=== PATIENT | female | born 1945 | race Caucasian/White ===

== ENCOUNTER 2017-01-15 17:17 | Emergency (ER) | payer MEDICARE ==
[2016-08-12 14:10] VITALS: BP 110/56
== END 2017-01-15 17:37 | disposition left against medical advice (07) ==
LOC: ER 17:17
DX: Z48.01 Encounter for change or removal of surgical wound dressing (principal); Z53.21 Procedure and treatment not carried out due to patient leaving prior to being seen by health care provider

== ENCOUNTER 2017-03-14 16:15 | Emergency (ER) | payer MEDICARE ==
[2017-03-14] MEDS ORDERED: LIDOCAINE 1%/EPI 1:100,000 20 ML VIAL. INJ ONE (16:30)
[2017-03-14] MEDS ORDERED: DIPHTH,PERTUSS(ACELL),TET TOX 0.5 ML DISP.SYRIN. VAX IM ONE (16:30)
[2017-03-14 16:41] VITALS: BP 151/89
--- NOTE | 2017-03-14 17:40 | RAD ---
INDICATION: pain s/p fall COMPARISON: None. TECHNIQUE: Axial CT images obtained through the head and cervical spine without intravenous contrast. Coronal and sagittal reformats processed of cervical spine. One or more of the following individualized dose reduction techniques were utilized for this examination: 1. Automated exposure control; 2. Adjustment of the mA and/or kV according to patient size; 3. Use of iterative reconstruction technique. FINDINGS: Head: No intracranial hemorrhage. No midline shift. Basal cisterns patents. Ventricles and sulci are within normal limits. No acute osseous abnormality. Orbits and paranasal sinuses unremarkable. Cervical: No definite acute fracture. No significant malalignment. No evidence of perivertebral hematoma. IMPRESSION: No acute intracranial hemorrhage. Large left posterior scalp cephalohematoma. Scattered foci of low attenuation within the white matter. Nonspecific but can be seen with chronic small vessel ischemic disease. No definite acute fracture or dislocation of the cervical spine. Degenerative changes spine. There are some calcifications in the thyroid bilaterally. Electronically signed by: Kofi Carvajal MD (03/14/2017 5:37 PM)
--- NOTE | 2017-03-14 17:43 | PHYS DOC ---
Past Medical History Past Medical History: A-Fib, Constipation, Hypertension, Other Additional Past Medical Histor: morbid obesity, poor wound healing, chronic pain, narcotic dependency Past Surgical History: Cholecystectomy, Hysterectomy, Tonsillectomy, Other Additional Past Surgical Histo: traumatic L grt toe amputation, Alcohol Use: None Drug Use: None Adult General Chief Complaint Chief Complaint: MECHANICAL FALL HPI HPI Patient is a 71 year old female presenting emergency department for evaluation of head injury status post losing her footing and falling backwards and striking her left parietal area. She denies any loss of consciousness but does have headache with some neck pain but no vision change unilateral weakness numbness or tingling. She says her tetanus status is uncertain so her tetanus was updated here. His any chest abdomen back or extremity pain. She is in no obvious distress with normal vital signs. Review of Systems Review of Systems Constitutional: Denies fever or chills [] Eyes: Denies change in visual acuity, redness, or eye pain [] HENT: Denies nasal congestion or sore throat [] Respiratory: Denies cough or shortness of breath [] Cardiovascular: No additional information not addressed in HPI [] GI: Denies abdominal pain, nausea, vomiting, bloody stools or diarrhea [] : Denies dysuria or hematuria [] Musculoskeletal: Denies back pain or joint pain [] Integument: Denies rash or skin lesions [] Neurologic: + headache Current Medications Current Medications Current Medications Medications (Trade) Dose Ordered Sig/Franki Start Time Stop Time Status Last Admin Dose Admin Diphtheria/ Tetanus/Acell Pertussis (Boostrix) 0.5 ml ONCE ONCE 03/14/17 16:30 03/14/17 16:31 DC Lidocaine/ Epinephrine (Xylocaine 1%-Epi 1:100,000) 20 ml 1X ONCE 03/14/17 16:30 03/14/17 16:31 DC Allergies Allergies Allergies Coded Allergies Type Severity Reaction Last Updated Verified digoxin Allergy Unknown 04/24/15 No shellfish derived Allergy Unknown 04/24/15 No Physical Exam Physical Exam Constitutional: Well developed, well nourished, no acute distress, non-toxic appearance. [] HENT: Normocephalic, large left posterior parietal contusion with overlying abrasion in no obvious laceration seen, bilateral external ears normal, oropharynx moist, no oral exudates, nose normal. [] Eyes: PERRLA, EOMI, conjunctiva normal, no discharge. [] Neck: Normal range of motion, no tenderness, supple, no stridor. [] Cardiovascular:Heart rate regular rhythm, no murmur [] Lungs & Thorax: Bilateral breath sounds clear to auscultation [] Abdomen: Bowel sounds normal, soft, no tenderness, no masses, no pulsatile masses. [] Skin: Warm, dry, no erythema, no rash. [] Back: No tenderness, no CVA tenderness. [] Extremities: No tenderness, no cyanosis, no clubbing, ROM intact, no edema. [] Neurologic: Alert and oriented X 3, normal motor function, normal sensory function, no focal deficits noted. [] Current Patient Data Vital Signs Vital Signs Date Time Temp Pulse Resp B/P (MAP) Pulse Ox O2 Delivery O2 Flow Rate FiO2 03/14/17 16:15 98.8 91 17 170/66 (100) 90 Room Air 98.8 EKG EKG [] Radiology/Procedures Radiology/Procedures INDICATION: pain s/p fall COMPARISON: None. TECHNIQUE: Axial CT images obtained through the head and cervical spine without intravenous contrast. Coronal and sagittal reformats processed of cervical spine. One or more of the following individualized dose reduction techniques were utilized for this examination: 1. Automated exposure control; 2. Adjustment of the mA and/or kV according to patient size; 3. Use of iterative reconstruction technique. FINDINGS: Head: No intracranial hemorrhage. No midline shift. Basal cisterns patents. Ventricles and sulci are within normal limits. No acute osseous abnormality. Orbits and paranasal sinuses unremarkable. Cervical: No definite acute fracture. No significant malalignment. No evidence of perivertebral hematoma. IMPRESSION: No acute intracranial hemorrhage. Large left posterior scalp cephalohematoma. Scattered foci of low attenuation within the white matter. Nonspecific but can be seen with chronic small vessel ischemic disease. No definite acute fracture or dislocation of the cervical spine. Degenerative changes spine. There are some calcifications in the thyroid bilaterally. Electronically signed by: Wendy Carvajal MD (03/14/2017 5:37 PM) DICTATED and SIGNED BY: WENDY CARVAJAL MD DATE: 03/14/17 8682 Course & Med Decision Making Course & Med Decision Making Patient with contusion an overlying abrasion and no active bleeding. Given her head CT is negative we'll go ahead and discharged with concussion protocol and told to come back to the ER sooner with any worsening pain bleeding or general concerns. Patient and son aware and agreeable with plan. Dragon Disclaimer Dragon Disclaimer This electronic medical record was generated, in whole or in part, using a voice recognition dictation system. Departure Departure Impression: Primary Impression: CHI (closed head injury) Additional Impressions: Scalp contusion Scalp abrasion Disposition: HOME, SELF-CARE Condition: GOOD Referrals: SALVATORE HYDE MD (PCP) Patient Instructions: Concussion and Brain Injury, Scalp Hematoma Problem Qualifiers Primary Impression: CHI (closed head injury) Encounter type: initial encounter Qualified Codes: S09.90XA - Unspecified injury of head, initial encounter CHRISTINA GILMORE DO Mar 14, 2017 17:43
== END 2017-03-14 19:00 | disposition home or self-care (01) ==
LOC: ER 16:15
DX: S00.03XA Contusion of scalp, initial encounter (principal); S00.01XA Abrasion of scalp, initial encounter; I48.91 Unspecified atrial fibrillation; I10 Essential (primary) hypertension; E66.01 Morbid (severe) obesity due to excess calories; G89.29 Other chronic pain; Z90.49 Acquired absence of other specified parts of digestive tract; Z90.710 Acquired absence of both cervix and uterus; Z89.412 Acquired absence of left great toe; Z88.8 Allergy status to other drugs, medicaments and biological substances; Z91.013 Allergy to seafood; W01.198A Fall on same level from slipping, tripping and stumbling with subsequent striking against other object, initial encounter; Y93.89 Activity, other specified; Y92.89 Other specified places as the place of occurrence of the external cause; Y99.8 Other external cause status
CPT/HCPCS: 70450; 72125; 90471; 90715; 99284-25

== ENCOUNTER 2017-11-19 15:05 | Emergency (ER) | payer MEDICARE ==
[2017-11-19] MEDS ORDERED: chlordiazePOXIDE HCL 25 MG CAPSULE PO ×2 (18:30)
== END 2017-11-19 18:23 | disposition home or self-care (01) ==
LOC: ER 15:05
DX: T80.211A Bloodstream infection due to central venous catheter, initial encounter (principal); G89.29 Other chronic pain; I10 Essential (primary) hypertension; I48.91 Unspecified atrial fibrillation; E66.01 Morbid (severe) obesity due to excess calories; Z88.8 Allergy status to other drugs, medicaments and biological substances; Z91.041 Radiographic dye allergy status; Z91.013 Allergy to seafood; Z95.9 Presence of cardiac and vascular implant and graft, unspecified; Z68.41 Body mass index [BMI] 40.0-44.9, adult; Y82.8 Other medical devices associated with adverse incidents; Y92.89 Other specified places as the place of occurrence of the external cause
CPT/HCPCS: 99283

== ENCOUNTER → 2017-11-20 | Outpatient (CLI) | payer MEDICARE | END | disposition home or self-care (01) | LOC: PMGWOUND 11:58 | DX: T87.89 Other complications of amputation stump (principal); I87.2 Venous insufficiency (chronic) (peripheral); L97.521 Non-pressure chronic ulcer of other part of left foot limited to breakdown of skin; I48.91 Unspecified atrial fibrillation; M86.8X7 Other osteomyelitis, ankle and foot; K21.9 Gastro-esophageal reflux disease without esophagitis; F11.20 Opioid dependence, uncomplicated; J45.901 Unspecified asthma with (acute) exacerbation; I27.20 Pulmonary hypertension, unspecified; Z96.642 Presence of left artificial hip joint; I73.9 Peripheral vascular disease, unspecified; E66.01 Morbid (severe) obesity due to excess calories; F32.9 Major depressive disorder, single episode, unspecified; I11.0 Hypertensive heart disease with heart failure; G89.4 Chronic pain syndrome; F41.9 Anxiety disorder, unspecified; I50.33 Acute on chronic diastolic (congestive) heart failure; E78.5 Hyperlipidemia, unspecified; Z68.41 Body mass index [BMI] 40.0-44.9, adult; Z90.710 Acquired absence of both cervix and uterus; Z89.412 Acquired absence of left great toe; Y83.5 Amputation of limb(s) as the cause of abnormal reaction of the patient, or of later complication, without mention of misadventure at the time of the procedure | CPT/HCPCS: 97605 ==

== ENCOUNTER → 2017-11-24 | Outpatient (CLI) | payer MEDICARE ==
[~2017-11-24] MED LIST: HEPARIN for IV BOLUS 10,000 UNIT/10 ML VIAL.; LIDOCAINE 2%/EPI 1:100,000 20 ML VIAL.; LIDOCAINE WITH 8.4% SOD BICARB 3 ML DISP.SYRIN.
[2017-11-24] MEDS: LIDOCAINE WITH 8.4% SOD BICARB 3 ML DISP.SYRIN. IJ ×4 (09:49→10:02)
== END | disposition home or self-care (01) ==
LOC: INTRAD 09:01
DX: T82.594A Other mechanical complication of infusion catheter, initial encounter (principal); Y84.8 Other medical procedures as the cause of abnormal reaction of the patient, or of later complication, without mention of misadventure at the time of the procedure; Y92.89 Other specified places as the place of occurrence of the external cause; I10 Essential (primary) hypertension; J45.909 Unspecified asthma, uncomplicated; Z90.49 Acquired absence of other specified parts of digestive tract; Z88.8 Allergy status to other drugs, medicaments and biological substances; Z91.041 Radiographic dye allergy status; Z91.013 Allergy to seafood
CPT/HCPCS: 36584; 77001; C1751

== ENCOUNTER → 2017-12-01 | Outpatient (CLI) | payer MEDICARE | END | disposition home or self-care (01) | LOC: PMGWOUND 11:52 | DX: T87.89 Other complications of amputation stump (principal); I87.2 Venous insufficiency (chronic) (peripheral); L97.521 Non-pressure chronic ulcer of other part of left foot limited to breakdown of skin; M86.8X7 Other osteomyelitis, ankle and foot; K21.9 Gastro-esophageal reflux disease without esophagitis; F11.20 Opioid dependence, uncomplicated; I27.20 Pulmonary hypertension, unspecified; I73.9 Peripheral vascular disease, unspecified; E66.01 Morbid (severe) obesity due to excess calories; F32.9 Major depressive disorder, single episode, unspecified; I11.0 Hypertensive heart disease with heart failure; G89.4 Chronic pain syndrome; J44.1 Chronic obstructive pulmonary disease with (acute) exacerbation; F41.9 Anxiety disorder, unspecified; I48.2 Chronic atrial fibrillation; I50.33 Acute on chronic diastolic (congestive) heart failure; E78.5 Hyperlipidemia, unspecified; Z68.41 Body mass index [BMI] 40.0-44.9, adult; Z90.710 Acquired absence of both cervix and uterus; Z96.642 Presence of left artificial hip joint; Z95.9 Presence of cardiac and vascular implant and graft, unspecified; Z89.412 Acquired absence of left great toe; Y83.5 Amputation of limb(s) as the cause of abnormal reaction of the patient, or of later complication, without mention of misadventure at the time of the procedure | CPT/HCPCS: 11042 ==

== ENCOUNTER → 2017-12-08 | Outpatient (CLI) | payer MEDICARE | END | disposition home or self-care (01) | LOC: PMGWOUND 11:53 | DX: T87.89 Other complications of amputation stump (principal); I87.2 Venous insufficiency (chronic) (peripheral); M86.8X7 Other osteomyelitis, ankle and foot; K21.9 Gastro-esophageal reflux disease without esophagitis; F11.20 Opioid dependence, uncomplicated; I27.20 Pulmonary hypertension, unspecified; I73.9 Peripheral vascular disease, unspecified; E66.01 Morbid (severe) obesity due to excess calories; F32.9 Major depressive disorder, single episode, unspecified; I11.0 Hypertensive heart disease with heart failure; I50.33 Acute on chronic diastolic (congestive) heart failure; G89.4 Chronic pain syndrome; J44.1 Chronic obstructive pulmonary disease with (acute) exacerbation; F41.9 Anxiety disorder, unspecified; I48.2 Chronic atrial fibrillation; E78.5 Hyperlipidemia, unspecified; Z68.41 Body mass index [BMI] 40.0-44.9, adult; Z90.710 Acquired absence of both cervix and uterus; Z96.642 Presence of left artificial hip joint; Z95.9 Presence of cardiac and vascular implant and graft, unspecified; Z89.412 Acquired absence of left great toe; Y83.5 Amputation of limb(s) as the cause of abnormal reaction of the patient, or of later complication, without mention of misadventure at the time of the procedure; Z79.01 Long term (current) use of anticoagulants | CPT/HCPCS: 11042 ==

== ENCOUNTER → 2017-12-15 | Outpatient (CLI) | payer MEDICARE | END | disposition home or self-care (01) | LOC: PMGWOUND 11:14 | DX: T87.89 Other complications of amputation stump (principal); I87.2 Venous insufficiency (chronic) (peripheral); L97.521 Non-pressure chronic ulcer of other part of left foot limited to breakdown of skin; M86.8X7 Other osteomyelitis, ankle and foot; K21.9 Gastro-esophageal reflux disease without esophagitis; F11.20 Opioid dependence, uncomplicated; I27.20 Pulmonary hypertension, unspecified; I73.9 Peripheral vascular disease, unspecified; E66.01 Morbid (severe) obesity due to excess calories; F32.9 Major depressive disorder, single episode, unspecified; I11.0 Hypertensive heart disease with heart failure; I50.33 Acute on chronic diastolic (congestive) heart failure; G89.4 Chronic pain syndrome; J44.1 Chronic obstructive pulmonary disease with (acute) exacerbation; F41.9 Anxiety disorder, unspecified; I48.2 Chronic atrial fibrillation; E78.5 Hyperlipidemia, unspecified; Z68.41 Body mass index [BMI] 40.0-44.9, adult; Z90.710 Acquired absence of both cervix and uterus; Z96.642 Presence of left artificial hip joint; Z95.9 Presence of cardiac and vascular implant and graft, unspecified; Z89.412 Acquired absence of left great toe; Z79.01 Long term (current) use of anticoagulants; F17.290 Nicotine dependence, other tobacco product, uncomplicated; Y83.5 Amputation of limb(s) as the cause of abnormal reaction of the patient, or of later complication, without mention of misadventure at the time of the procedure | CPT/HCPCS: 99213 ==

== ENCOUNTER → 2017-12-22 | Outpatient (CLI) | payer MEDICARE | END | disposition home or self-care (01) | LOC: PMGWOUND 12:59 | DX: T87.89 Other complications of amputation stump (principal); M86.8X7 Other osteomyelitis, ankle and foot; K21.9 Gastro-esophageal reflux disease without esophagitis; F11.20 Opioid dependence, uncomplicated; I27.20 Pulmonary hypertension, unspecified; I73.9 Peripheral vascular disease, unspecified; E66.01 Morbid (severe) obesity due to excess calories; F32.9 Major depressive disorder, single episode, unspecified; I11.0 Hypertensive heart disease with heart failure; I50.33 Acute on chronic diastolic (congestive) heart failure; G89.4 Chronic pain syndrome; J44.1 Chronic obstructive pulmonary disease with (acute) exacerbation; F41.9 Anxiety disorder, unspecified; I48.2 Chronic atrial fibrillation; E78.5 Hyperlipidemia, unspecified; Z68.41 Body mass index [BMI] 40.0-44.9, adult; Z90.710 Acquired absence of both cervix and uterus; Z96.642 Presence of left artificial hip joint; Z95.9 Presence of cardiac and vascular implant and graft, unspecified; Z89.412 Acquired absence of left great toe; Z79.01 Long term (current) use of anticoagulants; F17.290 Nicotine dependence, other tobacco product, uncomplicated; Y83.5 Amputation of limb(s) as the cause of abnormal reaction of the patient, or of later complication, without mention of misadventure at the time of the procedure | CPT/HCPCS: 99214 ==

== ENCOUNTER 2018-05-27 17:26 | Emergency (ER) | payer MEDICARE ==
[~2018-05-27] VITALS: Ht 180.3 cm; Wt 132.4 kg
[~2018-05-27 17:26] MED LIST changes: +ALBU2.5V5 NEB; +ALPR0.5T6 PO; +ASCO500T2 PO; +ASPI-482 PO; +ASPI325T11 PO; +BENZ1LOZ4 PO; +CETI10TA16 PO; +DIPH25CA58 PO; +DOCU100C28 PO; +FAMO20TA5 PO; +FLUT16SP NS; +FURO40TA4 PO; +GUAI600T47 PO; -HEPARIN for IV BOLUS 10,000 UNIT/10 ML VIAL.; +HYDR25TA9 PO; +IBUP-1027 PO; +IBUP-985 PO; +LACT1CAP19 PO; -LIDOCAINE 2%/EPI 1:100,000 20 ML VIAL.; -LIDOCAINE WITH 8.4% SOD BICARB 3 ML DISP.SYRIN.; +LISI1TAB3 PO; +METH10TA2 PO; +METO50TA6 PO; +MULT1TAB52 PO; +NYST60PO TP; +OXYC-328 PO; +PIPE3.3734 IVP; +POTA10TA12 PO; +SIME80TA14 PO; +TIZA4CAP PO; +VANC1VIA3 MC; +WARF2TAB96 PO; +WARF3TAB54 PO
[2018-05-27 19:08] VITALS: BP 138/72
[2018-05-27] MEDS ORDERED: HYDROcodone/APAP 5/325MG 1 TAB TABLET PO ONE (19:30)
[2018-05-27] MEDS ORDERED: HYDR-971 PO (19:55)
--- NOTE | 2018-05-27 19:56 | PHYS DOC ---
Past Medical History Past Medical History: A-Fib, Constipation, Hypertension, Other Additional Past Medical Histor: morbid obesity, poor wound healing, chronic pain, narcotic dependency Past Surgical History: Cholecystectomy, Hysterectomy, Tonsillectomy, Other Additional Past Surgical Histo: traumatic L grt toe amputation, Alcohol Use: None Drug Use: None Adult General Chief Complaint Chief Complaint: MECHANICAL FALL HPI HPI Patient is a 72 year old female presents to the ED complaining of pain status post slip and fall 3 hours ago. Patient states that she was transferring from her wheelchair to her bed and accidentally slid down the wheelchair onto the floor. States she had been taking hydrocodone at home but is out. Requesting prescription for pain medication to help her. States that she just slid to the ground and did not slam or fall to the ground during the transfer. States she has done this before. Denies head/neck injury, LOC, vision changes, symptoms prior to fall, nausea/vomiting, fever, weakness, dizziness or use of blood thinners. Review of Systems Review of Systems Constitutional: Denies fever or chills [] Eyes: Denies change in visual acuity, redness, or eye pain [] HENT: Denies nasal congestion or sore throat [] Respiratory: Denies cough or shortness of breath [] Cardiovascular: No additional information not addressed in HPI [] GI: Denies abdominal pain, nausea, vomiting, bloody stools or diarrhea [] : Denies dysuria or hematuria [] Musculoskeletal: Complains of hip pain. Denies back pain. Integument: Denies rash or skin lesions [] Neurologic: Denies headache, focal weakness or sensory changes [] All other systems were reviewed and found to be within normal limits, except as documented in this note. Current Medications Current Medications Current Medications Medications (Trade) Dose Ordered Sig/Franki Start Time Stop Time Status Last Admin Dose Admin Acetaminophen/ Hydrocodone Bitart (Lortab 5/325) 1 tab 1X ONCE 05/27/18 19:30 05/27/18 19:32 DC 05/27/18 20:01 1 TAB Allergies Allergies Allergies Coded Allergies Type Severity Reaction Last Updated Verified shellfish derived Allergy Severe 10/23/17 Yes Iodinated Contrast- Oral and IV Dye Allergy Intermediate 10/23/17 Yes digoxin Allergy Intermediate 10/23/17 Yes Physical Exam Physical Exam Constitutional: Well developed, well nourished, no acute distress, non-toxic appearance. [] HENT: Normocephalic, atraumatic Neck: Normal range of motion, no tenderness, supple, no stridor. [] Cardiovascular:Heart rate regular rhythm, no murmur [] Lungs & Thorax: Bilateral breath sounds clear to auscultation [] Abdomen: Bowel sounds normal, soft, no tenderness, no masses, no pulsatile masses. [] Skin: Warm, dry, no erythema, no rash. [] Back: No tenderness, no CVA tenderness. [] Extremities: No bony tenderness, no cyanosis, no clubbing, ROM intact, no edema. [] Neurologic: Alert and oriented X 3, normal motor function, normal sensory function, no focal deficits noted. [] Psychologic: Affect normal, judgement normal, mood normal. [] Current Patient Data Vital Signs Vital Signs Date Time Temp Pulse Resp B/P (MAP) Pulse Ox O2 Delivery O2 Flow Rate FiO2 05/27/18 20:01 98 Room Air 05/27/18 19:08 98.8 97 20 138/72 (94) 98.8 EKG EKG [] Radiology/Procedures Radiology/Procedures [] Course & Med Decision Making Course & Med Decision Making Pertinent Labs and Imaging studies reviewed. (See chart for details) []Normal exam. No bony tenderness. Patient able to stand up and walk per her normal. Family at bedside. Will prescribe 3 days of patient's pain medication. Discussed follow-up with PCP this week. Provided contact information/education. Discussed reasons to return to the ED. Patient understands and agrees with plan. Family at bedside. Dragon Disclaimer Dragon Disclaimer This electronic medical record was generated, in whole or in part, using a voice recognition dictation system. Departure Departure Impression: Primary Impression: Hip pain Disposition: HOME, SELF-CARE Condition: IMPROVED Referrals: SALVATORE HYDE MD (PCP) Patient Instructions: Hip Pain Scripts Hydrocodone/Apap 5-325 (NORCO 5-325 TABLET) 1 Each Tablet 1 TAB PO BID for 3 Days, #6 TAB Prov: VANGIE RASCON 05/27/18 VANGIE RASCON May 27, 2018 19:55
== END 2018-05-27 20:01 | disposition home or self-care (01) ==
LOC: ER 17:26
DX: M25.552 Pain in left hip (principal); M25.551 Pain in right hip; I48.91 Unspecified atrial fibrillation; I10 Essential (primary) hypertension; G89.29 Other chronic pain; Z90.49 Acquired absence of other specified parts of digestive tract; Z90.710 Acquired absence of both cervix and uterus; F11.20 Opioid dependence, uncomplicated; Z88.8 Allergy status to other drugs, medicaments and biological substances; Z91.041 Radiographic dye allergy status; Z91.013 Allergy to seafood; W05.0XXA Fall from non-moving wheelchair, initial encounter; Y93.89 Activity, other specified; Y92.89 Other specified places as the place of occurrence of the external cause; Y99.8 Other external cause status
CPT/HCPCS: 99284

== ENCOUNTER 2018-06-05 23:26 | Emergency (ER) | payer MEDICARE ==
[~2018-06-05] VITALS: Ht 180.3 cm; Wt 113.4 kg
[~2018-06-05 23:26] MED LIST changes: +HYDR-971 PO
[2018-06-05 23:37] VITALS: BP 168/88
[2018-06-05] MEDS ORDERED: HYDROcodone/APAP 5/325MG 1 TAB TABLET PO ONE (23:55)
[2018-06-06] MEDS ORDERED: SULF1TAB24 PO (00:11)
--- NOTE | 2018-06-06 00:11 | PHYS DOC ---
Past Medical History Past Medical History: A-Fib, Constipation, Hypertension, Other Additional Past Medical Histor: morbid obesity, poor wound healing, chronic pain, narcotic dependency Past Surgical History: Cholecystectomy, Hysterectomy, Tonsillectomy, Other Additional Past Surgical Histo: traumatic L grt toe amputation, Alcohol Use: None Drug Use: None Adult General Chief Complaint Chief Complaint: LOWER EXT PAIN HPI HPI Patient is a 72-year-old female who presents with report of ulceration to her right foot. Patient has been seeing wound care and when her sister came to change her dressing, she noted that skin had turned white in color and was concerned about infection. Patient does indicate that she has a lot of pain associated with the wound on her foot. She denies any fever. She states the pain in her foot is worsened with weightbearing and with palpation. Review of Systems Review of Systems Constitutional: Denies fever or chills [] Respiratory: Denies cough or shortness of breath [] Musculoskeletal: Complains of right foot pain[] Integument: Ulceration to medial aspect of right foot[] All other systems were reviewed and found to be within normal limits, except as documented in this note. Current Medications Current Medications Current Medications Medications (Trade) Dose Ordered Sig/Franki Start Time Stop Time Status Last Admin Dose Admin Acetaminophen/ Hydrocodone Bitart (Lortab 5/325) 1 tab 1X ONCE 06/05/18 23:55 06/05/18 23:59 DC Allergies Allergies Allergies Coded Allergies Type Severity Reaction Last Updated Verified shellfish derived Allergy Severe 10/23/17 Yes Iodinated Contrast- Oral and IV Dye Allergy Intermediate 10/23/17 Yes digoxin Allergy Intermediate 10/23/17 Yes Physical Exam Physical Exam Constitutional: Well developed, well nourished, no acute distress, non-toxic appearance. [] Neck: Normal range of motion, no tenderness, supple, no stridor. [] Cardiovascular:Heart rate regular rhythm, no murmur [] Lungs & Thorax: Bilateral breath sounds clear to auscultation [] Skin: Right foot demonstrates ulceration to the medial aspect around the metatarsophalangeal joint, medially. There is no surrounding erythema or other signs of infection. [] Current Patient Data Vital Signs Vital Signs Date Time Temp Pulse Resp B/P (MAP) Pulse Ox O2 Delivery O2 Flow Rate FiO2 06/05/18 23:37 98.3 86 20 168/88 (114) 98 Room Air 98.3 EKG EKG [] Radiology/Procedures Radiology/Procedures [] Course & Med Decision Making Course & Med Decision Making Pertinent Labs and Imaging studies reviewed. (See chart for details) [] Dragon Disclaimer Dragon Disclaimer This electronic medical record was generated, in whole or in part, using a voice recognition dictation system. Departure Departure Impression: Primary Impression: Foot ulcer, right Disposition: HOME, SELF-CARE Condition: STABLE Referrals: SALVATORE HYDE MD (PCP) Patient Instructions: Skin Ulcer Additional Instructions: Follow-up with your primary care provider in the next few days. Take antibiotic as directed. Scripts Sulfamethoxazole/Trimethoprim (BACTRIM DS TABLET) 1 Each Tablet 1 TAB PO BID, #20 TAB Prov: ERNIE WILLIAMSON Jr. DO 06/06/18 Problem Qualifiers Primary Impression: Foot ulcer, right Non-pressure ulcer stage: unspecified non-pressure ulcer stage Qualified Codes: L97.519 - Non-pressure chronic ulcer of other part of right foot with unspecified severity ERNIE WILLIAMSON Jr. DO Jun 06, 2018 00:11
[2018-06-06] MEDS ORDERED: TRAM50TA PO (00:14)
== END 2018-06-06 00:23 | disposition home or self-care (01) ==
LOC: ER 23:26
DX: L97.519 Non-pressure chronic ulcer of other part of right foot with unspecified severity (principal); I10 Essential (primary) hypertension; I48.91 Unspecified atrial fibrillation; G89.29 Other chronic pain; Z89.422 Acquired absence of other left toe(s); F11.20 Opioid dependence, uncomplicated; Z88.8 Allergy status to other drugs, medicaments and biological substances; Z91.041 Radiographic dye allergy status; Z91.013 Allergy to seafood
CPT/HCPCS: 99283

== ENCOUNTER → 2018-06-11 | Outpatient (CLI) | payer MEDICARE ==
[2018-06-05 23:37] VITALS: BP 168/88
[~2018-06-11] MED LIST changes: +SULF1TAB24 PO; +TRAM50TA PO
== END | disposition home or self-care (01) ==
LOC: PMGWOUND 13:14
PROVIDERS: ATTEND Emergency Medicine Undersea and Hyperbaric Medicine
DX: L89.212 Pressure ulcer of right hip, stage 2 (principal); L89.893 Pressure ulcer of other site, stage 3; I10 Essential (primary) hypertension; K21.9 Gastro-esophageal reflux disease without esophagitis; F11.20 Opioid dependence, uncomplicated; I48.91 Unspecified atrial fibrillation; M86.172 Other acute osteomyelitis, left ankle and foot; E66.9 Obesity, unspecified; Z68.34 Body mass index [BMI] 34.0-34.9, adult; Z89.422 Acquired absence of other left toe(s); Z90.710 Acquired absence of both cervix and uterus; Z90.49 Acquired absence of other specified parts of digestive tract; Z91.041 Radiographic dye allergy status; Z88.2 Allergy status to sulfonamides; Z88.8 Allergy status to other drugs, medicaments and biological substances
CPT/HCPCS: 11042

== ENCOUNTER → 2018-06-18 | Outpatient (CLI) | payer MEDICARE ==
[2018-06-05 23:37] VITALS: BP 168/88
== END | disposition home or self-care (01) ==
LOC: PMGWOUND 12:17
PROVIDERS: ATTEND Emergency Medicine Undersea and Hyperbaric Medicine
DX: L89.893 Pressure ulcer of other site, stage 3 (principal); L89.613 Pressure ulcer of right heel, stage 3; L89.312 Pressure ulcer of right buttock, stage 2; I10 Essential (primary) hypertension; F11.20 Opioid dependence, uncomplicated; I48.91 Unspecified atrial fibrillation; M86.172 Other acute osteomyelitis, left ankle and foot; K21.9 Gastro-esophageal reflux disease without esophagitis; G89.29 Other chronic pain; E66.9 Obesity, unspecified; Z68.34 Body mass index [BMI] 34.0-34.9, adult; Z90.710 Acquired absence of both cervix and uterus; Z90.49 Acquired absence of other specified parts of digestive tract; Z88.8 Allergy status to other drugs, medicaments and biological substances
CPT/HCPCS: 11042; 99214; G0463

== ENCOUNTER 2018-07-08 17:49 | Emergency (ER) | payer MEDICARE ==
[~2018-07-08] VITALS: Ht 175.3 cm; Wt 99.8 kg
[2018-07-08 18:19] VITALS: BP 139/63
[2018-07-08] MEDS ORDERED: OXYC1TAB7 PO (18:30)
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
== END 2018-07-08 18:46 | disposition home or self-care (01) ==
LOC: ER 17:49
DX: G89.29 Other chronic pain (principal); M25.552 Pain in left hip; F11.20 Opioid dependence, uncomplicated; E66.01 Morbid (severe) obesity due to excess calories; Z68.32 Body mass index [BMI] 32.0-32.9, adult; Z88.8 Allergy status to other drugs, medicaments and biological substances; Z91.041 Radiographic dye allergy status; Z91.013 Allergy to seafood
CPT/HCPCS: 99283

== ENCOUNTER → 2018-07-13 | Outpatient (CLI) | payer MEDICARE ==
[2018-07-08 18:19] VITALS: BP 139/63
[~2018-07-13] MED LIST changes: +OXYC1TAB7 PO
== END | disposition home or self-care (01) ==
LOC: PMGWOUND 12:29
PROVIDERS: ATTEND Emergency Medicine Undersea and Hyperbaric Medicine
DX: L89.893 Pressure ulcer of other site, stage 3 (principal); L89.312 Pressure ulcer of right buttock, stage 2; L84 Corns and callosities; I10 Essential (primary) hypertension; F17.200 Nicotine dependence, unspecified, uncomplicated; I48.91 Unspecified atrial fibrillation; G89.29 Other chronic pain; M86.172 Other acute osteomyelitis, left ankle and foot; K21.9 Gastro-esophageal reflux disease without esophagitis; E66.01 Morbid (severe) obesity due to excess calories; Z68.34 Body mass index [BMI] 34.0-34.9, adult; Z90.49 Acquired absence of other specified parts of digestive tract; Z90.710 Acquired absence of both cervix and uterus
CPT/HCPCS: 11042

== ENCOUNTER 2018-08-06 14:30 | Emergency (ER) | payer MEDICARE ==
[~2018-08-06] VITALS: Ht 165.1 cm; Wt 99.8 kg
[2018-08-06 14:50] VITALS: BP 135/63
[2018-08-06] MEDS ORDERED: NAPROXEN 500 MG TABLET PO STA (15:08)
--- NOTE | 2018-08-06 15:11 | PHYS DOC ---
Past Medical History Past Medical History: No Pertinent History Additional Past Medical Histor: morbid obesity, poor wound healing, chronic pain, narcotic dependency Past Surgical History: Cholecystectomy, Hysterectomy, Tonsillectomy, Other Additional Past Surgical Histo: traumatic L grt toe amputation, Alcohol Use: None Drug Use: None Adult General Chief Complaint Chief Complaint: HIP PAIN HPI HPI Patient is a 72 year old female who presents with 10/10 chronic left hip pain. Patient states she ran out of her pain medications. She states she has an appointment with her PCP in a couple days. Patient denies any known injury. Review of Systems Review of Systems Constitutional: Denies fever or chills [] Musculoskeletal: Reports chronic left hip pain. Integument: Denies rash or skin lesions [] Neurologic: Denies headache, focal weakness or sensory changes [] All other systems were reviewed and found to be within normal limits, except as documented in this note. Current Medications Current Medications Current Medications Medications (Trade) Dose Ordered Sig/Franki Start Time Stop Time Status Last Admin Dose Admin Cyclobenzaprine HCl (Flexeril) 10 mg 1X ONCE 08/06/18 15:15 08/06/18 15:16 Naproxen (Naprosyn) 500 mg 1X STAT 08/06/18 15:08 08/06/18 15:12 DC Oxycodone/ Acetaminophen (Percocet 5/325) 2 tab 1X ONCE 08/06/18 15:15 08/06/18 15:16 Allergies Allergies Allergies Coded Allergies Type Severity Reaction Last Updated Verified shellfish derived Allergy Severe 10/23/17 Yes Iodinated Contrast- Oral and IV Dye Allergy Intermediate 10/23/17 Yes digoxin Allergy Intermediate 10/23/17 Yes Physical Exam Physical Exam Constitutional: Well developed, well nourished, no acute distress, non-toxic appearance. [] Skin: Warm, dry, no erythema, no rash. [] Back: No tenderness, no CVA tenderness. [] Extremities: Left hip exam deferred, patient is wheelchair-bound.[] Neurologic: Alert and oriented X 3, normal motor function, normal sensory function, no focal deficits noted. [] Psychologic: Affect normal, judgement normal, mood normal. [] EKG EKG [] Radiology/Procedures Radiology/Procedures [] Course & Med Decision Making Course & Med Decision Making Pertinent Labs and Imaging studies reviewed. (See chart for details) This is a 72-year-old female patient presented to the ED today with chronic left hip pain. No known injury. Patient was discharged with instructions to follow-up with PCP. Provided return precautions and discharged in stable condition. Dragon Disclaimer Dragon Disclaimer This electronic medical record was generated, in whole or in part, using a voice recognition dictation system. Departure Departure Impression: Primary Impression: Chronic left hip pain Disposition: HOME, SELF-CARE Condition: STABLE Referrals: SALVATORE HYDE MD (PCP) Follow-up as soon as possible Patient Instructions: Hip Pain Additional Instructions: You were seen for chronic hip pain. Follow-up with your own doctor as soon as you can. Scripts Oxycodone/Apap 5-325 (PERCOCET 5-325 MG TABLET) 1 Each Tablet 1 TAB PO Q4-6HRS PRN for PAIN, #6 TAB Prov: CHARLES SERRATO APRN 08/06/18 CHARLES SERRATO APRN Aug 06, 2018 15:10
[2018-08-06] MEDS ORDERED: oxyCODONE/APAP 5/325 1 TAB TABLET PO ONE (15:15)
[2018-08-06] MEDS ORDERED: CYCLOBENZAPRINE 10 MG TABLET. PO ONE (15:15)
[2018-08-06] MEDS ORDERED: OXYC-323 PO (15:17)
== END 2018-08-06 15:33 | disposition home or self-care (01) ==
LOC: ER 14:30
DX: G89.29 Other chronic pain (principal); M25.552 Pain in left hip; F11.20 Opioid dependence, uncomplicated; E66.01 Morbid (severe) obesity due to excess calories; Z68.36 Body mass index [BMI] 36.0-36.9, adult; Z88.8 Allergy status to other drugs, medicaments and biological substances; Z91.041 Radiographic dye allergy status; Z91.013 Allergy to seafood
CPT/HCPCS: 99284

== ENCOUNTER → 2018-08-10 | Outpatient (CLI) | payer MEDICARE ==
[2018-07-08 18:19] VITALS: BP_DIAS 63
[2018-08-06 14:50] VITALS: BP_SYST 135
[~2018-08-10] MED LIST changes: +OXYC-323 PO
== END | disposition home or self-care (01) ==
LOC: PMGWOUND 11:25
PROVIDERS: ATTEND Emergency Medicine Undersea and Hyperbaric Medicine
DX: L89.893 Pressure ulcer of other site, stage 3 (principal); L89.312 Pressure ulcer of right buttock, stage 2; L84 Corns and callosities; I10 Essential (primary) hypertension; I48.91 Unspecified atrial fibrillation; G89.29 Other chronic pain; M86.172 Other acute osteomyelitis, left ankle and foot; K21.9 Gastro-esophageal reflux disease without esophagitis; E66.01 Morbid (severe) obesity due to excess calories; F17.200 Nicotine dependence, unspecified, uncomplicated; Z68.34 Body mass index [BMI] 34.0-34.9, adult; Z90.49 Acquired absence of other specified parts of digestive tract; Z90.710 Acquired absence of both cervix and uterus; Z88.8 Allergy status to other drugs, medicaments and biological substances; Z91.013 Allergy to seafood
CPT/HCPCS: 11042; 97597

== ENCOUNTER 2018-08-19 16:56 | Emergency (ER) | payer MEDICARE ==
[~2018-08-19] VITALS: Ht 181.6 cm; Wt 114.8 kg
[2018-08-19 17:09] VITALS: BP 153/63
[2018-08-19] MEDS ORDERED: SULF1TAB24 PO (17:25)
--- NOTE | 2018-08-19 17:26 | PHYS DOC ---
Past Medical History Past Medical History: A-Fib, Hypertension, Hypothyroid, Other Additional Past Medical Histor: morbid obesity, poor wound healing, chronic pain, narcotic dependency Past Surgical History: Cholecystectomy, Hysterectomy, Tonsillectomy, Other Additional Past Surgical Histo: traumatic L grt toe amputation, Alcohol Use: None Drug Use: None Adult General Chief Complaint Chief Complaint: ABSCESS HPI HPI Patient is a 72 year old female who presents with a quarter sized wound to her right breast that has a loose scab over it. Patient states she does not know how long it has been there. Denies fever, nausea, vomiting, diarrhea. Review of Systems Review of Systems Constitutional: Denies fever or chills [] Eyes: Denies change in visual acuity, redness, or eye pain [] HENT: Denies nasal congestion or sore throat [] Respiratory: Denies cough or shortness of breath [] Cardiovascular: No additional information not addressed in HPI [] GI: Denies abdominal pain, nausea, vomiting, bloody stools or diarrhea [] : Denies dysuria or hematuria [] Musculoskeletal: Denies back pain or joint pain [] Integument: Denies rash. Wound infection on right breast. [] Neurologic: Denies headache, focal weakness or sensory changes [] Endocrine: Denies polyuria or polydipsia [] All other systems were reviewed and found to be within normal limits, except as documented in this note. Current Medications Current Medications Current Medications Medications (Trade) Dose Ordered Sig/Franki Start Time Stop Time Status Last Admin Dose Admin Acetaminophen/ Hydrocodone Bitart (Lortab 5/325) 1 tab 1X ONCE 08/19/18 17:30 08/19/18 17:31 DC 08/19/18 17:39 1 TAB Allergies Allergies Allergies Coded Allergies Type Severity Reaction Last Updated Verified shellfish derived Allergy Severe 10/23/17 Yes Iodinated Contrast- Oral and IV Dye Allergy Intermediate 10/23/17 Yes digoxin Allergy Intermediate 10/23/17 Yes Physical Exam Physical Exam Constitutional: Well developed, well nourished, no acute distress, non-toxic appearance. [] HENT: Normocephalic, atraumatic, bilateral external ears normal, oropharynx moist, no oral exudates, nose normal. [] Eyes: PERRLA, EOMI, conjunctiva normal, no discharge. [] Neck: Normal range of motion, no tenderness, supple, no stridor. [] Cardiovascular:Heart rate regular rhythm, no murmur [] Lungs & Thorax: Bilateral breath sounds clear to auscultation [] Abdomen: Bowel sounds normal, soft, no tenderness, no masses, no pulsatile masses. [] Skin: Warm, dry, erythema around right breast wound, Purulent wound drainage on right breast. Quarter sized breast wound. no rash. [] Back: No tenderness, no CVA tenderness. [] Extremities: No tenderness, no cyanosis, no clubbing, ROM intact, no edema. [] Neurologic: Alert and oriented X 3, normal motor function, normal sensory function, no focal deficits noted. [] Psychologic: Affect normal, judgement normal, mood normal. [] Current Patient Data Vital Signs Vital Signs Date Time Temp Pulse Resp B/P (MAP) Pulse Ox O2 Delivery O2 Flow Rate FiO2 08/19/18 17:39 16 99 Room Air 08/19/18 17:09 98.6 68 153/63 (93) 98.6 Lab Values Laboratory Tests Test 08/19/18 17:40 White Blood Count 7.4 x10^3/uL (4.0-11.0) Red Blood Count 3.76 x10^6/uL (3.50-5.40) Hemoglobin 11.9 g/dL (12.0-15.5) L Hematocrit 35.4 % (36.0-47.0) L Mean Corpuscular Volume 94 fL (79-100) Mean Corpuscular Hemoglobin 32 pg (25-35) Mean Corpuscular Hemoglobin Concent 34 g/dL (31-37) Red Cell Distribution Width 15.0 % (11.5-14.5) H Platelet Count 268 x10^3/uL (140-400) Neutrophils (%) (Auto) 72 % (31-73) Lymphocytes (%) (Auto) 17 % (24-48) L Monocytes (%) (Auto) 9 % (0-9) Eosinophils (%) (Auto) 2 % (0-3) Basophils (%) (Auto) 1 % (0-3) Neutrophils # (Auto) 5.3 x10^3uL (1.8-7.7) Lymphocytes # (Auto) 1.3 x10^3/uL (1.0-4.8) Monocytes # (Auto) 0.7 x10^3/uL (0.0-1.1) Eosinophils # (Auto) 0.1 x10^3/uL (0.0-0.7) Basophils # (Auto) 0.0 x10^3/uL (0.0-0.2) Sodium Level 140 mmol/L (136-145) Potassium Level 3.9 mmol/L (3.5-5.1) Chloride Level 102 mmol/L (98-107) Carbon Dioxide Level 31 mmol/L (21-32) Anion Gap 7 (6-14) Blood Urea Nitrogen 30 mg/dL (7-20) H Creatinine 1.2 mg/dL (0.6-1.0) H Estimated GFR (Cockcroft-Gault) 44.3 Glucose Level 105 mg/dL (70-99) H Calcium Level 9.3 mg/dL (8.5-10.1) Laboratory Tests 08/19/18 17:40 Laboratory Tests 08/19/18 17:40 EKG EKG [] Radiology/Procedures Radiology/Procedures [] Course & Med Decision Making Course & Med Decision Making Patient is a 72 year old female who presents with a quarter sized wound to her right breast that has a loose scab over it. Patient states she does not know how long it has been there. Denies chest pain, soa, fever, nausea, vomiting, diarrhea. Lungs are clear to auscultation in all lobes. Skin around the abscess is red all the way around it the width of the redness around the scab on top of the wound is less then half a millimeter. There is purulent drainage coming from under the scab. Patient states that it is tender to touch. The breast is not swollen itself. The skin around the wound is not swollen but slightly reddened as mentioned above. He shouldn't is told that she must follow-up with her primary care in 48 hours or come back to the ED in 48 hours for a wound check. Patient is afebrile. Vital signs are 98.6, 65 heart rate, 153/63, 90% on room air. Patient's blood work is unremarkable. Patient states she has a history of A. fib, tonsillitis, hysterectomy, back surgeries, hypertension, asthma. Patient states she is allergic to contrast dye, digoxin, shellfish. Dragon Disclaimer Dragon Disclaimer This electronic medical record was generated, in whole or in part, using a voice recognition dictation system. Departure Departure Impression: Primary Impression: Abscess Disposition: 01 HOME, SELF-CARE Condition: STABLE Referrals: SALVATORE HYDE MD (PCP) Patient Instructions: Abscess Additional Instructions: Follow-up with her primary care doctor or return to the ED within 48 hours for a wound check. Take medications as prescribed. Scripts Sulfamethoxazole/Trimethoprim (BACTRIM DS TABLET) 1 Each Tablet 1 TAB PO BID, #14 TAB Prov: KRYS BRAND APRN 08/19/18 KRYS BRAND APRN Aug 19, 2018 17:26
[2018-08-19] MEDS ORDERED: HYDROcodone/APAP 5/325MG 1 TAB TABLET PO ONE (17:30)
[2018-08-19 17:54] LABS: BASO % 1 % (0-3); EOS # 0.1 x10^3/uL (0.0-0.7); EOS % 2 % (0-3); HEMATOCRIT 35.4 % (36.0-47.0); HEMOGLOBIN 11.9 g/dL (12.0-15.5); LYMPH # 1.3 x10^3/uL (1.0-4.8); LYMPH % 17 % (24-48); MEAN CORPUSCULAR HEMOGLOBIN 32 pg (25-35); MEAN CORPUSCULAR HGB CONC 34 g/dL (31-37); MEAN CORPUSCULAR VOLUME 94 fL (79-100); MONO # 0.7 x10^3/uL (0.0-1.1); MONO % 9 % (0-9); NEUT # 5.3 x10^3uL (1.8-7.7); NEUT % 72 % (31-73); PLATELET COUNT 268 x10^3/uL (140-400); RED BLOOD COUNT 3.76 x10^6/uL (3.50-5.40); WHITE BLOOD COUNT 7.4 x10^3/uL (4.0-11.0)
[2018-08-19 18:06] LABS: CALCIUM 9.3 mg/dL (8.5-10.1); CREATININE 1.2 mg/dL (0.6-1.0); GFR 44.3; POTASSIUM 3.9 mmol/L (3.5-5.1)
== END 2018-08-19 18:52 | disposition home or self-care (01) ==
LOC: ER 16:56
DX: N61.1 Abscess of the breast and nipple (principal); I48.91 Unspecified atrial fibrillation; I10 Essential (primary) hypertension; E03.9 Hypothyroidism, unspecified; G89.29 Other chronic pain; E66.01 Morbid (severe) obesity due to excess calories; Z68.34 Body mass index [BMI] 34.0-34.9, adult; Z90.49 Acquired absence of other specified parts of digestive tract; Z90.710 Acquired absence of both cervix and uterus; Z90.89 Acquired absence of other organs; Z89.412 Acquired absence of left great toe; Z88.8 Allergy status to other drugs, medicaments and biological substances; Z91.041 Radiographic dye allergy status; Z91.013 Allergy to seafood
CPT/HCPCS: 36415; 80048; 85025; 99284

== ENCOUNTER 2018-09-09 19:30 | Emergency (ER) | payer MEDICARE ==
[~2018-09-09] VITALS: Ht 180.3 cm; Wt 93.0 kg
[~2018-09-09 19:30] MED LIST changes: +HYDR-2145 PO; +HYDR-3164 PO; -HYDR-971 PO; -HYDR25TA9 PO; -OXYC-323 PO; -OXYC-328 PO; +OXYC1TAB15 PO; +OXYC1TAB22 PO
[2018-09-09 19:52] VITALS: BP 134/60
[2018-09-09] MEDS ORDERED: ONDA4TAB12 PO (19:58)
[2018-09-09] MEDS ORDERED: HYDR-2769 PO (19:58)
--- NOTE | 2018-09-09 19:58 | PHYS DOC ---
Past Medical History Past Medical History: A-Fib, Hypertension, Hypothyroid, Other Additional Past Medical Histor: morbid obesity, poor wound healing, chronic pain, narcotic dependency Past Surgical History: Cholecystectomy, Hysterectomy, Tonsillectomy, Other Additional Past Surgical Histo: traumatic L grt toe amputation, Alcohol Use: None Drug Use: None Adult General Chief Complaint Chief Complaint: NAUSEA/VOMITING/DIARRHA HPI HPI Patient is a 72 year old F who presents with nausea and vomiting with diarrhea a couple of times last night. She has not had any episodes today. Additionally , she is out of her methadone and oxycodone she takes chronically for pain. She called to make an appointment, but is still waiting to be scheduled. She has yeast skin infection under her breasts and in her groins. She has been using nystatin powder, but ran out. She denies abdominal pain, fever or chills. Review of Systems Review of Systems Constitutional: Denies fever or chills [] Respiratory: Denies cough or shortness of breath [] Cardiovascular: No chest pain or palpitations GI: Reports nausea, vomiting and diarrhea yesterday. Denies abdominal pain. Musculoskeletal: Denies back pain or joint pain [] Integument: erythematous rash under bilateral breasts and groins Neurologic: Denies headache, focal weakness or sensory changes [] All other systems were reviewed and found to be within normal limits, except as documented in this note. Current Medications Current Medications Current Medications Medications (Trade) Dose Ordered Sig/Franki Start Time Stop Time Status Last Admin Dose Admin Acetaminophen/ Hydrocodone Bitart (Lortab 10/325) 1 tab 1X ONCE 09/09/18 20:00 09/09/18 20:01 DC 09/09/18 20:17 1 TAB Ondansetron HCl (Zofran Odt) 4 mg 1X ONCE 09/09/18 20:00 09/09/18 20:01 DC 09/09/18 20:17 4 MG Allergies Allergies Allergies Coded Allergies Type Severity Reaction Last Updated Verified shellfish derived Allergy Severe 10/23/17 Yes Iodinated Contrast- Oral and IV Dye Allergy Intermediate 10/23/17 Yes digoxin Allergy Intermediate 10/23/17 Yes Physical Exam Physical Exam Constitutional: Well developed, well nourished, no acute distress, non-toxic appearance. [] HENT: Normocephalic, atraumatic Eyes: PERRLA, EOMI, conjunctiva normal, no discharge. [] Neck: Normal range of motion, no tenderness, supple, no stridor. [] Cardiovascular:Heart rate regular rhythm, no murmur [] Lungs & Thorax: Bilateral breath sounds clear to auscultation [] Abdomen: Bowel sounds normal, soft, no tenderness Skin: Warm, dry. Erythema and excoriation to bilateral groin and under both breasts Back: No tenderness, no CVA tenderness. [] Extremities: No tenderness, ROM intact, no edema. [] Neurologic: Alert and oriented X 3, normal motor function, normal sensory function, no focal deficits noted. [] Psychologic: Affect normal, judgement normal, mood normal. [] Current Patient Data Vital Signs Vital Signs Date Time Temp Pulse Resp B/P (MAP) Pulse Ox O2 Delivery O2 Flow Rate FiO2 09/09/18 19:52 98.1 85 18 134/60 (84) 98 Room Air 98.1 EKG EKG [] Radiology/Procedures Radiology/Procedures [] Course & Med Decision Making Course & Med Decision Making Pertinent Labs and Imaging studies reviewed. (See chart for details) Patient denies any n/v/d today. She just came for nausea meds and to see if she could get some pain pills. Plan: supportive care, home to rest, f/u with PCP, return precautions reviewed Ava Disclaimer Ava Disclaimer This electronic medical record was generated, in whole or in part, using a voice recognition dictation system. Departure Departure Impression: Primary Impression: Nausea & vomiting Additional Impression: Chronic pain Disposition: 01 HOME, SELF-CARE Condition: STABLE Referrals: SALVATORE HYDE MD (PCP) Patient Instructions: Chronic Pain, Nausea and Vomiting Scripts Nystatin (NYSTATIN) 15 Gm Powder 1 ALESSANDRO TP BID, #60 GM 6 Refills Prov: LEAH MONTGOMERY HATCHERY HELPER 09/09/18 Hydrocodone Bit/Acetaminophen (HYDROCODONE-APAP 10-325 ) 1 Each Tablet 1 TAB PO PRN Q6HRS PRN for PAIN, #14 TAB 0 Refills Prov: LEAH MONTGOMERY HATCHERY HELPER 09/09/18 Ondansetron (ONDANSETRON ODT) 4 Mg Tab.rapdis 1 TAB PO PRN Q6-8HRS, #20 TAB Prov: LEAH MONTGOMERY HATCHERY HELPER 09/09/18 Attending Signature Attending Signature I have reviewed the PA/BROKE WORKER's note and plan of care. I was available for consultation as needed during the patient's visit in the emergency department. I agree with the clinical impression, plan, and disposition. Problem Qualifiers Primary Impression: Nausea & vomiting Vomiting type: unspecified Vomiting Intractability: non-intractable Qualified Codes: R11.2 - Nausea with vomiting, unspecified Additional Impression: Chronic pain Chronic pain type: chronic pain syndrome Qualified Codes: G89.4 - Chronic pain syndrome LEAH MONTGOMERY APRN Sep 09, 2018 19:58 SALVATORE PLAZA DO Sep 09, 2018 20:52
[2018-09-09] MEDS ORDERED: HYDROcodone/APAP 10/325 1 TAB TABLET PO ONE (20:00)
[2018-09-09] MEDS ORDERED: ONDANSETRON ODT 4 MG TAB.RAPDIS. PO ONE (20:00)
[2018-09-09] MEDS ORDERED: NYST15PO9 TP (20:01)
== END 2018-09-09 20:42 | disposition home or self-care (01) ==
LOC: ER 19:30
DX: R11.2 Nausea with vomiting, unspecified (principal); R19.7 Diarrhea, unspecified; G89.4 Chronic pain syndrome; E03.9 Hypothyroidism, unspecified; I10 Essential (primary) hypertension; I48.91 Unspecified atrial fibrillation; F11.20 Opioid dependence, uncomplicated; Z90.710 Acquired absence of both cervix and uterus; Z90.49 Acquired absence of other specified parts of digestive tract; Z91.041 Radiographic dye allergy status; Z88.8 Allergy status to other drugs, medicaments and biological substances; Z91.013 Allergy to seafood
CPT/HCPCS: 99284; Q0162

== ENCOUNTER → 2018-09-15 | Outpatient (CLI) | payer MEDICARE ==
[2018-09-09 19:52] VITALS: BP 134/60
[~2018-09-15] MED LIST changes: +HYDR-2769 PO; +NYST15PO9 TP; +ONDA4TAB12 PO
== END | disposition home or self-care (01) ==
LOC: PMGWOUND 12:03
PROVIDERS: ATTEND Emergency Medicine Undersea and Hyperbaric Medicine
DX: L89.893 Pressure ulcer of other site, stage 3 (principal); L97.512 Non-pressure chronic ulcer of other part of right foot with fat layer exposed; S91.011A Laceration without foreign body, right ankle, initial encounter; S91.302A Unspecified open wound, left foot, initial encounter; L84 Corns and callosities; I10 Essential (primary) hypertension; G89.29 Other chronic pain; I48.91 Unspecified atrial fibrillation; E03.9 Hypothyroidism, unspecified; M86.172 Other acute osteomyelitis, left ankle and foot; F11.20 Opioid dependence, uncomplicated; K21.9 Gastro-esophageal reflux disease without esophagitis; E66.01 Morbid (severe) obesity due to excess calories; Z68.34 Body mass index [BMI] 34.0-34.9, adult; Z90.710 Acquired absence of both cervix and uterus; Z90.49 Acquired absence of other specified parts of digestive tract; Z87.891 Personal history of nicotine dependence; X58.XXXA Exposure to other specified factors, initial encounter; Y93.89 Activity, other specified; Y92.89 Other specified places as the place of occurrence of the external cause; Y99.8 Other external cause status
CPT/HCPCS: 11042

== ENCOUNTER → 2018-09-29 | Outpatient (CLI) | payer MEDICARE ==
[2018-09-09 19:52] VITALS: BP 134/60
== END | disposition home or self-care (01) ==
LOC: PMGWOUND 11:40
PROVIDERS: ATTEND Emergency Medicine Undersea and Hyperbaric Medicine
DX: L89.893 Pressure ulcer of other site, stage 3 (principal); L97.512 Non-pressure chronic ulcer of other part of right foot with fat layer exposed; S91.302D Unspecified open wound, left foot, subsequent encounter; S91.011D Laceration without foreign body, right ankle, subsequent encounter; L84 Corns and callosities; T24.211A Burn of second degree of right thigh, initial encounter; I10 Essential (primary) hypertension; M86.172 Other acute osteomyelitis, left ankle and foot; I48.91 Unspecified atrial fibrillation; E03.9 Hypothyroidism, unspecified; G89.4 Chronic pain syndrome; F11.20 Opioid dependence, uncomplicated; K21.9 Gastro-esophageal reflux disease without esophagitis; E66.01 Morbid (severe) obesity due to excess calories; Z68.34 Body mass index [BMI] 34.0-34.9, adult; Z90.49 Acquired absence of other specified parts of digestive tract; Z90.710 Acquired absence of both cervix and uterus; Z87.891 Personal history of nicotine dependence; X08.8XXA Exposure to other specified smoke, fire and flames, initial encounter; X58.XXXD Exposure to other specified factors, subsequent encounter; Y93.89 Activity, other specified; Y92.89 Other specified places as the place of occurrence of the external cause; Y99.8 Other external cause status
CPT/HCPCS: 11042; 97597

== ENCOUNTER → 2018-10-15 | Outpatient (CLI) | payer MEDICARE | END | disposition home or self-care (01) | LOC: PMGWOUND 12:39 | PROVIDERS: ATTEND Emergency Medicine Undersea and Hyperbaric Medicine | DX: L89.893 Pressure ulcer of other site, stage 3 (principal); L89.312 Pressure ulcer of right buttock, stage 2; L97.512 Non-pressure chronic ulcer of other part of right foot with fat layer exposed; S80.822A Blister (nonthermal), left lower leg, initial encounter; S91.011D Laceration without foreign body, right ankle, subsequent encounter; S91.302D Unspecified open wound, left foot, subsequent encounter; L84 Corns and callosities; I10 Essential (primary) hypertension; I48.91 Unspecified atrial fibrillation; M86.172 Other acute osteomyelitis, left ankle and foot; G89.4 Chronic pain syndrome; E03.9 Hypothyroidism, unspecified; F11.20 Opioid dependence, uncomplicated; K21.9 Gastro-esophageal reflux disease without esophagitis; E66.01 Morbid (severe) obesity due to excess calories; Z68.34 Body mass index [BMI] 34.0-34.9, adult; Z87.891 Personal history of nicotine dependence; Z90.49 Acquired absence of other specified parts of digestive tract; Z90.710 Acquired absence of both cervix and uterus; X58.XXXA Exposure to other specified factors, initial encounter; X58.XXXD Exposure to other specified factors, subsequent encounter; Y93.89 Activity, other specified; Y92.89 Other specified places as the place of occurrence of the external cause; Y99.8 Other external cause status | CPT/HCPCS: 11042; 97597; 97598 ==

== ENCOUNTER 2018-12-08 15:43 | Inpatient (IN) | payer MEDICARE ==
[~2018-12-08] VITALS: Ht 180.3 cm; Wt 104.3 kg
--- NOTE | 2018-12-08 16:28 | PHYS DOC ---
Past Medical History Past Medical History: A-Fib, Hypertension, Hypothyroid, Other Additional Past Medical Histor: morbid obesity, poor wound healing, chronic pain, narcotic dependency Past Surgical History: Cholecystectomy, Hysterectomy, Tonsillectomy, Other Additional Past Surgical Histo: traumatic L grt toe amputation, Alcohol Use: None Drug Use: None Adult General Chief Complaint Chief Complaint: LOWER EXT PAIN HPI HPI Patient is a 73 year old female with history of A. fib, hypertension, hypothyroidism, chronic left hip pain, who presents to the ED today complaining of inability to care for self at home. Patient states she was in rehabilitation in [place] building up strength so she can have left hip replacement, she states she feels the rehabilitation facility did not emphasize on lower extremity strengthening, so she finished 14 days in rehab and was sent home 3 days ago. She states she got home and has been unable to care for self. She states she is not able to get up, ambulate and do her daily living activities especially changing her own depends. She states she lives with her daughter who is also not able to take care of her. She is requesting to be admitted for placement. PCP Dr. Ivey Review of Systems Review of Systems Constitutional: Denies fever or chills [] Eyes: Denies change in visual acuity, redness, or eye pain [] HENT: Denies nasal congestion or sore throat [] Respiratory: Denies cough or shortness of breath [] Cardiovascular: No additional information not addressed in HPI [] GI: Denies abdominal pain, nausea, vomiting, bloody stools or diarrhea [] : Denies dysuria or hematuria [] Musculoskeletal: Generalized weakness, chronic left hip pain Integument: Denies rash or skin lesions [] Neurologic: Denies headache, focal weakness or sensory changes [] All other systems were reviewed and found to be within normal limits, except as documented in this note. Current Medications Current Medications Current Medications Medications (Trade) Dose Ordered Sig/Franki Start Time Stop Time Status Last Admin Dose Admin Acetaminophen (Tylenol) 650 mg PRN Q4HRS PRN 12/08/18 16:45 12/09/18 16:44 Morphine Sulfate (Morphine Sulfate) 4 mg PRN Q2HR PRN 12/08/18 16:45 12/09/18 16:44 Ondansetron HCl (Zofran) 4 mg PRN Q8HRS PRN 12/08/18 16:45 12/09/18 16:44 Allergies Allergies Allergies Coded Allergies Type Severity Reaction Last Updated Verified shellfish derived Allergy Severe 10/23/17 Yes Iodinated Contrast- Oral and IV Dye Allergy Intermediate 10/23/17 Yes digoxin Allergy Intermediate 10/23/17 Yes Physical Exam Physical Exam Constitutional: Well developed, well nourished, no acute distress, non-toxic appearance. [] HENT: Normocephalic, atraumatic, bilateral external ears normal, oropharynx moist, no oral exudates, nose normal. [] Eyes: PERRLA, EOMI, conjunctiva normal, no discharge. [] Neck: Normal range of motion, no tenderness, supple, no stridor. [] Cardiovascular:Heart rate regular rhythm, no murmur [] Lungs & Thorax: Bilateral breath sounds clear to auscultation [] Abdomen: Bowel sounds normal, soft, no tenderness, no masses, no pulsatile masses. [] Skin: Bilateral lower extremities with multiple scabs and none weeping wounds. Patient stated this is chronic. Back: No tenderness, no CVA tenderness. [] Extremities: Overweight patient, tenderness on palpation of the left lateral hip , limited range of motion to bilateral lower extremities. +2 bilateral pedal pulses. Neurologic: Alert and oriented X 3, normal motor function, normal sensory function, no focal deficits noted. [] Psychologic: Affect normal, judgement normal, mood normal. [] Current Patient Data Vital Signs Vital Signs Date Time Temp Pulse Resp B/P (MAP) Pulse Ox O2 Delivery O2 Flow Rate FiO2 12/08/18 15:59 98.1 80 18 185/81 (115) 97 Room Air 98.1 Lab Values Laboratory Tests Test 12/08/18 16:22 White Blood Count 6.9 x10^3/uL (4.0-11.0) Red Blood Count 4.13 x10^6/uL (3.50-5.40) Hemoglobin 12.5 g/dL (12.0-15.5) Hematocrit 38.1 % (36.0-47.0) Mean Corpuscular Volume 92 fL (79-100) Mean Corpuscular Hemoglobin 30 pg (25-35) Mean Corpuscular Hemoglobin Concent 33 g/dL (31-37) Red Cell Distribution Width 16.0 % (11.5-14.5) H Platelet Count 216 x10^3/uL (140-400) Neutrophils (%) (Auto) 74 % (31-73) H Lymphocytes (%) (Auto) 16 % (24-48) L Monocytes (%) (Auto) 8 % (0-9) Eosinophils (%) (Auto) 2 % (0-3) Basophils (%) (Auto) 0 % (0-3) Neutrophils # (Auto) 5.1 x10^3uL (1.8-7.7) Lymphocytes # (Auto) 1.1 x10^3/uL (1.0-4.8) Monocytes # (Auto) 0.5 x10^3/uL (0.0-1.1) Eosinophils # (Auto) 0.2 x10^3/uL (0.0-0.7) Basophils # (Auto) 0.0 x10^3/uL (0.0-0.2) Sodium Level 142 mmol/L (136-145) Potassium Level 3.5 mmol/L (3.5-5.1) Chloride Level 104 mmol/L (98-107) Carbon Dioxide Level 33 mmol/L (21-32) H Anion Gap 5 (6-14) L Blood Urea Nitrogen 30 mg/dL (7-20) H Creatinine 1.0 mg/dL (0.6-1.0) Estimated GFR (Cockcroft-Gault) 54.5 Glucose Level 97 mg/dL (70-99) Calcium Level 9.0 mg/dL (8.5-10.1) Laboratory Tests 12/08/18 16:22 Laboratory Tests 12/08/18 16:22 EKG EKG [] Radiology/Procedures Radiology/Procedures [] Course & Med Decision Making Course & Med Decision Making Pertinent Labs and Imaging studies reviewed. (See chart for details) This is a 73-year-old female patient presenting to the ED today complaining of weakness and inability to perform her ADLs at home. See history of present illness, patient was recently discharged from a rehabilitation facility. She states she is not strong enough to do her normal daily activities. She unfortunately lives with her daughter who is not able to care for her either. Consulted with Dr. Vicente who accepted patient for admission. Dragon Disclaimer Dragon Disclaimer This electronic medical record was generated, in whole or in part, using a voice recognition dictation system. Departure Departure Impression: Primary Impression: Chronic left hip pain Additional Impression: Weakness Disposition: ADMITTED INPATIENT Condition: STABLE Referrals: SALVATORE IVEY MD (PCP) Problem Qualifiers CHARLES SERRATO APRN Dec 08, 2018 16:28
[2018-12-08] MEDS ORDERED: ACETAMINOPHEN 325 MG TABLET. PO PRN (16:45)
[2018-12-08] MEDS ORDERED: ONDANSETRON PF 4 MG/2 ML VIAL. IV PRN (16:45)
[2018-12-08 17:04] LABS: BASO % 0 % (0-3); EOS # 0.2 x10^3/uL (0.0-0.7); EOS % 2 % (0-3); HEMATOCRIT 38.1 % (36.0-47.0); HEMOGLOBIN 12.5 g/dL (12.0-15.5); LYMPH # 1.1 x10^3/uL (1.0-4.8); LYMPH % 16 % (24-48); MEAN CORPUSCULAR HEMOGLOBIN 30 pg (25-35); MEAN CORPUSCULAR HGB CONC 33 g/dL (31-37); MEAN CORPUSCULAR VOLUME 92 fL (79-100); MONO # 0.5 x10^3/uL (0.0-1.1); MONO % 8 % (0-9); NEUT # 5.1 x10^3uL (1.8-7.7); NEUT % 74 % (31-73); PLATELET COUNT 216 x10^3/uL (140-400); RED BLOOD COUNT 4.13 x10^6/uL (3.50-5.40); WHITE BLOOD COUNT 6.9 x10^3/uL (4.0-11.0)
[2018-12-08 17:16] LABS: GFR 54.5; POTASSIUM 3.5 mmol/L (3.5-5.1)
[2018-12-08 21:00] VITALS: BP 119/44
[2018-12-08] MEDS: MORPHINE SULFATE 4 MG/ML VIAL. IV PRN (21:43)
[2018-12-08] MEDS ORDERED: LIDO700A39 TP (21:55)
[2018-12-08] MEDS ORDERED: diphenhydrAMINE HCL 25 MG CAPSULE PO PRN (22:15)
[2018-12-08 23:00] VITALS: BP 108/41
[2018-12-08] MEDS: NYSTATIN TOPICAL POWDER 15GM BOTTLE. TP SCH (23:15)
[2018-12-08] MEDS ORDERED: ENOXAPARIN 40 MG/0.4 ML SYRINGE. SQ SCH (23:15)
[2018-12-08] MEDS: METHADONE 10 MG TABLET. PO SCH (23:16)
[2018-12-08] MEDS: oxyCODONE/APAP 10/325 1 TAB TABLET PO PRN (23:16)
[2018-12-08] MEDS: tiZANidine 4 MG TABLET. PO PRN (23:19)
[2018-12-09] MEDS: MORPHINE SULFATE 4 MG/ML VIAL. IV PRN ×3 (01:44→13:24)
[2018-12-09 03:00] VITALS: BP 109/42
[2018-12-09 04:00] LABS: BILIRUBIN,URINE NEGATIVE (NEG); CLARITY,URINE CLEAR; COLOR,URINE YELLOW; NITRITE,URINE NEGATIVE (NEG); PROTEIN,URINE NEGATIVE (NEG-TRACE); UROBILINOGEN,URINE 0.2 mg/dL (0.2 mg/dL)
[2018-12-09 04:23] LABS: BACTERIA,URINE FEW /HPF (0-FEW); RBC,URINE OCC /HPF (0-2); SQUAMOUS EPITHELIAL CELL,UR MOD /LPF; WBC,URINE OCC /HPF (0-4)
[2018-12-09] MEDS: tiZANidine 4 MG TABLET. PO PRN ×2 (05:41→18:45)
[2018-12-09] MEDS: oxyCODONE/APAP 10/325 1 TAB TABLET PO PRN ×2 (05:41→18:45)
[2018-12-09 06:48] LABS: BASO % 1 % (0-3); EOS # 0.2 x10^3/uL (0.0-0.7); EOS % 4 % (0-3); HEMATOCRIT 35.3 % (36.0-47.0); HEMOGLOBIN 11.5 g/dL (12.0-15.5); LYMPH # 1.6 x10^3/uL (1.0-4.8); LYMPH % 32 % (24-48); MEAN CORPUSCULAR HEMOGLOBIN 30 pg (25-35); MEAN CORPUSCULAR HGB CONC 33 g/dL (31-37); MEAN CORPUSCULAR VOLUME 93 fL (79-100); MONO # 0.5 x10^3/uL (0.0-1.1); MONO % 10 % (0-9); NEUT # 2.7 x10^3uL (1.8-7.7); NEUT % 54 % (31-73); PLATELET COUNT 173 x10^3/uL (140-400); RED BLOOD COUNT 3.79 x10^6/uL (3.50-5.40); RED CELL DISTRIBUTION WIDTH 16.4 % (11.5-14.5)
[2018-12-09 06:54] VITALS: BP 109/43
[2018-12-09 07:27] LABS: ALBUMIN 2.7 g/dL (3.4-5.0); ALBUMIN/GLOBULIN RATIO 0.7 (1.0-1.7); CALCIUM 8.8 mg/dL (8.5-10.1); CREATININE 1.1 mg/dL (0.6-1.0); GFR 48.8; MAGNESIUM 1.8 mg/dL (1.8-2.4); POTASSIUM 3.2 mmol/L (3.5-5.1); TOTAL BILIRUBIN 0.4 mg/dL (0.2-1.0); TOTAL PROTEIN 6.8 g/dL (6.4-8.2)
[2018-12-09] MEDS: DOCUSATE SODIUM 100 MG CAPSULE. PO SCH (08:44)
[2018-12-09] MEDS: METOPROLOL TART IMMED RELEASE 50 MG TABLET. PO SCH ×2 (08:44→21:02)
[2018-12-09] MEDS: hydroCHLOROthiazide 25 MG TABLET PO SCH (08:44)
[2018-12-09] MEDS: METHADONE 10 MG TABLET. PO SCH ×3 (08:44→21:02)
[2018-12-09] MEDS: NYSTATIN TOPICAL POWDER 15GM BOTTLE. TP SCH ×2 (08:45→21:03)
[2018-12-09] MEDS: LIDOCAINE (700MG/PATCH) PATCH. TP SCH (08:45)
[2018-12-09 11:00] VITALS: BP 123/57
[2018-12-09 14:45] VITALS: BP 122/53
--- NOTE | 2018-12-09 15:07 | PDOC ---
Provider Note Provider Note Vascular Surgery Consult dictated 73 year old female with multiple bilateral lower leg and feet skin scabs and superficial ulcers. She likely has peripheral artery disease based on previous testing however has palpable DP pulses on exam. She also healed a left 1st toe amputation last year. Recommend local wound care. No surgical debridement needed at this point. I do not feel she needs revascularization at this point with the palpable pulses and superficial wounds. Will consult Dr. Marin to manage wound care. CHRISTIANO MITCHELL MD Dec 09, 2018 15:07
--- NOTE | 2018-12-09 15:14 | NUR ---
Wound Care: Patient seen per wound care consult. See wound assessment. Patient is well known to us from previous hospital admissions and the wound clinic. Patient has open blister to left posterior leg, wound is cleansed, assessed, measured, and pictured. Recommendations for Xeroform gauze and foam dressing. Dressing applied and patient tolerated well. Patient also has incontinence associated dermatitis to right buttock, area cleansed, assessed, measured, and pictured. Recommendations for Calazime cream to be applied. Dressing change instructions left in room. Patient repositioned in bed and educated on turning, bilateral lower extremities elevated. Call light in reach and bed lowered. Wound care to follow patient.
[2018-12-09] MEDS ORDERED: methylPREDNISolone ACETATE 80 MG/ML VIAL. INJ ONE (15:15)
[2018-12-09] MEDS ORDERED: BUPIVACAINE MPF 0.25% 10 ML VIAL. IJ ONE (15:15)
[2018-12-09] MEDS ORDERED: LIDOCAINE WITH 8.4% SOD BICARB 3 ML DISP.SYRIN. INJ ONE (15:15)
--- NOTE | 2018-12-09 15:40 | NUR ---
SW following. Discussed with RN, pt is from home alone but dtr is a support. SW met with pt, pt had been at [facility] in [place], was released home about 3 days ago. Pt does not want to go back there. Pt would like referral sent to [facility] to see how many SNU days pt has left. Pt reported she cannot pay the copay if she does not have any days left. Pt agreeable to going home with home health if skilled is not an option. SW will continue to follow. RN notified.
[2018-12-09] MEDS: predniSONE 10 MG TABLET PO SCH (15:41)
[2018-12-09] MEDS: PANTOPRAZOLE 40 MG TABLET.DR. PO SCH (15:42)
--- NOTE | 2018-12-09 16:24 | HP ---
ADMIT DATE: 12/08/2018 CHIEF COMPLAINT: Weakness. HISTORY OF PRESENT ILLNESS AND HOSPITAL COURSE: This patient is a 73-year-old female with multiple medical issues, was living at home, recently released from rehabilitation facility after 14 days of rehabilitation. She was home for 3 days and was unable to get out of bed. Home health came to the home, but was unable to care for the patient due to immobility. Therefore, the patient came back to the hospital for further evaluation. The patient was found to have markedly cyanotic lower extremities, although adequate pulses as well as difficulty with chronic hip pain and low back pain. The patient was unable to care for herself, ambulate or assist in transfers, therefore she was admitted for further evaluation. PAST MEDICAL HISTORY: Significant for: 1. Morbid obesity. 2. L-spine spinal stenosis. 3. Chronic atrial fibrillation. 4. Chronic obstructive pulmonary disease. 5. Asthma. 6. Major depression. 7. Peripheral arterial disease. 8. Chronic low back pain. 9. Hypothyroidism. 10. Narcotic dependence. FAMILY HISTORY: The patient has a mother who has suffered with diabetes. Father is . SOCIAL HISTORY: The patient has never smoked. The patient does not use alcohol. 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 PAST SURGICAL HISTORY: Significant for tonsillectomy, cholecystectomy, lumbar laminectomy, partial hysterectomy, cholecystectomy and multiple toe amputations. REVIEW OF SYSTEMS: Negative for cough, congestion, fever, chills, nausea, vomiting, diarrhea. The patient has extreme weakness of the lower extremities. She denies chest pain or shortness of breath. PHYSICAL EXAMINATION: GENERAL: This is a morbidly obese female, in no apparent distress on my exam, she is alert and oriented x 3. HEENT: Reveals poor dentition. NECK: Supple. CARDIAC: Irregularly irregular. LUNGS: Clear. ABDOMEN: Soft, nontender. EXTREMITIES: Exhibited no edema with woody peripheral vascular changes to lower extremities. She is markedly cyanotic in the left lower extremity, but does have pulses in the dorsalis pedis area. The patient states she is unable to uncross her legs or move her legs during my exam. ASSESSMENT: 1. Debilitation. 2. Morbid obesity. 3. Peripheral vascular disease. 4. Chronic atrial fibrillation. 5. Chronic obstructive pulmonary disease. 6. Hypertension. PLAN: To proceed with PT and OT modalities, consult Rehabilitation Medicine for evaluation. Consult Vascular Surgery for evaluation. Obtain arterial Doppler of lower extremities. Monitor the patient's symptoms and proceed with penitentiary referral versus fdc placement. SALVATORE HYDE MD DR: RADHA/nancy JOB#: [id number] / [id number]
--- NOTE | 2018-12-09 16:35 | RAD ---
Examination: Ultrasound bilateral lower extremity arterial duplex HISTORY: History of peripheral vascular disease COMPARISON: 10/21/2017 FINDINGS: The following are the velocities in the right lower extremity: Common femoral artery 135 cm/s, monophasic Deep femoral artery 110 cm/s, monophasic Proximal SFA 141 cm/s, monophasic Mid superficial femoral artery 190 cm/s, biphasic. Distal superficial femoral artery 193 cm/s, biphasic waveform. Popliteal artery 107 cm/s, biphasic OIL WELL SERVICE OPERATOR 189 cm/s, monophasic Peroneal artery 75 cm/s, monophasic Anterior tibialis artery 82 cm/s, monophasic. Dorsal pedis artery 50 cm/s, biphasic. The following are the velocities in the left lower extremity: Common femoral artery 184 cm/s, triphasic Deep femoral artery 113 cm/s, monophasic Proximal SFA 165 cm/s, monophasic. Mid SFA 214 cm/s, monophasic Distal SFA 201 cm/s, monophasic Popliteal artery 109 cm/s, monophasic OIL WELL SERVICE OPERATOR 60 cm/s, monophasic Peroneal artery 62 cm/s, monophasic. Anterior tibialis artery 105 cm/s, biphasic Dorsalis pedis artery 55 cm/s, biphasic. Impression: 1. Diffuse atherosclerotic calcifications identified throughout the bilateral lower extremity arterial system. 2. Mild increased velocity identified in the left mid and distal superficial femoral artery about 50% stenosis. 2. There is diffuse monophasic waveforms identified throughout the bilateral lower extremity arterial system probably due to aortoiliac inflow disease. Electronically signed by: Nasir Amador MD (12/09/2018 4:32 PM) [id number]
--- NOTE | 2018-12-09 17:07 | RAD ---
Therapeutic left hip injection using fluoroscopic guidance: Indication:Left hip pain and osteoarthritis. Technique: The procedure was explained to the patient as were potential risks. All questions were answered. Informed written consent was obtained. The left hip was prepped and draped in the usual sterile manner. Following administration of local anesthetic, a 22-gauge spinal needle was advanced into the left hip joint without difficulty, with care taken to avoid the vascular structures. Stylet was removed and following negative aspiration, air was injected into the left hip joint to confirm intra-articular position. The patient is allergic to contrast media. A mixture of 1 cc (80 mg) Depo-Medrol and 4 cc 0.25% bupivacaine was injected intra-articularly without difficulty. 2 fluoroscopic spot images were performed. No markers are on the fluoroscopic spot images but this is the left hip joint. The needle was removed. There was good hemostasis at the injection site. The patient left in stable condition without immediate complication. The patient was sent back to the floor for observation. Total fluoroscopic time: 0.3 minutes. Total fluoroscopic spot views: 2. Impression: Uncomplicated therapeutic left hip injection. Fluoroscopic spot images demonstrate severe degenerative osteoarthritis of the left hip joint with [id number] interface and erosion of the lateral superior aspect of the left femoral head.
--- NOTE | 2018-12-09 17:48 | NUR ---
Computers were down today from approximately 11:30am until 2:30pm. No medications were scanned during that time.
--- NOTE | 2018-12-09 18:02 | RAD ---
Indication: Left knee pain. TECHNIQUE: 2 views of the left knee COMPARISON: None FINDINGS/ impression: Patient unable to extend left knee limiting evaluation in the AP projection. No suprapatellar effusion. Mild tricompartmental osteoarthritis. No acute fractures or dislocations on the lateral view. Electronically signed by: Jacques Mason DO (12/09/2018 5:59 PM) [facility]
[2018-12-09 19:00] VITALS: BP 157/68
[2018-12-09] MEDS: PATCH REMOVAL. MC SCH (21:00)
[2018-12-09] MEDS: IBUPROFEN 200 MG TABLET. PO PRN (21:01)
[2018-12-09] MEDS: ENOXAPARIN 40 MG/0.4 ML SYRINGE. SQ SCH (21:02)
[2018-12-09 23:00] VITALS: BP 145/65
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
--- NOTE | 2018-12-10 01:54 | CONS ---
DATE OF CONSULTATION: 12/09/2018 CHIEF COMPLAINT: Wounds on her legs. HISTORY OF PRESENT ILLNESS: The patient is a 73-year-old female who recently underwent a left hip replacement and was undergoing rehabilitation for the past 2 weeks. She has just recently gotten home and presents to the hospital because of difficulty taking care of herself and inability to ambulate well independently. She reports pain in her left hip from her recent surgery. She reports no pain in her lower legs. She states that she has had wounds on her lower legs for a long time. A lot of these she reports are traumatic skin injuries. She has a history of left first toe amputation, which was traumatic from a lawnmower which healed after surgery last year. At that time, arterial duplex scan showed monophasic flow throughout her lower extremities with no obvious signs of occlusion. REVIEW OF SYSTEMS: A 10-point review of systems was performed, which is otherwise negative besides what is mentioned in history of present illness. PAST MEDICAL HISTORY: Includes: 1. Atrial fibrillation. 2. Hypertension. 3. Hypothyroidism. 4. Morbid obesity. 5. Narcotic dependence. 6. Chronic pain. PAST SURGICAL HISTORY: Includes: 1. Cholecystectomy. 2. Left hip replacement. 3. Left first toe amputation secondary to traumatic injury. 4. Hysterectomy. 5. Tonsillectomy. SOCIAL HISTORY: The patient does not smoke or drink alcohol. FAMILY HISTORY: No pertinent family history related to her current problem. PHYSICAL EXAMINATION: GENERAL: The patient is awake and alert, currently in no apparent distress. She is resting comfortably in bed. VITAL SIGNS: Blood pressure is 122/53, pulse of 65, respirations 18. She is 99% on room air and she is afebrile. NECK: Supple with no carotid bruits. HEART: Regular rate and rhythm without murmurs. LUNGS: She has bilateral breath sounds to auscultation. ABDOMEN: Soft, nondistended, and nontender. She does have moderate obesity. EXTREMITIES: Her left lower extremity is warm. She has multiple superficial skin scabs and very superficial ulcers, one on her posterior left calf and several throughout her lower leg and foot. Her first toe amputation and incision is well healed. There are no deep wounds or gangrene in her lower extremity. Right lower extremity is warm without significant edema, she has multiple skin scabs and superficial ulcerations on her lower leg and foot. There is no deep ulcers or gangrene. She has palpable bilateral dorsalis pedis pulses in her feet and palpable bilateral femoral pulses in her groins. NEUROLOGIC: She is awake and alert, oriented x 3, she moves all 4 extremities. Her left leg is limited by pain in her hip. There are no gross neurologic deficits. LABORATORY DATA: White blood cell count is normal at 5, hemoglobin 11.5, creatinine is 1.1. IMPRESSION: 1. Multiple bilateral lower extremity skin scabs and superficial ulcerations throughout the lower legs and feet, many of which are traumatic or pressure sores. There is no deep ulcer or gangrene. 2. Mild peripheral arterial disease, bypassed; duplex scan, however, on examination, she does have palpable bilateral dorsalis pedis pulses. 3. Failure to thrive at home after a left hip surgery. PLAN: Skin ulcers are being treated with local wound care. I recommend the Wound Care team see her and treat her with wound care. No surgical debridement is needed at this time. She does have likely some arterial disease in her bilateral lower extremities; however, this is more mild since she has palpable dorsalis pedis pulses in her feet. The ulcers are throughout the lower legs and feet and more in the pattern of traumatic skin sores. I do not feel she has any significant arterial wounds that need aggressive revascularization at this time. Recommend local wound care and offloading with Rooke boots. CHRISTIANO MITCHELL MD DR: LISETTE/nancy JOB#: [id number] / [id number]
[2018-12-10] MEDS: tiZANidine 4 MG TABLET. PO PRN ×2 (02:46→20:47)
[2018-12-10] MEDS: oxyCODONE/APAP 10/325 1 TAB TABLET PO PRN (02:47)
[2018-12-10 03:00] VITALS: BP 134/65
[2018-12-10 07:00] VITALS: BP 154/64
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
--- NOTE | 2018-12-10 08:03 | RAD ---
Lateral view of the lumbar spine Clinical indications: Lumbar pain. History of lumbar fusion. FINDINGS: The study is underpenetrated due to patient body habitus. Transpedicular screws are seen bilaterally at L4 and L5 connected by 2 vertical metallic stabilizer bars. Alignment is normal without anterolisthesis. No compression fracture or discitis or lytic process is seen. IMPRESSION: L4-5 fusion assuming 5 lumbar type vertebrae. No acute compression fracture or discitis or lytic process is seen in the lateral view Electronically signed by: Dick Leiva MD (12/10/2018 8:01 AM) [facility]
--- NOTE | 2018-12-10 08:10 | RAD ---
AP view of the pelvis and two-view study of both hips INDICATIONS: Bilateral hip pain left greater than right. Limited range of motion. Right hip: No acute fracture or dislocation or osteolytic process is seen. No significant arthritic change is seen. Left hip: There is severe loss of joint space of the superior-lateral aspect of the left hip joint with [id number] interface. There is subchondral sclerosis and cyst formation. There is deformity of the superior-lateral aspect of the left femoral head which is flattened. It is possible that these findings could be secondary to old avascular necrosis. There is moderate spurring of the femoral head. The femoral head is subluxed superiorly within the elongated acetabular cup. Therefore, it is possible that this could represent long-standing congenital hip dysplasia. No acute fracture is evident. No lytic process is seen. Pelvis: There is mild primary degenerative osteoarthritis of the symphysis pubis. Minimal degenerative spurring of the inferior aspect of both SI joints is seen. No erosive arthropathy or ankylosis of either SI joint is seen. No lytic process or acute fracture is evident. IMPRESSION: Severe degenerative osteoarthritis of the left hip joint. It is possible that this finding is secondary to old congenital hip dysplasia or old avascular necrosis of the left femoral head. No acute fracture. Electronically signed by: Dick Leiva MD (12/10/2018 8:07 AM) [facility]
[2018-12-10] MEDS ORDERED: methylPREDNISolone ACETATE 40 MG/ML VIAL. ONE (09:30)
[2018-12-10] MEDS ORDERED: BUPIVACAINE MPF 0.25% 10 ML VIAL. ONE (09:30)
[2018-12-10] MEDS ORDERED: methylPREDNISolone ACETATE 40 MG/ML VIAL. IM ONE (09:30)
[2018-12-10] MEDS ORDERED: BUPIVACAINE MPF 0.25% 10 ML VIAL. IJ ONE (09:30)
--- NOTE | 2018-12-10 09:44 | PDOC ---
PROGRESS NOTES Subjective Subjective She admits some help with left hip joint injection. Objective Objective Vital Signs Date Time Temp Pulse Resp B/P (MAP) Pulse Ox O2 Delivery O2 Flow Rate FiO2 12/10/18 07:00 98.3 69 16 154/64 (94) 100 Room Air 98.3 Intake and Output 12/10/18 07:00 Intake Total 600 ml Balance 600 ml Intake Oral 600 ml # Voids 2 Physical Exam Physical Exam She is supine in bed with left hip in a position of external rotation and flexion and left knee in flexion. 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 is concerned about her left knee flexion contracture limiting her rehab after left REBEKAH and her skin lesions on her feet.She might need surgical release of left hamstring tendons to help with her left knee flexion contracture. I am willing to consider botox injections to her left hamstring muscles,to help ease these muscle spasticity,but hospital had problems with getting reimbursed for botox in the past as it was considered as out patient procedure but I have performed botox injections on several patient's including medicaid patients at [facility] in the past. Assessment Assessment Problems Medical Problems: (1) Chronic left hip pain Status: Acute (2) Weakness Status: Acute Plan Plan of Care To continue present physical and occupational therapy and she may have to go to a senior living as she could not get out of bed by herself if she goes home, which she states that she used to do until her recent hospitalization at [facility]. To also ask fro rehab unit screen. Comment Review of Relevant I have reviewed the following items fátima (where applicable) has been applied. Labs Laboratory Tests Test 12/08/18 16:22 12/09/18 01:45 12/09/18 06:00 White Blood Count 6.9 x10^3/uL (4.0-11.0) 5.0 x10^3/uL (4.0-11.0) Red Blood Count 4.13 x10^6/uL (3.50-5.40) 3.79 x10^6/uL (3.50-5.40) Hemoglobin 12.5 g/dL (12.0-15.5) 11.5 g/dL (12.0-15.5) Hematocrit 38.1 % (36.0-47.0) 35.3 % (36.0-47.0) Mean Corpuscular Volume 92 fL (79-100) 93 fL (79-100) Mean Corpuscular Hemoglobin 30 pg (25-35) 30 pg (25-35) Mean Corpuscular Hemoglobin Concent 33 g/dL (31-37) 33 g/dL (31-37) Red Cell Distribution Width 16.0 % (11.5-14.5) 16.4 % (11.5-14.5) Platelet Count 216 x10^3/uL (140-400) 173 x10^3/uL (140-400) Neutrophils (%) (Auto) 74 % (31-73) 54 % (31-73) Lymphocytes (%) (Auto) 16 % (24-48) 32 % (24-48) Monocytes (%) (Auto) 8 % (0-9) 10 % (0-9) Eosinophils (%) (Auto) 2 % (0-3) 4 % (0-3) Basophils (%) (Auto) 0 % (0-3) 1 % (0-3) Neutrophils # (Auto) 5.1 x10^3uL (1.8-7.7) 2.7 x10^3uL (1.8-7.7) Lymphocytes # (Auto) 1.1 x10^3/uL (1.0-4.8) 1.6 x10^3/uL (1.0-4.8) Monocytes # (Auto) 0.5 x10^3/uL (0.0-1.1) 0.5 x10^3/uL (0.0-1.1) Eosinophils # (Auto) 0.2 x10^3/uL (0.0-0.7) 0.2 x10^3/uL (0.0-0.7) Basophils # (Auto) 0.0 x10^3/uL (0.0-0.2) 0.0 x10^3/uL (0.0-0.2) Sodium Level 142 mmol/L (136-145) 143 mmol/L (136-145) Potassium Level 3.5 mmol/L (3.5-5.1) 3.2 mmol/L (3.5-5.1) Chloride Level 104 mmol/L (98-107) 104 mmol/L (98-107) Carbon Dioxide Level 33 mmol/L (21-32) 31 mmol/L (21-32) Anion Gap 5 (6-14) 8 (6-14) Blood Urea Nitrogen 30 mg/dL (7-20) 28 mg/dL (7-20) Creatinine 1.0 mg/dL (0.6-1.0) 1.1 mg/dL (0.6-1.0) Estimated GFR (Cockcroft-Gault) 54.5 48.8 Glucose Level 97 mg/dL (70-99) 94 mg/dL (70-99) Calcium Level 9.0 mg/dL (8.5-10.1) 8.8 mg/dL (8.5-10.1) Thyroid Stimulating Hormone (TSH) 1.251 uIU/mL (0.358-3.74) Urine Collection Type Unknown Urine Color Yellow Urine Clarity Clear Urine pH 7.0 Urine Specific [place] 1.015 Urine Protein Negative mg/dL (NEG-TRACE) Urine Glucose (UA) Negative mg/dL (NEG) Urine Ketones (Stick) Negative mg/dL (NEG) Urine Blood Negative (NEG) Urine Nitrite Negative (NEG) Urine Bilirubin Negative (NEG) Urine Urobilinogen Dipstick 0.2 mg/dL (0.2 mg/dL) Urine Leukocyte Esterase Negative (NEG) Urine RBC Occ /HPF (0-2) Urine WBC Occ /HPF (0-4) Urine Squamous Epithelial Cells Mod /LPF Urine Bacteria Few /HPF (0-FEW) Urine Mucus Slight /LPF BUN/Creatinine Ratio 25 (6-20) Magnesium Level 1.8 mg/dL (1.8-2.4) Total Bilirubin 0.4 mg/dL (0.2-1.0) Aspartate Amino Transf (AST/SGOT) 17 U/L (15-37) Alanine Aminotransferase (ALT/SGPT) 18 U/L (14-59) Alkaline Phosphatase 79 U/L (46-116) Total Protein 6.8 g/dL (6.4-8.2) Albumin 2.7 g/dL (3.4-5.0) Albumin/Globulin Ratio 0.7 (1.0-1.7) Medications Current Medications Ondansetron HCl (Zofran) 4 mg PRN Q8HRS PRN IV NAUSEA/VOMITING; Start 12/08/18 at 16:45; Stop 12/09/18 at 16:44; Status DC Morphine Sulfate (Morphine Sulfate) 4 mg PRN Q2HR PRN IV PAIN Last administered on 12/09/18 13:24; Start 12/08/18 at 16:45; Stop 12/09/18 at 16:44 ; Status DC Acetaminophen (Tylenol) 650 mg PRN Q4HRS PRN PO FEVER; Start 12/08/18 at 16:45 ; Stop 12/09/18 at 16:44; Status DC Diphenhydramine HCl (Benadryl) 25 mg PRN Q6HRS PRN PO ALLERGIES; Start at 22:15 Ibuprofen (Motrin) 600 mg PRN Q6HRS PRN PO INFLAMMATION Last administered on 21:01; Start 12/08/18 at 22:15 Nystatin (Nystop) 1 vashti BID TP Last administered on 12/09/18 21:03; Start at 22:30 Oxycodone/ Acetaminophen (Percocet 10/325) 1 tab PRN QID PRN PO PAIN Last administered on 12/10/18 02:47; Start 12/08/18 at 22:15 Lidocaine (Lidoderm) 1 patch DAILY TP Last administered on 12/09/18 08:45; Start 12/09/18 at 09:00 Methadone HCl (Dolophine) 20 mg TID PO Last administered on 12/09/18 21:02; Start 12/08/18 at 22:45 Tizanidine HCl (Zanaflex) 4 mg PRN QID PRN PO MUSCLE SPASMS Last administered on 12/10/18 02:46; Start 12/08/18 at 22:15 Miscellaneous (Lidoderm Patch Removal) 1 ea QHS MC Last administered on 21:00; Start 12/09/18 at 21:00 Docusate Sodium (Colace) 100 mg DAILY PO Last administered on 12/09/18 08:44; Start 12/09/18 at 09:00 Hydrochlorothiazide (Hydrodiuril) 25 mg DAILY PO Last administered on 2/27/ 19at 08:44; Start 12/09/18 at 09:00 Metoprolol Tartrate (Lopressor) 50 mg BID PO Last administered on 12/09/18 21: 02; Start 12/09/18 at 09:00 Enoxaparin Sodium (Lovenox 40mg Syringe) 40 mg Q24H SQ Last administered on 23:20; Start 12/08/18 at 23:15; Stop 12/09/18 at 19:20; Status DC Prednisone (Prednisone) 10 mg DAILY PO Last administered on 12/09/18at 15:41; Start 12/09/18 at 15:00 Pantoprazole Sodium (Protonix) 40 mg DAILYAC PO Last administered on 12/09/18at 15:42; Start 12/09/18 at 15:00 Lidocaine/Sodium Bicarbonate (Buffered Lidocaine 1%) 3 ml 1X ONCE INJ ; Start 12/09/18 at 15:15; Stop 12/09/18 at 15:17; Status DC Methylprednisolone Acetate (DEPO-Medrol 80MG VIAL) 80 mg 1X ONCE INJ Last administered on 12/09/18at 16:17; Start 12/09/18 at 15:15; Stop 12/09/18 at 15:16 ; Status DC Bupivacaine HCl (Sensorcaine-Mpf 0.25%) 10 ml 1X ONCE IJ Last administered on 12/09/18at 16:18; Start 12/09/18 at 15:15; Stop 12/09/18 at 15:16; Status DC Enoxaparin Sodium (Lovenox 40mg Syringe) 40 mg QHS SQ Last administered on 12/09at 21:02; Start 12/09/18 at 21:00 Active Scripts Active Klor-Con 10 (Potassium Chloride) 10 Meq Tablet.er 1 Tab PO DAILY Furosemide 40 Mg Tablet 40 Mg PO DAILY 30 Days Cetirizine Hcl 10 Mg Tablet 10 Mg PO DAILY 30 Days Ibuprofen 600 Mg Tablet 600 Mg PO PRN Q6HRS PRN 90 Days Hydrochlorothiazide Tablet (Hydrochlorothiazide) 25 Mg Tablet 25 Mg PO DAILY 30 Days Coumadin (Warfarin Sodium) 3 Mg Tablet 3 Mg PO 1X WARF 30 Days Nystop (Nystatin) 60 Gm Powder 1 Vashti TP BID 30 Days Methadone Hcl 10 Mg Tablet 2 Tab PO TID Reported Lidocaine 1 Each Adh..patch 1 Each TP DAILY Tizanidine Hcl 4 Mg Capsule 4 Mg PO QID PRN Metoprolol Tartrate 50 Mg Tablet 1 Tab PO BID Docusate Sodium 100 Mg Capsule 1 Cap PO DAILY Benadryl (Diphenhydramine Hcl) 25 Mg Capsule 25 Mg PO PRN Q6HRS PRN Multivitamins (Multivitamin) 1 Each Tablet 1 Tab PO DAILY Aspirin Ec (Aspirin) 325 Mg Tablet. 1 Tab PO DAILY Percocet 10-325 Mg Tablet (Oxycodone/Acetaminophen) 1 Each Tablet 1 Tab PO PRN QID PRN Vitals/I & O Vital Sign - Last 24 Hours 12/09/18 12/09/18 12/09/18 12/09/18 11:00 13:24 13:54 14:45 Temp 98.0 98.0 98.0 98.0 Pulse 71 63 Resp 18 18 B/P (MAP) 123/57 (79) 122/53 (76) Pulse Ox 98 99 O2 Delivery Room Air Room Air Room Air Room Air 12/09/18 12/09/18 12/09/18 12/09/18 18:45 19:00 20:00 21:02 Temp 98.4 98.4 Pulse 73 73 Resp 18 B/P (MAP) 157/68 (97) 157/68 Pulse Ox 97 O2 Delivery Room Air Room Air Room Air 12/09/18 12/10/18 12/10/18 12/10/18 23:00 02:47 03:00 07:00 Temp 98.1 97.7 98.3 98.1 97.7 98.3 Pulse 70 77 69 Resp 17 18 19 16 B/P (MAP) 145/65 (91) 134/65 (88) 154/64 (94) Pulse Ox 95 96 100 O2 Delivery Room Air Room Air Room Air Room Air Intake and Output 12/09/18 12/09/18 12/10/18 15:00 23:00 07:00 Intake Total 300 ml 300 ml Balance 300 ml 300 ml MINDI FERNANDO MD Dec 10, 2018 09:44
[2018-12-10] MEDS: DOCUSATE SODIUM 100 MG CAPSULE. PO SCH (09:54)
[2018-12-10] MEDS: PANTOPRAZOLE 40 MG TABLET.DR. PO SCH (09:56)
[2018-12-10] MEDS: METHADONE 10 MG TABLET. PO SCH ×3 (09:56→20:44)
[2018-12-10] MEDS: hydroCHLOROthiazide 25 MG TABLET PO SCH (09:57)
[2018-12-10] MEDS: predniSONE 10 MG TABLET PO SCH (09:57)
[2018-12-10] MEDS: METOPROLOL TART IMMED RELEASE 50 MG TABLET. PO SCH ×2 (09:57→20:45)
[2018-12-10] MEDS: LIDOCAINE (700MG/PATCH) PATCH. TP SCH (09:58)
[2018-12-10] MEDS: NYSTATIN TOPICAL POWDER 15GM BOTTLE. TP SCH ×2 (09:59→20:48)
--- NOTE | 2018-12-10 10:45 | PDOC ---
PROGRESS NOTES Subjective Subjective Patient feeling better. Patient with better insight into self care issues. information services consultant input appreciated. Plan for SNU services and D/C if qualified. C/O eye itching and mild constipation today. Objective Objective Vital Signs Date Time Temp Pulse Resp B/P (MAP) Pulse Ox O2 Delivery O2 Flow Rate FiO2 12/10/18 09:57 69 154/64 12/10/18 07:00 98.3 16 100 Room Air 98.3 Intake and Output 12/10/18 07:00 Intake Total 600 ml Balance 600 ml Intake Oral 600 ml # Voids 2 Physical Exam Abdomen: Normal bowel sounds Heart: Other (Irregularly irreg) Extremities: No edema General: Alert Lungs: Clear to auscultation Assessment Assessment Problems Medical Problems: (1) Chronic left hip pain Status: Acute (2) Weakness Status: Acute 1. 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 Morbid obesity. 3. Peripheral vascular disease. 4. Chronic atrial fibrillation. 5. Chronic obstructive pulmonary disease. 6. Hypertension. 7. Debilitation. Plan Plan of Care SNU eval and transfer in AM or today if qualified PT/OT eval and treat Patanol eye drops Miralax daily Comment Review of Relevant I have reviewed the following items fátima (where applicable) has been applied. Labs Laboratory Tests Test 12/08/18 16:22 12/09/18 01:45 12/09/18 06:00 White Blood Count 6.9 x10^3/uL (4.0-11.0) 5.0 x10^3/uL (4.0-11.0) Red Blood Count 4.13 x10^6/uL (3.50-5.40) 3.79 x10^6/uL (3.50-5.40) Hemoglobin 12.5 g/dL (12.0-15.5) 11.5 g/dL (12.0-15.5) Hematocrit 38.1 % (36.0-47.0) 35.3 % (36.0-47.0) Mean Corpuscular Volume 92 fL (79-100) 93 fL (79-100) Mean Corpuscular Hemoglobin 30 pg (25-35) 30 pg (25-35) Mean Corpuscular Hemoglobin Concent 33 g/dL (31-37) 33 g/dL (31-37) Red Cell Distribution Width 16.0 % (11.5-14.5) 16.4 % (11.5-14.5) Platelet Count 216 x10^3/uL (140-400) 173 x10^3/uL (140-400) Neutrophils (%) (Auto) 74 % (31-73) 54 % (31-73) Lymphocytes (%) (Auto) 16 % (24-48) 32 % (24-48) Monocytes (%) (Auto) 8 % (0-9) 10 % (0-9) Eosinophils (%) (Auto) 2 % (0-3) 4 % (0-3) Basophils (%) (Auto) 0 % (0-3) 1 % (0-3) Neutrophils # (Auto) 5.1 x10^3uL (1.8-7.7) 2.7 x10^3uL (1.8-7.7) Lymphocytes # (Auto) 1.1 x10^3/uL (1.0-4.8) 1.6 x10^3/uL (1.0-4.8) Monocytes # (Auto) 0.5 x10^3/uL (0.0-1.1) 0.5 x10^3/uL (0.0-1.1) Eosinophils # (Auto) 0.2 x10^3/uL (0.0-0.7) 0.2 x10^3/uL (0.0-0.7) Basophils # (Auto) 0.0 x10^3/uL (0.0-0.2) 0.0 x10^3/uL (0.0-0.2) Sodium Level 142 mmol/L (136-145) 143 mmol/L (136-145) Potassium Level 3.5 mmol/L (3.5-5.1) 3.2 mmol/L (3.5-5.1) Chloride Level 104 mmol/L (98-107) 104 mmol/L (98-107) Carbon Dioxide Level 33 mmol/L (21-32) 31 mmol/L (21-32) Anion Gap 5 (6-14) 8 (6-14) Blood Urea Nitrogen 30 mg/dL (7-20) 28 mg/dL (7-20) Creatinine 1.0 mg/dL (0.6-1.0) 1.1 mg/dL (0.6-1.0) Estimated GFR (Cockcroft-Gault) 54.5 48.8 Glucose Level 97 mg/dL (70-99) 94 mg/dL (70-99) Calcium Level 9.0 mg/dL (8.5-10.1) 8.8 mg/dL (8.5-10.1) Thyroid Stimulating Hormone (TSH) 1.251 uIU/mL (0.358-3.74) Urine Collection Type Unknown Urine Color Yellow Urine Clarity Clear Urine pH 7.0 Urine Specific [place] 1.015 Urine Protein Negative mg/dL (NEG-TRACE) Urine Glucose (UA) Negative mg/dL (NEG) Urine Ketones (Stick) Negative mg/dL (NEG) Urine Blood Negative (NEG) Urine Nitrite Negative (NEG) Urine Bilirubin Negative (NEG) Urine Urobilinogen Dipstick 0.2 mg/dL (0.2 mg/dL) Urine Leukocyte Esterase Negative (NEG) Urine RBC Occ /HPF (0-2) Urine WBC Occ /HPF (0-4) Urine Squamous Epithelial Cells Mod /LPF Urine Bacteria Few /HPF (0-FEW) Urine Mucus Slight /LPF BUN/Creatinine Ratio 25 (6-20) Magnesium Level 1.8 mg/dL (1.8-2.4) Total Bilirubin 0.4 mg/dL (0.2-1.0) Aspartate Amino Transf (AST/SGOT) 17 U/L (15-37) Alanine Aminotransferase (ALT/SGPT) 18 U/L (14-59) Alkaline Phosphatase 79 U/L (46-116) Total Protein 6.8 g/dL (6.4-8.2) Albumin 2.7 g/dL (3.4-5.0) Albumin/Globulin Ratio 0.7 (1.0-1.7) Medications Current Medications Ondansetron HCl (Zofran) 4 mg PRN Q8HRS PRN IV NAUSEA/VOMITING; Start 12/08/18 at 16:45; Stop 12/09/18 at 16:44; Status DC Morphine Sulfate (Morphine Sulfate) 4 mg PRN Q2HR PRN IV PAIN Last administered on 12/09/18at 13:24; Start 12/08/18 at 16:45; Stop 12/09/18 at 16:44 ; Status DC Acetaminophen (Tylenol) 650 mg PRN Q4HRS PRN PO FEVER; Start 12/08/18 at 16:45 ; Stop 12/09/18 at 16:44; Status DC Diphenhydramine HCl (Benadryl) 25 mg PRN Q6HRS PRN PO ALLERGIES; Start at 22:15 Ibuprofen (Motrin) 600 mg PRN Q6HRS PRN PO INFLAMMATION Last administered on 21:01; Start 12/08/18 at 22:15 Nystatin (Nystop) 1 vashti BID TP Last administered on 12/10/18 09:59; Start at 22:30 Oxycodone/ Acetaminophen (Percocet 10/325) 1 tab PRN QID PRN PO PAIN Last administered on 12/10/18 02:47; Start 12/08/18 at 22:15 Lidocaine (Lidoderm) 1 patch DAILY TP Last administered on 12/10/18 09:58; Start 12/09/18 at 09:00 Methadone HCl (Dolophine) 20 mg TID PO Last administered on 12/10/18 09:56; Start 12/08/18 at 22:45 Tizanidine HCl (Zanaflex) 4 mg PRN QID PRN PO MUSCLE SPASMS Last administered on 12/10/18 02:46; Start 12/08/18 at 22:15 Miscellaneous (Lidoderm Patch Removal) 1 ea QHS MC Last administered on 21:00; Start 12/09/18 at 21:00 Docusate Sodium (Colace) 100 mg DAILY PO Last administered on 12/10/18 09:54; Start 12/09/18 at 09:00 Hydrochlorothiazide (Hydrodiuril) 25 mg DAILY PO Last administered on 09:57; Start 12/09/18 at 09:00 Metoprolol Tartrate (Lopressor) 50 mg BID PO Last administered on 12/10/18 09: 57; Start 12/09/18 at 09:00 Enoxaparin Sodium (Lovenox 40mg Syringe) 40 mg Q24H SQ Last administered on 23:20; Start 12/08/18 at 23:15; Stop 12/09/18 at 19:20; Status DC Prednisone (Prednisone) 10 mg DAILY PO Last administered on 12/10/18at 09:57; Start 12/09/18 at 15:00 Pantoprazole Sodium (Protonix) 40 mg DAILYAC PO Last administered on 12/10/18at 09:56; Start 12/09/18 at 15:00 Lidocaine/Sodium Bicarbonate (Buffered Lidocaine 1%) 3 ml 1X ONCE INJ ; Start 12/09/18 at 15:15; Stop 12/09/18 at 15:17; Status DC Methylprednisolone Acetate (DEPO-Medrol 80MG VIAL) 80 mg 1X ONCE INJ Last administered on 12/09/18at 16:17; Start 12/09/18 at 15:15; Stop 12/09/18 at 15:16 ; Status DC Bupivacaine HCl (Sensorcaine-Mpf 0.25%) 10 ml 1X ONCE IJ Last administered on 12/09/18at 16:18; Start 12/09/18 at 15:15; Stop 12/09/18 at 15:16; Status DC Enoxaparin Sodium (Lovenox 40mg Syringe) 40 mg QHS SQ Last administered on 12/09at 21:02; Start 12/09/18 at 21:00 Methylprednisolone Acetate (DEPO-Medrol 40MG VIAL) 40 mg 1X ONCE IM ; Start at 09:30; Stop 12/10/18 at 09:31; Status DC Bupivacaine HCl (Sensorcaine-Mpf 0.25%) 10 ml 1X ONCE IJ ; Start 12/10/18 at 09 :30; Stop 12/10/18 at 09:31; Status DC Active Scripts Active Klor-Con 10 (Potassium Chloride) 10 Meq Tablet.er 1 Tab PO DAILY Furosemide 40 Mg Tablet 40 Mg PO DAILY 30 Days Cetirizine Hcl 10 Mg Tablet 10 Mg PO DAILY 30 Days Ibuprofen 600 Mg Tablet 600 Mg PO PRN Q6HRS PRN 90 Days Hydrochlorothiazide Tablet (Hydrochlorothiazide) 25 Mg Tablet 25 Mg PO DAILY 30 Days Coumadin (Warfarin Sodium) 3 Mg Tablet 3 Mg PO 1X WARF 30 Days Nystop (Nystatin) 60 Gm Powder 1 Vashti TP BID 30 Days Methadone Hcl 10 Mg Tablet 2 Tab PO TID Reported Lidocaine 1 Each Adh..patch 1 Each TP DAILY Tizanidine Hcl 4 Mg Capsule 4 Mg PO QID PRN Metoprolol Tartrate 50 Mg Tablet 1 Tab PO BID Docusate Sodium 100 Mg Capsule 1 Cap PO DAILY Benadryl (Diphenhydramine Hcl) 25 Mg Capsule 25 Mg PO PRN Q6HRS PRN Multivitamins (Multivitamin) 1 Each Tablet 1 Tab PO DAILY Aspirin Ec (Aspirin) 325 Mg Tablet. 1 Tab PO DAILY Percocet 10-325 Mg Tablet (Oxycodone/Acetaminophen) 1 Each Tablet 1 Tab PO PRN QID PRN Vitals/I & O Vital Sign - Last 24 Hours 12/09/18 12/09/18 12/09/18 12/09/18 11:00 13:24 13:54 14:45 Temp 98.0 98.0 98.0 98.0 Pulse 71 63 Resp 18 18 B/P (MAP) 123/57 (79) 122/53 (76) Pulse Ox 98 99 O2 Delivery Room Air Room Air Room Air Room Air 12/09/18 12/09/18 12/09/18 12/09/18 18:45 19:00 20:00 21:02 Temp 98.4 98.4 Pulse 73 73 Resp 18 B/P (MAP) 157/68 (97) 157/68 Pulse Ox 97 O2 Delivery Room Air Room Air Room Air 12/09/18 12/10/18 12/10/18 12/10/18 23:00 02:47 03:00 07:00 Temp 98.1 97.7 98.3 98.1 97.7 98.3 Pulse 70 77 69 Resp 17 18 19 16 B/P (MAP) 145/65 (91) 134/65 (88) 154/64 (94) Pulse Ox 95 96 100 O2 Delivery Room Air Room Air Room Air Room Air 12/10/18 09:57 Pulse 69 B/P (MAP) 154/64 Intake and Output 12/09/18 12/09/18 12/10/18 15:00 23:00 07:00 Intake Total 300 ml 300 ml Balance 300 ml 300 ml SALVATORE HYDE MD Dec 10, 2018 10:45
[2018-12-10] MEDS ORDERED: RIVA20TA2 PO (10:54)
[2018-12-10] MEDS ORDERED: METH10TA2 PO (10:54)
[2018-12-10] MEDS ORDERED: Pantoprazole PO (10:54)
[2018-12-10] MEDS ORDERED: OXYC1TAB22 PO (10:54)
--- NOTE | 2018-12-10 10:54 | NUR ---
Dr. Miller administered a steroid injection into patient's left knee this morning. Patient tolerated procedure without difficulty.
--- NOTE | 2018-12-10 10:56 | DISCH ---
DISCHARGE DISCHARGE INFORMATION: FINAL DIAGNOSIS Problems Medical Problems: (1) Chronic left hip pain Status: Acute (2) Weakness Status: Acute CONDITION ON DISCHARGE: Stable CODE STATUS: Code Status: Full INTERMEDIATE: SNF STAY <30 DAYS: Yes POST DISCHARGE ORDERS: ACTIVITY ORDERS: Activity as tolerated WEIGHT BEARING STATUS: Other, see below DIET AFTER DISCHARGE: Cardiac WOUND/INCISION CARE: Keep wound elevated, Other, see below CHECKS AFTER DISCHARGE: CHECKS AFTER DISCHARGE: Check blood press - daily TREATMENT/EQUIPMENT ORDERS: ADAPTIVE EQUIPMENT NEEDED: None Physical Therapy For: Evalulation/Treatment Occupational Therapy For: Evaluation/Treatment DISCHARGE MEDICATIONS: Home Meds Active Scripts Rivaroxaban (XARELTO) 20 Mg Tablet, 20 MG PO DAILY for afib for 30 Days, #30 TAB Prov:SALVATORE HYDE MD 12/10/18 [Pantoprazole] [address] Sawant Conflict Check, 40 MG PO DAILYAC for gerd for 30 Days, #30 Prov:SALVATORE HYDE MD 12/10/18 Methadone Hcl (METHADONE HCL) 10 Mg Tablet, 2 TAB PO TID for Severe Pain for 30 Days, #180 TAB Prov:SALVATORE HYDE MD 12/10/18 Oxycodone/Apap 10-325 (PERCOCET 10-325 MG TABLET ) 1 Each Tablet, 1 TAB PO PRN QID PRN for PAIN for 30 Days, #120 TAB Prov:SALVATORE HYDE MD 12/10/18 Potassium Chloride (KLOR-CON 10) 10 Meq Tablet.er, 1 TAB PO DAILY, #30 TAB 5 Refills Prov:SALVATORE HYDE MD 10/28/17 Furosemide (FUROSEMIDE) 40 Mg Tablet, 40 MG PO DAILY for 30 Days, #30 TAB Prov:SALVATORE HYDE MD 10/28/17 Cetirizine Hcl (CETIRIZINE HCL) 10 Mg Tablet, 10 MG PO DAILY for 30 Days, #30 TAB Prov:SALVATORE HYDE MD 10/27/17 Ibuprofen (Ibuprofen) 600 Mg Tablet, 600 MG PO PRN Q6HRS PRN for INFLAMMATION for 90 Days, TAB Prov:SALVATORE HYDE MD 10/27/17 Hydrochlorothiazide (HYDROCHLOROTHIAZIDE TABLET ) 25 Mg Tablet, 25 MG PO DAILY for 30 Days, #30 TAB Prov:SALVATORE HYDE MD 10/27/17 Nystatin (NYSTOP) 60 Gm Powder, 1 ALESSANDRO TP BID for 30 Days, #60 MISC Prov:SALVATORE HYDE MD 10/24/17 Reported Medications Lidocaine (Lidocaine) 1 Each Adh..patch, 1 EACH TP DAILY for pain, PATCH 12/08/18 Tizanidine Hcl (TIZANIDINE HCL) 4 Mg Capsule, 4 MG PO QID PRN for MUSCLE SPASMS , CAP 10/19/17 Metoprolol Tartrate (METOPROLOL TARTRATE) 50 Mg Tablet, 1 TAB PO BID, #60 TAB 5 Refills 10/19/17 Docusate Sodium (DOCUSATE SODIUM) 100 Mg Capsule, 1 CAP PO DAILY, #30 CAP 10/19/17 Diphenhydramine Hcl (BENADRYL) 25 Mg Capsule, 25 MG PO PRN Q6HRS PRN for ALLERGIES, CAP 10/19/17 Multivitamin (MULTIVITAMINS) 1 Each Tablet, 1 TAB PO DAILY, #90 TAB 3 Refills 10/19/17 Aspirin (ASPIRIN EC) 325 Mg Tablet.dr, 1 TAB PO DAILY, #30 TAB 5 Refills 10/19/17 Discontinued Scripts Warfarin Sodium (COUMADIN) 3 Mg Tablet, 3 MG PO 1X WARF for 30 Days, #30 TAB Prov:SALVATORE HYDE MD 10/27/17 SALVATORE HYDE MD Dec 10, 2018 10:56
[2018-12-10 11:00] VITALS: BP 156/63
[2018-12-10] MEDS ORDERED: POLYVINYL ALCOHOL 1.4% OPHTH SOLUTION 15ML BOTTLE. OU PRN (11:00)
[2018-12-10] MEDS ORDERED: POTASSIUM CHLORIDE 20 MEQ TABLET.ER. PO ONE (11:30)
[2018-12-10] MEDS: POLYETHYLENE GLYCOL 3350 17 GM PACKET. PO SCH (12:10)
--- NOTE | 2018-12-10 13:36 | NUR ---
MADDY following for discharge planning. Discussed with RN. [facility] informed SW that pt is in her copay days for SNU. MADDY discussed with pt, pt advised she cannot afford to pay $167 a day for SNU, so would like to go home with home health. Pt would like referral sent to [facility]. [facility] faxed referral to [facility] ph: [phone], fax: [phone]. MADDY will continue to follow. RN notified.
[2018-12-10 15:00] VITALS: BP 152/68
--- NOTE | 2018-12-10 15:47 | NUR ---
SW following. Discussed with RN. [facility] approved pt although had concerns about pt going home and being unsafe at home. MADDY discussed this with pt's RN who advised PT/OT was working with pt and RN would discuss with them about whether pt would be appropriate for acute rehab. PT/OT agreed on acute rehab for pt. SW met with pt, pt would like referral sent to the [facility] if [facility] is full or denies. [facility] faxed referral to [facility] (fax: [phone]). MADDY will continue to follow.
--- NOTE | 2018-12-10 16:38 | PDOC4 ---
PROCEDURE Procedure At her request,I have injected her left knee joint under aseptic skin technique after skin prep with alcohol using 1 ml of depo medrol 40 mg/1ml solution mixed with 2 ml of 0.25% marcaine solution and she tolerated the procedure satisfactorily without any side effects. MINDI FERNANDO MD Dec 10, 2018 16:38
[2018-12-10 19:00] VITALS: BP 143/59
[2018-12-10] MEDS: ENOXAPARIN 40 MG/0.4 ML SYRINGE. SQ SCH (20:45)
[2018-12-10] MEDS: PATCH REMOVAL. MC SCH (21:00)
[2018-12-10 22:54] VITALS: BP 123/58
[2018-12-11] MEDS: oxyCODONE/APAP 10/325 1 TAB TABLET PO PRN ×3 (01:40→20:41)
[2018-12-11 02:55] VITALS: BP 144/59
[2018-12-11 07:00] VITALS: BP 111/54
[2018-12-11] MEDS: PANTOPRAZOLE 40 MG TABLET.DR. PO SCH (08:03)
[2018-12-11] MEDS: POLYETHYLENE GLYCOL 3350 17 GM PACKET. PO SCH (08:03)
[2018-12-11] MEDS: METHADONE 10 MG TABLET. PO SCH ×3 (08:03→20:40)
[2018-12-11] MEDS: hydroCHLOROthiazide 25 MG TABLET PO SCH (08:03)
[2018-12-11] MEDS: predniSONE 10 MG TABLET PO SCH (08:03)
[2018-12-11] MEDS: DOCUSATE SODIUM 100 MG CAPSULE. PO SCH (08:03)
[2018-12-11] MEDS: METOPROLOL TART IMMED RELEASE 50 MG TABLET. PO SCH ×2 (08:04→20:41)
[2018-12-11] MEDS: tiZANidine 4 MG TABLET. PO PRN ×3 (08:04→20:40)
[2018-12-11] MEDS: NYSTATIN TOPICAL POWDER 15GM BOTTLE. TP SCH ×2 (08:06→20:43)
--- NOTE | 2018-12-11 09:24 | PDOC ---
PROGRESS NOTES Subjective Subjective Some skin irritation from knee immobilizer. Objective Objective Vital Signs Date Time Temp Pulse Resp B/P (MAP) Pulse Ox O2 Delivery O2 Flow Rate FiO2 12/11/18 08:05 18 98 Room Air 12/11/18 08:04 61 144/59 12/11/18 07:00 98.3 98.3 Intake and Output 12/11/18 06:59 Intake Total 1570 ml Output Total 3000 ml Balance -1430 ml Intake Oral 1570 ml Output Urine Total 3000 ml # Bowel Movements 1 Physical Exam Physical Exam She is alert,comfortable and supine in bed and she continues with stiff left hip and some improvement with left knee flexion deformity with steroid injection to her left knee and she can raise her left lower extremity straight up to some extent. Iknow she is not the best candidate for left REBEKAH but without it she will end up with being on bedrest and prone to more skin irritation. Assessment Assessment Problems Medical Problems: (1) Chronic left hip pain Status: Acute (2) Weakness Status: Acute Plan Plan of Care I will try to talk to to reconsider left REBEKAH if feasible before transfer to rehab unit. Comment Review of Relevant I have reviewed the following items fátima (where applicable) has been applied. Labs Microbiology 12/09/18 Urine Culture - Final, Complete 12/09/18 Urine Culture Result 1 (KATRINA) - Final, Complete Medications Current Medications Ondansetron HCl (Zofran) 4 mg PRN Q8HRS PRN IV NAUSEA/VOMITING; Start 12/08/18 at 16:45; Stop 12/09/18 at 16:44; Status DC Morphine Sulfate (Morphine Sulfate) 4 mg PRN Q2HR PRN IV PAIN Last administered on 12/09/18at 13:24; Start 12/08/18 at 16:45; Stop 12/09/18 at 16:44 ; Status DC Acetaminophen (Tylenol) 650 mg PRN Q4HRS PRN PO FEVER; Start 12/08/18 at 16:45 ; Stop 12/09/18 at 16:44; Status DC Diphenhydramine HCl (Benadryl) 25 mg PRN Q6HRS PRN PO ALLERGIES; Start at 22:15 Ibuprofen (Motrin) 600 mg PRN Q6HRS PRN PO INFLAMMATION Last administered on at 21:01; Start 12/08/18 at 22:15 Nystatin (Nystop) 1 vashti BID TP Last administered on 12/11/18 08:06; Start 12/08 at 22:30 Oxycodone/ Acetaminophen (Percocet 10/325) 1 tab PRN QID PRN PO PAIN Last administered on 12/11/18 08:05; Start 12/08/18 at 22:15 Lidocaine (Lidoderm) 1 patch DAILY TP Last administered on 12/10/18at 09:58; Start 12/09/18 at 09:00 Methadone HCl (Dolophine) 20 mg TID PO Last administered on 12/11/18 08:03; Start 12/08/18 at 22:45 Tizanidine HCl (Zanaflex) 4 mg PRN QID PRN PO MUSCLE SPASMS Last administered on 12/11/18 08:04; Start 12/08/18 at 22:15 Miscellaneous (Lidoderm Patch Removal) 1 ea QHS MC Last administered on at 21:00; Start 12/09/18 at 21:00 Docusate Sodium (Colace) 100 mg DAILY PO Last administered on 12/11/18 08:03; Start 12/09/18 at 09:00 Hydrochlorothiazide (Hydrodiuril) 25 mg DAILY PO Last administered on 12/11/18 08:03; Start 12/09/18 at 09:00 Metoprolol Tartrate (Lopressor) 50 mg BID PO Last administered on 12/11/18 08: 04; Start 12/09/18 at 09:00 Enoxaparin Sodium (Lovenox 40mg Syringe) 40 mg Q24H SQ Last administered on at 23:20; Start 12/08/18 at 23:15; Stop 12/09/18 at 19:20; Status DC Prednisone (Prednisone) 10 mg DAILY PO Last administered on 12/11/18 08:03; Start 12/09/18 at 15:00 Pantoprazole Sodium (Protonix) 40 mg DAILYAC PO Last administered on 12/11/18 08:03; Start 12/09/18 at 15:00 Lidocaine/Sodium Bicarbonate (Buffered Lidocaine 1%) 3 ml 1X ONCE INJ ; Start 12/09/18 at 15:15; Stop 12/09/18 at 15:17; Status DC Methylprednisolone Acetate (DEPO-Medrol 80MG VIAL) 80 mg 1X ONCE INJ Last administered on 12/09/18at 16:17; Start 12/09/18 at 15:15; Stop 12/09/18 at 15:16 ; Status DC Bupivacaine HCl (Sensorcaine-Mpf 0.25%) 10 ml 1X ONCE IJ Last administered on 12/09/18at 16:18; Start 12/09/18 at 15:15; Stop 12/09/18 at 15:16; Status DC Enoxaparin Sodium (Lovenox 40mg Syringe) 40 mg QHS SQ Last administered on 12/10at 20:45; Start 12/09/18 at 21:00 Methylprednisolone Acetate (DEPO-Medrol 40MG VIAL) 40 mg 1X ONCE IM ; Start at 09:30; Stop 12/10/18 at 09:31; Status DC Bupivacaine HCl (Sensorcaine-Mpf 0.25%) 10 ml 1X ONCE IJ ; Start 12/10/18 at 09 :30; Stop 12/10/18 at 09:31; Status DC Potassium Chloride (Klor-Con) 40 meq 1X ONCE PO Last administered on at 12:12; Start 12/10/18 at 11:30; Stop 12/10/18 at 11:31; Status DC Artificial Tears (Artificial Tears) 1 drop PRN Q15MIN PRN OU DRY EYE; Start at 11:00 Polyethylene Glycol (miraLAX PACKET) 17 gm DAILY PO Last administered on at 08:03; Start 12/10/18 at 11:30 Active Scripts Active Xarelto (Rivaroxaban) 20 Mg Tablet 20 Mg PO DAILY 30 Days [Pantoprazole] 40 MG Tablet.dr 40 Mg PO DAILYAC 30 Days Methadone Hcl 10 Mg Tablet 2 Tab PO TID 30 Days Percocet 10-325 Mg Tablet (Oxycodone/Acetaminophen) 1 Each Tablet 1 Tab PO PRN QID PRN 30 Days Klor-Con 10 (Potassium Chloride) 10 Meq Tablet.er 1 Tab PO DAILY Furosemide 40 Mg Tablet 40 Mg PO DAILY 30 Days Cetirizine Hcl 10 Mg Tablet 10 Mg PO DAILY 30 Days Ibuprofen 600 Mg Tablet 600 Mg PO PRN Q6HRS PRN 90 Days Hydrochlorothiazide Tablet (Hydrochlorothiazide) 25 Mg Tablet 25 Mg PO DAILY 30 Days Nystop (Nystatin) 60 Gm Powder 1 Vashti TP BID 30 Days Reported Lidocaine 1 Each Adh..patch 1 Each TP DAILY Tizanidine Hcl 4 Mg Capsule 4 Mg PO QID PRN Metoprolol Tartrate 50 Mg Tablet 1 Tab PO BID Docusate Sodium 100 Mg Capsule 1 Cap PO DAILY Benadryl (Diphenhydramine Hcl) 25 Mg Capsule 25 Mg PO PRN Q6HRS PRN Multivitamins (Multivitamin) 1 Each Tablet 1 Tab PO DAILY Aspirin Ec (Aspirin) 325 Mg Tablet. 1 Tab PO DAILY Vitals/I & O Vital Sign - Last 24 Hours 12/10/18 12/10/18 12/10/18 12/10/18 09:57 11:00 15:00 19:00 Temp 97.7 98.6 98.9 97.7 98.6 98.9 Pulse 69 71 71 72 Resp 18 B/P (MAP) 154/64 156/63 (94) 152/68 (96) 143/59 (87) Pulse Ox 99 98 94 O2 Delivery Room Air Room Air Room Air 12/10/18 12/10/18 12/10/18 12/11/18 20:00 20:45 22:54 01:40 Temp 97.7 97.7 Pulse 72 59 Resp 18 B/P (MAP) 143/59 123/58 (79) Pulse Ox 96 O2 Delivery Room Air Room Air Room Air 12/11/18 12/11/18 12/11/18 12/11/18 02:55 07:00 08:04 08:05 Temp 97.7 98.3 97.7 98.3 Pulse 61 64 61 Resp 18 18 18 B/P (MAP) 144/59 (87) 111/54 (73) 144/59 Pulse Ox 98 99 98 O2 Delivery Room Air Room Air Room Air Intake and Output 12/10/18 12/10/18 12/11/18 14:59 22:59 06:59 Intake Total 480 ml 240 ml 850 ml Output Total 1300 ml 1000 ml 700 ml Balance -820 ml -760 ml 150 ml MINDI FERNANDO MD Dec 11, 2018 09:24
[2018-12-11 11:00] VITALS: BP 123/43
[2018-12-11 11:38] LABS: CALCIUM 8.7 mg/dL (8.5-10.1); CREATININE 1.1 mg/dL (0.6-1.0); GFR 48.8; POTASSIUM 4.1 mmol/L (3.5-5.1)
--- NOTE | 2018-12-11 12:56 | NUR ---
SW following. Discussed with RN, RN advised Dr. Miller and Dr. Guzman would like a knee brace for pt before pt discharges to a rehab. SW is awaiting acceptance from the [facility] to determine if pt is accepted or not. SW will continue to follow.
--- NOTE | 2018-12-11 13:50 | NUR ---
Wound Care: Consult by vascular for Dr. Meier to eval and treat. No changed to prior wound recommendations, xeroform and foam to L posterior lower leg, barrier cream to buttocks.Plan to follow up 12/18/18. No other open areas noted on head to toe assessment.
--- NOTE | 2018-12-11 14:00 | NUR ---
Discharge Note: GULSHAN GILLILAND Discharge instructions and discharge home medications reviewed with Patient and a copy given. All questions have been answered and understanding verbalized. The following instructions and handouts were given: Diabetes Education and Diet. Prescriptions for Humulin and Coreg. Discontinued lines and drains: PIV, Left Forearm, Catheter intact. Patient discharged to Home with Self-Care via Facility Transport
[2018-12-11 15:00] VITALS: BP 105/49
[2018-12-11] MEDS: LIDOCAINE (700MG/PATCH) PATCH. TP SCH (15:51)
--- NOTE | 2018-12-11 15:56 | PDOC2 ---
Chief Complaint: Chief Complaint: Leg ulcer Problems: (1) Non-pressure chronic ulcer of left calf, limited to breakdown of skin Vital Signs: Vital Signs: Vital Signs Date Time Temp Pulse Resp B/P (MAP) Pulse Ox O2 Delivery O2 Flow Rate FiO2 12/10/18 07:00 98.3 69 16 154/64 (94) 100 Room Air 98.3 Vital Signs Date Time Temp Pulse Resp B/P (MAP) Pulse Ox O2 Delivery O2 Flow Rate FiO2 12/11/18 11:00 97.7 68 18 123/43 (69) 97 Room Air 97.7 Allergies: Allergies: Allergies Coded Allergies Type Severity Reaction Last Updated Verified shellfish derived Allergy Severe 10/23/17 Yes Iodinated Contrast- Oral and IV Dye Allergy Intermediate 10/23/17 Yes digoxin Allergy Intermediate 10/23/17 Yes Medications: Home Meds Active Scripts Rivaroxaban (XARELTO) 20 Mg Tablet, 20 MG PO DAILY for afib for 30 Days, #30 TAB Prov:SALVATORE IVEY MD 12/10/18 [Pantoprazole] 40 [address]DR Sawant Conflict Check, 40 MG PO DAILYAC for gerd for 30 Days, #30 Prov:SALVATORE IVEY MD 12/10/18 Methadone Hcl (METHADONE HCL) 10 Mg Tablet, 2 TAB PO TID for Severe Pain for 30 Days, #180 TAB Prov:SALVATORE IVEY MD 12/10/18 Oxycodone/Apap 10-325 (PERCOCET 10-325 MG TABLET ) 1 Each Tablet, 1 TAB PO PRN QID PRN for PAIN for 30 Days, #120 TAB Prov:SALVATORE IVEY MD 12/10/18 Potassium Chloride (KLOR-CON 10) 10 Meq Tablet.er, 1 TAB PO DAILY, #30 TAB 5 Refills Prov:SALVATORE IVEY MD 10/28/17 Furosemide (FUROSEMIDE) 40 Mg Tablet, 40 MG PO DAILY for 30 Days, #30 TAB Prov:SALVATORE IVEY MD 10/28/17 Cetirizine Hcl (CETIRIZINE HCL) 10 Mg Tablet, 10 MG PO DAILY for 30 Days, #30 TAB Prov:SALVATORE IVEY MD 10/27/17 Ibuprofen (Ibuprofen) 600 Mg Tablet, 600 MG PO PRN Q6HRS PRN for INFLAMMATION for 90 Days, TAB Prov:SALVATORE IVEY MD 10/27/17 Hydrochlorothiazide (HYDROCHLOROTHIAZIDE TABLET ) 25 Mg Tablet, 25 MG PO DAILY for 30 Days, #30 TAB Prov:SALVATORE IVEY MD 10/27/17 Nystatin (NYSTOP) 60 Gm Powder, 1 ALESSANDRO TP BID for 30 Days, #60 MISC Prov:SALVATORE IVEY MD 10/24/17 Reported Medications Lidocaine (Lidocaine) 1 Each Adh..patch, 1 EACH TP DAILY for pain, PATCH 12/08/18 Tizanidine Hcl (TIZANIDINE HCL) 4 Mg Capsule, 4 MG PO QID PRN for MUSCLE SPASMS , CAP 10/19/17 Metoprolol Tartrate (METOPROLOL TARTRATE) 50 Mg Tablet, 1 TAB PO BID, #60 TAB 5 Refills 10/19/17 Docusate Sodium (DOCUSATE SODIUM) 100 Mg Capsule, 1 CAP PO DAILY, #30 CAP 10/19/17 Diphenhydramine Hcl (BENADRYL) 25 Mg Capsule, 25 MG PO PRN Q6HRS PRN for ALLERGIES, CAP 10/19/17 Multivitamin (MULTIVITAMINS) 1 Each Tablet, 1 TAB PO DAILY, #90 TAB 3 Refills 10/19/17 Aspirin (ASPIRIN EC) 325 Mg Tablet.dr, 1 TAB PO DAILY, #30 TAB 5 Refills 10/19/17 Discontinued Scripts Warfarin Sodium (COUMADIN) 3 Mg Tablet, 3 MG PO 1X WARF for 30 Days, #30 TAB Prov:SALVATORE IVEY MD 10/27/17 PCP: PCP: Salvatore Ivey MD Pain: Pain Context: None Date of Onset Ms. Garcia is a 73 yo obese female admitted for mobility problems. She has chronic back and hip pain, is relatively immobile, and has a hx of pressure ulcers in the past followed in the wound care center. We have been asked to evaluate lower extremity ulcer and possible coccyx pressure sore. PMH Obesity, PAD, chronic back pain, hip pain PSH Non-smoker Review of Systems: No fever. No loss of appetite: getting protein every day Physical Exam - Wound #1 Wound Exam Location of Modifier: Left Wound Location: Posterior Body Site: Calf Associated Signs/Symptoms: None A/P The partial thickness wound on her left leg is very superficial, clean, and does not appear infected. Pt thinks it is likely from shear while getting out of bed. The coccyx has dermal irritation, likely due to incontinence. She states she "sat in my own urine for a long time." We'll treat the coccyx with calazine, and the leg with contact and foam. Please call if there is any decline in the status of these wounds Problems: (1) Non-pressure chronic ulcer of left calf, limited to breakdown of skin ROBYN MENDEZ MD Dec 11, 2018 15:56
--- NOTE | 2018-12-11 16:34 | NUR ---
SW following. Yuri from [facility] met with pt to do a bedside assessment. [facility] will submit for insurance. SW will continue to follow. RN notified.
[2018-12-11] MEDS ORDERED: BISACODYL 10 MG SUPP.RECT. PR PRN (16:45)
--- NOTE | 2018-12-11 16:59 | PDOC ---
PROGRESS NOTES Subjective Subjective Patient feels better after radiology guided hip injection as well as knee injection by Dr. Miller. Patient's mobility still severely limited. Knee brace for range of motion improvement ordered. Plan for patient to go to rehabilitation until leg range of motion improved and have patient follow-up for left total hip arthroplasty Objective Objective Vital Signs Date Time Temp Pulse Resp B/P (MAP) Pulse Ox O2 Delivery O2 Flow Rate FiO2 12/11/18 15:00 97.7 69 18 105/49 (67) 96 Room Air 97.7 Intake and Output 12/11/18 07:00 Intake Total 1570 ml Output Total 3000 ml Balance -1430 ml Intake Oral 1570 ml Output Urine Total 3000 ml # Bowel Movements 1 Physical Exam Abdomen: Normal bowel sounds Heart: Regular rate Extremities: No edema General: Alert Lungs: Clear to auscultation Assessment Assessment Problems Medical Problems: (1) Chronic left hip pain Status: Acute (2) Weakness Status: Acute 1. 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 Morbid obesity. 3. Peripheral vascular disease. 4. Chronic atrial fibrillation. 5. Chronic obstructive pulmonary disease. 6. Hypertension. 7. Debilitation. Plan Plan of Care Continue PT and OT efforts. Obtain specialized knee brace for range of motion improvement. Transfer to rehabilitation once stable. Follow-up total hip arthroplasty left for mobility when strength and range of motion improved. Comment Review of Relevant I have reviewed the following items fátima (where applicable) has been applied. Labs Laboratory Tests Test 12/11/18 11:05 Sodium Level 138 mmol/L (136-145) Potassium Level 4.1 mmol/L (3.5-5.1) Chloride Level 101 mmol/L (98-107) Carbon Dioxide Level 29 mmol/L (21-32) Anion Gap 8 (6-14) Blood Urea Nitrogen 30 mg/dL (7-20) Creatinine 1.1 mg/dL (0.6-1.0) Estimated GFR (Cockcroft-Gault) 48.8 Glucose Level 152 mg/dL (70-99) Calcium Level 8.7 mg/dL (8.5-10.1) Laboratory Tests Test 12/11/18 11:05 Sodium Level 138 mmol/L (136-145) Potassium Level 4.1 mmol/L (3.5-5.1) Chloride Level 101 mmol/L (98-107) Carbon Dioxide Level 29 mmol/L (21-32) Anion Gap 8 (6-14) Blood Urea Nitrogen 30 mg/dL (7-20) Creatinine 1.1 mg/dL (0.6-1.0) Estimated GFR (Cockcroft-Gault) 48.8 Glucose Level 152 mg/dL (70-99) Calcium Level 8.7 mg/dL (8.5-10.1) Microbiology 12/09/18 Urine Culture - Final, Complete 12/09/18 Urine Culture Result 1 (KATRINA) - Final, Complete Medications Current Medications Ondansetron HCl (Zofran) 4 mg PRN Q8HRS PRN IV NAUSEA/VOMITING; Start 12/08/18 at 16:45; Stop 12/09/18 at 16:44; Status DC Morphine Sulfate (Morphine Sulfate) 4 mg PRN Q2HR PRN IV PAIN Last administered on 12/09/18at 13:24; Start 12/08/18 at 16:45; Stop 12/09/18 at 16:44 ; Status DC Acetaminophen (Tylenol) 650 mg PRN Q4HRS PRN PO FEVER; Start 12/08/18 at 16:45 ; Stop 12/09/18 at 16:44; Status DC Diphenhydramine HCl (Benadryl) 25 mg PRN Q6HRS PRN PO ALLERGIES; Start at 22:15 Ibuprofen (Motrin) 600 mg PRN Q6HRS PRN PO INFLAMMATION Last administered on 21:01; Start 12/08/18 at 22:15 Nystatin (Nystop) 1 vashti BID TP Last administered on 12/11/18 08:06; Start 12/08 at 22:30 Oxycodone/ Acetaminophen (Percocet 10/325) 1 tab PRN QID PRN PO PAIN Last administered on 12/11/18 08:05; Start 12/08/18 at 22:15 Lidocaine (Lidoderm) 1 patch DAILY TP Last administered on 12/11/18 15:51; Start 12/09/18 at 09:00 Methadone HCl (Dolophine) 20 mg TID PO Last administered on 12/11/18at 15:48; Start 12/08/18 at 22:45 Tizanidine HCl (Zanaflex) 4 mg PRN QID PRN PO MUSCLE SPASMS Last administered on 12/11/18 15:48; Start 12/08/18 at 22:15 Miscellaneous (Lidoderm Patch Removal) 1 ea QHS MC Last administered on 21:00; Start 12/09/18 at 21:00 Docusate Sodium (Colace) 100 mg DAILY PO Last administered on 12/11/18 08:03; Start 12/09/18 at 09:00 Hydrochlorothiazide (Hydrodiuril) 25 mg DAILY PO Last administered on 12/11/18 08:03; Start 12/09/18 at 09:00 Metoprolol Tartrate (Lopressor) 50 mg BID PO Last administered on 12/11/18 08: 04; Start 12/09/18 at 09:00 Enoxaparin Sodium (Lovenox 40mg Syringe) 40 mg Q24H SQ Last administered on 23:20; Start 12/08/18 at 23:15; Stop 12/09/18 at 19:20; Status DC Prednisone (Prednisone) 10 mg DAILY PO Last administered on 12/11/18 08:03; Start 12/09/18 at 15:00 Pantoprazole Sodium (Protonix) 40 mg DAILYAC PO Last administered on 12/11/18 08:03; Start 12/09/18 at 15:00 Lidocaine/Sodium Bicarbonate (Buffered Lidocaine 1%) 3 ml 1X ONCE INJ ; Start 12/09/18 at 15:15; Stop 12/09/18 at 15:17; Status DC Methylprednisolone Acetate (DEPO-Medrol 80MG VIAL) 80 mg 1X ONCE INJ Last administered on 12/09/18 16:17; Start 12/09/18 at 15:15; Stop 12/09/18 at 15:16 ; Status DC Bupivacaine HCl (Sensorcaine-Mpf 0.25%) 10 ml 1X ONCE IJ Last administered on 12/09/18 16:18; Start 12/09/18 at 15:15; Stop 12/09/18 at 15:16; Status DC Enoxaparin Sodium (Lovenox 40mg Syringe) 40 mg QHS SQ Last administered on 12/10at 20:45; Start 12/09/18 at 21:00 Methylprednisolone Acetate (DEPO-Medrol 40MG VIAL) 40 mg 1X ONCE IM ; Start at 09:30; Stop 12/10/18 at 09:31; Status DC Bupivacaine HCl (Sensorcaine-Mpf 0.25%) 10 ml 1X ONCE IJ ; Start 12/10/18 at 09 :30; Stop 12/10/18 at 09:31; Status DC Potassium Chloride (Klor-Con) 40 meq 1X ONCE PO Last administered on at 12:12; Start 12/10/18 at 11:30; Stop 12/10/18 at 11:31; Status DC Artificial Tears (Artificial Tears) 1 drop PRN Q15MIN PRN OU DRY EYE; Start at 11:00 Polyethylene Glycol (miraLAX PACKET) 17 gm DAILY PO Last administered on at 08:03; Start 12/10/18 at 11:30 Bupivacaine HCl (Sensorcaine-Mpf 0.25%) 10 ml STK-MED ONCE .ROUTE ; Start at 09:30; Stop 12/11/18 at 15:09; Status DC Methylprednisolone Acetate (DEPO-Medrol 40MG VIAL) 40 mg STK-MED ONCE .ROUTE ; Start 12/10/18 at 09:30; Stop 12/11/18 at 15:09; Status DC Bisacodyl (Dulcolax Supp) 10 mg PRN DAILY PRN ME CONSTIPATION; Start 12/11/18 at 16:45 Active Scripts Active Xarelto (Rivaroxaban) 20 Mg Tablet 20 Mg PO DAILY 30 Days [Pantoprazole] 40 MG Tablet.dr 40 Mg PO DAILYAC 30 Days Methadone Hcl 10 Mg Tablet 2 Tab PO TID 30 Days Percocet 10-325 Mg Tablet (Oxycodone/Acetaminophen) 1 Each Tablet 1 Tab PO PRN QID PRN 30 Days Klor-Con 10 (Potassium Chloride) 10 Meq Tablet.er 1 Tab PO DAILY Furosemide 40 Mg Tablet 40 Mg PO DAILY 30 Days Cetirizine Hcl 10 Mg Tablet 10 Mg PO DAILY 30 Days Ibuprofen 600 Mg Tablet 600 Mg PO PRN Q6HRS PRN 90 Days Hydrochlorothiazide Tablet (Hydrochlorothiazide) 25 Mg Tablet 25 Mg PO DAILY 30 Days Nystop (Nystatin) 60 Gm Powder 1 Vashti TP BID 30 Days Reported Lidocaine 1 Each Adh..patch 1 Each TP DAILY Tizanidine Hcl 4 Mg Capsule 4 Mg PO QID PRN Metoprolol Tartrate 50 Mg Tablet 1 Tab PO BID Docusate Sodium 100 Mg Capsule 1 Cap PO DAILY Benadryl (Diphenhydramine Hcl) 25 Mg Capsule 25 Mg PO PRN Q6HRS PRN Multivitamins (Multivitamin) 1 Each Tablet 1 Tab PO DAILY Aspirin Ec (Aspirin) 325 Mg Tablet. 1 Tab PO DAILY Vitals/I & O Vital Sign - Last 24 Hours 12/10/18 12/10/18 12/10/18 12/10/18 19:00 20:00 20:45 22:54 Temp 98.9 97.7 98.9 97.7 Pulse 72 72 59 Resp 18 18 B/P (MAP) 143/59 (87) 143/59 123/58 (79) Pulse Ox 94 96 O2 Delivery Room Air Room Air Room Air 12/11/18 12/11/18 12/11/18 12/11/18 01:40 02:55 07:00 08:00 Temp 97.7 98.3 97.7 98.3 Pulse 61 64 Resp 18 18 B/P (MAP) 144/59 (87) 111/54 (73) Pulse Ox 98 99 O2 Delivery Room Air Room Air Room Air Room Air 12/11/18 12/11/18 12/11/18 12/11/18 08:04 08:05 09:05 11:00 Temp 97.7 97.7 Pulse 61 68 Resp 18 14 18 B/P (MAP) 144/59 123/43 (69) Pulse Ox 98 97 97 O2 Delivery Room Air Room Air Room Air 12/11/18 15:00 Temp 97.7 97.7 Pulse 69 Resp 18 B/P (MAP) 105/49 (67) Pulse Ox 96 O2 Delivery Room Air Intake and Output 12/10/18 12/10/18 12/11/18 15:00 23:00 07:00 Intake Total 480 ml 240 ml 850 ml Output Total 1300 ml 1000 ml 700 ml Balance -820 ml -760 ml 150 ml SALVATORE HYDE MD Dec 11, 2018 16:59
--- NOTE | 2018-12-11 18:06 | PDOC ---
PROGRESS NOTES Subjective Subjective Problems overnight: Indicates ongoing severe left hip pain with motion, some progress with physical therapy on improving knee extension Objective Vital Signs Vital Signs Date Time Temp Pulse Resp B/P (MAP) Pulse Ox O2 Delivery O2 Flow Rate FiO2 12/11/18 15:00 97.7 69 18 105/49 (67) 96 Room Air 97.7 Physical Exam On exam she continues to have very limited hip motion with severe pain on any attempted motion severe flexion contracture of the left knee with some mild improvement after working with physical therapy Labs Laboratory Tests Test 12/11/18 11:05 Sodium Level 138 mmol/L (136-145) Potassium Level 4.1 mmol/L (3.5-5.1) Chloride Level 101 mmol/L (98-107) Carbon Dioxide Level 29 mmol/L (21-32) Anion Gap 8 (6-14) Blood Urea Nitrogen 30 mg/dL (7-20) Creatinine 1.1 mg/dL (0.6-1.0) Estimated GFR (Cockcroft-Gault) 48.8 Glucose Level 152 mg/dL (70-99) Calcium Level 8.7 mg/dL (8.5-10.1) Laboratory Tests Test 12/11/18 11:05 Sodium Level 138 mmol/L (136-145) Potassium Level 4.1 mmol/L (3.5-5.1) Chloride Level 101 mmol/L (98-107) Carbon Dioxide Level 29 mmol/L (21-32) Anion Gap 8 (6-14) Blood Urea Nitrogen 30 mg/dL (7-20) Creatinine 1.1 mg/dL (0.6-1.0) Estimated GFR (Cockcroft-Gault) 48.8 Glucose Level 152 mg/dL (70-99) Calcium Level 8.7 mg/dL (8.5-10.1) Assessment Assessment 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 Miller and with the patient the ongoing need to improve her knee range of motion in order to realistically consider left total hip arthroplasty as she needs to get the knee functional so she could actually take advantage of the relief obtained from a left total hip arthroplasty. If she is unable to otherwise ambulate I don't judged that the hip arthroplasty would be appropriate given the risk of the procedure. I did tell her however that we could certainly consider it if she is able to work with physical therapy to achieve knee extension sufficient for ambulation. An appropriate brace has been ordered and can be supplied either through [facility] or [facility] to passively work on left knee extension in addition to her ongoing physical therapy and rehabilitation DANNY MEEKS MD Dec 11, 2018 18:06
[2018-12-11 19:30] VITALS: BP 109/58
[2018-12-11] MEDS: ENOXAPARIN 40 MG/0.4 ML SYRINGE. SQ SCH (20:42)
[2018-12-11] MEDS: PATCH REMOVAL. MC SCH (20:50)
[2018-12-11 23:59] VITALS: BP 138/69
[2018-12-12] MEDS: oxyCODONE/APAP 10/325 1 TAB TABLET PO PRN ×2 (02:03→08:06)
[2018-12-12 03:59] VITALS: BP 113/53
[2018-12-12] MEDS: tiZANidine 4 MG TABLET. PO PRN ×2 (04:40→21:49)
[2018-12-12 07:00] VITALS: BP 132/66
[2018-12-12] MEDS: PANTOPRAZOLE 40 MG TABLET.DR. PO SCH (07:58)
[2018-12-12] MEDS: predniSONE 10 MG TABLET PO SCH (09:57)
[2018-12-12] MEDS: hydroCHLOROthiazide 25 MG TABLET PO SCH (09:57)
[2018-12-12] MEDS: METHADONE 10 MG TABLET. PO SCH ×3 (09:57→21:41)
[2018-12-12] MEDS: DOCUSATE SODIUM 100 MG CAPSULE. PO SCH (09:57)
[2018-12-12] MEDS: METOPROLOL TART IMMED RELEASE 50 MG TABLET. PO SCH ×2 (09:58→21:42)
[2018-12-12] MEDS: POLYETHYLENE GLYCOL 3350 17 GM PACKET. PO SCH (09:59)
[2018-12-12] MEDS: NYSTATIN TOPICAL POWDER 15GM BOTTLE. TP SCH ×2 (10:00→21:43)
[2018-12-12] MEDS: LIDOCAINE (700MG/PATCH) PATCH. TP SCH (10:05)
[2018-12-12 11:00] VITALS: BP 136/59
--- NOTE | 2018-12-12 11:32 | PDOC ---
PROGRESS NOTES Subjective Subjective She feels better. Objective Objective Vital Signs Date Time Temp Pulse Resp B/P (MAP) Pulse Ox O2 Delivery O2 Flow Rate FiO2 12/12/18 09:58 51 132/66 12/12/18 08:06 18 Room Air 12/12/18 07:00 98.2 99 98.2 Intake and Output 12/12/18 06:59 Intake Total 850 ml Output Total 750 ml Balance 100 ml Intake Oral 850 ml Output Urine Total 750 ml # Bowel Movements 2 Physical Exam Physical Exam She is supine in bed and comfortable and she had improved left knee extension. She had dressing to her left calf wound.Physical and occupational therapy working with her. Waiting for left knee brace to be fitted on Friday. Assessment Assessment Problems Medical Problems: (1) Chronic left hip pain Status: Acute (2) Weakness Status: Acute Plan Plan of Care Hopefully to acute rehab early next week to work on her left knee extension and wound care,to be considered for left REBEKAH when wound heals and she can extend her left knee to almost 90 degrees. Comment Review of Relevant I have reviewed the following items fátima (where applicable) has been applied. Labs Laboratory Tests Test 12/11/18 11:05 Sodium Level 138 mmol/L (136-145) Potassium Level 4.1 mmol/L (3.5-5.1) Chloride Level 101 mmol/L (98-107) Carbon Dioxide Level 29 mmol/L (21-32) Anion Gap 8 (6-14) Blood Urea Nitrogen 30 mg/dL (7-20) Creatinine 1.1 mg/dL (0.6-1.0) Estimated GFR (Cockcroft-Gault) 48.8 Glucose Level 152 mg/dL (70-99) Calcium Level 8.7 mg/dL (8.5-10.1) Microbiology 12/09/18 Urine Culture - Final, Complete 12/09/18 Urine Culture Result 1 (KATRINA) - Final, Complete Medications Current Medications Ondansetron HCl (Zofran) 4 mg PRN Q8HRS PRN IV NAUSEA/VOMITING; Start 12/08/18 at 16:45; Stop 12/09/18 at 16:44; Status DC Morphine Sulfate (Morphine Sulfate) 4 mg PRN Q2HR PRN IV PAIN Last administered on 12/09/18at 13:24; Start 12/08/18 at 16:45; Stop 12/09/18 at 16:44 ; Status DC Acetaminophen (Tylenol) 650 mg PRN Q4HRS PRN PO FEVER; Start 12/08/18 at 16:45 ; Stop 12/09/18 at 16:44; Status DC Diphenhydramine HCl (Benadryl) 25 mg PRN Q6HRS PRN PO ALLERGIES; Start at 22:15 Ibuprofen (Motrin) 600 mg PRN Q6HRS PRN PO INFLAMMATION Last administered on 21:01; Start 12/08/18 at 22:15 Nystatin (Nystop) 1 vashti BID TP Last administered on 12/12/18 10:00; Start 12/08 at 22:30 Oxycodone/ Acetaminophen (Percocet 10/325) 1 tab PRN QID PRN PO PAIN Last administered on 12/12/18 08:06; Start 12/08/18 at 22:15 Lidocaine (Lidoderm) 1 patch DAILY TP Last administered on 12/12/18 10:05; Start 12/09/18 at 09:00 Methadone HCl (Dolophine) 20 mg TID PO Last administered on 12/12/18 09:57; Start 12/08/18 at 22:45 Tizanidine HCl (Zanaflex) 4 mg PRN QID PRN PO MUSCLE SPASMS Last administered on 12/12/18 04:40; Start 12/08/18 at 22:15 Miscellaneous (Lidoderm Patch Removal) 1 ea QHS MC Last administered on 20:50; Start 12/09/18 at 21:00 Docusate Sodium (Colace) 100 mg DAILY PO Last administered on 12/12/18 09:57; Start 12/09/18 at 09:00 Hydrochlorothiazide (Hydrodiuril) 25 mg DAILY PO Last administered on 12/12/18 09:57; Start 12/09/18 at 09:00 Metoprolol Tartrate (Lopressor) 50 mg BID PO Last administered on 12/12/18 09: 58; Start 12/09/18 at 09:00 Enoxaparin Sodium (Lovenox 40mg Syringe) 40 mg Q24H SQ Last administered on 23:20; Start 12/08/18 at 23:15; Stop 12/09/18 at 19:20; Status DC Prednisone (Prednisone) 10 mg DAILY PO Last administered on 12/12/18 09:57; Start 12/09/18 at 15:00 Pantoprazole Sodium (Protonix) 40 mg DAILYAC PO Last administered on 12/12/18 07:58; Start 12/09/18 at 15:00 Lidocaine/Sodium Bicarbonate (Buffered Lidocaine 1%) 3 ml 1X ONCE INJ ; Start 12/09/18 at 15:15; Stop 12/09/18 at 15:17; Status DC Methylprednisolone Acetate (DEPO-Medrol 80MG VIAL) 80 mg 1X ONCE INJ Last administered on 12/09/18at 16:17; Start 12/09/18 at 15:15; Stop 12/09/18 at 15:16 ; Status DC Bupivacaine HCl (Sensorcaine-Mpf 0.25%) 10 ml 1X ONCE IJ Last administered on 12/09/18at 16:18; Start 12/09/18 at 15:15; Stop 12/09/18 at 15:16; Status DC Enoxaparin Sodium (Lovenox 40mg Syringe) 40 mg QHS SQ Last administered on at 20:42; Start 12/09/18 at 21:00 Methylprednisolone Acetate (DEPO-Medrol 40MG VIAL) 40 mg 1X ONCE IM ; Start at 09:30; Stop 12/10/18 at 09:31; Status DC Bupivacaine HCl (Sensorcaine-Mpf 0.25%) 10 ml 1X ONCE IJ ; Start 12/10/18 at 09 :30; Stop 12/10/18 at 09:31; Status DC Potassium Chloride (Klor-Con) 40 meq 1X ONCE PO Last administered on at 12:12; Start 12/10/18 at 11:30; Stop 12/10/18 at 11:31; Status DC Artificial Tears (Artificial Tears) 1 drop PRN Q15MIN PRN OU DRY EYE; Start at 11:00 Polyethylene Glycol (miraLAX PACKET) 17 gm DAILY PO Last administered on at 09:59; Start 12/10/18 at 11:30 Bupivacaine HCl (Sensorcaine-Mpf 0.25%) 10 ml STK-MED ONCE .ROUTE ; Start at 09:30; Stop 12/11/18 at 15:09; Status DC Methylprednisolone Acetate (DEPO-Medrol 40MG VIAL) 40 mg STK-MED ONCE .ROUTE ; Start 12/10/18 at 09:30; Stop 12/11/18 at 15:09; Status DC Bisacodyl (Dulcolax Supp) 10 mg PRN DAILY PRN [place] CONSTIPATION Last administered on 12/11/18at 18:49; Start 12/11/18 at 16:45 Active Scripts Active Xarelto (Rivaroxaban) 20 Mg Tablet 20 Mg PO DAILY 30 Days [Pantoprazole] 40 MG Tablet.dr 40 Mg PO DAILYAC 30 Days Methadone Hcl 10 Mg Tablet 2 Tab PO TID 30 Days Percocet 10-325 Mg Tablet (Oxycodone/Acetaminophen) 1 Each Tablet 1 Tab PO PRN QID PRN 30 Days Klor-Con 10 (Potassium Chloride) 10 Meq Tablet.er 1 Tab PO DAILY Furosemide 40 Mg Tablet 40 Mg PO DAILY 30 Days Cetirizine Hcl 10 Mg Tablet 10 Mg PO DAILY 30 Days Ibuprofen 600 Mg Tablet 600 Mg PO PRN Q6HRS PRN 90 Days Hydrochlorothiazide Tablet (Hydrochlorothiazide) 25 Mg Tablet 25 Mg PO DAILY 30 Days Nystop (Nystatin) 60 Gm Powder 1 Vashti TP BID 30 Days Reported Lidocaine 1 Each Adh..patch 1 Each TP DAILY Tizanidine Hcl 4 Mg Capsule 4 Mg PO QID PRN Metoprolol Tartrate 50 Mg Tablet 1 Tab PO BID Docusate Sodium 100 Mg Capsule 1 Cap PO DAILY Benadryl (Diphenhydramine Hcl) 25 Mg Capsule 25 Mg PO PRN Q6HRS PRN Multivitamins (Multivitamin) 1 Each Tablet 1 Tab PO DAILY Aspirin Ec (Aspirin) 325 Mg Tablet.dr 1 Tab PO DAILY Vitals/I & O Vital Sign - Last 24 Hours 12/11/18 12/11/18 12/11/18 12/11/18 15:00 19:30 19:30 20:41 Temp 97.7 98.5 97.7 98.5 Pulse 69 75 Resp 18 20 20 B/P (MAP) 105/49 (67) 109/58 (75) Pulse Ox 96 98 O2 Delivery Room Air Room Air Room Air Room Air 3/112/11/18 12/12/18 12/12/18 20:41 23:59 02:03 03:03 Temp 97.4 97.4 Pulse 75 79 Resp 18 20 20 B/P (MAP) 109/58 138/69 (92) Pulse Ox 96 O2 Delivery Room Air Room Air Room Air 12/12/18 12/12/18 12/12/18 12/12/18 03:59 07:00 08:06 09:58 Temp 98.4 98.2 98.4 98.2 Pulse 64 51 51 Resp 18 18 B/P (MAP) 113/53 (73) 132/66 (88) 132/66 Pulse Ox 97 99 O2 Delivery Room Air Room Air Room Air Intake and Output 12/11/18 12/11/18 12/12/18 14:59 22:59 06:59 Intake Total 850 ml Output Total 750 ml Balance 100 ml MINDI FERNANDO MD Dec 12, 2018 11:32
--- NOTE | 2018-12-12 11:33 | PDOC ---
SUBJECTIVE Subjective Pt states that she is doing well. Pain is moderately controlled. Waiting for rehab placement OBJECTIVE Vital Signs Vital Signs Date Time Temp Pulse Resp B/P (MAP) Pulse Ox O2 Delivery O2 Flow Rate FiO2 12/12/18 09:58 51 132/66 12/12/18 08:06 18 Room Air 12/12/18 07:00 98.2 51 18 132/66 (88) 99 Room Air 98.2 12/12/18 03:59 98.4 64 18 113/53 (73) 97 Room Air 98.4 12/12/18 03:03 20 Room Air 12/12/18 02:03 20 Room Air 12/11/18 23:59 97.4 79 18 138/69 (92) 96 Room Air 97.4 12/11/18 20:41 75 109/58 12/11/18 20:41 20 Room Air 12/11/18 19:30 98.5 75 20 109/58 (75) 98 Room Air 98.5 12/11/18 19:30 Room Air 12/11/18 15:00 97.7 69 18 105/49 (67) 96 Room Air 97.7 I & O Intake and Output 12/12/18 07:00 Intake Total 850 ml Output Total 750 ml Balance 100 ml Intake Oral 850 ml Output Urine Total 750 ml # Bowel Movements 2 PHYSICAL EXAM Physical Exam GEN: NAD, AOx3, laying in bed HEENT: MMM, EOMI, no scleral icterus/injection Cardiac: RRR, no M/R/G Lungs: CTAB, regular breathing rate and effort Abd: soft, nondistended, NTTP Ext: left knee in contracture, no erythema/edema LE bilaterally Nuero: CN2-12 GI ASSESSMENT/PLAN Assessment/Plan Pt is a 73yo CF admitted for uncontrolled knee and back pain 1. 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 Ortho and PMR following. Pt awaiting placement into Rehab facility. Pain moderately controlled with Methadone 20mg TID and Percocet 10/325mg QID 2. Morbid obesity. 3. Peripheral vascular disease. 4. Chronic atrial fibrillation. 5. Chronic obstructive pulmonary disease. 6. Hypertension- well controlled with HCTZ 25mg qday, Metoprolol 50mg BID 7. Debilitation. LALITA VILLARREAL MD Dec 12, 2018 11:33
[2018-12-12 15:00] VITALS: BP 114/66
[2018-12-12 19:59] VITALS: BP 128/54
[2018-12-12] MEDS: PATCH REMOVAL. MC SCH (21:00)
[2018-12-12] MEDS: ENOXAPARIN 40 MG/0.4 ML SYRINGE. SQ SCH (21:41)
--- NOTE | 2018-12-12 22:50 | NUR ---
Patient's lidoderm patch removed at 2100.
--- NOTE | 2018-12-12 23:40 | NUR ---
Patient has reported her left, lateral, lower leg uncomfortable, immobilizer opened up, noted foam pad on posterior calf, place where she was complaining about has skin peeling, dry, reddened, non-adhesive dressing applied, tubi acoustical tile drill press operator placed-loosened, and her immobilizer tightened slightly. Patient reports that area feels much better. Monitoring.
[2018-12-12 23:59] VITALS: BP 135/48
[2018-12-13 03:59] VITALS: BP 136/58
[2018-12-13] MEDS: oxyCODONE/APAP 10/325 1 TAB TABLET PO PRN ×3 (04:01→20:57)
[2018-12-13 07:00] VITALS: BP 126/48
[2018-12-13] MEDS: tiZANidine 4 MG TABLET. PO PRN ×2 (07:50→20:57)
[2018-12-13] MEDS: PANTOPRAZOLE 40 MG TABLET.DR. PO SCH (07:50)
[2018-12-13] MEDS: hydroCHLOROthiazide 25 MG TABLET PO SCH (09:58)
[2018-12-13] MEDS: predniSONE 10 MG TABLET PO SCH (09:58)
[2018-12-13] MEDS: POLYETHYLENE GLYCOL 3350 17 GM PACKET. PO SCH (09:58)
[2018-12-13] MEDS: METOPROLOL TART IMMED RELEASE 50 MG TABLET. PO SCH ×2 (09:59→20:57)
[2018-12-13] MEDS: METHADONE 10 MG TABLET. PO SCH ×3 (09:59→21:05)
[2018-12-13] MEDS: DOCUSATE SODIUM 100 MG CAPSULE. PO SCH (10:00)
[2018-12-13] MEDS: LIDOCAINE (700MG/PATCH) PATCH. TP SCH (10:02)
[2018-12-13] MEDS: NYSTATIN TOPICAL POWDER 15GM BOTTLE. TP SCH ×2 (10:03→20:59)
[2018-12-13 11:00] VITALS: BP 133/52
--- NOTE | 2018-12-13 11:33 | PDOC ---
SUBJECTIVE Subjective Pt says that she is doing well. Was under the impression that she was going to be getting surgery done on her left hip on Friday. Explained that I don't think surgery is planning on doing any procedures on her hip just yet, but will have them discuss with her more. Still waiting on Rehab placement OBJECTIVE Vital Signs Vital Signs Date Time Temp Pulse Resp B/P (MAP) Pulse Ox O2 Delivery O2 Flow Rate FiO2 12/13/18 11:00 98.0 64 18 133/52 (79) 95 Room Air 98.0 12/13/18 10:59 16 Room Air 12/13/18 09:59 67 126/48 12/13/18 09:59 20 95 Room Air 12/13/18 07:00 98.2 67 18 126/48 (74) 95 Room Air 98.2 12/13/18 05:01 96 12/13/18 03:59 97.9 59 18 136/58 (84) 96 Room Air 97.9 12/12/18 23:59 98.4 70 18 135/48 (77) 96 Room Air 98.4 12/12/18 23:59 98.4 70 18 135/48 (77) 96 Room Air 98.4 12/12/18 21:42 83 128/54 12/12/18 19:59 98.4 83 17 128/54 (78) 94 Room Air 98.4 12/12/18 15:00 98.4 57 18 114/66 (82) 96 Room Air 98.4 I & O Intake and Output 12/13/18 07:00 Intake Total 890 ml Output Total 2000 ml Balance -1110 ml Intake Oral 890 ml Output Urine Total 2000 ml # Voids 1 # Bowel Movements 5 PHYSICAL EXAM Physical Exam GEN: NAD, AOx3, laying in bed HEENT: MMM, EOMI, no scleral icterus/injection Cardiac: RRR, no M/R/G Lungs: CTAB, regular breathing rate and effort Abd: soft, nondistended, NTTP Ext: left knee in contracture, no erythema/edema LE bilaterally Nuero: CN2-12 GI ASSESSMENT/PLAN Assessment/Plan Pt is a 73yo CF admitted for uncontrolled knee and back pain 1. 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 Ortho and PMR following. Pt awaiting placement into Rehab facility. Pain moderately controlled with Methadone 20mg TID and Percocet 10/325mg QID 2. Morbid obesity. 3. Peripheral vascular disease. 4. Chronic atrial fibrillation. 5. Chronic obstructive pulmonary disease. 6. Hypertension- well controlled with HCTZ 25mg qday, Metoprolol 50mg BID 7. Debilitation. LALITA VILLARREAL MD Dec 13, 2018 11:33
[2018-12-13 15:00] VITALS: BP 134/58
--- NOTE | 2018-12-13 15:20 | PDOC ---
PROGRESS NOTES Subjective Subjective Problems overnight: Still with significant left knee stiffness, says it hurts to wear a knee immobilizer and she is frequently loosening it Objective Vital Signs Vital Signs Date Time Temp Pulse Resp B/P (MAP) Pulse Ox O2 Delivery O2 Flow Rate FiO2 12/13/18 15:00 97.9 69 18 134/58 (83) 95 Room Air 97.9 Physical Exam Currently her immobilizer is on the lower portion of her leg below the knee she still has a severe left knee flexion contracture and pain with any range of motion left hip Assessment Assessment Left hip DJD, left knee flexion contracture Plan Plan of Care A brace to help her passively obtained extension of her left knee was ordered is not yet fit I had previously reviewed with her in detail and emphasized that we really can' t do a total hip arthroplasty and less she gains mobility of her knee to enable her to ambulate. I suspect this may take a few weeks to achieve her knee mobility if it is indeed possible. We could proceed with consideration of a total hip arthroplasty at that time on an elective basis if her wound healing is adequate and knee motion and stability is likewise adequate DANNY MEEKS MD Dec 13, 2018 15:20
[2018-12-13 19:00] VITALS: BP 132/54
[2018-12-13] MEDS: PATCH REMOVAL. MC SCH (20:58)
[2018-12-13] MEDS: ENOXAPARIN 40 MG/0.4 ML SYRINGE. SQ SCH (20:58)
[2018-12-13] MEDS: IBUPROFEN 200 MG TABLET. PO PRN (22:49)
[2018-12-13 23:00] VITALS: BP 138/60
[2018-12-14] MEDS: tiZANidine 4 MG TABLET. PO PRN ×3 (02:16→22:26)
[2018-12-14] MEDS: oxyCODONE/APAP 10/325 1 TAB TABLET PO PRN ×2 (02:16→11:23)
[2018-12-14 03:00] VITALS: BP 142/62
[2018-12-14 07:00] VITALS: BP 165/69
[2018-12-14] MEDS: hydroCHLOROthiazide 25 MG TABLET PO SCH (08:21)
[2018-12-14] MEDS: METHADONE 10 MG TABLET. PO SCH ×3 (08:21→19:54)
[2018-12-14] MEDS: LIDOCAINE (700MG/PATCH) PATCH. TP SCH (08:21)
[2018-12-14] MEDS: METOPROLOL TART IMMED RELEASE 50 MG TABLET. PO SCH ×2 (08:22→19:55)
[2018-12-14] MEDS: DOCUSATE SODIUM 100 MG CAPSULE. PO SCH (08:22)
[2018-12-14] MEDS: PANTOPRAZOLE 40 MG TABLET.DR. PO SCH (08:22)
[2018-12-14] MEDS: POLYETHYLENE GLYCOL 3350 17 GM PACKET. PO SCH (08:23)
[2018-12-14] MEDS: predniSONE 10 MG TABLET PO SCH (08:23)
[2018-12-14] MEDS: NYSTATIN TOPICAL POWDER 15GM BOTTLE. TP SCH ×2 (09:00→19:54)
--- NOTE | 2018-12-14 09:49 | PDOC ---
PROGRESS NOTES Subjective Subjective No new complaints. Objective Objective Vital Signs Date Time Temp Pulse Resp B/P (MAP) Pulse Ox O2 Delivery O2 Flow Rate FiO2 12/14/18 08:22 57 142/62 12/14/18 07:00 98.0 16 98 Room Air 98.0 Intake and Output 12/14/18 06:59 Intake Total 2080 ml Output Total 1200 ml Balance 880 ml Intake Oral 2080 ml Output Urine Total 1200 ml # Voids 3 # Bowel Movements 2 Physical Exam Physical Exam She is supine in bed and continues with flexion deformity of left knee joint and left leg wound and stiff left hip joint and shortening deformity of left lower extremity.Physical and occupational therapy working with her on bed mobility and transfers and we are still waiting for left knee brace to be fitted. Assessment Assessment Problems Medical Problems: (1) Chronic left hip pain Status: Acute (2) Weakness Status: Acute Plan Plan of Care To rehab unit for continued rehab follow up to work on her mobility,to help with extending her knee and wound care.If she is not eligible to go to rehab unit to SNF or home with home health and she may need a Brigida lift for home use. Comment Review of Relevant I have reviewed the following items fátima (where applicable) has been applied. Labs Microbiology 12/09/18 Urine Culture - Final, Complete 12/09/18 Urine Culture Result 1 (KATRINA) - Final, Complete Medications Current Medications Ondansetron HCl (Zofran) 4 mg PRN Q8HRS PRN IV NAUSEA/VOMITING; Start 12/08/18 at 16:45; Stop 12/09/18 at 16:44; Status DC Morphine Sulfate (Morphine Sulfate) 4 mg PRN Q2HR PRN IV PAIN Last administered on 12/09/18at 13:24; Start 12/08/18 at 16:45; Stop 12/09/18 at 16:44 ; Status DC Acetaminophen (Tylenol) 650 mg PRN Q4HRS PRN PO FEVER; Start 12/08/18 at 16:45 ; Stop 12/09/18 at 16:44; Status DC Diphenhydramine HCl (Benadryl) 25 mg PRN Q6HRS PRN PO ALLERGIES Last administered on 12/13/18at 22:48; Start 12/08/18 at 22:15 Ibuprofen (Motrin) 600 mg PRN Q6HRS PRN PO INFLAMMATION Last administered on 22:49; Start 12/08/18 at 22:15 Nystatin (Nystop) 1 vashti BID TP Last administered on 12/13/18 10:03; Start 12/08 at 22:30 Oxycodone/ Acetaminophen (Percocet 10/325) 1 tab PRN QID PRN PO PAIN Last administered on 12/14/18 02:16; Start 12/08/18 at 22:15 Lidocaine (Lidoderm) 1 patch DAILY TP Last administered on 12/14/18 08:21; Start 12/09/18 at 09:00 Methadone HCl (Dolophine) 20 mg TID PO Last administered on 12/14/18 08:21; Start 12/08/18 at 22:45 Tizanidine HCl (Zanaflex) 4 mg PRN QID PRN PO MUSCLE SPASMS Last administered on 12/14/18 02:16; Start 12/08/18 at 22:15 Miscellaneous (Lidoderm Patch Removal) 1 ea QHS MC Last administered on 20:58; Start 12/09/18 at 21:00 Docusate Sodium (Colace) 100 mg DAILY PO Last administered on 12/14/18 08:22; Start 12/09/18 at 09:00 Hydrochlorothiazide (Hydrodiuril) 25 mg DAILY PO Last administered on 12/14/18 08:21; Start 12/09/18 at 09:00 Metoprolol Tartrate (Lopressor) 50 mg BID PO Last administered on 12/14/18 08: 22; Start 12/09/18 at 09:00 Enoxaparin Sodium (Lovenox 40mg Syringe) 40 mg Q24H SQ Last administered on 23:20; Start 12/08/18 at 23:15; Stop 12/09/18 at 19:20; Status DC Prednisone (Prednisone) 10 mg DAILY PO Last administered on 12/14/18 08:23; Start 12/09/18 at 15:00 Pantoprazole Sodium (Protonix) 40 mg DAILYAC PO Last administered on 12/14/18 08:22; Start 12/09/18 at 15:00 Lidocaine/Sodium Bicarbonate (Buffered Lidocaine 1%) 3 ml 1X ONCE INJ ; Start 12/09/18 at 15:15; Stop 12/09/18 at 15:17; Status DC Methylprednisolone Acetate (DEPO-Medrol 80MG VIAL) 80 mg 1X ONCE INJ Last administered on 12/09/18at 16:17; Start 12/09/18 at 15:15; Stop 12/09/18 at 15:16 ; Status DC Bupivacaine HCl (Sensorcaine-Mpf 0.25%) 10 ml 1X ONCE IJ Last administered on 12/09/18at 16:18; Start 12/09/18 at 15:15; Stop 12/09/18 at 15:16; Status DC Enoxaparin Sodium (Lovenox 40mg Syringe) 40 mg QHS SQ Last administered on at 20:58; Start 12/09/18 at 21:00 Methylprednisolone Acetate (DEPO-Medrol 40MG VIAL) 40 mg 1X ONCE IM ; Start at 09:30; Stop 12/10/18 at 09:31; Status DC Bupivacaine HCl (Sensorcaine-Mpf 0.25%) 10 ml 1X ONCE IJ ; Start 12/10/18 at 09 :30; Stop 12/10/18 at 09:31; Status DC Potassium Chloride (Klor-Con) 40 meq 1X ONCE PO Last administered on at 12:12; Start 12/10/18 at 11:30; Stop 12/10/18 at 11:31; Status DC Artificial Tears (Artificial Tears) 1 drop PRN Q15MIN PRN OU DRY EYE; Start at 11:00 Polyethylene Glycol (miraLAX PACKET) 17 gm DAILY PO Last administered on at 08:23; Start 12/10/18 at 11:30 Bupivacaine HCl (Sensorcaine-Mpf 0.25%) 10 ml STK-MED ONCE .ROUTE ; Start at 09:30; Stop 12/11/18 at 15:09; Status DC Methylprednisolone Acetate (DEPO-Medrol 40MG VIAL) 40 mg STK-MED ONCE .ROUTE ; Start 12/10/18 at 09:30; Stop 12/11/18 at 15:09; Status DC Bisacodyl (Dulcolax Supp) 10 mg PRN DAILY PRN [place] CONSTIPATION Last administered on 12/11/18at 18:49; Start 12/11/18 at 16:45 Active Scripts Active Xarelto (Rivaroxaban) 20 Mg Tablet 20 Mg PO DAILY 30 Days [Pantoprazole] 40 MG Tablet.dr 40 Mg PO DAILYAC 30 Days Methadone Hcl 10 Mg Tablet 2 Tab PO TID 30 Days Percocet 10-325 Mg Tablet (Oxycodone/Acetaminophen) 1 Each Tablet 1 Tab PO PRN QID PRN 30 Days Klor-Con 10 (Potassium Chloride) 10 Meq Tablet.er 1 Tab PO DAILY Furosemide 40 Mg Tablet 40 Mg PO DAILY 30 Days Cetirizine Hcl 10 Mg Tablet 10 Mg PO DAILY 30 Days Ibuprofen 600 Mg Tablet 600 Mg PO PRN Q6HRS PRN 90 Days Hydrochlorothiazide Tablet (Hydrochlorothiazide) 25 Mg Tablet 25 Mg PO DAILY 30 Days Nystop (Nystatin) 60 Gm Powder 1 Vashti TP BID 30 Days Reported Lidocaine 1 Each Adh..patch 1 Each TP DAILY Tizanidine Hcl 4 Mg Capsule 4 Mg PO QID PRN Metoprolol Tartrate 50 Mg Tablet 1 Tab PO BID Docusate Sodium 100 Mg Capsule 1 Cap PO DAILY Benadryl (Diphenhydramine Hcl) 25 Mg Capsule 25 Mg PO PRN Q6HRS PRN Multivitamins (Multivitamin) 1 Each Tablet 1 Tab PO DAILY Aspirin Ec (Aspirin) 325 Mg Tablet. 1 Tab PO DAILY Vitals/I & O Vital Sign - Last 24 Hours 12/13/18 12/13/18 12/13/18 12/13/18 09:59 09:59 11:00 15:00 Temp 98.0 97.9 98.0 97.9 Pulse 67 64 69 Resp 20 18 18 B/P (MAP) 126/48 133/52 (79) 134/58 (83) Pulse Ox 95 95 95 O2 Delivery Room Air Room Air Room Air 12/13/18 12/13/18 12/13/18 12/13/18 19:00 20:09 20:57 20:57 Temp 98.2 98.2 Pulse 75 75 Resp 18 18 B/P (MAP) 132/54 (80) 132/54 Pulse Ox 96 96 O2 Delivery Room Air Room Air Room Air 12/13/18 12/14/18 12/14/18 12/14/18 23:00 02:16 03:00 03:20 Temp 98.1 97.9 98.1 97.9 Pulse 73 57 Resp 18 18 18 18 B/P (MAP) 138/60 (86) 142/62 (88) Pulse Ox 96 96 96 96 O2 Delivery Room Air Room Air Room Air Room Air 12/14/18 12/14/18 07:00 08:22 Temp 98.0 98.0 Pulse 60 57 Resp 16 B/P (MAP) 165/69 (101) 142/62 Pulse Ox 98 O2 Delivery Room Air Intake and Output 12/13/18 12/13/18 12/14/18 14:59 22:59 06:59 Intake Total 600 ml 1000 ml 480 ml Output Total 1200 ml Balance 600 ml -200 ml 480 ml MINDI FERNANDO MD Dec 14, 2018 09:49
[2018-12-14 11:00] VITALS: BP 112/44
--- NOTE | 2018-12-14 11:53 | NUR ---
SW following. Discussed with RN, insurance denied pt to go to acute rehab. Peer to Peer option is available for pt's doctor to contact Alicia at [phone] to initiate a peer to peer. Per RN, pt still waiting on knee brace. [facility] will continue to follow.
--- NOTE | 2018-12-14 13:39 | PDOC ---
PROGRESS NOTES Subjective Subjective Patient has been denies Rehab by insurance carrier. Plan for NH placement. Patient still awaiting brace of left knee for mobility. Objective Objective Vital Signs Date Time Temp Pulse Resp B/P (MAP) Pulse Ox O2 Delivery O2 Flow Rate FiO2 12/14/18 11:23 98 Room Air 12/14/18 11:00 98.4 74 18 112/44 (66) 98.4 Intake and Output 12/14/18 07:00 Intake Total 2080 ml Output Total 1200 ml Balance 880 ml Intake Oral 2080 ml Output Urine Total 1200 ml # Voids 3 # Bowel Movements 2 Physical Exam Abdomen: Normal bowel sounds Heart: Regular rate Extremities: No edema General: Alert Lungs: Clear to auscultation Assessment Assessment Problems Medical Problems: (1) Chronic left hip pain Status: Acute (2) Weakness Status: Acute 1. 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 Morbid obesity. 3. Peripheral vascular disease. 4. Chronic atrial fibrillation. 5. Chronic obstructive pulmonary disease. 6. Hypertension. 7. Debilitation. Plan Plan of Care Continue PT?Ot NH placement Comment Review of Relevant I have reviewed the following items fátima (where applicable) has been applied. Labs Microbiology 12/09/18 Urine Culture - Final, Complete 12/09/18 Urine Culture Result 1 (KATRINA) - Final, Complete Medications Current Medications Ondansetron HCl (Zofran) 4 mg PRN Q8HRS PRN IV NAUSEA/VOMITING; Start 12/08/18 at 16:45; Stop 12/09/18 at 16:44; Status DC Morphine Sulfate (Morphine Sulfate) 4 mg PRN Q2HR PRN IV PAIN Last administered on 12/09/18at 13:24; Start 12/08/18 at 16:45; Stop 12/09/18 at 16:44 ; Status DC Acetaminophen (Tylenol) 650 mg PRN Q4HRS PRN PO FEVER; Start 12/08/18 at 16:45 ; Stop 12/09/18 at 16:44; Status DC Diphenhydramine HCl (Benadryl) 25 mg PRN Q6HRS PRN PO ALLERGIES Last administered on 12/13/18at 22:48; Start 12/08/18 at 22:15 Ibuprofen (Motrin) 600 mg PRN Q6HRS PRN PO INFLAMMATION Last administered on 12/13/18at 22:49; Start 12/08/18 at 22:15 Nystatin (Nystop) 1 vashti BID TP Last administered on 12/13/18 10:03; Start 12/08 at 22:30 Oxycodone/ Acetaminophen (Percocet 10/325) 1 tab PRN QID PRN PO PAIN Last administered on 12/14/18 11:23; Start 12/08/18 at 22:15 Lidocaine (Lidoderm) 1 patch DAILY TP Last administered on 12/14/18 08:21; Start 12/09/18 at 09:00 Methadone HCl (Dolophine) 20 mg TID PO Last administered on 12/14/18 08:21; Start 12/08/18 at 22:45 Tizanidine HCl (Zanaflex) 4 mg PRN QID PRN PO MUSCLE SPASMS Last administered on 12/14/18 02:16; Start 12/08/18 at 22:15 Miscellaneous (Lidoderm Patch Removal) 1 ea QHS MC Last administered on 20:58; Start 12/09/18 at 21:00 Docusate Sodium (Colace) 100 mg DAILY PO Last administered on 12/14/18 08:22; Start 12/09/18 at 09:00 Hydrochlorothiazide (Hydrodiuril) 25 mg DAILY PO Last administered on 12/14/18 08:21; Start 12/09/18 at 09:00 Metoprolol Tartrate (Lopressor) 50 mg BID PO Last administered on 12/14/18 08: 22; Start 12/09/18 at 09:00 Enoxaparin Sodium (Lovenox 40mg Syringe) 40 mg Q24H SQ Last administered on 23:20; Start 12/08/18 at 23:15; Stop 12/09/18 at 19:20; Status DC Prednisone (Prednisone) 10 mg DAILY PO Last administered on 12/14/18 08:23; Start 12/09/18 at 15:00 Pantoprazole Sodium (Protonix) 40 mg DAILYAC PO Last administered on 12/14/18 08:22; Start 12/09/18 at 15:00 Lidocaine/Sodium Bicarbonate (Buffered Lidocaine 1%) 3 ml 1X ONCE INJ ; Start 12/09/18 at 15:15; Stop 12/09/18 at 15:17; Status DC Methylprednisolone Acetate (DEPO-Medrol 80MG VIAL) 80 mg 1X ONCE INJ Last administered on 12/09/18at 16:17; Start 12/09/18 at 15:15; Stop 12/09/18 at 15:16 ; Status DC Bupivacaine HCl (Sensorcaine-Mpf 0.25%) 10 ml 1X ONCE IJ Last administered on 12/09/18at 16:18; Start 12/09/18 at 15:15; Stop 12/09/18 at 15:16; Status DC Enoxaparin Sodium (Lovenox 40mg Syringe) 40 mg QHS SQ Last administered on at 20:58; Start 12/09/18 at 21:00 Methylprednisolone Acetate (DEPO-Medrol 40MG VIAL) 40 mg 1X ONCE IM ; Start at 09:30; Stop 12/10/18 at 09:31; Status DC Bupivacaine HCl (Sensorcaine-Mpf 0.25%) 10 ml 1X ONCE IJ ; Start 12/10/18 at 09 :30; Stop 12/10/18 at 09:31; Status DC Potassium Chloride (Klor-Con) 40 meq 1X ONCE PO Last administered on at 12:12; Start 12/10/18 at 11:30; Stop 12/10/18 at 11:31; Status DC Artificial Tears (Artificial Tears) 1 drop PRN Q15MIN PRN OU DRY EYE; Start at 11:00 Polyethylene Glycol (miraLAX PACKET) 17 gm DAILY PO Last administered on at 08:23; Start 12/10/18 at 11:30 Bupivacaine HCl (Sensorcaine-Mpf 0.25%) 10 ml STK-MED ONCE .ROUTE ; Start at 09:30; Stop 12/11/18 at 15:09; Status DC Methylprednisolone Acetate (DEPO-Medrol 40MG VIAL) 40 mg STK-MED ONCE .ROUTE ; Start 12/10/18 at 09:30; Stop 12/11/18 at 15:09; Status DC Bisacodyl (Dulcolax Supp) 10 mg PRN DAILY PRN [place] CONSTIPATION Last administered on 12/11/18at 18:49; Start 12/11/18 at 16:45 Active Scripts Active Xarelto (Rivaroxaban) 20 Mg Tablet 20 Mg PO DAILY 30 Days [Pantoprazole] 40 MG Tablet.dr 40 Mg PO DAILYAC 30 Days Methadone Hcl 10 Mg Tablet 2 Tab PO TID 30 Days Percocet 10-325 Mg Tablet (Oxycodone/Acetaminophen) 1 Each Tablet 1 Tab PO PRN QID PRN 30 Days Klor-Con 10 (Potassium Chloride) 10 Meq Tablet.er 1 Tab PO DAILY Furosemide 40 Mg Tablet 40 Mg PO DAILY 30 Days Cetirizine Hcl 10 Mg Tablet 10 Mg PO DAILY 30 Days Ibuprofen 600 Mg Tablet 600 Mg PO PRN Q6HRS PRN 90 Days Hydrochlorothiazide Tablet (Hydrochlorothiazide) 25 Mg Tablet 25 Mg PO DAILY 30 Days Nystop (Nystatin) 60 Gm Powder 1 Vashti TP BID 30 Days Reported Lidocaine 1 Each Adh..patch 1 Each TP DAILY Tizanidine Hcl 4 Mg Capsule 4 Mg PO QID PRN Metoprolol Tartrate 50 Mg Tablet 1 Tab PO BID Docusate Sodium 100 Mg Capsule 1 Cap PO DAILY Benadryl (Diphenhydramine Hcl) 25 Mg Capsule 25 Mg PO PRN Q6HRS PRN Multivitamins (Multivitamin) 1 Each Tablet 1 Tab PO DAILY Aspirin Ec (Aspirin) 325 Mg Tablet. 1 Tab PO DAILY Vitals/I & O Vital Sign - Last 24 Hours 12/13/18 12/13/18 12/13/18 12/13/18 15:00 19:00 20:09 20:57 Temp 97.9 98.2 97.9 98.2 Pulse 69 75 Resp 18 18 18 B/P (MAP) 134/58 (83) 132/54 (80) Pulse Ox 95 96 96 O2 Delivery Room Air Room Air Room Air Room Air 12/13/18 12/13/18 12/14/18 12/14/18 20:57 23:00 02:16 03:00 Temp 98.1 97.9 98.1 97.9 Pulse 75 73 57 Resp 18 18 18 B/P (MAP) 132/54 138/60 (86) 142/62 (88) Pulse Ox 96 96 96 O2 Delivery Room Air Room Air Room Air 12/14/18 12/14/18 12/14/18 12/14/18 03:20 07:00 08:00 08:22 Temp 98.0 98.0 Pulse 60 57 Resp 18 16 B/P (MAP) 165/69 (101) 142/62 Pulse Ox 96 98 O2 Delivery Room Air Room Air Room Air 12/14/18 12/14/18 11:00 11:23 Temp 98.4 98.4 Pulse 74 Resp 18 B/P (MAP) 112/44 (66) Pulse Ox 97 98 O2 Delivery Room Air Room Air Intake and Output 12/13/18 12/13/18 12/14/18 15:00 23:00 07:00 Intake Total 600 ml 1000 ml 480 ml Output Total 1200 ml Balance 600 ml -200 ml 480 ml SALVATORE HYDE MD Dec 14, 2018 13:39
[2018-12-14 15:00] VITALS: BP 116/47
--- NOTE | 2018-12-14 15:41 | NUR ---
SW following. Discussed with RN. Discussed with Dr. Ivey re peer to peer. Dr. Ivey agreed to do the peer to peer for pt to go to OP rehab. Dr. Ivey advised appeal has started and will take up to 72 hours - ref# [id number]. SW met with pt regarding possible move to a retirement, pt is not really sure about doing that and does not think she can afford it. SW provided Medicaid application for pt to complete. SW left voicemail for pt's daughter, Jade [phone]. SW awaiting a call back. SW will continue to follow. RN notified.
[2018-12-14 19:00] VITALS: BP 140/53
[2018-12-14] MEDS: PATCH REMOVAL. MC SCH (19:55)
[2018-12-14] MEDS: ENOXAPARIN 40 MG/0.4 ML SYRINGE. SQ SCH (19:55)
[2018-12-14 22:45] VITALS: BP 119/50
[2018-12-15] MEDS: oxyCODONE/APAP 10/325 1 TAB TABLET PO PRN ×2 (02:09→20:08)
[2018-12-15 03:01] VITALS: BP 118/54
[2018-12-15 05:35] LABS: CREATININE 1.2 mg/dL (0.6-1.0); GFR 44.2
[2018-12-15] MEDS: tiZANidine 4 MG TABLET. PO PRN ×2 (06:24→14:35)
[2018-12-15 07:00] VITALS: BP 132/61
[2018-12-15] MEDS: predniSONE 10 MG TABLET PO SCH (08:58)
[2018-12-15] MEDS: METOPROLOL TART IMMED RELEASE 50 MG TABLET. PO SCH ×2 (08:58→20:54)
[2018-12-15] MEDS: PANTOPRAZOLE 40 MG TABLET.DR. PO SCH (08:58)
[2018-12-15] MEDS: hydroCHLOROthiazide 25 MG TABLET PO SCH (08:58)
[2018-12-15] MEDS: LIDOCAINE (700MG/PATCH) PATCH. TP SCH (08:58)
[2018-12-15] MEDS: NYSTATIN TOPICAL POWDER 15GM BOTTLE. TP SCH ×2 (08:59→20:55)
[2018-12-15] MEDS: METHADONE 10 MG TABLET. PO SCH ×3 (08:59→20:53)
[2018-12-15] MEDS: POLYETHYLENE GLYCOL 3350 17 GM PACKET. PO SCH (09:00)
[2018-12-15] MEDS: DOCUSATE SODIUM 100 MG CAPSULE. PO SCH (09:00)
--- NOTE | 2018-12-15 09:57 | PDOC ---
PROGRESS NOTES Subjective Subjective No new complaints. Objective Objective Vital Signs Date Time Temp Pulse Resp B/P (MAP) Pulse Ox O2 Delivery O2 Flow Rate FiO2 12/15/18 08:58 58 132/61 12/15/18 07:00 97.7 17 100 Room Air 97.7 Intake and Output 12/15/18 07:00 Intake Total 1630 ml Balance 1630 ml Intake Oral 1630 ml # Voids 10 # Bowel Movements 5 Physical Exam Physical Exam She is supine in bed,alert and continues with stiffness of her left hip and flexion contracture of left knee and she had dressing to her left calf wound and she had discoloration of her feet and legs from chronic venous insufficiency. She is working with physical therapy and she did transfer using sliding board and required moderate assistance. Assessment Assessment Problems Medical Problems: (1) Chronic left hip pain Status: Acute (2) Weakness Status: Acute Plan Plan of Care Still waiting for left knee brace and to continue physical and occupational therapy follow up as tolerated until plans for continued care are resolved. [facility] unless she had [facility] and wants to make sure she had leg wound healed and left knee flexion contracture is relieved before considering [facility]. Comment Review of Relevant I have reviewed the following items fátima (where applicable) has been applied. Labs Laboratory Tests Test 12/15/18 04:35 Platelet Count 213 x10^3/uL (140-400) Creatinine 1.2 mg/dL (0.6-1.0) Estimated GFR (Cockcroft-Gault) 44.2 Laboratory Tests Test 12/15/18 04:35 Platelet Count 213 x10^3/uL (140-400) Creatinine 1.2 mg/dL (0.6-1.0) Estimated GFR (Cockcroft-Gault) 44.2 Microbiology 12/09/18 Urine Culture - Final, Complete 12/09/18 Urine Culture Result 1 (KATRINA) - Final, Complete Medications Current Medications Ondansetron HCl (Zofran) 4 mg PRN Q8HRS PRN IV NAUSEA/VOMITING; Start 12/08/18 at 16:45; Stop 12/09/18 at 16:44; Status DC Morphine Sulfate (Morphine Sulfate) 4 mg PRN Q2HR PRN IV PAIN Last administered on 12/09/18at 13:24; Start 12/08/18 at 16:45; Stop 12/09/18 at 16:44 ; Status DC Acetaminophen (Tylenol) 650 mg PRN Q4HRS PRN PO FEVER; Start 12/08/18 at 16:45 ; Stop 12/09/18 at 16:44; Status DC Diphenhydramine HCl (Benadryl) 25 mg PRN Q6HRS PRN PO ALLERGIES Last administered on 12/13/18 22:48; Start 12/08/18 at 22:15 Ibuprofen (Motrin) 600 mg PRN Q6HRS PRN PO INFLAMMATION Last administered on 22:49; Start 12/08/18 at 22:15 Nystatin (Nystop) 1 vashti BID TP Last administered on 12/15/18 08:59; Start 12/08 at 22:30 Oxycodone/ Acetaminophen (Percocet 10/325) 1 tab PRN QID PRN PO PAIN Last administered on 12/15/18 02:09; Start 12/08/18 at 22:15 Lidocaine (Lidoderm) 1 patch DAILY TP Last administered on 12/15/18 08:58; Start 12/09/18 at 09:00 Methadone HCl (Dolophine) 20 mg TID PO Last administered on 12/15/18 08:59; Start 12/08/18 at 22:45 Tizanidine HCl (Zanaflex) 4 mg PRN QID PRN PO MUSCLE SPASMS Last administered on 12/15/18 06:24; Start 12/08/18 at 22:15 Miscellaneous (Lidoderm Patch Removal) 1 ea QHS MC Last administered on 19:55; Start 12/09/18 at 21:00 Docusate Sodium (Colace) 100 mg DAILY PO Last administered on 12/14/18 08:22; Start 12/09/18 at 09:00 Hydrochlorothiazide (Hydrodiuril) 25 mg DAILY PO Last administered on 12/15/18 08:58; Start 12/09/18 at 09:00 Metoprolol Tartrate (Lopressor) 50 mg BID PO Last administered on 12/15/18 08: 58; Start 12/09/18 at 09:00 Enoxaparin Sodium (Lovenox 40mg Syringe) 40 mg Q24H SQ Last administered on 23:20; Start 12/08/18 at 23:15; Stop 12/09/18 at 19:20; Status DC Prednisone (Prednisone) 10 mg DAILY PO Last administered on 12/15/18 08:58; Start 12/09/18 at 15:00 Pantoprazole Sodium (Protonix) 40 mg DAILYAC PO Last administered on 12/15/18 08:58; Start 12/09/18 at 15:00 Lidocaine/Sodium Bicarbonate (Buffered Lidocaine 1%) 3 ml 1X ONCE INJ ; Start 12/09/18 at 15:15; Stop 12/09/18 at 15:17; Status DC Methylprednisolone Acetate (DEPO-Medrol 80MG VIAL) 80 mg 1X ONCE INJ Last administered on 12/09/18at 16:17; Start 12/09/18 at 15:15; Stop 12/09/18 at 15:16 ; Status DC Bupivacaine HCl (Sensorcaine-Mpf 0.25%) 10 ml 1X ONCE IJ Last administered on 12/09/18at 16:18; Start 12/09/18 at 15:15; Stop 12/09/18 at 15:16; Status DC Enoxaparin Sodium (Lovenox 40mg Syringe) 40 mg QHS SQ Last administered on at 19:55; Start 12/09/18 at 21:00 Methylprednisolone Acetate (DEPO-Medrol 40MG VIAL) 40 mg 1X ONCE IM ; Start at 09:30; Stop 12/10/18 at 09:31; Status DC Bupivacaine HCl (Sensorcaine-Mpf 0.25%) 10 ml 1X ONCE IJ ; Start 12/10/18 at 09 :30; Stop 12/10/18 at 09:31; Status DC Potassium Chloride (Klor-Con) 40 meq 1X ONCE PO Last administered on at 12:12; Start 12/10/18 at 11:30; Stop 12/10/18 at 11:31; Status DC Artificial Tears (Artificial Tears) 1 drop PRN Q15MIN PRN OU DRY EYE; Start at 11:00 Polyethylene Glycol (miraLAX PACKET) 17 gm DAILY PO Last administered on 08:23; Start 12/10/18 at 11:30 Bupivacaine HCl (Sensorcaine-Mpf 0.25%) 10 ml STK-MED ONCE .ROUTE ; Start at 09:30; Stop 12/11/18 at 15:09; Status DC Methylprednisolone Acetate (DEPO-Medrol 40MG VIAL) 40 mg STK-MED ONCE .ROUTE ; Start 12/10/18 at 09:30; Stop 12/11/18 at 15:09; Status DC Bisacodyl (Dulcolax Supp) 10 mg PRN DAILY PRN [place] CONSTIPATION Last administered on 12/11/18at 18:49; Start 12/11/18 at 16:45 Active Scripts Active Xarelto (Rivaroxaban) 20 Mg Tablet 20 Mg PO DAILY 30 Days [Pantoprazole] 40 MG Tablet.dr 40 Mg PO DAILYAC 30 Days Methadone Hcl 10 Mg Tablet 2 Tab PO TID 30 Days Percocet 10-325 Mg Tablet (Oxycodone/Acetaminophen) 1 Each Tablet 1 Tab PO PRN QID PRN 30 Days Klor-Con 10 (Potassium Chloride) 10 Meq Tablet.er 1 Tab PO DAILY Furosemide 40 Mg Tablet 40 Mg PO DAILY 30 Days Cetirizine Hcl 10 Mg Tablet 10 Mg PO DAILY 30 Days Ibuprofen 600 Mg Tablet 600 Mg PO PRN Q6HRS PRN 90 Days Hydrochlorothiazide Tablet (Hydrochlorothiazide) 25 Mg Tablet 25 Mg PO DAILY 30 Days Nystop (Nystatin) 60 Gm Powder 1 Vashti TP BID 30 Days Reported Lidocaine 1 Each Adh..patch 1 Each TP DAILY Tizanidine Hcl 4 Mg Capsule 4 Mg PO QID PRN Metoprolol Tartrate 50 Mg Tablet 1 Tab PO BID Docusate Sodium 100 Mg Capsule 1 Cap PO DAILY Benadryl (Diphenhydramine Hcl) 25 Mg Capsule 25 Mg PO PRN Q6HRS PRN Multivitamins (Multivitamin) 1 Each Tablet 1 Tab PO DAILY Aspirin Ec (Aspirin) 325 Mg Tablet. 1 Tab PO DAILY Vitals/I & O Vital Sign - Last 24 Hours 12/14/18 12/14/18 12/14/18 12/14/18 11:00 11:23 15:00 15:26 Temp 98.4 98.1 98.4 98.1 Pulse 74 67 Resp 18 18 B/P (MAP) 112/44 (66) 116/47 (70) Pulse Ox 97 98 95 95 O2 Delivery Room Air Room Air Room Air 12/14/18 12/14/18 12/14/18 12/14/18 19:00 19:55 20:00 22:45 Temp 98.3 98.5 98.3 98.5 Pulse 77 75 75 Resp 17 18 B/P (MAP) 140/53 (82) 140/53 119/50 (73) Pulse Ox 95 95 O2 Delivery Room Air Room Air Room Air 12/15/18 12/15/18 12/15/18 12/15/18 02:09 03:01 03:11 07:00 Temp 98.4 97.7 98.4 97.7 Pulse 60 58 Resp 17 17 B/P (MAP) 118/54 (75) 132/61 (84) Pulse Ox 95 100 O2 Delivery Room Air Room Air Room Air Room Air 12/15/18 08:58 Pulse 58 B/P (MAP) 132/61 Intake and Output 12/14/18 12/14/18 12/15/18 15:00 23:00 07:00 Intake Total 850 ml 780 ml Balance 850 ml 780 ml IMNDI FERNANDO MD Dec 15, 2018 09:57
--- NOTE | 2018-12-15 10:04 | NUR ---
docusate and miralax held d/t loose stool this a.m.
[2018-12-15 10:36] VITALS: BP 132/61
--- NOTE | 2018-12-15 12:41 | PDOC ---
PROGRESS NOTES Subjective Subjective Patient without new complaints today. Patient awaiting insurance decision on rehabilitation transfer. Social work evaluating possibility of group home placement with Medicaid paperwork Objective Objective Vital Signs Date Time Temp Pulse Resp B/P (MAP) Pulse Ox O2 Delivery O2 Flow Rate FiO2 12/15/18 10:36 97.7 58 18 132/61 (84) 97 Room Air 97.7 Intake and Output 12/15/18 07:00 Intake Total 1630 ml Balance 1630 ml Intake Oral 1630 ml # Voids 10 # Bowel Movements 5 Physical Exam Abdomen: Normal bowel sounds Heart: Regular rate Extremities: No edema General: Alert Lungs: Clear to auscultation Assessment Assessment Problems Medical Problems: (1) Chronic left hip pain Status: Acute (2) Weakness Status: Acute Left knee contracture Lumbar spinal stenosis Mobility deficit Severe OA and degenerative back and joint disease Morbid obesity. Peripheral vascular disease. Chronic atrial fibrillation. Chronic obstructive pulmonary disease. Hypertension. Debilitation. Plan Plan of Care Continue PT?Ot NH placement or rehabilitation pending. Comment Review of Relevant I have reviewed the following items fátima (where applicable) has been applied. Labs Laboratory Tests Test 12/15/18 04:35 Platelet Count 213 x10^3/uL (140-400) Creatinine 1.2 mg/dL (0.6-1.0) Estimated GFR (Cockcroft-Gault) 44.2 Laboratory Tests Test 12/15/18 04:35 Platelet Count 213 x10^3/uL (140-400) Creatinine 1.2 mg/dL (0.6-1.0) Estimated GFR (Cockcroft-Gault) 44.2 Microbiology 12/09/18 Urine Culture - Final, Complete 12/09/18 Urine Culture Result 1 (KATRINA) - Final, Complete Medications Current Medications Ondansetron HCl (Zofran) 4 mg PRN Q8HRS PRN IV NAUSEA/VOMITING; Start 12/08/18 at 16:45; Stop 12/09/18 at 16:44; Status DC Morphine Sulfate (Morphine Sulfate) 4 mg PRN Q2HR PRN IV PAIN Last administered on 12/09/18at 13:24; Start 12/08/18 at 16:45; Stop 12/09/18 at 16:44 ; Status DC Acetaminophen (Tylenol) 650 mg PRN Q4HRS PRN PO FEVER; Start 12/08/18 at 16:45 ; Stop 12/09/18 at 16:44; Status DC Diphenhydramine HCl (Benadryl) 25 mg PRN Q6HRS PRN PO ALLERGIES Last administered on 12/13/18 22:48; Start 12/08/18 at 22:15 Ibuprofen (Motrin) 600 mg PRN Q6HRS PRN PO INFLAMMATION Last administered on 22:49; Start 12/08/18 at 22:15 Nystatin (Nystop) 1 vashti BID TP Last administered on 12/15/18 08:59; Start 12/08 at 22:30 Oxycodone/ Acetaminophen (Percocet 10/325) 1 tab PRN QID PRN PO PAIN Last administered on 12/15/18 02:09; Start 12/08/18 at 22:15 Lidocaine (Lidoderm) 1 patch DAILY TP Last administered on 12/15/18 08:58; Start 12/09/18 at 09:00 Methadone HCl (Dolophine) 20 mg TID PO Last administered on 12/15/18 08:59; Start 12/08/18 at 22:45 Tizanidine HCl (Zanaflex) 4 mg PRN QID PRN PO MUSCLE SPASMS Last administered on 12/15/18 06:24; Start 12/08/18 at 22:15 Miscellaneous (Lidoderm Patch Removal) 1 ea QHS MC Last administered on 19:55; Start 12/09/18 at 21:00 Docusate Sodium (Colace) 100 mg DAILY PO Last administered on 12/14/18 08:22; Start 12/09/18 at 09:00 Hydrochlorothiazide (Hydrodiuril) 25 mg DAILY PO Last administered on 12/15/18 08:58; Start 12/09/18 at 09:00 Metoprolol Tartrate (Lopressor) 50 mg BID PO Last administered on 12/15/18 08: 58; Start 12/09/18 at 09:00 Enoxaparin Sodium (Lovenox 40mg Syringe) 40 mg Q24H SQ Last administered on 23:20; Start 12/08/18 at 23:15; Stop 12/09/18 at 19:20; Status DC Prednisone (Prednisone) 10 mg DAILY PO Last administered on 12/15/18 08:58; Start 12/09/18 at 15:00 Pantoprazole Sodium (Protonix) 40 mg DAILYAC PO Last administered on 12/15/18 08:58; Start 12/09/18 at 15:00 Lidocaine/Sodium Bicarbonate (Buffered Lidocaine 1%) 3 ml 1X ONCE INJ ; Start 12/09/18 at 15:15; Stop 12/09/18 at 15:17; Status DC Methylprednisolone Acetate (DEPO-Medrol 80MG VIAL) 80 mg 1X ONCE INJ Last administered on 12/09/18at 16:17; Start 12/09/18 at 15:15; Stop 12/09/18 at 15:16 ; Status DC Bupivacaine HCl (Sensorcaine-Mpf 0.25%) 10 ml 1X ONCE IJ Last administered on 12/09/18at 16:18; Start 12/09/18 at 15:15; Stop 12/09/18 at 15:16; Status DC Enoxaparin Sodium (Lovenox 40mg Syringe) 40 mg QHS SQ Last administered on 19:55; Start 12/09/18 at 21:00 Methylprednisolone Acetate (DEPO-Medrol 40MG VIAL) 40 mg 1X ONCE IM ; Start at 09:30; Stop 12/10/18 at 09:31; Status DC Bupivacaine HCl (Sensorcaine-Mpf 0.25%) 10 ml 1X ONCE IJ ; Start 12/10/18 at 09 :30; Stop 12/10/18 at 09:31; Status DC Potassium Chloride (Klor-Con) 40 meq 1X ONCE PO Last administered on at 12:12; Start 12/10/18 at 11:30; Stop 12/10/18 at 11:31; Status DC Artificial Tears (Artificial Tears) 1 drop PRN Q15MIN PRN OU DRY EYE; Start at 11:00 Polyethylene Glycol (miraLAX PACKET) 17 gm DAILY PO Last administered on 08:23; Start 12/10/18 at 11:30 Bupivacaine HCl (Sensorcaine-Mpf 0.25%) 10 ml STK-MED ONCE .ROUTE ; Start at 09:30; Stop 12/11/18 at 15:09; Status DC Methylprednisolone Acetate (DEPO-Medrol 40MG VIAL) 40 mg STK-MED ONCE .ROUTE ; Start 12/10/18 at 09:30; Stop 12/11/18 at 15:09; Status DC Bisacodyl (Dulcolax Supp) 10 mg PRN DAILY PRN [place] CONSTIPATION Last administered on 12/11/18at 18:49; Start 12/11/18 at 16:45 Active Scripts Active Xarelto (Rivaroxaban) 20 Mg Tablet 20 Mg PO DAILY 30 Days [Pantoprazole] 40 MG Tablet.dr 40 Mg PO DAILYAC 30 Days Methadone Hcl 10 Mg Tablet 2 Tab PO TID 30 Days Percocet 10-325 Mg Tablet (Oxycodone/Acetaminophen) 1 Each Tablet 1 Tab PO PRN QID PRN 30 Days Klor-Con 10 (Potassium Chloride) 10 Meq Tablet.er 1 Tab PO DAILY Furosemide 40 Mg Tablet 40 Mg PO DAILY 30 Days Cetirizine Hcl 10 Mg Tablet 10 Mg PO DAILY 30 Days Ibuprofen 600 Mg Tablet 600 Mg PO PRN Q6HRS PRN 90 Days Hydrochlorothiazide Tablet (Hydrochlorothiazide) 25 Mg Tablet 25 Mg PO DAILY 30 Days Nystop (Nystatin) 60 Gm Powder 1 Vashti TP BID 30 Days Reported Lidocaine 1 Each Adh..patch 1 Each TP DAILY Tizanidine Hcl 4 Mg Capsule 4 Mg PO QID PRN Metoprolol Tartrate 50 Mg Tablet 1 Tab PO BID Docusate Sodium 100 Mg Capsule 1 Cap PO DAILY Benadryl (Diphenhydramine Hcl) 25 Mg Capsule 25 Mg PO PRN Q6HRS PRN Multivitamins (Multivitamin) 1 Each Tablet 1 Tab PO DAILY Aspirin Ec (Aspirin) 325 Mg Tablet. 1 Tab PO DAILY Vitals/I & O Vital Sign - Last 24 Hours 12/14/18 12/14/18 12/14/18 12/14/18 15:00 15:26 19:00 19:55 Temp 98.1 98.3 98.1 98.3 Pulse 67 77 75 Resp 18 17 B/P (MAP) 116/47 (70) 140/53 (82) 140/53 Pulse Ox 95 95 95 O2 Delivery Room Air Room Air 12/14/18 12/14/18 12/15/18 12/15/18 20:00 22:45 02:09 03:01 Temp 98.5 98.4 98.5 98.4 Pulse 75 60 Resp 18 17 B/P (MAP) 119/50 (73) 118/54 (75) Pulse Ox 95 95 O2 Delivery Room Air Room Air Room Air Room Air 12/15/18 12/15/18 12/15/18 12/15/18 03:11 07:00 08:00 08:58 Temp 97.7 97.7 Pulse 58 58 Resp 17 B/P (MAP) 132/61 (84) 132/61 Pulse Ox 100 O2 Delivery Room Air Room Air Room Air 12/15/18 10:36 Temp 97.7 97.7 Pulse 58 Resp 18 B/P (MAP) 132/61 (84) Pulse Ox 97 O2 Delivery Room Air Intake and Output 12/14/18 12/14/18 12/15/18 15:00 23:00 07:00 Intake Total 850 ml 780 ml Balance 850 ml 780 ml SALVATORE HYDE MD Dec 15, 2018 12:41
[2018-12-15 15:00] VITALS: BP 139/65
--- NOTE | 2018-12-15 15:39 | NUR ---
SW following. Discussed with RN. Gonzalez from [facility] came to speak with pt about LTC. Pt gave SW permission to fax clinicals to [facility]. Pt still awaiting knee brace. Appeal for insurance denial to [facility] in progress. SW will continue to follow.
[2018-12-15 19:00] VITALS: BP 125/86
[2018-12-15] MEDS: ENOXAPARIN 40 MG/0.4 ML SYRINGE. SQ SCH (20:55)
[2018-12-15] MEDS: PATCH REMOVAL. MC SCH (21:00)
[2018-12-15 23:00] VITALS: BP 119/43
[2018-12-16] MEDS: tiZANidine 4 MG TABLET. PO PRN ×2 (01:58→09:32)
[2018-12-16 03:00] VITALS: BP 117/74
[2018-12-16] MEDS: oxyCODONE/APAP 10/325 1 TAB TABLET PO PRN ×2 (05:57→12:37)
[2018-12-16 07:00] VITALS: BP 142/57
[2018-12-16] MEDS: POLYETHYLENE GLYCOL 3350 17 GM PACKET. PO SCH (09:31)
[2018-12-16] MEDS: DOCUSATE SODIUM 100 MG CAPSULE. PO SCH (09:31)
[2018-12-16] MEDS: METHADONE 10 MG TABLET. PO SCH (09:31)
[2018-12-16 09:32] VITALS: BP 142/57
[2018-12-16] MEDS: METOPROLOL TART IMMED RELEASE 50 MG TABLET. PO SCH (09:32)
[2018-12-16] MEDS: hydroCHLOROthiazide 25 MG TABLET PO SCH (09:32)
[2018-12-16] MEDS: predniSONE 10 MG TABLET PO SCH (09:32)
[2018-12-16] MEDS: PANTOPRAZOLE 40 MG TABLET.DR. PO SCH (09:32)
[2018-12-16] MEDS: LIDOCAINE (700MG/PATCH) PATCH. TP SCH (09:33)
[2018-12-16] MEDS: NYSTATIN TOPICAL POWDER 15GM BOTTLE. TP SCH (09:35)
--- NOTE | 2018-12-16 10:06 | PDOC ---
PROGRESS NOTES Subjective Subjective No new complaints. Objective Objective Vital Signs Date Time Temp Pulse Resp B/P (MAP) Pulse Ox O2 Delivery O2 Flow Rate FiO2 12/16/18 09:32 62 142/57 12/16/18 07:00 98.2 17 98 Room Air 98.2 Intake and Output 12/16/18 07:00 Intake Total 1440 ml Balance 1440 ml Intake Oral 1440 ml # Voids 6 # Bowel Movements 2 Physical Exam Physical Exam She is alert,comfortable supine in bed and she continues with stiff left hip and flexion deformity of left knee and she is participating with physical and occupational therapy. She had dressing in place to left leg wound. Assessment Assessment Problems Medical Problems: (1) Chronic left hip pain Status: Acute (2) Weakness Status: Acute Plan Plan of Care Still waiting for left knee brace and agree with plans for rehab unit transfer to work on easing and eliminating left knee flexion contracture and wound care and improve her functional mobility for her to be considered for left REBEKAH. Comment Review of Relevant I have reviewed the following items fátima (where applicable) has been applied. Labs Laboratory Tests Test 12/15/18 04:35 Platelet Count 213 x10^3/uL (140-400) Creatinine 1.2 mg/dL (0.6-1.0) Estimated GFR (Cockcroft-Gault) 44.2 Microbiology 12/09/18 Urine Culture - Final, Complete 12/09/18 Urine Culture Result 1 (KATRINA) - Final, Complete Medications Current Medications Ondansetron HCl (Zofran) 4 mg PRN Q8HRS PRN IV NAUSEA/VOMITING; Start 12/08/18 at 16:45; Stop 12/09/18 at 16:44; Status DC Morphine Sulfate (Morphine Sulfate) 4 mg PRN Q2HR PRN IV PAIN Last administered on 12/09/18at 13:24; Start 12/08/18 at 16:45; Stop 12/09/18 at 16:44 ; Status DC Acetaminophen (Tylenol) 650 mg PRN Q4HRS PRN PO FEVER; Start 12/08/18 at 16:45 ; Stop 12/09/18 at 16:44; Status DC Diphenhydramine HCl (Benadryl) 25 mg PRN Q6HRS PRN PO ALLERGIES Last administered on 12/13/18at 22:48; Start 12/08/18 at 22:15 Ibuprofen (Motrin) 600 mg PRN Q6HRS PRN PO INFLAMMATION Last administered on 22:49; Start 12/08/18 at 22:15 Nystatin (Nystop) 1 vashti BID TP Last administered on 12/16/18 09:35; Start 12/08 at 22:30 Oxycodone/ Acetaminophen (Percocet 10/325) 1 tab PRN QID PRN PO PAIN Last administered on 12/16/18 05:57; Start 12/08/18 at 22:15 Lidocaine (Lidoderm) 1 patch DAILY TP Last administered on 12/16/18 09:33; Start 12/09/18 at 09:00 Methadone HCl (Dolophine) 20 mg TID PO Last administered on 12/16/18 09:31; Start 12/08/18 at 22:45 Tizanidine HCl (Zanaflex) 4 mg PRN QID PRN PO MUSCLE SPASMS Last administered on 12/16/18 09:32; Start 12/08/18 at 22:15 Miscellaneous (Lidoderm Patch Removal) 1 ea QHS MC Last administered on 21:00; Start 12/09/18 at 21:00 Docusate Sodium (Colace) 100 mg DAILY PO Last administered on 12/16/18 09:31; Start 12/09/18 at 09:00 Hydrochlorothiazide (Hydrodiuril) 25 mg DAILY PO Last administered on 12/16/18 09:32; Start 12/09/18 at 09:00 Metoprolol Tartrate (Lopressor) 50 mg BID PO Last administered on 12/16/18 09: 32; Start 12/09/18 at 09:00 Enoxaparin Sodium (Lovenox 40mg Syringe) 40 mg Q24H SQ Last administered on 23:20; Start 12/08/18 at 23:15; Stop 12/09/18 at 19:20; Status DC Prednisone (Prednisone) 10 mg DAILY PO Last administered on 12/16/18 09:32; Start 12/09/18 at 15:00 Pantoprazole Sodium (Protonix) 40 mg DAILYAC PO Last administered on 12/16/18 09:32; Start 12/09/18 at 15:00 Lidocaine/Sodium Bicarbonate (Buffered Lidocaine 1%) 3 ml 1X ONCE INJ ; Start 12/09/18 at 15:15; Stop 12/09/18 at 15:17; Status DC Methylprednisolone Acetate (DEPO-Medrol 80MG VIAL) 80 mg 1X ONCE INJ Last administered on 12/09/18at 16:17; Start 12/09/18 at 15:15; Stop 12/09/18 at 15:16 ; Status DC Bupivacaine HCl (Sensorcaine-Mpf 0.25%) 10 ml 1X ONCE IJ Last administered on 12/09/18at 16:18; Start 12/09/18 at 15:15; Stop 12/09/18 at 15:16; Status DC Enoxaparin Sodium (Lovenox 40mg Syringe) 40 mg QHS SQ Last administered on at 20:55; Start 12/09/18 at 21:00 Methylprednisolone Acetate (DEPO-Medrol 40MG VIAL) 40 mg 1X ONCE IM ; Start at 09:30; Stop 12/10/18 at 09:31; Status DC Bupivacaine HCl (Sensorcaine-Mpf 0.25%) 10 ml 1X ONCE IJ ; Start 12/10/18 at 09 :30; Stop 12/10/18 at 09:31; Status DC Potassium Chloride (Klor-Con) 40 meq 1X ONCE PO Last administered on at 12:12; Start 12/10/18 at 11:30; Stop 12/10/18 at 11:31; Status DC Artificial Tears (Artificial Tears) 1 drop PRN Q15MIN PRN OU DRY EYE; Start at 11:00 Polyethylene Glycol (miraLAX PACKET) 17 gm DAILY PO Last administered on at 09:31; Start 12/10/18 at 11:30 Bupivacaine HCl (Sensorcaine-Mpf 0.25%) 10 ml STK-MED ONCE .ROUTE ; Start at 09:30; Stop 12/11/18 at 15:09; Status DC Methylprednisolone Acetate (DEPO-Medrol 40MG VIAL) 40 mg STK-MED ONCE .ROUTE ; Start 12/10/18 at 09:30; Stop 12/11/18 at 15:09; Status DC Bisacodyl (Dulcolax Supp) 10 mg PRN DAILY PRN NV CONSTIPATION Last administered on 12/11/18at 18:49; Start 12/11/18 at 16:45 Active Scripts Active Xarelto (Rivaroxaban) 20 Mg Tablet 20 Mg PO DAILY 30 Days [Pantoprazole] 40 MG Tablet.dr 40 Mg PO DAILYAC 30 Days Methadone Hcl 10 Mg Tablet 2 Tab PO TID 30 Days Percocet 10-325 Mg Tablet (Oxycodone/Acetaminophen) 1 Each Tablet 1 Tab PO PRN QID PRN 30 Days Klor-Con 10 (Potassium Chloride) 10 Meq Tablet.er 1 Tab PO DAILY Furosemide 40 Mg Tablet 40 Mg PO DAILY 30 Days Cetirizine Hcl 10 Mg Tablet 10 Mg PO DAILY 30 Days Ibuprofen 600 Mg Tablet 600 Mg PO PRN Q6HRS PRN 90 Days Hydrochlorothiazide Tablet (Hydrochlorothiazide) 25 Mg Tablet 25 Mg PO DAILY 30 Days Nystop (Nystatin) 60 Gm Powder 1 Vashti TP BID 30 Days Reported Lidocaine 1 Each Adh..patch 1 Each TP DAILY Tizanidine Hcl 4 Mg Capsule 4 Mg PO QID PRN Metoprolol Tartrate 50 Mg Tablet 1 Tab PO BID Docusate Sodium 100 Mg Capsule 1 Cap PO DAILY Benadryl (Diphenhydramine Hcl) 25 Mg Capsule 25 Mg PO PRN Q6HRS PRN Multivitamins (Multivitamin) 1 Each Tablet 1 Tab PO DAILY Aspirin Ec (Aspirin) 325 Mg Tablet.dr 1 Tab PO DAILY Vitals/I & O Vital Sign - Last 24 Hours 12/15/18 12/15/18 12/15/18 12/15/18 10:36 15:00 19:00 20:00 Temp 97.7 97.9 98.2 97.7 97.9 98.2 Pulse 58 60 74 Resp 18 18 18 B/P (MAP) 132/61 (84) 139/65 (89) 125/86 (99) Pulse Ox 97 98 97 O2 Delivery Room Air Room Air Room Air 12/15/18 12/15/18 12/15/18 12/15/18 20:08 20:54 21:08 23:00 Temp 98.3 98.3 Pulse 74 66 Resp 20 B/P (MAP) 125/86 119/43 (68) Pulse Ox 97 98 O2 Delivery Room Air Room Air 12/16/18 12/16/18 12/16/18/6/19 03:00 05:57 07:00 09:32 Temp 97.5 98.2 97.5 98.2 Pulse 65 62 62 Resp 18 17 B/P (MAP) 117/74 (88) 142/57 (85) 142/57 Pulse Ox 96 96 98 O2 Delivery Room Air Room Air Intake and Output 12/15/18 12/15/18 12/16/18 15:00 23:00 07:00 Intake Total 900 ml 300 ml 240 ml Balance 900 ml 300 ml 240 ml MINDI FERNANDO MD Dec 16, 2018 10:06
--- NOTE | 2018-12-16 11:14 | NUR ---
MADDY following. Discussed with RN. MADDY received a call from pt's insurance, advising the appeal has been approved and pt can go to [facility]. [facility] will transport pt at 1300, pt's knee brace will be delivered to facility. RN notified. MADDY faxed discharge paperwork and updates to [facility]. No further SW needs.
--- NOTE | 2018-12-16 13:30 | NUR ---
pt discharged to [facility]. stable upon dc. report called to op regarding meds, labs, follow up.
--- NOTE | 2019-01-01 13:40 | DS ---
DATE OF DISCHARGE: 12/16/2018 ADMITTING DIAGNOSES: Generalized weakness and inability to care for herself. DISMISSAL DIAGNOSES: 1. Lumbar spinal stenosis. 2. Left knee contracture. 3. Severe arthritis of hip on left. 4. Morbid obesity. 5. Peripheral vascular disease. 6. Chronic atrial fibrillation. 7. Chronic obstructive pulmonary disease. 8. Hypertension. HISTORY OF PRESENT ILLNESS AND HOSPITAL COURSE: This patient is a 73-year-old female who is morbidly obese and unable to care for herself. She came to the Emergency Room and unable to walk, has significant contracture to left lower extremity. She was recently released from custodial and home health was unable to care for her due to her marked debility and disabilities. She was admitted back to the hospital for further evaluation and was evaluated by Physical Rehabilitation Medicine and Orthopedics. Physical rehabilitation recommended acute rehabilitation to improve contracture of her left lower extremity. PLAN: Followup surgery of her left hip and possible left hip replacement to improves the patient's mobility. The patient's chronic medical issues were controlled and pain was controlled during hospital stay. DISCHARGE MEDICATIONS: She was discharged to rehabilitation with the following medications: Pantoprazole 40 mg daily, Xarelto 20 mg daily for AFib, aspirin 325 mg daily, cetirizine 10 mg daily, diphenhydramine 25 mg q.6 p.r.n., docusate sodium 100 mg daily, Lasix 40 mg daily, hydrochlorothiazide 25 mg daily, ibuprofen 600 mg q.6, lidocaine patch applied daily, methadone 10 mg 2 tablets t.i.d., metoprolol 50 mg 1 p.o. b.i.d., multivitamin daily, oxycodone 10 one q.6 hours p.r.n., potassium 10 mEq daily, Zanaflex 4 mg q.i.d. Coumadin was discontinued on this admission and replaced with Xarelto. SALVATORE HYDE MD DR: RADHA/nancy JOB#: [id number] / [id number]
[2019-03-17] MEDS ORDERED: LOPE1LIQ7 PO (16:50)
== END 2018-12-16 13:31 | DRG 565 ==
LOC: ER 15:43 → ED HOLD 16:44 → 5 SOUTH 20:35
PROVIDERS: ADMIT Family Medicine; ATTEND Family Medicine
PROC: 3E0U33Z Introduction of Anti-inflammatory into Joints, Percutaneous Approach (ICD-10-PCS; principal; 2018-12-10)
PROC: 3E0U3BZ Introduction of Anesthetic Agent into Joints, Percutaneous Approach (ICD-10-PCS; 2018-12-10)
DX: M24.562 Contracture, left knee (principal); E44.1 Mild protein-calorie malnutrition; F11.20 Opioid dependence, uncomplicated; L97.221 Non-pressure chronic ulcer of left calf limited to breakdown of skin; M17.12 Unilateral primary osteoarthritis, left knee; M16.12 Unilateral primary osteoarthritis, left hip; J44.9 Chronic obstructive pulmonary disease, unspecified; E66.01 Morbid (severe) obesity due to excess calories; I73.9 Peripheral vascular disease, unspecified; I10 Essential (primary) hypertension; R62.7 Adult failure to thrive; Z68.32 Body mass index [BMI] 32.0-32.9, adult; F32.9 Major depressive disorder, single episode, unspecified; Z88.8 Allergy status to other drugs, medicaments and biological substances; M47.9 Spondylosis, unspecified; Z91.041 Radiographic dye allergy status; Z91.013 Allergy to seafood; E03.9 Hypothyroidism, unspecified; G62.9 Polyneuropathy, unspecified; G89.29 Other chronic pain; I48.2 Chronic atrial fibrillation; K59.00 Constipation, unspecified; M16.11 Unilateral primary osteoarthritis, right hip; M48.061 Spinal stenosis, lumbar region without neurogenic claudication; M51.36 Other intervertebral disc degeneration, lumbar region; Z79.899 Other long term (current) drug therapy; Z83.3 Family history of diabetes mellitus; Z89.412 Acquired absence of left great toe; Z89.429 Acquired absence of other toe(s), unspecified side; Z90.711 Acquired absence of uterus with remaining cervical stump; Z96.642 Presence of left artificial hip joint; Z90.49 Acquired absence of other specified parts of digestive tract; L89.151 Pressure ulcer of sacral region, stage 1
CPT/HCPCS: 20610; 36415; 72020; 73521; 73562; 77002; 80048; 80053; 81001; 82565; 83735; 84443; 85025; 85049; 87086; 93925; J1030; J1040; J1650; J2270; J3490; J7512; Q0163; 97110; 97530; 97535; 99285-25

== ENCOUNTER 2019-02-15 00:02 | Emergency (ER) | payer MEDICARE ==
[~2019-02-15] VITALS: Ht 180.3 cm; Wt 104.3 kg
[~2019-02-15 00:02] MED LIST changes: +LIDO700A39 TP; +Pantoprazole PO; +RIVA20TA2 PO
[2019-02-15 00:04] VITALS: BP 144/58
[2019-02-15] MEDS ORDERED: SILV20CR14 TP (00:45)
[2019-02-15] MEDS ORDERED: CEPH500C PO (00:45)
[2019-02-15] MEDS ORDERED: OXYC1TAB15 PO (00:45)
[2019-02-15] MEDS ORDERED: oxyCODONE/APAP 5/325 1 TAB TABLET PO ONE (01:00)
[2019-02-15] MEDS ORDERED: CEPHALEXIN 250 MG CAPSULE. PO ONE (01:00)
--- NOTE | 2019-02-15 01:06 | PHYS DOC ---
Past Medical History Past Medical History: A-Fib, Hypertension, Hypothyroid, Other Additional Past Medical Histor: morbid obesity, poor wound healing, chronic pain, narcotic dependency Past Surgical History: Cholecystectomy, Hysterectomy, Tonsillectomy, Other Additional Past Surgical Histo: traumatic left great toe amputation Alcohol Use: None Drug Use: None Adult General Chief Complaint Chief Complaint: BURN/SMOKE INHALATION HPI HPI Patient is a 73 year old female who presents with a burn to the right for which she spilled some hot water in it 2 days ago he was getting redder tonight so she came in for evaluation. She has also recently ran out of OxyContin for chronic pain Review of Systems Review of Systems Constitutional: Denies fever or chills [] Eyes: Denies change in visual acuity, redness, or eye pain [] HENT: Neurologic: Denies headache, focal weakness or sensory changes [] All other systems were reviewed and found to be within normal limits, except as documented in this note. Current Medications Current Medications Current Medications Medications (Trade) Dose Ordered Sig/Franki Start Time Stop Time Status Last Admin Dose Admin Cephalexin HCl (Keflex) 500 mg 1X ONCE 02/15/19 01:00 02/15/19 01:01 DC 02/15/19 00:56 500 MG Oxycodone/ Acetaminophen (Percocet 5/325) 2 tab 1X ONCE 02/15/19 01:00 02/15/19 01:01 DC 02/15/19 00:57 2 TAB Allergies Allergies Allergies Coded Allergies Type Severity Reaction Last Updated Verified shellfish derived Allergy Severe 10/23/17 Yes Iodinated Contrast- Oral and IV Dye Allergy Intermediate 10/23/17 Yes digoxin Allergy Intermediate 10/23/17 Yes Physical Exam Physical Exam Constitutional: Well developed, disheveled HENT: Normocephalic, atraumatic, bilateral external ears normal, oropharynx moist, no oral exudates, nose normal. [] Eyes: PERRLA, EOMI, conjunctiva normal, no discharge. [] Neck: Normal range of motion, no tenderness, supple, no stridor. [] Pulmonary: Normal respiratory effort no increased work of breathing no obvious chest wall trauma Abdomen: Bowel sounds normal, soft, no tenderness, no masses, no pulsatile masses. [] Skin: There is some erythema about the midfoot mild warmth there is a approximately 5 cm recently unroofed blister on her aspect of the foot sensations intact pupils intact Extremities: No tenderness, no cyanosis, no clubbing, ROM intact, no edema. [] Neurologic: Alert and oriented X 3, normal motor function, normal sensory function, no focal deficits noted. [] Psychologic: Affect normal, judgement normal, mood normal. [] Current Patient Data Vital Signs Vital Signs Date Time Temp Pulse Resp B/P (MAP) Pulse Ox O2 Delivery O2 Flow Rate FiO2 02/15/19 00:57 18 98 02/15/19 00:04 97.7 81 144/58 (86) Room Air 97.7 EKG EKG [] Radiology/Procedures Radiology/Procedures [] Course & Med Decision Making Course & Med Decision Making Pertinent Labs and Imaging studies reviewed. (See chart for details) []Foot burn as a blister superficial partial thickness blisters actually come off the emergency room The skin intact however placed a dry dressing prescription for KEFLEX and Silvadene return precautions discussed give her enough for 2 days worth of oxycodone and advised him to follow-up for refills on that Dragon Disclaimer Dragon Disclaimer This electronic medical record was generated, in whole or in part, using a voice recognition dictation system. Departure Departure Impression: Primary Impression: Burn Disposition: 01 HOME, SELF-CARE Condition: STABLE Patient Instructions: Burn Care, [id number] Scripts Oxycodone/Apap 5-325 (PERCOCET 5-325 MG TABLET ) 1 Each Tablet 1 TAB PO PRN Q6HRS PRN for PAIN, #6 TAB 0 Refills Prov: GONZALES DENISE MD 02/15/19 Cephalexin (CEPHALEXIN) 500 Mg Capsule 1 CAP PO TID, #21 CAP Prov: GONZALES DENISE MD 02/15/19 Silver Sulfadiazine (SILVADENE) 20 Gm Cream..g. 1 ALESSANDRO TP DAILY, #50 GM Prov: GONZALES DENISE MD 02/15/19 GONZALES DENISE MD February 15, 2019 01:06
[2019-03-17] MEDS ORDERED: LOPE1LIQ7 PO (16:50)
== END 2019-02-15 00:55 | disposition home or self-care (01) ==
LOC: ER 00:02
DX: T25.221A Burn of second degree of right foot, initial encounter (principal); I48.91 Unspecified atrial fibrillation; E03.9 Hypothyroidism, unspecified; G89.29 Other chronic pain; I10 Essential (primary) hypertension; E66.01 Morbid (severe) obesity due to excess calories; Z68.32 Body mass index [BMI] 32.0-32.9, adult; F11.20 Opioid dependence, uncomplicated; Z91.013 Allergy to seafood; Z91.041 Radiographic dye allergy status; Z88.8 Allergy status to other drugs, medicaments and biological substances; X11.8XXA Contact with other hot tap-water, initial encounter; Y93.89 Activity, other specified; Y92.89 Other specified places as the place of occurrence of the external cause; Y99.8 Other external cause status
CPT/HCPCS: 16020; 99284-25

== ENCOUNTER 2019-03-12 15:06 | Emergency (ER) | payer MEDICARE ==
[~2019-03-12] VITALS: Ht 180.3 cm; Wt 113.4 kg
[~2019-03-12 15:06] MED LIST changes: +CEPH500C PO; +SILV20CR14 TP
[2019-03-12] MEDS ORDERED: KETOROLAC 60 MG/2 ML VIAL. IM ONE (16:00)
[2019-03-12] MEDS ORDERED: fentaNYL PF VIAL 100 MCG/2 ML VIAL IM ONE (16:15)
--- NOTE | 2019-03-12 16:38 | PHYS DOC ---
Past Medical History Past Medical History: A-Fib, Hypertension, Hypothyroid, Other Additional Past Medical Histor: morbid obesity, poor wound healing, chronic pain, narcotic dependency Past Surgical History: Cholecystectomy, Hysterectomy, Tonsillectomy, Other Additional Past Surgical Histo: traumatic left great toe amputation Alcohol Use: None Drug Use: None Adult General Chief Complaint Chief Complaint: HIP PAIN HPI HPI Patient is a 73 year old female with history of chronic left hip pain presents to the ED today complaining of 10 out of 10 left hip pain-. Patient states they took her off her methadone. She states she is in the ED to be admitted so that she can have surgery next week. Patient denies any new injury. She states her pain is worse on weight bearing. Denies any loss of bowel bladder function. Patient states she is in the ED to be admitted per request of Dr. Ivey in readiness for her surgery next week. Review of Systems Review of Systems Constitutional: Denies fever or chills [] : Denies dysuria or hematuria [] Musculoskeletal: Reports left hip pain chronic Integument: Denies rash or skin lesions [] Neurologic: Denies headache, focal weakness or sensory changes [] All other systems were reviewed and found to be within normal limits, except as documented in this note. Current Medications Current Medications Current Medications Medications (Trade) Dose Ordered Sig/[facility] Start Time Stop Time Status Last Admin Dose Admin Fentanyl Citrate (Fentanyl 2ml Vial) 50 mcg 1X ONCE 03/12/19 16:15 03/12/19 16:16 DC 03/12/19 16:23 50 MCG Ketorolac Tromethamine (Toradol Im) 60 mg 1X ONCE 03/12/19 16:00 03/12/19 16:01 DC 03/12/19 16:19 60 MG Allergies Allergies Allergies Coded Allergies Type Severity Reaction Last Updated Verified shellfish derived Allergy Severe 10/23/17 Yes Iodinated Contrast- Oral and IV Dye Allergy Intermediate 10/23/17 Yes digoxin Allergy Intermediate 10/23/17 Yes Physical Exam Physical Exam Constitutional: Well developed, well nourished, no acute distress, non-toxic appearance. [] Abdomen: Bowel sounds normal, soft, no tenderness, no masses, no pulsatile masses. [] Skin: Warm, dry, no erythema, no rash. [] Back: No tenderness, no CVA tenderness. [] Extremities: Patient is sitting in a wheelchair. Tenderness on palpation of the left hip. Limited range of motion to the left hip which is chronic. +2 bilateral pedal pulses. Cap refill less than 2 seconds bilateral lower extremities. Neurologic: Alert and oriented X 3, normal motor function, normal sensory function, no focal deficits noted. [] Psychologic: Affect normal, judgement normal, mood normal. [] Current Patient Data Vital Signs Vital Signs Date Time Temp Pulse Resp B/P (MAP) Pulse Ox O2 Delivery O2 Flow Rate FiO2 03/12/19 16:56 16 99 Room Air 03/12/19 15:50 98.7 94 150/77 (101) 98.7 EKG EKG [] Radiology/Procedures Radiology/Procedures [] Course & Med Decision Making Course & Med Decision Making Pertinent Labs and Imaging studies reviewed. (See chart for details) This is a 73-year-old female patient presented to the ED today with left hip pain, this is a chronic issue with this patient. She states she was sent to the ED to be admitted by Dr. Ivey. I contacted Dr. Ivey, he requested we manage gretel israel's pain and she can follow-up in the clinic, he stated patient is also on multiple pain medications including oxycodone and methadone at home. Patient was given Toradol, fentanyl, and Dilaudid. Dragon Disclaimer Dragon Disclaimer This electronic medical record was generated, in whole or in part, using a voice recognition dictation system. Departure Departure Impression: Primary Impression: Chronic left hip pain Disposition: HOME, SELF-CARE Condition: STABLE Referrals: SALVATORE IVEY MD (PCP) follow up next week DANNY MEEKS MD follow up next week Patient Instructions: Hip Pain Additional Instructions: You were evaluated in the emergency room for hip pain. Please follow-up with Dr. Ivey and your orthopedic doctor next week. CHARLES SERRATO APRN March 12, 2019 16:38
[2019-03-12] MEDS ORDERED: HYDROmorphone 2 MG/ML VIAL IM ONE (17:00)
[2019-03-12 18:00] VITALS: BP 167/69
[2019-03-17] MEDS ORDERED: LOPE1LIQ7 PO (16:50)
== END 2019-03-12 18:04 | disposition home or self-care (01) ==
LOC: ER 15:06
DX: G89.29 Other chronic pain (principal); M25.552 Pain in left hip; I48.91 Unspecified atrial fibrillation; I10 Essential (primary) hypertension; E03.9 Hypothyroidism, unspecified; E66.01 Morbid (severe) obesity due to excess calories; Z68.34 Body mass index [BMI] 34.0-34.9, adult; Z90.49 Acquired absence of other specified parts of digestive tract; Z90.710 Acquired absence of both cervix and uterus; Z90.89 Acquired absence of other organs; Z88.8 Allergy status to other drugs, medicaments and biological substances; Z91.041 Radiographic dye allergy status; Z91.013 Allergy to seafood
CPT/HCPCS: 96372; 99284; J1170; J1885; J3010

== ENCOUNTER 2019-03-15 18:14 | Emergency (ER) | payer MEDICARE ==
[~2019-03-15] VITALS: Ht 181.6 cm; Wt 105.2 kg
[2019-03-15] MEDS ORDERED: oxyCODONE/APAP 5/325 1 TAB TABLET PO ONE (18:45)
[2019-03-15 19:32] LABS: BASO # 0.1 x10^3/uL (0.0-0.2); BASO % 1 % (0-3); EOS % 0 % (0-3); HEMATOCRIT 45.1 % (36.0-47.0); HEMOGLOBIN 15.3 g/dL (12.0-15.5); LYMPH # 2.1 x10^3/uL (1.0-4.8); LYMPH % 19 % (24-48); MEAN CORPUSCULAR HEMOGLOBIN 32 pg (25-35); MEAN CORPUSCULAR HGB CONC 34 g/dL (31-37); MEAN CORPUSCULAR VOLUME 93 fL (79-100); MONO # 1.2 x10^3/uL (0.0-1.1); MONO % 11 % (0-9); NEUT # 7.6 x10^3uL (1.8-7.7); NEUT % 69 % (31-73); PLATELET COUNT 291 x10^3/uL (140-400); RED BLOOD COUNT 4.83 x10^6/uL (3.50-5.40); RED CELL DISTRIBUTION WIDTH 15.1 % (11.5-14.5)
[2019-03-15 19:44] LABS: CALCIUM 9.4 mg/dL (8.5-10.1); CREATININE 1.5 mg/dL (0.6-1.0); GFR 34.1; POTASSIUM 3.2 mmol/L (3.5-5.1)
[2019-03-15 19:49] LABS: ALBUMIN 3.9 g/dL (3.4-5.0); TOTAL BILIRUBIN 0.3 mg/dL (0.2-1.0)
[2019-03-15] MEDS ORDERED: IV NORMAL SALINE 500ML BAG 500 ML IV ONE (20:15)
[2019-03-15 21:09] LABS: BILIRUBIN,URINE NEGATIVE (NEG); CLARITY,URINE CLEAR; COLOR,URINE YELLOW; NITRITE,URINE NEGATIVE (NEG); PROTEIN,URINE NEGATIVE (NEG-TRACE); UROBILINOGEN,URINE 0.2 mg/dL (0.2 mg/dL)
[2019-03-15 21:15] LABS: AMORPHOUS SEDIMENT,UR PRESENT /HPF; BACTERIA,URINE 0 /HPF (0-FEW); RBC,URINE 0 /HPF (0-2); SQUAMOUS EPITHELIAL CELL,UR MOD /LPF
[2019-03-15 21:25] VITALS: BP 133/79
[2019-03-15] MEDS ORDERED: HYDR-3164 PO (21:32)
--- NOTE | 2019-03-15 22:22 | PHYS DOC ---
Past Medical History Past Medical History: A-Fib, Hypertension, Hypothyroid, Other Additional Past Medical Histor: morbid obesity, poor wound healing, chronic pain, narcotic dependency Past Surgical History: Cholecystectomy, Hysterectomy, Tonsillectomy, Other Additional Past Surgical Histo: traumatic left great toe amputation Alcohol Use: None Drug Use: None Adult General Chief Complaint Chief Complaint: WEAKNESS/GENERALIZED HPI HPI Patient is a 73 year old female presents with multiple complaints. Primary complaint is that of chronic left hip pain she's been seen multiple times for same she has an appointment with orthopedics coming up later this month. She is not taking any narcotic pain medication at this time because her doctor wanted her to get off methadone prior to surgery. She tells me. She has not been sleeping because she is having some much pain so she says she feels much more tired and she week because of the insomnia. In addition she is frustrated because the home health care nurse did not come to check out the alcantar on her feet that they have been checking on today. Review of Systems Review of Systems Constitutional: Denies fever or chills [] Eyes: Denies change in visual acuity, redness, or eye pain [] GI: Denies abdominal pain, nausea, vomiting, bloody stools or diarrhea [] : Denies dysuria or hematuria [] Musculoskeletal: Denies back pain or joint pain [] All other systems were reviewed and found to be within normal limits, except as documented in this note. Current Medications Current Medications Current Medications Medications (Trade) Dose Ordered Sig/Franki Start Time Stop Time Status Last Admin Dose Admin Oxycodone/ Acetaminophen (Percocet 5/325) 2 tab 1X ONCE 03/15/19 18:45 03/15/19 18:46 DC 03/15/19 20:00 2 TAB Sodium Chloride 500 ml @ 500 mls/hr 1X ONCE 03/15/19 20:15 03/15/19 21:14 DC 03/15/19 20:27 500 MLS/HR Allergies Allergies Allergies Coded Allergies Type Severity Reaction Last Updated Verified shellfish derived Allergy Severe 10/23/17 Yes Iodinated Contrast- Oral and IV Dye Allergy Intermediate 10/23/17 Yes digoxin Allergy Intermediate 10/23/17 Yes Physical Exam Physical Exam Constitutional: Well developed, well nourished, no acute distress, non-toxic appearance. [] HENT: Normocephalic, atraumatic, bilateral external ears normal, oropharynx moist, no oral exudates, nose normal. [] Eyes: PERRLA, EOMI, conjunctiva normal, no discharge. [] Neck: Normal range of motion, no tenderness, supple, no stridor. [] Cardiovascular:Heart rate regular rhythm, no murmur [] Lungs & Thorax: Bilateral breath sounds clear to auscultation [] Abdomen: Bowel sounds normal, soft, no tenderness, no masses, no pulsatile masses. [] Skin: Fairly well healing alcantar on the right foot there is some granulation tissue no obvious cellulitis. Additional wound noted on the left gamez. No obvious signs of infection there cover with gauze Back: No tenderness, no CVA tenderness. [] Extremities: Left lower extremity range of motion left hip limited by pain. Neurologic: Alert and oriented X 3, normal motor function, normal sensory function, no focal deficits noted. [] Psychologic: Affect normal, judgement normal, mood normal. [] Current Patient Data Vital Signs Vital Signs Date Time Temp Pulse Resp B/P (MAP) Pulse Ox O2 Delivery O2 Flow Rate FiO2 03/15/19 21:25 90 22 98 03/15/19 18:30 98.1 117/58 (77) Room Air 98.1 Lab Values Laboratory Tests Test 03/15/19 19:20 03/15/19 21:00 White Blood Count 11.0 x10^3/uL (4.0-11.0) Red Blood Count 4.83 x10^6/uL (3.50-5.40) Hemoglobin 15.3 g/dL (12.0-15.5) Hematocrit 45.1 % (36.0-47.0) Mean Corpuscular Volume 93 fL (79-100) Mean Corpuscular Hemoglobin 32 pg (25-35) Mean Corpuscular Hemoglobin Concent 34 g/dL (31-37) Red Cell Distribution Width 15.1 % (11.5-14.5) H Platelet Count 291 x10^3/uL (140-400) Neutrophils (%) (Auto) 69 % (31-73) Lymphocytes (%) (Auto) 19 % (24-48) L Monocytes (%) (Auto) 11 % (0-9) H Eosinophils (%) (Auto) 0 % (0-3) Basophils (%) (Auto) 1 % (0-3) Neutrophils # (Auto) 7.6 x10^3uL (1.8-7.7) Lymphocytes # (Auto) 2.1 x10^3/uL (1.0-4.8) Monocytes # (Auto) 1.2 x10^3/uL (0.0-1.1) H Eosinophils # (Auto) 0.0 x10^3/uL (0.0-0.7) Basophils # (Auto) 0.1 x10^3/uL (0.0-0.2) Sodium Level 139 mmol/L (136-145) Potassium Level 3.2 mmol/L (3.5-5.1) L Chloride Level 100 mmol/L (98-107) Carbon Dioxide Level 22 mmol/L (21-32) Anion Gap 17 (6-14) H Blood Urea Nitrogen 57 mg/dL (7-20) H Creatinine 1.5 mg/dL (0.6-1.0) H Estimated GFR (Cockcroft-Gault) 34.1 BUN/Creatinine Ratio 38 (6-20) H Glucose Level 92 mg/dL (70-99) Calcium Level 9.4 mg/dL (8.5-10.1) Total Bilirubin 0.3 mg/dL (0.2-1.0) Aspartate Amino Transferase (AST) 27 U/L (15-37) Alanine Aminotransferase (ALT) 39 U/L (14-59) Alkaline Phosphatase 99 U/L (46-116) Total Protein 8.0 g/dL (6.4-8.2) Albumin 3.9 g/dL (3.4-5.0) Albumin/Globulin Ratio 1.0 (1.0-1.7) Urine Collection Type U cath Urine Color Yellow Urine Clarity Clear Urine pH 5.0 Urine Specific [place] 1.020 Urine Protein Negative mg/dL (NEG-TRACE) Urine Glucose (UA) Negative mg/dL (NEG) Urine Ketones (Stick) Negative mg/dL (NEG) Urine Blood Negative (NEG) Urine Nitrite Negative (NEG) Urine Bilirubin Negative (NEG) Urine Urobilinogen Dipstick 0.2 mg/dL (0.2 mg/dL) Urine Leukocyte Esterase Negative (NEG) Urine RBC 0 /HPF (0-2) Urine WBC 1-4 /HPF (0-4) Urine Squamous Epithelial Cells Mod /LPF Urine Amorphous Sediment Present /HPF Urine Bacteria 0 /HPF (0-FEW) Urine Mucus Slight /LPF Laboratory Tests 03/15/19 19:20 Laboratory Tests 03/15/19 19:20 EKG EKG Rate 93) bundle-branch block no obvious ischemia in light of that.[] Radiology/Procedures Radiology/Procedures [] Course & Med Decision Making Course & Med Decision Making Pertinent Labs and Imaging studies reviewed. (See chart for details) []This is a 73-year-old female with a long history of chronic pain presenting with continued pain after stopping methadone. She did say she was a little weak we did a basic weakness workup in the emergency room I think it's from not sleeping due to her pain. She had no obvious signs of infection vitals were stable urinalysis was negative mild bump in the creatinine we have treated this with IV fluids patient stable for discharge home she was able to transfer safely from the bed to the wheelchair and into the car , she should be okay at home at this time. I did give her a couple days worth of some pain medication regimen and follow-up with primary care doctor for further evaluation prior to her surgery. Dragon Disclaimer Dragon Disclaimer This electronic medical record was generated, in whole or in part, using a voice recognition dictation system. Departure Departure Impression: Primary Impression: Chronic pain Disposition: 01 HOME, SELF-CARE Condition: STABLE Referrals: SALVATORE HYDE MD (PCP) Patient Instructions: Chronic Pain Management-Brief Scripts Hydrocodone/Apap 5-325 (NORCO 5-325 TABLET) 1 Each Tablet 1-2 EACH PO PRN Q6HRS PRN for PAIN, #10 as needed for pain Prov: GONZALES DENISE MD 03/15/19 GONZALES DENISE MD Mar 15, 2019 22:22
--- NOTE | 2019-03-16 08:01 | EKG ---
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
[2019-03-17] MEDS ORDERED: LOPE1LIQ7 PO (16:50)
== END 2019-03-15 21:45 | disposition home or self-care (01) ==
LOC: ER 18:14
DX: G89.29 Other chronic pain (principal); M25.552 Pain in left hip; I48.91 Unspecified atrial fibrillation; E03.9 Hypothyroidism, unspecified; I10 Essential (primary) hypertension; F11.20 Opioid dependence, uncomplicated; E66.01 Morbid (severe) obesity due to excess calories; Z68.31 Body mass index [BMI] 31.0-31.9, adult; Z91.041 Radiographic dye allergy status; Z91.013 Allergy to seafood; Z88.8 Allergy status to other drugs, medicaments and biological substances
CPT/HCPCS: 36415; 80053; 81001; 85025; 93005; 99285; J7040

== ENCOUNTER 2019-04-17 23:05 | Emergency (ER) | payer MEDICARE ==
[~2019-04-17] VITALS: Ht 180.3 cm; Wt 105.2 kg
[~2019-04-17 23:05] MED LIST changes: +LIDO700A21 TP; -LIDO700A39 TP; +LOPE1LIQ7 PO
--- NOTE | 2019-04-17 23:19 | PHYS DOC ---
Past Medical History Past Medical History: A-Fib, Hypertension, Hypothyroid, Other Additional Past Medical Histor: morbid obesity, poor wound healing, chronic pain, narcotic dependency (CHARLES SERRATO APRN) Past Surgical History: Cholecystectomy, Hysterectomy, Tonsillectomy, Other Additional Past Surgical Histo: traumatic left great toe amputation (CHARLES SERRATO APRN) Alcohol Use: None Drug Use: None (CHARLES SERRATO APRN) Adult General Chief Complaint Chief Complaint: HIP PAIN HPI HPI Patient is a 73 year old female presenting to the ED today complaining of moderate intermittent sharp left hip pain radiating to the left lower extremity chronic in nature. Patient denies any known injury. She states she is currently at a rehabilitation facility getting strong for her upcoming left hip replacement surgery in 3 weeks. Denies any injury. She states her pain is exacerbated on laying on the left hip. She states they gave her pain medicine at the rehabilitation facility but it's not strong enough. (CHARLES SERRATO APRN) Review of Systems Review of Systems Constitutional: Denies fever or chills [] : Denies dysuria or hematuria [] Musculoskeletal: Reports left hip pain Integument: Denies rash or skin lesions [] Neurologic: Denies headache, focal weakness or sensory changes [] All other systems were reviewed and found to be within normal limits, except as documented in this note. (CHARLES SERRATO APRN) Current Medications Current Medications Current Medications Medications (Trade) Dose Ordered Sig/Franki Start Time Stop Time Status Last Admin Dose Admin Dexamethasone Sodium Phosphate (Decadron) 10 mg 1X ONCE 04/17/19 23:30 04/17/19 23:31 DC 04/17/19 23:40 10 MG Diazepam (Valium) 5 mg 1X ONCE 04/17/19 23:30 04/17/19 23:31 DC 04/17/19 23:41 5 MG Hydromorphone HCl (Dilaudid) 1 mg 1X ONCE 04/17/19 23:30 04/17/19 23:31 DC 04/17/19 23:41 1 MG Ketorolac Tromethamine (Toradol Im) 60 mg 1X ONCE 04/17/19 23:30 04/17/19 23:31 DC 04/17/19 23:40 60 MG (SALVATORE PLAZA DO) Allergies Allergies Allergies Coded Allergies Type Severity Reaction Last Updated Verified shellfish derived Allergy Severe 1/11/18 Yes Iodinated Contrast- Oral and IV Dye Allergy Intermediate 10/23/17 Yes digoxin Allergy Intermediate 10/23/17 Yes (SALVATORE PLAZA DO) Physical Exam Physical Exam Constitutional: Well developed, well nourished, no acute distress, non-toxic appearance. [] Skin: Warm, dry, no erythema, no rash. [] Back: No tenderness, no CVA tenderness. [] Extremities: Left hip with no obvious deformity. Tenderness diffusely on palpation of the left lateral hip. Limited range of motion to the left hip due to pain. +2 left pedal pulse. Cap refill less than 2 seconds the left toes. Sensation intact to the left lower extremity Neurologic: Alert and oriented X 3, normal motor function, normal sensory function, no focal deficits noted. [] Psychologic: Affect normal, judgement normal, mood normal. [] (CHARLES SERRATO APRN) Current Patient Data Vital Signs Vital Signs Date Time Temp Pulse Resp B/P (MAP) Pulse Ox O2 Delivery O2 Flow Rate FiO2 04/17/19 23:41 18 100 Room Air 04/17/19 23:35 90 151/83 (105) 04/17/19 23:05 98.2 98.2 (SALVATORE PLAZA DO) EKG EKG [] (CHARLES SERRATO APRN) Radiology/Procedures Radiology/Procedures [] (CHARLES SERRATO APRN) Course & Med Decision Making Course & Med Decision Making Pertinent Labs and Imaging studies reviewed. (See chart for details) This is a 73-year-old female patient well known to this ED for chronic hip and back pain presenting today for left hip pain. She is currently in a rehabilitation facility in preparation for left hip replacement in 3 weeks. No known injury today. She'll be given pain relief in the ED and discharged back to the rehabilitation facility. (CHARLES SERRATO APRN) Dragon Disclaimer Dragon Disclaimer This electronic medical record was generated, in whole or in part, using a voice recognition dictation system. (CHARLES SERRATO APRN) Departure Departure Impression: Primary Impression: Chronic left hip pain Disposition: 01 HOME, SELF-CARE Condition: STABLE Referrals: SALVATORE HYDE MD (PCP) Follow-up with your doctor in one week Patient Instructions: Hip Pain Additional Instructions: You were seen for chronic left hip pain. Please follow-up with your doctor in the next 1-2 weeks. Attending Signature Attending Signature I have reviewed the PA/BUSINESS CONTINUITY GLOBAL DIRECTOR's note and plan of care. I was available for consultation as needed during the patient's visit in the emergency department. I agree with the clinical impression, plan, and disposition. (SALVATORE PLAZA DO) CHARLES SERRATO APRN Apr 17, 2019 23:19 SALVATORE PLAZA DO Apr 18, 2019 05:32
[2019-04-17] MEDS ORDERED: KETOROLAC 60 MG/2 ML VIAL. IM ONE (23:30)
[2019-04-17] MEDS ORDERED: HYDROmorphone 2 MG/ML VIAL IM ONE (23:30)
[2019-04-17] MEDS ORDERED: DEXAMETHASONE SOD PHOS 20 MG/5 ML VIAL. IM ONE (23:30)
[2019-04-17] MEDS ORDERED: diazePAM 5 MG TABLET PO ONE (23:30)
[2019-04-17 23:35] VITALS: BP 151/83
== END 2019-04-18 | disposition home or self-care (01) ==
LOC: ER 23:05
DX: G89.29 Other chronic pain (principal); M25.552 Pain in left hip; M79.605 Pain in left leg; I48.91 Unspecified atrial fibrillation; I10 Essential (primary) hypertension; E03.9 Hypothyroidism, unspecified; E66.01 Morbid (severe) obesity due to excess calories; Z68.32 Body mass index [BMI] 32.0-32.9, adult; F11.20 Opioid dependence, uncomplicated; Z90.49 Acquired absence of other specified parts of digestive tract; Z90.710 Acquired absence of both cervix and uterus; Z88.5 Allergy status to narcotic agent; Z91.041 Radiographic dye allergy status; Z91.013 Allergy to seafood
CPT/HCPCS: 96372; 99284; J1100; J1170; J1885

== ENCOUNTER 2019-05-12 16:28 | Inpatient (IN) | payer MEDICARE ==
[2019-05-12] VITALS (9 sets, daily range): BP systolic 104–177; BP diastolic 49–99
[~2019-05-12] VITALS: Ht 165.1 cm; Wt 99.3 kg
--- NOTE | 2019-05-12 17:18 | PHYS DOC ---
Past Medical History Past Medical History: A-Fib, Hypertension, Hypothyroid, Other Additional Past Medical Histor: morbid obesity, poor wound healing, chronic pain, narcotic dependency Past Surgical History: Cholecystectomy, Hysterectomy, Tonsillectomy, Other Additional Past Surgical Histo: traumatic left great toe amputation Alcohol Use: None Drug Use: None Adult General Chief Complaint Chief Complaint: HIP PAIN HPI HPI Patient is a 73 -year old female that presents for chronic left hip pain and left knee pain has been ongoing for 30 years. The patient also been having a-fib with a rate of 150 in the room on assessment. Was a Dr. Guzman's office prior to coming to the ER where she was told that she was not be able to have surgery for her hip and knee pain since came to the ER. Rates her pain as 10 out of 10 in severity and sharp. The patient is in a penit[facility]. Review of Systems Review of Systems Constitutional: Denies fever or chills [] Eyes: Denies change in visual acuity, redness, or eye pain [] HENT: Denies nasal congestion or sore throat [] Respiratory: Denies cough or shortness of breath [] Cardiovascular: No additional information not addressed in HPI [] GI: Denies abdominal pain, nausea, vomiting, bloody stools or diarrhea [] : Denies dysuria or hematuria [] Musculoskeletal: Reports chronic left knee and left hip pain. Integument: Denies rash or skin lesions [] Neurologic: Denies headache, focal weakness or sensory changes [] Endocrine: Denies polyuria or polydipsia [] Complete systems were reviewed and found to be within normal limits, except as documented in this note. Current Medications Current Medications Current Medications Medications (Trade) Dose Ordered Sig/Franki Start Time Stop Time Status Last Admin Dose Admin Diltiazem HCl (Cardizem Iv Push) 10 mg 1X ONCE 05/12/19 17:45 05/12/19 17:46 DC 05/12/19 17:40 10 MG Oxycodone/ Acetaminophen (Percocet 10/325) 1 tab 1X ONCE 05/12/19 17:45 05/12/19 17:46 DC 05/12/19 17:37 1 TAB Allergies Allergies Allergies Coded Allergies Type Severity Reaction Last Updated Verified shellfish derived Allergy Severe 10/23/17 Yes Iodinated Contrast- Oral and IV Dye Allergy Intermediate 1/11/18 Yes digoxin Allergy Intermediate 10/23/17 Yes Physical Exam Physical Exam Constitutional: Well developed, well nourished, no acute distress, non-toxic appearance. [] HENT: Normocephalic, atraumatic, bilateral external ears normal, oropharynx moist, no oral exudates, nose normal. [] Eyes: PERRLA, EOMI, conjunctiva normal, no discharge. [] Neck: Normal range of motion, no tenderness, supple, no stridor. [] Cardiovascular:Heart rate irregular rhythm, no murmur [] Lungs & Thorax: Bilateral breath sounds clear to auscultation [] Abdomen: Bowel sounds normal, soft, no tenderness, no masses, no pulsatile masses. [] Skin: Warm, dry, no erythema, no rash. [] Back: No tenderness, no CVA tenderness. [] Extremities: No tenderness, no cyanosis, no clubbing, ROM intact, no edema. [] Neurologic: Alert and oriented X 3, normal motor function, normal sensory function, no focal deficits noted. [] Psychologic: Affect normal, judgement normal, mood normal. [] Current Patient Data Vital Signs Vital Signs Date Time Temp Pulse Resp B/P (MAP) Pulse Ox O2 Delivery O2 Flow Rate FiO2 05/12/19 17:40 135 150/84 05/12/19 17:37 16 99 Room Air 05/12/19 16:30 98.9 98.9 Lab Values Laboratory Tests Test 05/12/19 17:28 05/12/19 18:03 White Blood Count 10.1 x10^3/uL (4.0-11.0) Red Blood Count 3.71 x10^6/uL (3.50-5.40) Hemoglobin 12.0 g/dL (12.0-15.5) Hematocrit 34.6 % (36.0-47.0) L Mean Corpuscular Volume 93 fL (79-100) Mean Corpuscular Hemoglobin 32 pg (25-35) Mean Corpuscular Hemoglobin Concent 35 g/dL (31-37) Red Cell Distribution Width 15.5 % (11.5-14.5) H Platelet Count 409 x10^3/uL (140-400) H Neutrophils (%) (Auto) 77 % (31-73) H Lymphocytes (%) (Auto) 13 % (24-48) L Monocytes (%) (Auto) 8 % (0-9) Eosinophils (%) (Auto) 2 % (0-3) Basophils (%) (Auto) 1 % (0-3) Neutrophils # (Auto) 7.8 x10^3/uL (1.8-7.7) H Lymphocytes # (Auto) 1.3 x10^3/uL (1.0-4.8) Monocytes # (Auto) 0.8 x10^3/uL (0.0-1.1) Eosinophils # (Auto) 0.2 x10^3/uL (0.0-0.7) Basophils # (Auto) 0.1 x10^3/uL (0.0-0.2) Sodium Level 142 mmol/L (136-145) Potassium Level 4.8 mmol/L (3.5-5.1) Chloride Level 105 mmol/L (98-107) Carbon Dioxide Level 19 mmol/L (21-32) L Anion Gap 18 (6-14) H Blood Urea Nitrogen 44 mg/dL (7-20) H Creatinine 1.5 mg/dL (0.6-1.0) H Estimated GFR (Cockcroft-Gault) 34.1 BUN/Creatinine Ratio 29 (6-20) H Glucose Level 133 mg/dL (70-99) H Calcium Level 10.3 mg/dL (8.5-10.1) H Total Bilirubin 0.4 mg/dL (0.2-1.0) Aspartate Amino Transferase (AST) 27 U/L (15-37) Alanine Aminotransferase (ALT) 39 U/L (14-59) Alkaline Phosphatase 134 U/L (46-116) H Troponin I Quantitative < 0.017 ng/mL (0.000-0.055) Total Protein 7.8 g/dL (6.4-8.2) Albumin 3.1 g/dL (3.4-5.0) L Albumin/Globulin Ratio 0.7 (1.0-1.7) L Prothrombin Time 23.2 SEC (11.7-14.0) H Prothrombin Time INR 2.1 (0.8-1.1) H PTT 45 SEC (24-38) H Laboratory Tests 05/12/19 17:28 Laboratory Tests 05/12/19 17:28 EKG EKG EKG interpreted by Dr. Whatley Afib with RVR rate of 124, no stemi.[] Radiology/Procedures Radiology/Procedures [] Signed PATIENT: GULSHAN GILLILAND ACCOUNT: [id number] : 1945 LOCATION: ER AGE: 73 SEX: F EXAM STATUS: REG ER ORD. PHYSICIAN: SALVATORE ARANDA APRN REASON: chest pain PROCEDURE: PORTABLE CHEST 1V Exam: Chest one view INDICATION: Chest pain TECHNIQUE: Frontal view of the chest Comparisons: None FINDINGS: Heart is mildly enlarged. Pulmonary vessels are within normal limits. The lung and pleural spaces are clear. IMPRESSION: Mild cardiomegaly without acute pulmonary process. Electronically signed by: Carlie Reece MD (05/12/2019 5:46 PM) [facility] DICTATED and SIGNED BY: CARLIE REECE MD DATE: 05/12/191745 Course & Med Decision Making Course & Med Decision Making Pertinent Labs and Imaging studies reviewed. (See chart for details) Patient presents to ER for chronic knee pain, however she has a-fib with rvr with a rate of 150 while I was in the room. Will treat and admit. Discussed patient with Dr. Weinberg as he is her penitentiary physician. He states to call Dr. Ivey to see if he wants to admit first as he is her family doctor. Paged Dr. Ivey at [phone]. Dr. Zavala is covering for Dr. Ivey. She will admit to hospital. At first was going to place patient on Amiodarone and then saw her EF is 53% and so put her on Cardizem drip. Dragon Disclaimer Dragon Disclaimer This electronic medical record was generated, in whole or in part, using a voice recognition dictation system. Departure Departure Impression: Primary Impression: Atrial fibrillation with RVR Disposition: ADMITTED INPATIENT Admitting Physician: Nelly Zavala Condition: STABLE Referrals: SALVATORE IVEY MD (PCP) SALVATORE ARANDA APRN May 12, 2019 17:18
[2019-05-12 17:33] LABS: BASO # 0.1 x10^3/uL (0.0-0.2); BASO % 1 % (0-3); EOS # 0.2 x10^3/uL (0.0-0.7); EOS % 2 % (0-3); HEMATOCRIT 34.6 % (36.0-47.0); LYMPH # 1.3 x10^3/uL (1.0-4.8); LYMPH % 13 % (24-48); MEAN CORPUSCULAR HEMOGLOBIN 32 pg (25-35); MEAN CORPUSCULAR HGB CONC 35 g/dL (31-37); MEAN CORPUSCULAR VOLUME 93 fL (79-100); MONO # 0.8 x10^3/uL (0.0-1.1); MONO % 8 % (0-9); NEUT # 7.8 x10^3/uL (1.8-7.7); NEUT % 77 % (31-73); PLATELET COUNT 409 x10^3/uL (140-400); RED BLOOD COUNT 3.71 x10^6/uL (3.50-5.40); RED CELL DISTRIBUTION WIDTH 15.5 % (11.5-14.5); WHITE BLOOD COUNT 10.1 x10^3/uL (4.0-11.0)
[2019-05-12] MEDS ORDERED: oxyCODONE/APAP 10/325 1 TAB TABLET PO ONE (17:45)
[2019-05-12] MEDS ORDERED: dilTIAZem IV PUSH 25 MG/5 ML VIAL IVP ONE (17:45)
--- NOTE | 2019-05-12 17:45 | EKG ---
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
--- NOTE | 2019-05-12 17:49 | RAD ---
Exam: Chest one view INDICATION: Chest pain TECHNIQUE: Frontal view of the chest Comparisons: None FINDINGS: Heart is mildly enlarged. Pulmonary vessels are within normal limits. The lung and pleural spaces are clear. IMPRESSION: Mild cardiomegaly without acute pulmonary process. Electronically signed by: Carlie Johnson MD (05/12/2019 5:46 PM) [facility]
[2019-05-12 17:58] LABS: CALCIUM 10.3 mg/dL (8.5-10.1); CREATININE 1.5 mg/dL (0.6-1.0); GFR 34.1; POTASSIUM 4.8 mmol/L (3.5-5.1)
[2019-05-12 18:07] LABS: ALBUMIN 3.1 g/dL (3.4-5.0); ALBUMIN/GLOBULIN RATIO 0.7 (1.0-1.7); TOTAL BILIRUBIN 0.4 mg/dL (0.2-1.0); TOTAL PROTEIN 7.8 g/dL (6.4-8.2)
[2019-05-12 18:18] LABS: PROTHROMBIN TIME PATIENT 23.2 SEC (11.7-14.0)
[2019-05-12] MEDS ORDERED: ACETAMINOPHEN 325 MG TABLET. PO PRN (19:00)
[2019-05-12] MEDS ORDERED: ONDANSETRON PF 4 MG/2 ML VIAL. IV PRN (19:00)
[2019-05-12] MEDS ORDERED: IV NORMAL SALINE 500ML BAG 500 ML IV ONE (19:30)
[2019-05-12] MEDS ORDERED: dilTIAZem INJ 125 MG in IV DEXTROSE 5% 100ML 100 ML IV ONE (19:30)
[2019-05-12] MEDS: oxyCODONE/APAP 10/325 1 TAB TABLET PO PRN (20:37)
[2019-05-12] MEDS: METOPROLOL TART IMMED RELEASE 50 MG TABLET. PO SCH (21:00)
[2019-05-12] MEDS: tiZANidine 4 MG TABLET. PO PRN (22:17)
[2019-05-13] VITALS (18 sets, daily range): BP systolic 93–155; BP diastolic 44–79
[2019-05-13] MEDS ORDERED: dilTIAZem INJ 125 MG in IV DEXTROSE 5% 100ML 100 ML IV PRN (00:15)
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
--- NOTE | 2019-05-13 01:36 | NUR ---
At approx 0016 patient accidently broke IV tubing by pulling on it, patient stated "I thought it was the cord to the lights". Cardizem bag emptied onto floor. New bag ordered.
[2019-05-13] MEDS: oxyCODONE/APAP 10/325 1 TAB TABLET PO PRN (02:56)
[2019-05-13] MEDS: tiZANidine 4 MG TABLET. PO PRN ×3 (06:14→21:07)
--- NOTE | 2019-05-13 08:02 | PDOC1 ---
History and Physical Date of Admission Date of Admission 05/12/19 Identification/Chief Complaint Chief Complaint Pt's chief complaint is left hip pain. Pt admitted for afib with RVR Source Source: Patient History of Present Illness History of Present Illness Pt states that she came to the ER because of pain in her left hip. Pain is chronic but has worsened over the past 3 months. Pt was hoping to get surgery done, but was told that she is not a good surgical candidate. She is currently at a facility in [place] where she feels she is not getting the care she needs; she is hoping to switch facilities. Pain is not controlled. States was much better controlled when she was on Methadone. Pt states that she did not necessarily feel like her heart was racing, but does state that she noticed something felt different and not right. Past Medical History Cardiovascular: AFIB, CHF, HTN, Hyperlipidemia Pulmonary: Asthma, COPD GI: No pertinent hx Heme/Onc: Anemia NOS, Other Hepatobiliary: No pertinent hx Psych: Depression Rheumatologic: No pertinent hx Infectious disease: No pertinent hx ENT: No pertinent hx Renal/: UTI Endocrine: No pertinent hx Dermatology: No pertinent hx Past Surgical History Past Surgical History: Cholecystectomy, Total hip replacement, Tonsillectomy, Hysterectomy, Other Family History Family History: Diabetes Social History Smoke: No ALCOHOL: none Drugs: None Current Problem List Problem List Problems Medical Problems: (1) Atrial fibrillation with RVR Status: Acute Current Medications Current Medications Current Medications Medications (Trade) Dose Ordered Sig/Franki Start Time Stop Time Status Last Admin Dose Admin Acetaminophen (Tylenol) 650 mg PRN Q4HRS PRN 05/12/19 19:00 05/13/19 18:59 Diltiazem HCl (Cardizem Iv Push) 10 mg 1X ONCE 05/12/19 17:45 05/12/19 17:46 DC 05/12/19 17:40 10 MG Diltiazem HCl 125 mg/Dextrose 125 ml @ 5 mls/hr CONT PRN 05/13/19 00:15 05/13/19 00:24 5 MLS/HR Metoprolol Tartrate (Lopressor) 50 mg BID 05/12/19 21:00 Ondansetron HCl (Zofran) 4 mg PRN Q8HRS PRN 05/12/19 19:00 05/13/19 18:59 Oxycodone/ Acetaminophen (Percocet 10/325) 1 tab PRN Q6HRS PRN 05/12/19 19:00 05/13/19 19:00 05/13/19 02:56 1 TAB Sodium Chloride 500 ml @ 500 mls/hr 1X ONCE 05/12/19 19:30 05/12/19 20:29 DC 05/12/19 19:24 500 MLS/HR Tizanidine HCl (Zanaflex) 4 mg PRN QID PRN 05/12/19 21:15 05/13/19 06:14 4 MG Allergies Allergies Allergies Coded Allergies Type Severity Reaction Last Updated Verified shellfish derived Allergy Severe 10/23/17 Yes Iodinated Contrast- Oral and IV Dye Allergy Intermediate 10/23/17 Yes digoxin Allergy Intermediate 10/23/17 Yes ROS Review of System CONSTITUTIONAL: No fever or chills EYES: No recent changes SKIN: No rash or itching CARDIOVASCULAR: No chest pain, syncope, palpitations, or edema RESPIRATORY: No SOB or cough GASTROINTESTINAL: No nausea, vomiting or abdominal pain NEUROLOGICAL: No headaches or weakness ENDOCRINE: No cold or heat intolerance GENITOURINARY: No urgency or frequency of urination MUSCULOSKELETAL: +Left hip pain LYMPHATICS: No enlarged lymph nodes PSYCHIATRIC: No anxiety or depression Physical Exam Physical Exam GEN.: No apparent distress. Alert and oriented. HEENT: Head is normocephalic, atraumatic NECK: Supple. LUNGS: Clear to auscultation. HEART: RRR, S1, S2 present. Peripheral pulses intact ABDOMEN: Soft, nontender. Positive bowel sounds. EXTREMITIES: bilateral feet cyanotic and cool to touch, left knee in contracture, left hip TTP NEUROLOGIC: Normal speech, normal tone PSYCHIATRIC: Normal affect, normal mood. SKIN: No ulcerations Vitals Vitals Vital Signs Date Time Temp Pulse Resp B/P (MAP) Pulse Ox O2 Delivery O2 Flow Rate FiO2 05/13/19 06:48 80 99/50 (66) 05/13/19 03:56 16 97 Room Air 05/13/19 03:49 98.6 98.6 Labs Labs Laboratory Tests Test 05/12/19 17:28 05/12/19 18:03 White Blood Count 10.1 x10^3/uL (4.0-11.0) Red Blood Count 3.71 x10^6/uL (3.50-5.40) Hemoglobin 12.0 g/dL (12.0-15.5) Hematocrit 34.6 % (36.0-47.0) Mean Corpuscular Volume 93 fL (79-100) Mean Corpuscular Hemoglobin 32 pg (25-35) Mean Corpuscular Hemoglobin Concent 35 g/dL (31-37) Red Cell Distribution Width 15.5 % (11.5-14.5) Platelet Count 409 x10^3/uL (140-400) Neutrophils (%) (Auto) 77 % (31-73) Lymphocytes (%) (Auto) 13 % (24-48) Monocytes (%) (Auto) 8 % (0-9) Eosinophils (%) (Auto) 2 % (0-3) Basophils (%) (Auto) 1 % (0-3) Neutrophils # (Auto) 7.8 x10^3/uL (1.8-7.7) Lymphocytes # (Auto) 1.3 x10^3/uL (1.0-4.8) Monocytes # (Auto) 0.8 x10^3/uL (0.0-1.1) Eosinophils # (Auto) 0.2 x10^3/uL (0.0-0.7) Basophils # (Auto) 0.1 x10^3/uL (0.0-0.2) Sodium Level 142 mmol/L (136-145) Potassium Level 4.8 mmol/L (3.5-5.1) Chloride Level 105 mmol/L (98-107) Carbon Dioxide Level 19 mmol/L (21-32) Anion Gap 18 (6-14) Blood Urea Nitrogen 44 mg/dL (7-20) Creatinine 1.5 mg/dL (0.6-1.0) Estimated GFR (Cockcroft-Gault) 34.1 BUN/Creatinine Ratio 29 (6-20) Glucose Level 133 mg/dL (70-99) Calcium Level 10.3 mg/dL (8.5-10.1) Total Bilirubin 0.4 mg/dL (0.2-1.0) Aspartate Amino Transf (AST/SGOT) 27 U/L (15-37) Alanine Aminotransferase (ALT/SGPT) 39 U/L (14-59) Alkaline Phosphatase 134 U/L (46-116) Troponin I Quantitative < 0.017 ng/mL (0.000-0.055) Total Protein 7.8 g/dL (6.4-8.2) Albumin 3.1 g/dL (3.4-5.0) Albumin/Globulin Ratio 0.7 (1.0-1.7) Prothrombin Time 23.2 SEC (11.7-14.0) Prothromb Time International Ratio 2.1 (0.8-1.1) Activated Partial Thromboplast Time 45 SEC (24-38) Laboratory Tests Test 05/12/19 17:28 05/12/19 18:03 White Blood Count 10.1 x10^3/uL (4.0-11.0) Red Blood Count 3.71 x10^6/uL (3.50-5.40) Hemoglobin 12.0 g/dL (12.0-15.5) Hematocrit 34.6 % (36.0-47.0) Mean Corpuscular Volume 93 fL (79-100) Mean Corpuscular Hemoglobin 32 pg (25-35) Mean Corpuscular Hemoglobin Concent 35 g/dL (31-37) Red Cell Distribution Width 15.5 % (11.5-14.5) Platelet Count 409 x10^3/uL (140-400) Neutrophils (%) (Auto) 77 % (31-73) Lymphocytes (%) (Auto) 13 % (24-48) Monocytes (%) (Auto) 8 % (0-9) Eosinophils (%) (Auto) 2 % (0-3) Basophils (%) (Auto) 1 % (0-3) Neutrophils # (Auto) 7.8 x10^3/uL (1.8-7.7) Lymphocytes # (Auto) 1.3 x10^3/uL (1.0-4.8) Monocytes # (Auto) 0.8 x10^3/uL (0.0-1.1) Eosinophils # (Auto) 0.2 x10^3/uL (0.0-0.7) Basophils # (Auto) 0.1 x10^3/uL (0.0-0.2) Sodium Level 142 mmol/L (136-145) Potassium Level 4.8 mmol/L (3.5-5.1) Chloride Level 105 mmol/L (98-107) Carbon Dioxide Level 19 mmol/L (21-32) Anion Gap 18 (6-14) Blood Urea Nitrogen 44 mg/dL (7-20) Creatinine 1.5 mg/dL (0.6-1.0) Estimated GFR (Cockcroft-Gault) 34.1 BUN/Creatinine Ratio 29 (6-20) Glucose Level 133 mg/dL (70-99) Calcium Level 10.3 mg/dL (8.5-10.1) Total Bilirubin 0.4 mg/dL (0.2-1.0) Aspartate Amino Transf (AST/SGOT) 27 U/L (15-37) Alanine Aminotransferase (ALT/SGPT) 39 U/L (14-59) Alkaline Phosphatase 134 U/L (46-116) Troponin I Quantitative < 0.017 ng/mL (0.000-0.055) Total Protein 7.8 g/dL (6.4-8.2) Albumin 3.1 g/dL (3.4-5.0) Albumin/Globulin Ratio 0.7 (1.0-1.7) Prothrombin Time 23.2 SEC (11.7-14.0) Prothromb Time International Ratio 2.1 (0.8-1.1) Activated Partial Thromboplast Time 45 SEC (24-38) VTE Prophylaxis Ordered VTE Prophylaxis Devices: Yes VTE Pharmacological Prophylaxi: Yes Assessment/Plan Assessment/Plan Pt is a 73yo CF admitted with afib with RVR 1)Afib with RVR- Cardiology consulted in the ER. Pt currently on diltiazem gtt with better control of rates. Pt resumed on Metoprolol 50mg BID. She has been on Xarelto in the past which was stopped because of possible surgery. This medication has been resumed. 2)Chronic left hip- will start Methadone as pt states she had better pain control. She is hoping to switch facilities on discharge. Will have SW come to see her 3)HTN- pt normally on Lasix but BP currently low, will continue to hold 4)Thrombocytosis- likely reactive, CTM 5)CKD- Stage 3. Cr and electrolytes stable. CTM 6)PEM- mild 7)LALITA COLEY MD May 13, 2019 08:02
[2019-05-13] MEDS: METHADONE 5 MG TABLET. PO PRN ×2 (09:00→17:41)
[2019-05-13] MEDS ORDERED: methylPREDNISolone ACETATE 40 MG/ML VIAL. INJ ONE (09:30)
[2019-05-13] MEDS ORDERED: BUPIVACAINE MPF 0.25% 10 ML VIAL. IJ ONE (09:30)
[2019-05-13] MEDS ORDERED: methylPREDNISolone ACETATE 40 MG/ML VIAL. IM ONE (09:30)
--- NOTE | 2019-05-13 10:40 | PDOC2 ---
CARDIAC CONSULT DATE OF CONSULT Date of Consult DATE: 05/13/19 TIME: 10:15 REASON FOR CONSULT Reason for Consult: AFIB RVR REFERRING PHYSICIAN Referring Physician: Ambar SOURCE Source: Chart review, Patient HISTORY OF PRESENT ILLNESS HISTORY OF PRESENT ILLNESS This is a 73 yo female admitted for complains of left hip and left knee pain. She has been having this for a while and has been evaluated by ortho before and on symptomatic treatment. She does have PAD and was evaluated by vascular surgery and no recommendation for revascularization at that time. Her pain has been persistent in the last few days and prompting admission due to uncontrolled discomfort. No open wounds to her legs but notable for significant atrophy and dark pigmentation and patchy coolness but good left pedal pulses and faint to right.. Upon admission she was noted with AFIB RVR and is now controlled via cardizem drip with stable BP. No chest pain, palpitations, SOA, nausea or vomiting. PAST MEDICAL HISTORY Past Medical History Cardiovascular: AFIB, CHF, HTN, Hyperlipidemia, PAD Pulmonary: Asthma Heme/Onc: Anemia NOS, Other (chronic coumadin therapy) Psych: Depression Musculoskeletal: Osteoarthritis, Other (chronic pain syndrome) ENT: Allergic Rhinitis Renal/: UTI PAST SURGICAL HISTORY Past Surgical History Cholecystectomy, Total hip replacement, Tonsillectomy, Hysterectomy (partial), Other (toe surgery, back surgery ), Left big toe amputation FAMILY HISTORY Family History: Diabetes SOCIAL HISTORY Smoke: No ALCOHOL: none Drugs: None Lives: [facility] CURRENT MEDICATIONS CURRENT MEDICATIONS Current Medications Medications (Trade) Dose Ordered Sig/Franki Route PRN Reason Start Time Stop Time Status Last Admin Dose Admin Oxycodone/ Acetaminophen (Percocet 10/325) 1 tab 1X ONCE PO 05/12/19 17:45 05/12/19 17:46 DC 05/12/19 17:37 Diltiazem HCl (Cardizem Iv Push) 10 mg 1X ONCE IVP 05/12/19 17:45 05/12/19 17:46 DC 05/12/19 17:40 Diltiazem HCl 125 mg/Dextrose 125 ml @ 5 mls/hr 1X ONCE IV 05/12/19 19:30 05/13/19 01:47 DC 05/12/19 19:16 Sodium Chloride 500 ml @ 500 mls/hr 1X ONCE IV 05/12/19 19:30 05/12/19 20:29 DC 05/12/19 19:24 Oxycodone/ Acetaminophen (Percocet 10/325) 1 tab PRN Q6HRS PRN PO SEVERE PAIN 7-10 05/12/19 19:00 05/13/19 19:00 05/13/19 02:56 Tizanidine HCl (Zanaflex) 4 mg PRN QID PRN PO MUSCLE SPASMS 05/12/19 21:15 05/13/19 06:14 Diltiazem HCl 125 mg/Dextrose 125 ml @ 5 mls/hr CONT PRN IV SEE I/O RECORD 05/13/19 00:15 05/13/19 00:24 Methadone HCl (Dolophine) 5 mg PRN TID PRN PO MODERATE TO SEVERE PAIN 05/13/19 08:00 05/13/19 09:00 ALLERGIES ALLERGIES: Coded Allergies: shellfish derived (Verified Allergy, Severe, 10/23/17) Iodinated Contrast- Oral and IV Dye (Verified Allergy, Intermediate, 10/23/17) digoxin (Verified Allergy, Intermediate, 10/23/17) ROS Review of System 14 point ROS evaluated with pertinent positives noted per HPI PHYSICAL EXAM General: Alert, Oriented X3, Cooperative, No acute distress HEENT: Atraumatic, Mucous membr. moist/pink Lungs: Clear to auscultation, Normal air movement Heart: Other (AFIB rate controlled; 3/6 systolic murmur to LLS border) Abdomen: Soft, No tenderness Extremities: No cyanosis, No edema Skin: Other (dark hyperpigmentation to bilateral calf, no open wounds; 2+ left pedal pulse, right faint pedal pulse) Neuro: Normal speech, Sensation intact Psych/Mental Status: Mental status NL, Mood NL MUSCULOSKELETAL: Osteoarthritic changes both hands VITALS/I&O VITALS/I&O: Vital Signs Date Time Temp Pulse Resp B/P (MAP) Pulse Ox O2 Delivery O2 Flow Rate FiO2 05/13/19 09:00 Room Air 05/13/19 07:00 98.0 72 18 93/52 (66) 99 98.0 I & O 05/12/19 05/12/19 05/13/19 15:00 23:00 07:00 Intake Total 200 ml 797.5 ml Output Total 250 ml Balance 200 ml 547.5 ml LABS Lab: Laboratory Tests Test 05/12/19 17:28 7/31/19 18:03 White Blood Count 10.1 x10^3/uL (4.0-11.0) Red Blood Count 3.71 x10^6/uL (3.50-5.40) Hemoglobin 12.0 g/dL (12.0-15.5) Hematocrit 34.6 % (36.0-47.0) L Mean Corpuscular Volume 93 fL (79-100) Mean Corpuscular Hemoglobin 32 pg (25-35) Mean Corpuscular Hemoglobin Concent 35 g/dL (31-37) Red Cell Distribution Width 15.5 % (11.5-14.5) H Platelet Count 409 x10^3/uL (140-400) H Neutrophils (%) (Auto) 77 % (31-73) H Lymphocytes (%) (Auto) 13 % (24-48) L Monocytes (%) (Auto) 8 % (0-9) Eosinophils (%) (Auto) 2 % (0-3) Basophils (%) (Auto) 1 % (0-3) Neutrophils # (Auto) 7.8 x10^3/uL (1.8-7.7) H Lymphocytes # (Auto) 1.3 x10^3/uL (1.0-4.8) Monocytes # (Auto) 0.8 x10^3/uL (0.0-1.1) Eosinophils # (Auto) 0.2 x10^3/uL (0.0-0.7) Basophils # (Auto) 0.1 x10^3/uL (0.0-0.2) Sodium Level 142 mmol/L (136-145) Potassium Level 4.8 mmol/L (3.5-5.1) Chloride Level 105 mmol/L (98-107) Carbon Dioxide Level 19 mmol/L (21-32) L Anion Gap 18 (6-14) H Blood Urea Nitrogen 44 mg/dL (7-20) H Creatinine 1.5 mg/dL (0.6-1.0) H Estimated GFR (Cockcroft-Gault) 34.1 BUN/Creatinine Ratio 29 (6-20) H Glucose Level 133 mg/dL (70-99) H Calcium Level 10.3 mg/dL (8.5-10.1) H Total Bilirubin 0.4 mg/dL (0.2-1.0) Aspartate Amino Transferase (AST) 27 U/L (15-37) Alanine Aminotransferase (ALT) 39 U/L (14-59) Alkaline Phosphatase 134 U/L (46-116) H Troponin I Quantitative < 0.017 ng/mL (0.000-0.055) Total Protein 7.8 g/dL (6.4-8.2) Albumin 3.1 g/dL (3.4-5.0) L Albumin/Globulin Ratio 0.7 (1.0-1.7) L Thyroid Stimulating Hormone (TSH) 0.967 uIU/mL (0.358-3.74) Prothrombin Time 23.2 SEC (11.7-14.0) H Prothrombin Time INR 2.1 (0.8-1.1) H PTT 45 SEC (24-38) H Laboratory Tests 05/12/19 17:28 Laboratory Tests 05/12/19 17:28 ECHOCARDIOGRAM ECHOCARDIOGRAM <Conclusion> The left ventricular systolic function is normal and the ejection fraction is within normal range. EF 55% There is a flattened septum consistent with right ventricle pressure overload. The right ventricle is mild to moderately dilated. Doppler and Color Flow revealed mild to moderate tricuspid regurgitation. PA pressure estimated at 65 mm Hg consistent with moderate to severe pulmonary HTN. DATE: 10/28/17 1253 ASSESSMENT/PLAN ASSESSMENT/PLAN 1. Intractable left hip/knee pain: improved 2. AFIB RVR; This is chronic. likely precipitated by uncontrolled pain as above 3. Chronic diastolic CHF: compensated 4. Severe secondary pulmonary HTN 5. HTN: controlled 6. LE PAD; 2+ pedal pulse to left and faint to right, no wounds. No revascularization recommendation per vascular on 11/2018 7. CKD: possibly stage 3 Recommendations 1. TTE, lipids and TSH. Resume metoprolol per BP trend. DC cardizem drip. 2. Continue with secondary prevention. Supportive care. 3. Xarelto for stroke prevention. 4. Analgesic control per PCP CAPRICE CANO APRN May 13, 2019 10:40
[2019-05-13] MEDS: METOPROLOL TART IMMED RELEASE 50 MG TABLET. PO SCH ×2 (10:49→21:09)
[2019-05-13 12:20] LABS: CHOLESTEROL/HDL RATIO 5.2
--- NOTE | 2019-05-13 12:25 | PDOC4 ---
PROCEDURE Procedure At her request,I have injected painful rihgt knee joint under aseptic skin t echnique with alcohol prep,using 1 ml of methylprednisone 40 mg/1 ml solution mixed with 2 ml of 0.25% bupivacaine solution and she tolerated the procedure satisfactorily without any side effects. I could not perform left knee injection today as she had her left knee in flexion and lying on her left side and could not let us try to reposition her. MINDI FERNANDO MD May 13, 2019 12:25
--- NOTE | 2019-05-13 13:04 | CARD ---
MR#: [id number] Date of Study: 05/13/2019 Ordering Physician: CAPRICE CANO, Referring Physician: LALITA VILLARREAL, Tech: Digna Guardado APPROVED REPORT EXAM: Two-dimensional and M-mode echocardiogram with Doppler and color Doppler. Other Information Quality : AverageHR: 90bpm Technically limited study due to body habitus. INDICATION Atrial Fibrillation 2D DIMENSIONS Left Atrium(2D)3.8 (1.6-4.0cm)IVSd1.1 (0.7-1.1cm) Aortic Root(2D)2.9 (2.0-3.7cm)LVDd4.6 (3.9-5.9cm) LVOT Diameter2.1 (1.8-2.4cm)PWd1.1 (0.7-1.1cm) LVDs2.6 (2.5-4.0cm)FS (%) 44.0 % SV73.9 mlLVEF(%)75.3 (>50%) Aortic Valve AoV Peak Salo.157.3cm/sAoV VTI30.8cm AO Peak GR.9.9mmHgLVOT VTI 19.88cm AO Mean GR.6mmHgAI P 1/2 [id number] TDI Lateral E' P. V11.58cm/sMedial E' P. V7.59cm/s Tricuspid Valve TR P. Pqxtogzf381jb/sRAP JASYLBOQ5ndOg TR Peak Gr.24tjWsWGNG61xaDw Pulmonary Vein S1 Llntryrf18.8cm/sS2 Ihkboqkx19.25cm/s D2 Geqxkelk50.2cm/sPVa [id number] LEFT VENTRICLE The left ventricle is normal size. There is borderline to mild concentric left ventricular hypertroph y. The left ventricular systolic function is normal and the ejection fraction is within normal range. The Ejection Fraction is >55%. There is normal LV segmental wall motion. Diastology indeterminate du e to atrial fibrillation. RIGHT VENTRICLE The right ventricle is mildly dilated. There is normal right ventricular wall thickness. The right ve ntricular systolic function is normal. ATRIA The left atrium is borderline dilated. The right atrium is moderately dilated. The interatrial septum is intact with no evidence for an atrial septal defect or patent foramen ovale as noted on 2-D or Do ppler imaging. AORTIC VALVE The aortic valve is thickened but opens well. Doppler and Color Flow revealed mild aortic regurgitati on. There is no significant aortic valvular stenosis. MITRAL VALVE The mitral valve is thickened but opens well. There is no evidence of mitral valve prolapse. There is no mitral valve stenosis. Doppler and Color-flow revealed trace mitral regurgitation. TRICUSPID VALVE The tricuspid valve is normal in structure and function. Doppler and Color Flow revealed trace tricus pid regurgitation with an estimated PAP of 41 mmHg. There is moderate pulmonary hypertension. There i s no tricuspid valve stenosis. PULMONIC VALVE Doppler and Color Flow revealed no pulmonic valvular regurgitation. There is no pulmonic valvular maria dolores nosis. GREAT VESSELS The aortic root is normal in size. The IVC is normal in size and collapses >50% with inspiration. PERICARDIAL EFFUSION There is no evidence of significant pericardial effusion. Critical Notification Critical Value: No <Conclusion> The left ventricular systolic function is normal and the ejection fraction is within normal range. Th e Ejection Fraction is >55%. There is normal LV segmental wall motion. Signed by : Antonio De La Rosa, Electronically Approved : 05/13/2019 13:03:40
[2019-05-13] MEDS: ANTI-COAG MONITOR BY PHARMACY. MC PRN (13:05)
--- NOTE | 2019-05-13 14:42 | NUR ---
SS following for discharge planning. SS reviewed pt chart and received notification that pt is from [facility], ; fax [phone]. Per request, SS met with pt and pt's daughter in room to discuss discharge planning. 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 They reported that they do not want to return to [facility] at discharge and wanted pt to go to a different facility. Pt and pt's daughter reported having no preference of facility. SS contacted [facility] and was notified that pt was a LTC resident there and was medicaid pending. [facility] faxed SS copy of pt's CARE Assessment. Pt reporting that she wants to go to a facility skilled for rehabilitation to home. PT/OT ordered. SS will await PT/OT evaluations and recommendations and will proceed accordingly with discharge planning.
--- NOTE | 2019-05-13 16:07 | NUR ---
Wound Care WOund care consult for multiple wounds. Pt had scabs to right great toe and right plantar foot that once removed revealed healed skin. pt has scab to left plantar foot that is MARIA GUADALUPE. Pt refused to turn due to pain for assessment of right buttock PU, stated we can come tomorrow after she gets back on her methadone. Pt has multiple scabs to lower legs with no open wounds noted. Pt on P500 bed and was educated on importance of turning frequently to prevent further breakdown of skin but pt still refused to turn. WC will continue to follow for possible changes.
--- NOTE | 2019-05-13 17:00 | CONS ---
DATE OF CONSULTATION: 05/13/2019 ATTENDING PHYSICIAN: Dr. Ivey. The patient was seen at the request of Dr. Ivey for rehab evaluation. HISTORY OF PRESENT ILLNESS: This is a 73-year-old female known to me since her hospitalization earlier this year. 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 The patient had gone through inpatient rehab program and detention care unit. She has been staying in a care home. Dr. Guzman saw her, would like to consider left total hip arthroplasty if she can straighten out her knees. She had her knee flexion contracture relieved to a significant degree. [facility], but staying in the care home, she developed worsening of her knee contractures and she was admitted on 05/12/2019. The patient is status post lumbar spine surgery, cholecystectomy, hysterectomy, tonsillectomy, traumatic left big toe amputation in the past. The patient is known ALLERGIC TO IODINATED CONTRAST, ORAL AND IV DYE, DIGOXIN, SHELLFISH DERIVED. The patient lived with her daughter prior to her transfer to regular care home. PHYSICAL EXAMINATION: Today, revealed an elderly female. She is alert, oriented to place and person, follows commands. She had flexion contracture of her right knee and she keeps her left lower extremity in a position of flexion at the knee and hip. The patient had skin lesions over her toes. The patient had 4+/5 grade muscle strength in her upper extremities. The patient had significant pain on any attempted range of motion of her left hip and even both knees. She has some tenderness to palpation over left sacroiliac joint area. Deep tendon reflexes are 2+ at right knee, absent at left knee and both ankles. She had equal perception of touch and pinprick sensation bilaterally. She is independent for bed mobility and I have not tested her transfers or ambulation skills at this time. ASSESSMENT: Elderly female with painful degenerative joint disease of left hip joint with flexion contractures of left hip and both knees, peripheral neuropathy, degenerative joint disease of right hip; chronic lower back pain from degenerative disk disease of lumbar vertebrae, status post lumbar spine surgery; atrial fibrillation, hypertension, hypothyroidism and narcotic dependency and skin lesions over both feet. RECOMMENDATION: To ask Radiology to proceed with left hip joint injection under fluoroscopy and to proceed with injecting her both knees that might help for her to try to move her legs at her present condition with worsening of her knee flexion contractures. Dr. Guzman is not going to consider any surgery on her left hip to transfer her back to care home after discharge when medically stable. Dr. Ivey, I appreciate asking me to participate in the care of this interesting patient. I will be glad to follow her with you on an as needed basis. MINDI FERNANDO MD DR: RUBEN/nancy JOB#: [id number] / [id number]
[2019-05-13] MEDS: MULTIVITAMIN with MINERAL TABLET. PO SCH (17:40)
[2019-05-13] MEDS ORDERED: LABETALOL 20 MG/4 ML DISP.SYRIN. IVP PRN (19:30)
[2019-05-13 20:22] LABS: PROTHROMBIN TIME PATIENT 16.8 SEC (11.7-14.0)
[2019-05-13] MEDS ORDERED: predniSONE 20 MG TABLET PO ONE (21:00)
[2019-05-14 02:42] VITALS: BP 141/63
[2019-05-14] MEDS: METHADONE 5 MG TABLET. PO PRN ×3 (02:57→20:15)
[2019-05-14] MEDS ORDERED: predniSONE 20 MG TABLET PO ONE ×2 (03:00→09:00)
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
[2019-05-14] MEDS: tiZANidine 4 MG TABLET. PO PRN ×3 (06:33→22:04)
[2019-05-14 07:00] VITALS: BP 127/66
--- NOTE | 2019-05-14 07:43 | PDOC ---
SUBJECTIVE Subjective Pt states that the methadone has been helpful. Pt going to be getting inj ections today. Ready for discharge when social work and family have decided on place to go. OBJECTIVE Vital Signs Vital Signs Date Time Temp Pulse Resp B/P (MAP) Pulse Ox O2 Delivery O2 Flow Rate FiO2 05/14/19 03:57 16 98 Room Air 05/14/19 02:57 16 Room Air 05/14/19 02:42 98.5 72 20 141/63 (89) 98 Room Air 98.5 05/13/19 23:05 99.4 79 18 120/53 (75) 96 Room Air 99.4 05/13/19 21:09 96 120/53 05/13/19 20:00 Room Air 05/13/19 19:27 99.6 82 18 138/54 (82) 97 Room Air 99.6 05/13/19 17:41 Room Air 05/13/19 15:00 99.0 81 18 98/53 (68) 98 Room Air 99.0 05/13/19 12:30 74 113/50 (71) 05/13/19 12:00 82 124/55 (78) 05/13/19 11:00 98.7 81 18 123/56 (78) 100 Room Air 98.7 05/13/19 10:49 79 123/56 05/13/19 10:00 80 111/79 (90) 05/13/19 09:00 82 116/52 (73) 05/13/19 09:00 Room Air 05/13/19 08:00 80 96/44 (61) I & O Intake and Output 05/14/19 07:00 Intake Total 503 ml Output Total 1100 ml Balance -597 ml Intake Oral 480 ml IV Total 23 ml Output Urine Total 1100 ml # Bowel Movements 1 PHYSICAL EXAM Physical Exam GEN.: No apparent distress. Alert and oriented. HEENT: Head is normocephalic, atraumatic NECK: Supple. LUNGS: Clear to auscultation. HEART: irregular rhythm, normal rate, S1, S2 present. Peripheral pulses intact ABDOMEN: Soft, nontender. Positive bowel sounds. EXTREMITIES: bilateral feet cyanotic and cool to touch, left knee in contracture, left hip TTP NEUROLOGIC: Normal speech, normal tone PSYCHIATRIC: Normal affect, normal mood. SKIN: No ulcerations ASSESSMENT/PLAN Assessment/Plan Pt is a 73yo CF admitted with afib with RVR 1)Afib with RVR- Cardiology following. Pt now rate controlled. Currently on Metoprolol 50mg BID and restarted on Xarelto. 2)Chronic left hip- improving with Methadone. She is hoping to switch facilities on discharge, social psychologist following 3)HTN- pt normally on Lasix but BP currently low, will continue to hold 4)Thrombocytosis- likely reactive, CTM 5)CKD- Stage 3. Cr and electrolytes stable. CTM 6)PEM- mild 7)PAD COMMENT Lab Laboratory Tests Test 05/13/19 11:40 05/13/19 20:00 Triglycerides Level 119 mg/dL (0-150) Cholesterol Level 160 mg/dL (0-200) LDL Cholesterol, Calculated 105 mg/dL (0-100) VLDL Cholesterol, Calculated 24 mg/dL (0-40) Non-HDL Cholesterol Calculated 129 mg/dL (0-129) HDL Cholesterol 31 mg/dL (40-60) Cholesterol/HDL Ratio 5.2 Prothrombin Time 16.8 SEC (11.7-14.0) Prothromb Time International Ratio 1.4 (0.8-1.1) LALITA VILLARREAL MD May 14, 2019 07:43
--- NOTE | 2019-05-14 08:25 | PDOC ---
PROGRESS NOTES Subjective Subjective She is moving right knee joint better. Objective Objective Vital Signs Date Time Temp Pulse Resp B/P (MAP) Pulse Ox O2 Delivery O2 Flow Rate FiO2 05/14/19 03:57 16 98 Room Air 05/14/19 02:42 98.5 72 141/63 (89) 98.5 Intake and Output 05/14/19 06:59 Intake Total 503 ml Output Total 1100 ml Balance -597 ml Intake Oral 480 ml IV Total 23 ml Output Urine Total 1100 ml # Bowel Movements 1 Physical Exam Physical Exam She continues to keep left knee in flexed position and left hip in flexion and externally rotated position and she is not letting anyone to try to stretch her left knee joint. Assessment Assessment Problems Medical Problems: (1) Atrial fibrillation with RVR Status: Acute (2) Chronic left hip pain Status: Chronic (3) CKD (chronic kidney disease), stage III Status: Chronic (4) HTN (hypertension) Status: Chronic (5) Mild protein-energy malnutrition Status: Chronic (6) PAD (peripheral artery disease) Status: Chronic Plan Plan of Care I thought of injecting her left knee but with her left knee positioned like it is,it is technically difficult to inject her left knee joint. I am not sure radiology can do it either. To let them try and to SNF when arrangements are com pleted. Comment Review of Relevant I have reviewed the following items fátima (where applicable) has been applied. Labs Laboratory Tests Test 05/12/19 17:28 05/12/19 18:03 05/13/19 06:15 05/13/19 11:40 White Blood Count 10.1 x10^3/uL (4.0-11.0) Red Blood Count 3.71 x10^6/uL (3.50-5.40) Hemoglobin 12.0 g/dL (12.0-15.5) Hematocrit 34.6 % (36.0-47.0) Mean Corpuscular Volume 93 fL (79-100) Mean Corpuscular Hemoglobin 32 pg (25-35) Mean Corpuscular Hemoglobin Concent 35 g/dL (31-37) Red Cell Distribution Width 15.5 % (11.5-14.5) Platelet Count 409 x10^3/uL (140-400) Neutrophils (%) (Auto) 77 % (31-73) Lymphocytes (%) (Auto) 13 % (24-48) Monocytes (%) (Auto) 8 % (0-9) Eosinophils (%) (Auto) 2 % (0-3) Basophils (%) (Auto) 1 % (0-3) Neutrophils # (Auto) 7.8 x10^3/uL (1.8-7.7) Lymphocytes # (Auto) 1.3 x10^3/uL (1.0-4.8) Monocytes # (Auto) 0.8 x10^3/uL (0.0-1.1) Eosinophils # (Auto) 0.2 x10^3/uL (0.0-0.7) Basophils # (Auto) 0.1 x10^3/uL (0.0-0.2) Sodium Level 142 mmol/L (136-145) Potassium Level 4.8 mmol/L (3.5-5.1) Chloride Level 105 mmol/L (98-107) Carbon Dioxide Level 19 mmol/L (21-32) Anion Gap 18 (6-14) Blood Urea Nitrogen 44 mg/dL (7-20) Creatinine 1.5 mg/dL (0.6-1.0) Estimated GFR (Cockcroft-Gault) 34.1 BUN/Creatinine Ratio 29 (6-20) Glucose Level 133 mg/dL (70-99) Calcium Level 10.3 mg/dL (8.5-10.1) Total Bilirubin 0.4 mg/dL (0.2-1.0) Aspartate Amino Transf (AST/SGOT) 27 U/L (15-37) Alanine Aminotransferase (ALT/SGPT) 39 U/L (14-59) Alkaline Phosphatase 134 U/L (46-116) Troponin I Quantitative < 0.017 ng/mL (0.000-0.055) Total Protein 7.8 g/dL (6.4-8.2) Albumin 3.1 g/dL (3.4-5.0) Albumin/Globulin Ratio 0.7 (1.0-1.7) Thyroid Stimulating Hormone (TSH) 0.967 uIU/mL (0.358-3.74) Prothrombin Time 23.2 SEC (11.7-14.0) Prothromb Time International Ratio 2.1 (0.8-1.1) Activated Partial Thromboplast Time 45 SEC (24-38) Nasal Screen MRSA (PCR) Positive (Negative) Triglycerides Level 119 mg/dL (0-150) Cholesterol Level 160 mg/dL (0-200) LDL Cholesterol, Calculated 105 mg/dL (0-100) VLDL Cholesterol, Calculated 24 mg/dL (0-40) Non-HDL Cholesterol Calculated 129 mg/dL (0-129) HDL Cholesterol 31 mg/dL (40-60) Cholesterol/HDL Ratio 5.2 Test 05/13/19 20:00 Prothrombin Time 16.8 SEC (11.7-14.0) Prothromb Time International Ratio 1.4 (0.8-1.1) Laboratory Tests Test 05/13/19 11:40 05/13/19 20:00 Triglycerides Level 119 mg/dL (0-150) Cholesterol Level 160 mg/dL (0-200) LDL Cholesterol, Calculated 105 mg/dL (0-100) VLDL Cholesterol, Calculated 24 mg/dL (0-40) Non-HDL Cholesterol Calculated 129 mg/dL (0-129) HDL Cholesterol 31 mg/dL (40-60) Cholesterol/HDL Ratio 5.2 Prothrombin Time 16.8 SEC (11.7-14.0) Prothromb Time International Ratio 1.4 (0.8-1.1) Medications Current Medications Oxycodone/ Acetaminophen (Percocet 10/325) 1 tab 1X ONCE PO Last administered on 05/12/19at 17:37; Start 05/12/19 at 17:45; Stop 05/12/19 at 17:46; Status DC Diltiazem HCl (Cardizem Iv Push) 10 mg 1X ONCE IVP Last administered on 05/12/19at 17:40; Start 05/12/19 at 17:45; Stop 05/12/19 at 17:46; Status DC Diltiazem HCl 125 mg/Dextrose 125 ml @ 5 mls/hr 1X ONCE IV Last administered on 05/12/19at 19:16; Start 05/12/19 at 19:30; Stop 05/13/19 at 01:47; Status DC Sodium Chloride 500 ml @ 500 mls/hr 1X ONCE IV Last administered on 05/12/19at 19:24; Start 05/12/19 at 19:30; Stop 05/12/19 at 20:29; Status DC Ondansetron HCl (Zofran) 4 mg PRN Q8HRS PRN IV NAUSEA/VOMITING 1st choice; Start 05/12/19 at 19:00; Stop 05/13/19 at 18:59; Status DC Acetaminophen (Tylenol) 650 mg PRN Q4HRS PRN PO FEVER; Start 05/12/19 at 19:00; Stop 05/13/19 at 18:59; Status DC Oxycodone/ Acetaminophen (Percocet 10/325) 1 tab PRN Q6HRS PRN PO SEVERE PAIN 7-10 Last administered on 05/13/19at 02:56; Start 05/12/19 at 19:00; Stop 05/13/19 at 19:00; Status DC Metoprolol Tartrate (Lopressor) 50 mg BID PO Last administered on 05/13/19at 21:09; Start 05/12/19 at 21:00 Tizanidine HCl (Zanaflex) 4 mg PRN QID PRN PO MUSCLE SPASMS Last administered on 05/14/19at 06:33; Start 05/12/19 at 21:15 Diltiazem HCl 125 mg/Dextrose 125 ml @ 5 mls/hr CONT PRN IV SEE I/O RECORD Last administered on 05/13/19at 00:24; Start 05/13/19 at 00:15 Rivaroxaban (Xarelto) 15 mg DAILYWSUP PO ; Start 05/14/19 at 17:00 Methadone HCl (Dolophine) 5 mg PRN TID PRN PO MODERATE TO SEVERE PAIN Last administered on 05/14/19at 02:57; Start 05/13/19 at 08:00 Methylprednisolone Acetate (DEPO-Medrol 40MG VIAL) 40 mg 1X ONCE INJ Last administered on 05/13/19at 12:00; Start 05/13/19 at 09:30; Stop 05/13/19 at 09:31; Status DC Methylprednisolone Acetate (DEPO-Medrol 40MG VIAL) 40 mg 1X ONCE IM Last administered on 05/13/19at 12:00; Start 05/13/19 at 09:30; Stop 05/13/19 at 09:31; Status DC Bupivacaine HCl (Sensorcaine-Mpf 0.25%) 10 ml 1X ONCE IJ Last administered on 05/13/19at 12:00; Start 05/13/19 at 09:30; Stop 05/13/19 at 09:31; Status DC Info (Anti-Coagulation Monitoring By Pharmacy) 1 each PRN DAILY PRN MC SEE COMMENTS Last administered on 05/13/19at 13:05; Start 05/13/19 at 13:15 Multivitamins (Thera M Plus) 1 tab DAILY PO Last administered on 05/13/19at 17:40; Start 05/13/19 at 17:00 Labetalol HCl (Normodyne Iv Push) 10 mg PRN Q6HRS PRN IVP HYPERTENSION; Start 05/13/19 at 19:30 Prednisone (Prednisone) 20 mg 1X ONCE PO Last administered on 05/13/19at 21:07; Start 05/13/19 at 21:00; Stop 05/13/19 at 21:01; Status DC Prednisone (Prednisone) 20 mg 1X ONCE PO Last administered on 05/14/19at 03:01; Start 05/14/19 at 03:00; Stop 05/14/19 at 03:01; Status DC Prednisone (Prednisone) 20 mg 1X ONCE PO ; Start 05/14/19 at 09:00; Stop 05/14/19 at 09:01 Diphenhydramine HCl (Benadryl) 50 mg 1X ONCE PO ; Start 05/14/19 at 09:30; Stop 05/14/19 at 09:31 Active Scripts Active Xarelto (Rivaroxaban) 20 Mg Tablet 20 Mg PO DAILY 30 Days Percocet 10-325 Mg Tablet (Oxycodone/Acetaminophen) 1 Each Tablet 1 Tab PO PRN QID PRN 30 Days Klor-Con 10 (Potassium Chloride) 10 Meq Tablet.er 1 Tab PO DAILY Furosemide 40 Mg Tablet 40 Mg PO DAILY 30 Days Cetirizine Hcl 10 Mg Tablet 10 Mg PO DAILY 30 Days Ibuprofen 600 Mg Tablet 600 Mg PO PRN Q6HRS PRN 90 Days Hydrochlorothiazide Tablet (Hydrochlorothiazide) 25 Mg Tablet 25 Mg PO DAILY 30 Days Reported Tizanidine Hcl 4 Mg Capsule 4 Mg PO QID PRN Metoprolol Tartrate 50 Mg Tablet 1 Tab PO BID Docusate Sodium 100 Mg Capsule 1 Cap PO DAILY Benadryl (Diphenhydramine Hcl) 25 Mg Capsule 25 Mg PO PRN Q6HRS PRN Multivitamins (Multivitamin) 1 Each Tablet 1 Tab PO DAILY Aspirin Ec (Aspirin) 325 Mg Tablet.dr Ziegler Tab PO DAILY Vitals/I & O Vital Sign - Last 24 Hours 05/13/19 05/13/19 05/13/19 05/13/19 09:00 09:00 10:00 10:49 Pulse 82 80 79 B/P (MAP) 116/52 (73) 111/79 (90) 123/56 O2 Delivery Room Air 05/13/19 05/13/19 05/13/19 05/13/19 11:00 12:00 12:30 15:00 Temp 98.7 99.0 98.7 99.0 Pulse 81 82 74 81 Resp 18 18 B/P (MAP) 123/56 (78) 124/55 (78) 113/50 (71) 98/53 (68) Pulse Ox 100 98 O2 Delivery Room Air Room Air 05/13/19 05/13/19 05/13/19 05/13/19 17:41 19:27 20:00 21:09 Temp 99.6 99.6 Pulse 82 96 Resp 18 B/P (MAP) 138/54 (82) 120/53 Pulse Ox 97 O2 Delivery Room Air Room Air Room Air 05/13/19 05/14/19 05/14/19 05/14/19 23:05 02:42 02:57 03:57 Temp 99.4 98.5 99.4 98.5 Pulse 79 72 Resp 18 20 16 16 B/P (MAP) 120/53 (75) 141/63 (89) Pulse Ox 96 98 98 O2 Delivery Room Air Room Air Room Air Room Air Intake and Output 05/13/19 05/13/19 05/14/19 14:59 22:59 06:59 Intake Total 23 ml 480 ml Output Total 1100 ml Balance 23 ml -620 ml MINDI FERNANDO MD May 14, 2019 08:24
[2019-05-14] MEDS: METOPROLOL TART IMMED RELEASE 50 MG TABLET. PO SCH ×2 (08:44→20:15)
[2019-05-14] MEDS: MULTIVITAMIN with MINERAL TABLET. PO SCH (08:44)
--- NOTE | 2019-05-14 09:14 | NUR ---
IP: Pt is mrsa screen + requiring contact precautions.
[2019-05-14] MEDS ORDERED: diphenhydrAMINE HCL 25 MG CAPSULE PO ONE (09:30)
[2019-05-14] MEDS ORDERED: BUPIVACAINE MPF 0.5% 10 ML VIAL. IJ ONE (10:00)
[2019-05-14] MEDS ORDERED: LIDOCAINE WITH 8.4% SOD BICARB 3 ML DISP.SYRIN. INJ ONE (10:00)
[2019-05-14] MEDS ORDERED: IOHEXOL 300 MG/ML 50 ML VIAL. IJ ONE (10:00)
[2019-05-14] MEDS ORDERED: methylPREDNISolone ACETATE 80 MG/ML VIAL. INJ ONE (10:00)
[2019-05-14] MEDS: ANTI-COAG MONITOR BY PHARMACY. MC PRN (10:08)
[2019-05-14 11:00] VITALS: BP 138/64
--- NOTE | 2019-05-14 13:06 | NUR ---
SS following up with discharge planning. Pt declining PT/OT. Pt is from [facility]. SS met with pt to discuss discharge planning as pt was requesting to discharge to another facility for short term retirement and rehabilitation. SS reported to pt that she must participate in PT/OT consistently in order be accepted at another retirement unit. Pt reported that she would participate with therapy. Pt's RN notified.
--- NOTE | 2019-05-14 13:21 | RAD ---
Therapeutic left hip injection using fluoroscopic guidance: Indication: Chronic left hip pain. Technique: The procedure was explained to the patient as were potential risks including bleeding and infection and allergic reaction. All questions were answered. Informed written consent was obtained. The patient has a history of allergy to contrast media and therefore the patient was premedicated with steroids yesterday and Benadryl today. A timeout was performed which confirmed the name of the patient and the date of and the type of procedure and the side of the procedure. An appropriate skin fátima was made overlying the left hip using fluoroscopic guidance. The left hip was prepped with ChloraPrep and draped in the usual sterile manner. Following administration of local anesthetic, a 22-gauge spinal needle was advanced into the left hip joint without difficulty, with care taken to avoid the vascular structures. Stylet was removed and following negative aspiration, 3 cc of Omnipaque 300 was injected intra-articularly to confirm intra-articular position of the needle. Following this, a mixture of 1 cc (80 mg) Depo-Medrol and 4 cc 0.5% bupivacaine was injected intra-articularly without difficulty. Fluoroscopic spot views were performed. The needle was removed. There was good hemostasis at the injection site. The patient left in stable condition without immediate complication. The patient was taken back to the inpatient floor for observation and follow-up. Total fluoroscopic time: 0.7 minutes. Total fluoroscopic spot views: 3. Impression: Uncomplicated therapeutic left hip injection. There is superior and lateral dislocation of the femoral head with respect to the acetabular cup. There is deformity of the right femoral head. Findings could be related to old trauma or congenital hip dysplasia or avascular necrosis. Electronically signed by: Dick Leiva MD (05/14/2019 1:18 PM) [facility]
[2019-05-14] MEDS: ACETAMINOPHEN 500 MG TABLET PO PRN ×2 (14:30→22:04)
--- NOTE | 2019-05-14 14:56 | PDOC ---
CARDIO Progress Notes Date and Time Date of Service 05/14/2019 Time of Evaluation 1320 Subjective Subjective: No Chest Pain, No shortness of breath, No Palpitations, Other (leg pain better) Vitals Vitals Vital Signs Date Time Temp Pulse Resp B/P (MAP) Pulse Ox O2 Delivery O2 Flow Rate FiO2 05/14/19 11:59 16 Room Air 05/14/19 11:00 98.4 83 138/64 (88) 96 98.4 Weight Weight [ ] Input and Output Intake and Output Intake and Output 05/14/19 06:59 Intake Total 503 ml Output Total 1100 ml Balance -597 ml Intake Oral 480 ml IV Total 23 ml Output Urine Total 1100 ml # Bowel Movements 1 Laboratory Labs Laboratory Tests Test 05/13/19 20:00 Prothrombin Time 16.8 SEC (11.7-14.0) Prothromb Time International Ratio 1.4 (0.8-1.1) Physical Exam HEENT: Neck Supple W Full Motion Chest: Symmetric LUNGS: Clear to Auscultation Heart: irregularly irregular (AFIB rate controlled) Abdomen: Soft N/T Extremities: Other (LLE tenderness with ROM) Neurology: alert, oriented, follow commands Assessment Assessment 1. Intractable left hip/knee pain: improved. Dr Miller following 2. AFIB RVR; This is chronic. likely precipitated by uncontrolled pain as above. Rate controlled 3. Chronic diastolic CHF: compensated. EF and WM nml 4. Severe secondary pulmonary HTN 5. HTN: controlled 6. LE PAD; 2+ pedal pulse to left and faint to right, no wounds. No revascularization recommendation per vascular on 11/2018 7. CKD: possibly stage 3 Recommendations 1. Metoprolol, xarelto 2. Statin, baby ASA 3. Analgesic control per PCP 4. Pls call if any questions [employer]RICE [employer] HEAD TRANSFER CLERK May 14, 2019 14:56
[2019-05-14 15:00] VITALS: BP 129/58
[2019-05-14] MEDS: RIVAROXABAN 15 MG TABLET. PO SCH (16:50)
[2019-05-14 18:30] VITALS: BP 122/59
--- NOTE | 2019-05-14 20:00 | NUR ---
Pt is refusing staff help with turning Q2. Known wound on R upper buttocks. Pt states she will turn on her own, I did education with her about pressure ulcer prevention, she verbalized understanding. L leg is bent under her R, R leg is offloaded on a pillow off bed and off the other leg. Pt refused a bath, she refused lined or gown change. Education done about hygeine and wound healing as well at this time. Will continue to assess willingness to participate in hygeine and turns.
[2019-05-14] MEDS: ATORVASTATIN CALCIUM 20 MG TABLET PO SCH (20:15)
[2019-05-14] MEDS: DICLOFENAC SODIUM 1% TOPICAL GEL 100GM TUBE. TP SCH (20:17)
[2019-05-14 22:18] VITALS: BP 156/70
[2019-05-15 02:44] LABS: BASO % 0 % (0-3); EOS % 0 % (0-3); HEMATOCRIT 31.5 % (36.0-47.0); HEMOGLOBIN 10.6 g/dL (12.0-15.5); LYMPH # 1.3 x10^3/uL (1.0-4.8); LYMPH % 8 % (24-48); MEAN CORPUSCULAR HEMOGLOBIN 31 pg (25-35); MEAN CORPUSCULAR HGB CONC 34 g/dL (31-37); MEAN CORPUSCULAR VOLUME 93 fL (79-100); MONO # 1.2 x10^3/uL (0.0-1.1); MONO % 8 % (0-9); NEUT % 83 % (31-73); PLATELET COUNT 413 x10^3/uL (140-400); RED BLOOD COUNT 3.38 x10^6/uL (3.50-5.40); WHITE BLOOD COUNT 15.5 x10^3/uL (4.0-11.0)
[2019-05-15 02:52] LABS: CALCIUM 9.4 mg/dL (8.5-10.1); GFR 54.5; POTASSIUM 4.1 mmol/L (3.5-5.1)
[2019-05-15 02:56] VITALS: BP 145/73
[2019-05-15] MEDS: tiZANidine 4 MG TABLET. PO PRN ×3 (04:50→17:39)
[2019-05-15] MEDS: ACETAMINOPHEN 500 MG TABLET PO PRN ×2 (04:50→09:46)
[2019-05-15 04:54] LABS: % LYMPHS 11 % (24-48); % MONOS 5 % (0-10); % SEGS 84 % (35-66)
[2019-05-15 04:55] LABS: PLT ESTIMATE INCREASED (ADEQUATE)
[2019-05-15 07:00] VITALS: BP 172/78
[2019-05-15] MEDS: METHADONE 5 MG TABLET. PO PRN ×3 (07:49→20:59)
[2019-05-15] MEDS: ASPIRIN ENTERIC COATED 81 MG TABLET.DR. PO SCH (07:49)
[2019-05-15] MEDS: METOPROLOL TART IMMED RELEASE 50 MG TABLET. PO SCH (08:34)
[2019-05-15] MEDS: MULTIVITAMIN with MINERAL TABLET. PO SCH (08:35)
[2019-05-15] MEDS: DICLOFENAC SODIUM 1% TOPICAL GEL 100GM TUBE. TP SCH ×2 (08:35→20:58)
[2019-05-15] MEDS: POLYETHYLENE GLYCOL 3350 17 GM PACKET. PO PRN (09:46)
--- NOTE | 2019-05-15 10:11 | PDOC ---
PROGRESS NOTES Subjective Subjective She is so pleased that she was sitting with therapy at edge of bed,almost tear eyed with pleasure. Objective Objective Vital Signs Date Time Temp Pulse Resp B/P (MAP) Pulse Ox O2 Delivery O2 Flow Rate FiO2 05/15/19 09:00 Room Air 05/15/19 08:34 84 151/75 05/15/19 07:00 98.0 20 93 98.0 Intake and Output 05/15/19 06:59 Intake Total 460 ml Output Total 750 ml Balance -290 ml Intake Oral 460 ml Output Urine Total 750 ml Physical Exam Physical Exam She is supine in bed with left lower extremity externally rotated at left hip and knee in flexion. She continues with some limitation of right knee extension. Assessment Assessment Problems Medical Problems: (1) Atrial fibrillation with RVR Status: Acute (2) Chronic left hip pain Status: Chronic (3) CKD (chronic kidney disease), stage III Status: Chronic (4) HTN (hypertension) Status: Chronic (5) Mild protein-energy malnutrition Status: Chronic (6) PAD (peripheral artery disease) Status: Chronic Plan Plan of Care To SNF if she qualifies,otherwise NH placement when medically stable. Comment Review of Relevant I have reviewed the following items fátima (where applicable) has been applied. Labs Laboratory Tests Test 05/13/19 11:40 05/13/19 20:00 05/15/19 02:30 Triglycerides Level 119 mg/dL (0-150) Cholesterol Level 160 mg/dL (0-200) LDL Cholesterol, Calculated 105 mg/dL (0-100) VLDL Cholesterol, Calculated 24 mg/dL (0-40) Non-HDL Cholesterol Calculated 129 mg/dL (0-129) HDL Cholesterol 31 mg/dL (40-60) Cholesterol/HDL Ratio 5.2 Prothrombin Time 16.8 SEC (11.7-14.0) Prothromb Time International Ratio 1.4 (0.8-1.1) White Blood Count 15.5 x10^3/uL (4.0-11.0) Red Blood Count 3.38 x10^6/uL (3.50-5.40) Hemoglobin 10.6 g/dL (12.0-15.5) Hematocrit 31.5 % (36.0-47.0) Mean Corpuscular Volume 93 fL (79-100) Mean Corpuscular Hemoglobin 31 pg (25-35) Mean Corpuscular Hemoglobin Concent 34 g/dL (31-37) Red Cell Distribution Width 15.0 % (11.5-14.5) Platelet Count 413 x10^3/uL (140-400) Neutrophils (%) (Auto) 83 % (31-73) Lymphocytes (%) (Auto) 8 % (24-48) Monocytes (%) (Auto) 8 % (0-9) Eosinophils (%) (Auto) 0 % (0-3) Basophils (%) (Auto) 0 % (0-3) Neutrophils # (Auto) 13.0 x10^3/uL (1.8-7.7) Lymphocytes # (Auto) 1.3 x10^3/uL (1.0-4.8) Monocytes # (Auto) 1.2 x10^3/uL (0.0-1.1) Eosinophils # (Auto) 0.0 x10^3/uL (0.0-0.7) Basophils # (Auto) 0.0 x10^3/uL (0.0-0.2) Segmented Neutrophils % 84 % (35-66) Lymphocytes % 11 % (24-48) Monocytes % 5 % (0-10) Platelet Estimate Increased (ADEQUATE) Sodium Level 139 mmol/L (136-145) Potassium Level 4.1 mmol/L (3.5-5.1) Chloride Level 103 mmol/L (98-107) Carbon Dioxide Level 26 mmol/L (21-32) Anion Gap 10 (6-14) Blood Urea Nitrogen 44 mg/dL (7-20) Creatinine 1.0 mg/dL (0.6-1.0) Estimated GFR (Cockcroft-Gault) 54.5 Glucose Level 129 mg/dL (70-99) Calcium Level 9.4 mg/dL (8.5-10.1) Magnesium Level 1.6 mg/dL (1.8-2.4) Laboratory Tests Test 05/15/19 02:30 White Blood Count 15.5 x10^3/uL (4.0-11.0) Red Blood Count 3.38 x10^6/uL (3.50-5.40) Hemoglobin 10.6 g/dL (12.0-15.5) Hematocrit 31.5 % (36.0-47.0) Mean Corpuscular Volume 93 fL (79-100) Mean Corpuscular Hemoglobin 31 pg (25-35) Mean Corpuscular Hemoglobin Concent 34 g/dL (31-37) Red Cell Distribution Width 15.0 % (11.5-14.5) Platelet Count 413 x10^3/uL (140-400) Neutrophils (%) (Auto) 83 % (31-73) Lymphocytes (%) (Auto) 8 % (24-48) Monocytes (%) (Auto) 8 % (0-9) Eosinophils (%) (Auto) 0 % (0-3) Basophils (%) (Auto) 0 % (0-3) Neutrophils # (Auto) 13.0 x10^3/uL (1.8-7.7) Lymphocytes # (Auto) 1.3 x10^3/uL (1.0-4.8) Monocytes # (Auto) 1.2 x10^3/uL (0.0-1.1) Eosinophils # (Auto) 0.0 x10^3/uL (0.0-0.7) Basophils # (Auto) 0.0 x10^3/uL (0.0-0.2) Segmented Neutrophils % 84 % (35-66) Lymphocytes % 11 % (24-48) Monocytes % 5 % (0-10) Platelet Estimate Increased (ADEQUATE) Sodium Level 139 mmol/L (136-145) Potassium Level 4.1 mmol/L (3.5-5.1) Chloride Level 103 mmol/L (98-107) Carbon Dioxide Level 26 mmol/L (21-32) Anion Gap 10 (6-14) Blood Urea Nitrogen 44 mg/dL (7-20) Creatinine 1.0 mg/dL (0.6-1.0) Estimated GFR (Cockcroft-Gault) 54.5 Glucose Level 129 mg/dL (70-99) Calcium Level 9.4 mg/dL (8.5-10.1) Magnesium Level 1.6 mg/dL (1.8-2.4) Medications Current Medications Oxycodone/ Acetaminophen (Percocet 10/325) 1 tab 1X ONCE PO Last administered on 05/12/19at 17:37; Start 05/12/19 at 17:45; Stop 05/12/19 at 17:46; Status DC Diltiazem HCl (Cardizem Iv Push) 10 mg 1X ONCE IVP Last administered on 05/12/19at 17:40; Start 05/12/19 at 17:45; Stop 05/12/19 at 17:46; Status DC Diltiazem HCl 125 mg/Dextrose 125 ml @ 5 mls/hr 1X ONCE IV Last administered on 05/12/19at 19:16; Start 05/12/19 at 19:30; Stop 05/13/19 at 01:47; Status DC Sodium Chloride 500 ml @ 500 mls/hr 1X ONCE IV Last administered on 05/12/19at 19:24; Start 05/12/19 at 19:30; Stop 05/12/19 at 20:29; Status DC Ondansetron HCl (Zofran) 4 mg PRN Q8HRS PRN IV NAUSEA/VOMITING 1st choice; Start 05/12/19 at 19:00; Stop 05/13/19 at 18:59; Status DC Acetaminophen (Tylenol) 650 mg PRN Q4HRS PRN PO FEVER; Start 05/12/19 at 19:00; Stop 05/13/19 at 18:59; Status DC Oxycodone/ Acetaminophen (Percocet 10/325) 1 tab PRN Q6HRS PRN PO SEVERE PAIN 7-10 Last administered on 05/13/19at 02:56; Start 05/12/19 at 19:00; Stop 05/13/19 at 19:00; Status DC Metoprolol Tartrate (Lopressor) 50 mg BID PO Last administered on 05/15/19at 08:34; Start 05/12/19 at 21:00 Tizanidine HCl (Zanaflex) 4 mg PRN QID PRN PO MUSCLE SPASMS Last administered on 05/15/19at 04:50; Start 05/12/19 at 21:15 Diltiazem HCl 125 mg/Dextrose 125 ml @ 5 mls/hr CONT PRN IV SEE I/O RECORD Last administered on 05/13/19at 00:24; Start 05/13/19 at 00:15 Rivaroxaban (Xarelto) 15 mg DAILYWSUP PO Last administered on 05/14/19at 16:50; Start 05/14/19 at 17:00 Methadone HCl (Dolophine) 5 mg PRN TID PRN PO MODERATE TO SEVERE PAIN Last administered on 05/15/19 07:49; Start 05/13/19 at 08:00 Methylprednisolone Acetate (DEPO-Medrol 40MG VIAL) 40 mg 1X ONCE INJ Last administered on 05/13/19 12:00; Start 05/13/19 at 09:30; Stop 05/13/19 at 09:31; Status DC Methylprednisolone Acetate (DEPO-Medrol 40MG VIAL) 40 mg 1X ONCE IM Last administered on 05/13/19 12:00; Start 05/13/19 at 09:30; Stop 05/13/19 at 09:31; Status DC Bupivacaine HCl (Sensorcaine-Mpf 0.25%) 10 ml 1X ONCE IJ Last administered on 05/13/19 12:00; Start 05/13/19 at 09:30; Stop 05/13/19 at 09:31; Status DC Info (Anti-Coagulation Monitoring By Pharmacy) 1 each PRN DAILY PRN MC SEE COMMENTS Last administered on 05/14/19at 10:08; Start 05/13/19 at 13:15 Multivitamins (Thera M Plus) 1 tab DAILY PO Last administered on 05/15/19 08:35; Start 05/13/19 at 17:00 Labetalol HCl (Normodyne Iv Push) 10 mg PRN Q6HRS PRN IVP HYPERTENSION; Start 05/13/19 at 19:30 Prednisone (Prednisone) 20 mg 1X ONCE PO Last administered on 05/13/19 21:07; Start 05/13/19 at 21:00; Stop 05/13/19 at 21:01; Status DC Prednisone (Prednisone) 20 mg 1X ONCE PO Last administered on 05/14/19at 03:01; Start 05/14/19 at 03:00; Stop 05/14/19 at 03:01; Status DC Prednisone (Prednisone) 20 mg 1X ONCE PO Last administered on 05/14/19at 08:44; Start 05/14/19 at 09:00; Stop 05/14/19 at 09:01; Status DC Diphenhydramine HCl (Benadryl) 50 mg 1X ONCE PO Last administered on 05/14/19 09:38; Start 05/14/19 at 09:30; Stop 05/14/19 at 09:31; Status DC Methylprednisolone Acetate (DEPO-Medrol 80MG VIAL) 80 mg 1X ONCE INJ Last administered on 05/14/19 11:39; Start 05/14/19 at 10:00; Stop 05/14/19 at 10:01; Status DC Bupivacaine HCl (Sensorcaine Mpf 0.5%) 10 ml 1X ONCE IJ Last administered on 05/14/19at 11:38; Start 05/14/19 at 10:00; Stop 05/14/19 at 10:01; Status DC Lidocaine/Sodium Bicarbonate (Buffered Lidocaine 1%) 3 ml 1X ONCE INJ ; Start 05/14/19 at 10:00; Stop 05/14/19 at 10:04; Status DC Iohexol (Omnipaque 300 Mg/ml) 50 ml 1X ONCE IJ Last administered on 05/14/19 11:39; Start 05/14/19 at 10:00; Stop 05/14/19 at 10:04; Status DC Polyethylene Glycol (miraLAX PACKET) 17 gm PRN DAILY PRN PO CONSTIPATION Last administered on 05/15/19 09:46; Start 05/14/19 at 12:45 Acetaminophen (Tylenol) 500 mg PRN Q6HRS PRN PO MILD PAIN / TEMP Last administered on 05/15/19 09:46; Start 05/14/19 at 12:45 Diclofenac Sodium (Voltaren) 1 nathalie BID TP Last administered on 05/15/19 08:35; Start 05/14/19 at 21:00 Atorvastatin Calcium (Lipitor) 20 mg QHS PO Last administered on 05/14/19 20:15; Start 05/14/19 at 21:00 Aspirin (Ecotrin) 81 mg DAILYWBKFT PO Last administered on 05/15/19 07:49; Start 05/15/19 at 08:00 Active Scripts Active Xarelto (Rivaroxaban) 20 Mg Tablet 20 Mg PO DAILY 30 Days Percocet 10-325 Mg Tablet (Oxycodone/Acetaminophen) 1 Each Tablet 1 Tab PO PRN QID PRN 30 Days Klor-Con 10 (Potassium Chloride) 10 Meq Tablet.er 1 Tab PO DAILY Furosemide 40 Mg Tablet 40 Mg PO DAILY 30 Days Cetirizine Hcl 10 Mg Tablet 10 Mg PO DAILY 30 Days Ibuprofen 600 Mg Tablet 600 Mg PO PRN Q6HRS PRN 90 Days Hydrochlorothiazide Tablet (Hydrochlorothiazide) 25 Mg Tablet 25 Mg PO DAILY 30 Days Reported Tizanidine Hcl 4 Mg Capsule 4 Mg PO QID PRN Metoprolol Tartrate 50 Mg Tablet 1 Tab PO BID Docusate Sodium 100 Mg Capsule 1 Cap PO DAILY Benadryl (Diphenhydramine Hcl) 25 Mg Capsule 25 Mg PO PRN Q6HRS PRN Multivitamins (Multivitamin) 1 Each Tablet 1 Tab PO DAILY Aspirin Ec (Aspirin) 325 Mg Tablet.dr 1 Tab PO DAILY Vitals/I & O Vital Sign - Last 24 Hours 05/14/19 05/14/19 05/14/19 05/14/19 11:00 11:59 15:00 18:30 Temp 98.4 98.5 98.4 98.5 Pulse 83 84 80 Resp 20 16 20 20 B/P (MAP) 138/64 (88) 129/58 (81) 122/59 (80) Pulse Ox 96 98 97 O2 Delivery Room Air Room Air Room Air Room Air 05/14/19 05/14/19 05/14/19 05/14/19 20:00 20:15 20:15 21:15 Pulse 80 Resp 20 20 B/P (MAP) 122/59 Pulse Ox 97 99 O2 Delivery Room Air Room Air 05/14/19 05/15/19 05/15/19 05/15/19 22:18 02:56 07:00 07:49 Temp 98.4 98.2 98.0 98.4 98.2 98.0 Pulse 87 79 73 Resp 20 20 20 B/P (MAP) 156/70 (98) 145/73 (97) 172/78 (109) Pulse Ox 99 98 93 O2 Delivery Room Air Room Air Room Air Room Air 05/15/19 05/15/19 08:34 09:00 Pulse 84 B/P (MAP) 151/75 O2 Delivery Room Air Intake and Output 05/14/19 05/14/19 05/15/19 14:59 22:59 06:59 Intake Total 240 ml 220 ml Output Total 500 ml 250 ml Balance -260 ml -30 ml MINDI FERNANDO MD May 15, 2019 10:11
[2019-05-15 11:00] VITALS: BP 136/67
--- NOTE | 2019-05-15 11:11 | PDOC ---
PROGRESS NOTES Subjective Her left hip is better after injection yesterday, left knee contracted at 90 degrees, she states her pain is uncontrolled with current methadone and requesting increase, she is on topical diclofenac but not on any oral OA meds, no chest pain or SOA Objective Afebrile General: A&O, NAD Heart: irreg, irreg, rate controlled Lungs: clear Abd: soft Ext: left knee contracture Vital Signs Vital Signs Date Time Temp Pulse Resp B/P (MAP) Pulse Ox O2 Delivery O2 Flow Rate FiO2 05/15/19 09:00 Room Air 05/15/19 08:34 84 151/75 05/15/19 07:00 98.0 20 93 98.0 I & O Intake and Output 05/15/19 06:59 Intake Total 460 ml Output Total 750 ml Balance -290 ml Intake Oral 460 ml Output Urine Total 750 ml Assessment and Plan Problems Medical Problems: (1) Atrial fibrillation with RVR Status: Acute (2) Chronic left hip pain Status: Chronic (3) CKD (chronic kidney disease), stage III Status: Chronic (4) HTN (hypertension) Status: Chronic (5) Mild protein-energy malnutrition Status: Chronic (6) PAD (peripheral artery disease) Status: Chronic 1)Afib with RVR- Initially needed IV cardizem but has been Dced, Cardiology following. Pt now rate controlled. Currently on Metoprolol 50mg BID and restarted on Xarelto. 2)Chronic left hip- improving with Methadone but not controlled, will double dose and add ibuprofen 800 mg and scheduled Tylenol. She is hoping to switch facilities on discharge, social worker health services following 3)HTN- back elevated, resume meds 4)Thrombocytosis- likely reactive, CTM 5)CKD- Stage 3. Cr and electrolytes stable. CTM 6)PEM- mild 7)PAD Robby ALEJANDRA MD May 15, 2019 11:11
[2019-05-15] MEDS ORDERED: METHADONE 10 MG TABLET. PO PRN (11:15)
[2019-05-15] MEDS: ANTI-COAG MONITOR BY PHARMACY. MC PRN (11:24)
[2019-05-15] MEDS: ACETAMINOPHEN 500 MG TABLET PO SCH ×3 (12:55→23:54)
[2019-05-15 15:00] VITALS: BP 123/64
[2019-05-15] MEDS: RIVAROXABAN 15 MG TABLET. PO SCH (17:39)
[2019-05-15] MEDS: IBUPROFEN 400 MG TABLET. PO SCH ×2 (17:42→21:01)
[2019-05-15 19:00] VITALS: BP 123/62
[2019-05-15] MEDS: METOPROLOL TART IMMED RELEASE 25 MG TABLET. PO SCH (21:00)
[2019-05-15] MEDS: ATORVASTATIN CALCIUM 20 MG TABLET PO SCH (21:00)
--- NOTE | 2019-05-15 21:05 | PDOC2 ---
CONSULT Date of Consult Date of Consult DATE: 05/15/19 TIME: 20:59 Reason for Consult Reason for Consult: Left hip dysplasia Referring Physician Referring Physician: Paul Identification/Chief Complaint Chief Complaint Left hip pain History of Present Illness Reason for Visit: Patient well known to Orthopedic service with left hip pain for quite some time now. She was admitted for cardiac reasons. She has been seen by ortho and PMR in the past for her hip. Chronic Left hip pain, worse with movement, has not walked in about half a year. Complicated by left knee flexion contracture. She had a recent left hip injection under flouro; injections have helped her hip and knee in the past Past Medical History Cardiovascular: AFIB, CHF, HTN, Hyperlipidemia Pulmonary: Asthma, COPD GI: No pertinent hx Heme/Onc: Anemia NOS, Other Hepatobiliary: No pertinent hx Psych: Depression Musculoskeletal: Osteoarthritis, Other Rheumatologic: No pertinent hx Infectious disease: No pertinent hx ENT: No pertinent hx Renal/: UTI Endocrine: No pertinent hx Dermatology: No pertinent hx Past Surgical History Past Surgical History: Cholecystectomy, Total hip replacement, Tonsillectomy, Hysterectomy, Other Family History Family History: Diabetes Social History No ALCOHOL: none Drugs: None Lives: Group Home Current Problem List Problem List Problems Medical Problems: (1) Atrial fibrillation with RVR Status: Acute (2) Chronic left hip pain Status: Chronic (3) CKD (chronic kidney disease), stage III Status: Chronic (4) HTN (hypertension) Status: Chronic (5) Mild protein-energy malnutrition Status: Chronic (6) PAD (peripheral artery disease) Status: Chronic Current Medications Current Medications Current Medications Oxycodone/ Acetaminophen (Percocet 10/325) 1 tab 1X ONCE PO Last administered on 05/12/19at 17:37; Start 05/12/19 at 17:45; Stop 05/12/19 at 17:46; Status DC Diltiazem HCl (Cardizem Iv Push) 10 mg 1X ONCE IVP Last administered on 05/12/19at 17:40; Start 05/12/19 at 17:45; Stop 05/12/19 at 17:46; Status DC Diltiazem HCl 125 mg/Dextrose 125 ml @ 5 mls/hr 1X ONCE IV Last administered on 05/12/19at 19:16; Start 05/12/19 at 19:30; Stop 05/13/19 at 01:47; Status DC Sodium Chloride 500 ml @ 500 mls/hr 1X ONCE IV Last administered on 05/12/19at 19:24; Start 05/12/19 at 19:30; Stop 05/12/19 at 20:29; Status DC Ondansetron HCl (Zofran) 4 mg PRN Q8HRS PRN IV NAUSEA/VOMITING 1st choice; Start 05/12/19 at 19:00; Stop 05/13/19 at 18:59; Status DC Acetaminophen (Tylenol) 650 mg PRN Q4HRS PRN PO FEVER; Start 05/12/19 at 19:00; Stop 05/13/19 at 18:59; Status DC Oxycodone/ Acetaminophen (Percocet 10/325) 1 tab PRN Q6HRS PRN PO SEVERE PAIN 7-10 Last administered on 05/13/19at 02:56; Start 05/12/19 at 19:00; Stop 05/13/19 at 19:00; Status DC Metoprolol Tartrate (Lopressor) 50 mg BID PO Last administered on 05/15/19at 08:34; Start 05/12/19 at 21:00; Stop 05/15/19 at 11:14; Status DC Tizanidine HCl (Zanaflex) 4 mg PRN QID PRN PO MUSCLE SPASMS Last administered on 05/15/19at 17:39; Start 05/12/19 at 21:15 Diltiazem HCl 125 mg/Dextrose 125 ml @ 5 mls/hr CONT PRN IV SEE I/O RECORD Last administered on 05/13/19at 00:24; Start 05/13/19 at 00:15 Rivaroxaban (Xarelto) 15 mg DAILYWSUP PO Last administered on 05/15/19 17:39; Start 05/14/19 at 17:00 Methadone HCl (Dolophine) 5 mg PRN TID PRN PO MODERATE TO SEVERE PAIN Last administered on 05/15/19at 07:49; Start 05/13/19 at 08:00; Stop 05/15/19 at 11:03; Status DC Methylprednisolone Acetate (DEPO-Medrol 40MG VIAL) 40 mg 1X ONCE INJ Last administered on 05/13/19at 12:00; Start 05/13/19 at 09:30; Stop 05/13/19 at 09:31; Status DC Methylprednisolone Acetate (DEPO-Medrol 40MG VIAL) 40 mg 1X ONCE IM Last administered on 05/13/19at 12:00; Start 05/13/19 at 09:30; Stop 05/13/19 at 09:31; Status DC Bupivacaine HCl (Sensorcaine-Mpf 0.25%) 10 ml 1X ONCE IJ Last administered on 05/13/19at 12:00; Start 05/13/19 at 09:30; Stop 05/13/19 at 09:31; Status DC Info (Anti-Coagulation Monitoring By Pharmacy) 1 each PRN DAILY PRN MC SEE COMMENTS Last administered on 05/15/19at 11:24; Start 05/13/19 at 13:15 Multivitamins (Thera M Plus) 1 tab DAILY PO Last administered on 05/15/19at 08:35; Start 05/13/19 at 17:00 Labetalol HCl (Normodyne Iv Push) 10 mg PRN Q6HRS PRN IVP HYPERTENSION; Start 05/13/19 at 19:30 Prednisone (Prednisone) 20 mg 1X ONCE PO Last administered on 05/13/19at 21:07; Start 05/13/19 at 21:00; Stop 05/13/19 at 21:01; Status DC Prednisone (Prednisone) 20 mg 1X ONCE PO Last administered on 05/14/19at 03:01; Start 05/14/19 at 03:00; Stop 05/14/19 at 03:01; Status DC Prednisone (Prednisone) 20 mg 1X ONCE PO Last administered on 05/14/19 08:44; Start 05/14/19 at 09:00; Stop 05/14/19 at 09:01; Status DC Diphenhydramine HCl (Benadryl) 50 mg 1X ONCE PO Last administered on 05/14/19 09:38; Start 05/14/19 at 09:30; Stop 05/14/19 at 09:31; Status DC Methylprednisolone Acetate (DEPO-Medrol 80MG VIAL) 80 mg 1X ONCE INJ Last administered on 05/14/19at 11:39; Start 05/14/19 at 10:00; Stop 05/14/19 at 10:01; Status DC Bupivacaine HCl (Sensorcaine Mpf 0.5%) 10 ml 1X ONCE IJ Last administered on 05/14/19 11:38; Start 05/14/19 at 10:00; Stop 05/14/19 at 10:01; Status DC Lidocaine/Sodium Bicarbonate (Buffered Lidocaine 1%) 3 ml 1X ONCE INJ ; Start 05/14/19 at 10:00; Stop 05/14/19 at 10:04; Status DC Iohexol (Omnipaque 300 Mg/ml) 50 ml 1X ONCE IJ Last administered on 05/14/19 11:39; Start 05/14/19 at 10:00; Stop 05/14/19 at 10:04; Status DC Polyethylene Glycol (miraLAX PACKET) 17 gm PRN DAILY PRN PO CONSTIPATION Last administered on 05/15/19 09:46; Start 05/14/19 at 12:45 Acetaminophen (Tylenol) 500 mg PRN Q6HRS PRN PO MILD PAIN / TEMP Last administered on 05/15/19 09:46; Start 05/14/19 at 12:45 Diclofenac Sodium (Voltaren) 1 nathalie BID TP Last administered on 05/15/19 08:35; Start 05/14/19 at 21:00 Atorvastatin Calcium (Lipitor) 20 mg QHS PO Last administered on 05/14/19 20:15; Start 05/14/19 at 21:00 Aspirin (Ecotrin) 81 mg DAILYWBKFT PO Last administered on 05/15/19 07:49; Start 05/15/19 at 08:00 Methadone HCl (Dolophine) 10 mg PRN TID PRN PO MODERATE TO SEVERE PAIN; Start 05/15/19 at 11:15; Stop 05/15/19 at 11:15; Status DC Methadone HCl (Dolophine) 10 mg PRN TID PRN PO MODERATE TO SEVERE PAIN Last administered on 05/15/19 13:00; Start 05/15/19 at 11:15 Metoprolol Tartrate (Lopressor) 75 mg BID PO ; Start 05/15/19 at 21:00 Ibuprofen (Motrin) 800 mg Q8HRS PO Last administered on 05/15/19 17:42; Start 05/15/19 at 14:00 Acetaminophen (Tylenol) 1,000 mg Q6HRS PO Last administered on 05/15/19 12:55; Start 05/15/19 at 12:00 Active Scripts Active Xarelto (Rivaroxaban) 20 Mg Tablet 20 Mg PO DAILY 30 Days Percocet 10-325 Mg Tablet (Oxycodone/Acetaminophen) 1 Each Tablet 1 Tab PO PRN QID PRN 30 Days Klor-Con 10 (Potassium Chloride) 10 Meq Tablet.er 1 Tab PO DAILY Furosemide 40 Mg Tablet 40 Mg PO DAILY 30 Days Cetirizine Hcl 10 Mg Tablet 10 Mg PO DAILY 30 Days Ibuprofen 600 Mg Tablet 600 Mg PO PRN Q6HRS PRN 90 Days Hydrochlorothiazide Tablet (Hydrochlorothiazide) 25 Mg Tablet 25 Mg PO DAILY 30 Days Reported Tizanidine Hcl 4 Mg Capsule 4 Mg PO QID PRN Metoprolol Tartrate 50 Mg Tablet 1 Tab PO BID Docusate Sodium 100 Mg Capsule 1 Cap PO DAILY Benadryl (Diphenhydramine Hcl) 25 Mg Capsule 25 Mg PO PRN Q6HRS PRN Multivitamins (Multivitamin) 1 Each Tablet 1 Tab PO DAILY Aspirin Ec (Aspirin) 325 Mg Tablet.dr 1 Tab PO DAILY Allergies Allergies: Coded Allergies: shellfish derived (Verified Allergy, Severe, 10/23/17) Iodinated Contrast- Oral and IV Dye (Verified Allergy, Intermediate, 10/23/17) digoxin (Verified Allergy, Intermediate, 10/23/17) I S O L A T I O N *CONTACT* (Verified Allergy, Unknown, 05/14/19) mrsa ROS General: No: Chills, Night Sweats, Fatigue, Malaise, Appetite, Other PSYCHOLOGICAL ROS: No: Anxiety, Behavioral Disorder, Concentration difficultie, Decreased libido, Depression, Disorientation, Hallucinations, Hostility, Irritablity, Memory difficulties, Mood Swings, Obsessive thoughts, Physical abuse, Sexual abuse, Sleep disturbances, Suicidal ideation, Other Eyes: No Blurry vision, No Decreased vision, No Double vision, No Dry eyes, No Excessive tearing, No Eye Pain, No Itchy Eyes, No Loss of vision, No Photop hobia, No Scotomata, No Uses contacts, No Uses glasses, No Other HEENT: No: Heacaches, Visual Changes, Hearing change, Nasal congestion, Nasal discharge, Oral lesions, Sinus pain, Sore Throat, Epistaxis, Sneezing, Snoring, Tinnitus, Vertigo, Vocal changes, Other ALLERGY AND IMMUNOLOGY: No: Hives, Insect Bite Sensitivity, Itchy/Watery Eyes, Nasal Congestion, Post Nasal Drip, Seasonal Allergies, Other Hematological and Lymphatic: No: Bleeding Problems, Blood Clots, Blood Transfusions, Brusing, Night Sweats, Pallor, Swollen Lymph Nodes, Other ENDOCRINE: No: Breast Changes, Galactorrhea, Hair Pattern Changes, Hot Flashes, Malaise/lethargy, Mood Swings, Palpitations, Polydipsia/polyuria, Skin Changes, Temperature Intolerance, Unexpected Weight Changes, Other Respiratory: No: Cough, Hemoptysis, Orthopnea, Pleuritic Pain, Shortness of breath, SOB with excertion, Sputum Changes, Stridor, Tachypnea, Wheezing, Other Cardiovascular: No Chest Pain, No Palpitations, No Orthopnea, No Paroxysmal Noc. Dyspnea, No Edema, No Lt Headedness, No Other Gastrointestinal: No Nausea, No Vomiting, No Abdominal Pain, No Diarrhea, No Co nstipation, No Melena, No Hematochezia, No Other Genitourinary: No Dysuria, No Frequency, No Incontinence, No Hematuria, No Retention, No Discharge, No Urgency, No Pain, No Flank Pain, No Other, No , No , No , No , No , No , No Musculoskeletal: Yes Gait Disturbance, Yes Joint Pain, Yes Joint Stiffness Neurological: No Behavorial Changes, No Bowel/Bladder ControlChng, No Confusion, No Dizziness, No Gait Disturbance, No Headaches, No Impaired Coord/balance, No Memory Loss, No Numbness/Tingling, No Seizures, No Speech Problems, No Tremors, No Visual Changes, No Weakness, No Other Skin: No Dry Skin, No Eczema, No Hair Changes, No Lumps, No Mole Changes, No Mottling, No Nail Changes, No Pruritus, No Rash, No Skin Lesion Changes, No Other, No Acne Physical Exam General: Alert, Oriented X3 HEENT: Atraumatic, EOMI Lungs: Other (resp unlabored, symm chest rise) Abdomen: Soft, No tenderness Extremities: Other (weak pulses distally, mild edema at ankles) Neuro: Normal speech, Strength at 5/5 X4 ext, Sensation intact Psych/Mental Status: Mental status NL, Mood NL MUSCULOSKELETAL: Other (LLE shorter, held in 30 of ER at hip and 90 at knee. unable to assess PROM due to pain and guarding) Vitals VITALS Vital Signs Date Time Temp Pulse Resp B/P (MAP) Pulse Ox O2 Delivery O2 Flow Rate FiO2 05/15/19 19:00 98.4 77 17 123/62 (82) 98 Room Air 98.4 Labs Labs Laboratory Tests Test 05/15/19 02:30 White Blood Count 15.5 x10^3/uL (4.0-11.0) Red Blood Count 3.38 x10^6/uL (3.50-5.40) Hemoglobin 10.6 g/dL (12.0-15.5) Hematocrit 31.5 % (36.0-47.0) Mean Corpuscular Volume 93 fL (79-100) Mean Corpuscular Hemoglobin 31 pg (25-35) Mean Corpuscular Hemoglobin Concent 34 g/dL (31-37) Red Cell Distribution Width 15.0 % (11.5-14.5) Platelet Count 413 x10^3/uL (140-400) Neutrophils (%) (Auto) 83 % (31-73) Lymphocytes (%) (Auto) 8 % (24-48) Monocytes (%) (Auto) 8 % (0-9) Eosinophils (%) (Auto) 0 % (0-3) Basophils (%) (Auto) 0 % (0-3) Neutrophils # (Auto) 13.0 x10^3/uL (1.8-7.7) Lymphocytes # (Auto) 1.3 x10^3/uL (1.0-4.8) Monocytes # (Auto) 1.2 x10^3/uL (0.0-1.1) Eosinophils # (Auto) 0.0 x10^3/uL (0.0-0.7) Basophils # (Auto) 0.0 x10^3/uL (0.0-0.2) Segmented Neutrophils % 84 % (35-66) Lymphocytes % 11 % (24-48) Monocytes % 5 % (0-10) Platelet Estimate Increased (ADEQUATE) Sodium Level 139 mmol/L (136-145) Potassium Level 4.1 mmol/L (3.5-5.1) Chloride Level 103 mmol/L (98-107) Carbon Dioxide Level 26 mmol/L (21-32) Anion Gap 10 (6-14) Blood Urea Nitrogen 44 mg/dL (7-20) Creatinine 1.0 mg/dL (0.6-1.0) Estimated GFR (Cockcroft-Gault) 54.5 Glucose Level 129 mg/dL (70-99) Calcium Level 9.4 mg/dL (8.5-10.1) Magnesium Level 1.6 mg/dL (1.8-2.4) Laboratory Tests Test 05/15/19 02:30 White Blood Count 15.5 x10^3/uL (4.0-11.0) Red Blood Count 3.38 x10^6/uL (3.50-5.40) Hemoglobin 10.6 g/dL (12.0-15.5) Hematocrit 31.5 % (36.0-47.0) Mean Corpuscular Volume 93 fL (79-100) Mean Corpuscular Hemoglobin 31 pg (25-35) Mean Corpuscular Hemoglobin Concent 34 g/dL (31-37) Red Cell Distribution Width 15.0 % (11.5-14.5) Platelet Count 413 x10^3/uL (140-400) Neutrophils (%) (Auto) 83 % (31-73) Lymphocytes (%) (Auto) 8 % (24-48) Monocytes (%) (Auto) 8 % (0-9) Eosinophils (%) (Auto) 0 % (0-3) Basophils (%) (Auto) 0 % (0-3) Neutrophils # (Auto) 13.0 x10^3/uL (1.8-7.7) Lymphocytes # (Auto) 1.3 x10^3/uL (1.0-4.8) Monocytes # (Auto) 1.2 x10^3/uL (0.0-1.1) Eosinophils # (Auto) 0.0 x10^3/uL (0.0-0.7) Basophils # (Auto) 0.0 x10^3/uL (0.0-0.2) Segmented Neutrophils % 84 % (35-66) Lymphocytes % 11 % (24-48) Monocytes % 5 % (0-10) Platelet Estimate Increased (ADEQUATE) Sodium Level 139 mmol/L (136-145) Potassium Level 4.1 mmol/L (3.5-5.1) Chloride Level 103 mmol/L (98-107) Carbon Dioxide Level 26 mmol/L (21-32) Anion Gap 10 (6-14) Blood Urea Nitrogen 44 mg/dL (7-20) Creatinine 1.0 mg/dL (0.6-1.0) Estimated GFR (Cockcroft-Gault) 54.5 Glucose Level 129 mg/dL (70-99) Calcium Level 9.4 mg/dL (8.5-10.1) Magnesium Level 1.6 mg/dL (1.8-2.4) Images Images Xrays reviewed, advanced hip dysplasia Assessment/Plan Assessment/Plan left hip dysplasia complicated by knee issues as well, which essentially makes hip reconstruction unlikely to be successful. No new recs per Ortho, f/u in clinic once stable SARA OLSON II, MD May 15, 2019 21:05
[2019-05-15 22:58] VITALS: BP 109/65
[2019-05-16 03:00] VITALS: BP 142/66
[2019-05-16] MEDS: IBUPROFEN 400 MG TABLET. PO SCH (05:16)
[2019-05-16] MEDS: ACETAMINOPHEN 500 MG TABLET PO SCH (05:17)
[2019-05-16] MEDS: METHADONE 5 MG TABLET. PO PRN (05:17)
[2019-05-16 05:28] LABS: ALBUMIN 2.4 g/dL (3.4-5.0); ALBUMIN/GLOBULIN RATIO 0.6 (1.0-1.7); CALCIUM 9.3 mg/dL (8.5-10.1); CREATININE 1.2 mg/dL (0.6-1.0); GFR 44.2; POTASSIUM 4.6 mmol/L (3.5-5.1); TOTAL BILIRUBIN 0.2 mg/dL (0.2-1.0); TOTAL PROTEIN 6.6 g/dL (6.4-8.2)
[2019-05-16 07:00] VITALS: BP 128/62
[2019-05-16] MEDS: MULTIVITAMIN with MINERAL TABLET. PO SCH (08:05)
[2019-05-16] MEDS: METOPROLOL TART IMMED RELEASE 25 MG TABLET. PO SCH ×2 (08:06→21:18)
[2019-05-16] MEDS: ASPIRIN ENTERIC COATED 81 MG TABLET.DR. PO SCH (08:06)
[2019-05-16] MEDS: tiZANidine 4 MG TABLET. PO PRN ×3 (08:07→23:29)
[2019-05-16] MEDS: DICLOFENAC SODIUM 1% TOPICAL GEL 100GM TUBE. TP SCH ×2 (08:14→21:18)
[2019-05-16] MEDS ORDERED: METHADONE 10 MG TABLET. PO PRN (08:45)
[2019-05-16] MEDS: ANTI-COAG MONITOR BY PHARMACY. MC PRN (09:36)
[2019-05-16 11:00] VITALS: BP 121/65
--- NOTE | 2019-05-16 12:45 | PDOC ---
PROGRESS NOTES Subjective She has been doing therapy but sitting at edge of be for 15 minutes is all she tolerates, she is out of SNU days apparently and is now on LTC, she would prefer to be home though and states her daughter can take care of her. Pt need help sitting up in bed though. Dr. Manuel told her he would consider operating on her but his note states it would likely be unsuccessful Objective Afebrile General: NAD, laying in bed with left knee contracted Heart: RRR Lungs: CTA Abd: soft Ext: no changes LFTs up with scheduled Tylenol Vital Signs Vital Signs Date Time Temp Pulse Resp B/P (MAP) Pulse Ox O2 Delivery O2 Flow Rate FiO2 05/16/19 08:06 71 128/62 05/16/19 07:30 Room Air 05/16/19 07:00 98.0 20 100 98.0 I & O l Intake and Output 05/16/19 07:00 Output Total 1300 ml Balance -1300 ml Output Urine Total 1300 ml # Voids 1 # Bowel Movements 1 Assessment and Plan Problems Medical Problems: (1) Atrial fibrillation with RVR - rate now controlled, anticoagulated Status: Acute (2) Chronic left hip pain - better after fluoro guided injection, back on methadone, needing increase in dose for pain control Status: Chronic (3) CKD (chronic kidney disease), stage III - change ibuprofen to prn, monitor Status: Chronic (4) HTN (hypertension) - controlled , continue present Status: Chronic (5) Mild protein-energy malnutrition- worsening per lab, encouraged better diet Status: Chronic (6) PAD (peripheral artery disease) (7) abnormal LFT - stop tylenol Status: Chronic Robby ALEJANDRA MD May 16, 2019 12:45
[2019-05-16] MEDS: METHADONE 10 MG TABLET. PO PRN ×2 (12:57→21:18)
[2019-05-16 15:00] VITALS: BP 142/70
[2019-05-16] MEDS: IBUPROFEN 400 MG TABLET. PO PRN (17:13)
[2019-05-16] MEDS: RIVAROXABAN 15 MG TABLET. PO SCH (17:13)
[2019-05-16 19:00] VITALS: BP 125/59
--- NOTE | 2019-05-16 19:47 | NUR ---
Pt agreeable to change pure wick catheter out at this time and photograph L buttock wound. Aquacell foam applied to buttock wound. She refused a full bed bath but did let us wipe her skin with warm wipes. Skin breakdown was found in left panis fold and photographed, redness on left breast fold also found. She refused hair wash, face wash, oral swab and gown change. Gown is visibly soiled with food. Luciano Miguel and myself did education again about pressure ulcer prevention with turning Q2 hours. Pt states she would be agreeable to this tonight.
[2019-05-16] MEDS: ATORVASTATIN CALCIUM 20 MG TABLET PO SCH (21:17)
[2019-05-16 23:00] VITALS: BP 120/68
[2019-05-17] MEDS: IBUPROFEN 400 MG TABLET. PO PRN ×3 (02:01→20:25)
[2019-05-17 03:00] VITALS: BP 133/62
[2019-05-17] MEDS: METHADONE 10 MG TABLET. PO PRN ×3 (05:22→22:12)
--- NOTE | 2019-05-17 06:16 | NUR ---
Overnight, pt refused turns. She was asked every 2 hours to turn and refused each time. She seemed agreeable at beginning of shit, but then overnight had a variety of reasons why she was refusing these turns. Pt encouraged every two hours to turn to help with current pressure ulcer healing and to prevent development of more.
[2019-05-17 07:00] VITALS: BP 142/69
[2019-05-17] MEDS: ACETAMINOPHEN 500 MG TABLET PO PRN ×2 (07:25→09:20)
--- NOTE | 2019-05-17 07:27 | PDOC ---
SUBJECTIVE Subjective Pt states that she wants to go home. Wants to be on Oxycodone and Methadone when she goes home so she can fully participate in physical therapy. Stressed to patient that I will only write a script today for Methadone. Will need to see Dr. Ivey to discuss being on both. Also discussed that we will have to talk to her daughter and make sure that she is able to care for her at home. OBJECTIVE Vital Signs Vital Signs Date Time Temp Pulse Resp B/P (MAP) Pulse Ox O2 Delivery O2 Flow Rate FiO2 05/17/19 03:00 98.0 62 20 133/62 (85) 100 98.0 05/16/19 23:00 98.0 68 20 120/68 (85) 100 Room Air 98.0 05/16/19 21:18 84 125/59 05/16/19 20:06 Room Air 05/16/19 19:00 98.3 84 20 125/59 (81) 100 Room Air 98.3 05/16/19 15:00 98.0 72 20 142/70 (94) 97 Room Air 98.0 05/16/19 11:00 98.2 63 20 121/65 (83) 97 Room Air 98.2 05/16/19 08:06 71 128/62 05/16/19 07:30 Room Air I & O Intake and Output 05/17/19 07:00 Intake Total 1340 ml Output Total 300 ml Balance 1040 ml Intake Oral 1340 ml Output Urine Total 200 ml Emesis 100 ml PHYSICAL EXAM Physical Exam GEN.: No apparent distress. Alert and oriented. HEENT: Head is normocephalic, atraumatic NECK: Supple. LUNGS: Clear to auscultation. HEART: irregular rhythm, normal rate, S1, S2 present. ABDOMEN: Soft, nontender. Positive bowel sounds. EXTREMITIES: bilateral feet cyanotic and cool to touch, left knee in contracture, left hip TTP NEUROLOGIC: Normal speech, normal tone PSYCHIATRIC: Normal affect, normal mood. SKIN: No ulcerations ASSESSMENT/PLAN Assessment/Plan Pt is a 73yo CF admitted with afib with RVR 1)Afib with RVR- Cardiology following. Pt now rate controlled. Currently on Metoprolol 50mg BID and restarted on Xarelto. 2)Chronic left hip- improving with Methadone. Pt wanting to D/C home. S/p left hip injection. Dr. Miller and Ortho were following during admission 3)HTN- pt normally on Lasix but BP currently low, will continue to hold 4)Thrombocytosis- likely reactive, CTM 5)CKD- Stage 3. Cr and electrolytes stable. CTM 6)PEM- mild 7)LALITA COLEY MD May 17, 2019 07:27
--- NOTE | 2019-05-17 08:41 | PDOC ---
PROGRESS NOTES Subjective Subjective No new complaints. Objective Objective Vital Signs Date Time Temp Pulse Resp B/P (MAP) Pulse Ox O2 Delivery O2 Flow Rate FiO2 05/17/19 03:00 98.0 62 20 133/62 (85) 100 98.0 05/16/19 23:00 Room Air Intake and Output 05/17/19 06:59 Intake Total 1340 ml Output Total 300 ml Balance 1040 ml Intake Oral 1340 ml Output Urine Total 200 ml Emesis 100 ml Physical Exam Physical Exam She continues with keeping her left hip externally rotated and left knee in flexion.She is not a candidate for any hip surgery at his present condition of her left lower extremity. Assessment Assessment Problems Medical Problems: (1) Atrial fibrillation with RVR Status: Acute (2) Chronic left hip pain Status: Chronic (3) CKD (chronic kidney disease), stage III Status: Chronic (4) HTN (hypertension) Status: Chronic (5) Mild protein-energy malnutrition Status: Chronic (6) PAD (peripheral artery disease) Status: Chronic Plan Plan of Care Agree with plans for home if her daughter can handle her care needs with home health.She may need Brigida lift and hospital bed if she does not have them at home. Comment Review of Relevant I have reviewed the following items fátima (where applicable) has been applied. Labs Laboratory Tests Test 05/16/19 04:00 Sodium Level 143 mmol/L (136-145) Potassium Level 4.6 mmol/L (3.5-5.1) Chloride Level 105 mmol/L (98-107) Carbon Dioxide Level 27 mmol/L (21-32) Anion Gap 11 (6-14) Blood Urea Nitrogen 53 mg/dL (7-20) Creatinine 1.2 mg/dL (0.6-1.0) Estimated GFR (Cockcroft-Gault) 44.2 BUN/Creatinine Ratio 44 (6-20) Glucose Level 101 mg/dL (70-99) Calcium Level 9.3 mg/dL (8.5-10.1) Total Bilirubin 0.2 mg/dL (0.2-1.0) Aspartate Amino Transf (AST/SGOT) 53 U/L (15-37) Alanine Aminotransferase (ALT/SGPT) 76 U/L (14-59) Alkaline Phosphatase 96 U/L (46-116) Total Protein 6.6 g/dL (6.4-8.2) Albumin 2.4 g/dL (3.4-5.0) Albumin/Globulin Ratio 0.6 (1.0-1.7) Medications Current Medications Oxycodone/ Acetaminophen (Percocet 10/325) 1 tab 1X ONCE PO Last administered on 05/12/19at 17:37; Start 05/12/19 at 17:45; Stop 05/12/19 at 17:46; Status DC Diltiazem HCl (Cardizem Iv Push) 10 mg 1X ONCE IVP Last administered on 05/12/19at 17:40; Start 05/12/19 at 17:45; Stop 05/12/19 at 17:46; Status DC Diltiazem HCl 125 mg/Dextrose 125 ml @ 5 mls/hr 1X ONCE IV Last administered on 05/12/19at 19:16; Start 05/12/19 at 19:30; Stop 05/13/19 at 01:47; Status DC Sodium Chloride 500 ml @ 500 mls/hr 1X ONCE IV Last administered on 05/12/19at 19:24; Start 05/12/19 at 19:30; Stop 05/12/19 at 20:29; Status DC Ondansetron HCl (Zofran) 4 mg PRN Q8HRS PRN IV NAUSEA/VOMITING 1st choice; Start 05/12/19 at 19:00; Stop 05/13/19 at 18:59; Status DC Acetaminophen (Tylenol) 650 mg PRN Q4HRS PRN PO FEVER; Start 05/12/19 at 19:00; Stop 05/13/19 at 18:59; Status DC Oxycodone/ Acetaminophen (Percocet 10/325) 1 tab PRN Q6HRS PRN PO SEVERE PAIN 7-10 Last administered on 05/13/19at 02:56; Start 05/12/19 at 19:00; Stop 05/13/19 at 19:00; Status DC Metoprolol Tartrate (Lopressor) 50 mg BID PO Last administered on 05/15/19at 08:34; Start 05/12/19 at 21:00; Stop 05/15/19 at 11:14; Status DC Tizanidine HCl (Zanaflex) 4 mg PRN QID PRN PO MUSCLE SPASMS Last administered on 05/16/19at 23:29; Start 05/12/19 at 21:15 Diltiazem HCl 125 mg/Dextrose 125 ml @ 5 mls/hr CONT PRN IV SEE I/O RECORD Last administered on 05/13/19at 00:24; Start 05/13/19 at 00:15 Rivaroxaban (Xarelto) 15 mg DAILYWSUP PO Last administered on 05/16/19at 17:13; Start 05/14/19 at 17:00 Methadone HCl (Dolophine) 5 mg PRN TID PRN PO MODERATE TO SEVERE PAIN Last administered on 05/15/19 07:49; Start 05/13/19 at 08:00; Stop 05/15/19 at 11:03; Status DC Methylprednisolone Acetate (DEPO-Medrol 40MG VIAL) 40 mg 1X ONCE INJ Last administered on 05/13/19 12:00; Start 05/13/19 at 09:30; Stop 05/13/19 at 09:31; Status DC Methylprednisolone Acetate (DEPO-Medrol 40MG VIAL) 40 mg 1X ONCE IM Last administered on 05/13/19at 12:00; Start 05/13/19 at 09:30; Stop 05/13/19 at 09:31; Status DC Bupivacaine HCl (Sensorcaine-Mpf 0.25%) 10 ml 1X ONCE IJ Last administered on 05/13/19 12:00; Start 05/13/19 at 09:30; Stop 05/13/19 at 09:31; Status DC Info (Anti-Coagulation Monitoring By Pharmacy) 1 each PRN DAILY PRN MC SEE COMMENTS Last administered on 05/16/19 09:36; Start 05/13/19 at 13:15 Multivitamins (Thera M Plus) 1 tab DAILY PO Last administered on 05/16/19 08:05; Start 05/13/19 at 17:00 Labetalol HCl (Normodyne Iv Push) 10 mg PRN Q6HRS PRN IVP HYPERTENSION; Start 05/13/19 at 19:30 Prednisone (Prednisone) 20 mg 1X ONCE PO Last administered on 05/13/19at 21:07; Start 05/13/19 at 21:00; Stop 05/13/19 at 21:01; Status DC Prednisone (Prednisone) 20 mg 1X ONCE PO Last administered on 05/14/19at 03:01; Start 05/14/19 at 03:00; Stop 05/14/19 at 03:01; Status DC Prednisone (Prednisone) 20 mg 1X ONCE PO Last administered on 05/14/19 08:44; Start 05/14/19 at 09:00; Stop 05/14/19 at 09:01; Status DC Diphenhydramine HCl (Benadryl) 50 mg 1X ONCE PO Last administered on 05/14/19 09:38; Start 05/14/19 at 09:30; Stop 05/14/19 at 09:31; Status DC Methylprednisolone Acetate (DEPO-Medrol 80MG VIAL) 80 mg 1X ONCE INJ Last administered on 05/14/19 11:39; Start 05/14/19 at 10:00; Stop 05/14/19 at 10:01; Status DC Bupivacaine HCl (Sensorcaine Mpf 0.5%) 10 ml 1X ONCE IJ Last administered on 05/14/19 11:38; Start 05/14/19 at 10:00; Stop 05/14/19 at 10:01; Status DC Lidocaine/Sodium Bicarbonate (Buffered Lidocaine 1%) 3 ml 1X ONCE INJ ; Start 05/14/19 at 10:00; Stop 05/14/19 at 10:04; Status DC Iohexol (Omnipaque 300 Mg/ml) 50 ml 1X ONCE IJ Last administered on 05/14/19 11:39; Start 05/14/19 at 10:00; Stop 05/14/19 at 10:04; Status DC Polyethylene Glycol (miraLAX PACKET) 17 gm PRN DAILY PRN PO CONSTIPATION Last administered on 05/15/19 09:46; Start 05/14/19 at 12:45 Acetaminophen (Tylenol) 500 mg PRN Q6HRS PRN PO MILD PAIN / TEMP Last administered on 05/17/19 07:25; Start 05/14/19 at 12:45 Diclofenac Sodium (Voltaren) 1 nathalie BID TP Last administered on 05/16/19 21:18; Start 05/14/19 at 21:00 Atorvastatin Calcium (Lipitor) 20 mg QHS PO Last administered on 05/16/19 21:17; Start 05/14/19 at 21:00 Aspirin (Ecotrin) 81 mg DAILYWBKFT PO Last administered on 8/4/19at 08:06; Start 05/15/19 at 08:00 Methadone HCl (Dolophine) 10 mg PRN TID PRN PO MODERATE TO SEVERE PAIN; Start 05/15/19 at 11:15; Stop 05/15/19 at 11:15; Status DC Methadone HCl (Dolophine) 10 mg PRN TID PRN PO MODERATE TO SEVERE PAIN Last administered on 05/16/19at 05:17; Start 05/15/19 at 11:15; Stop 05/16/19 at 08:31; Status DC Metoprolol Tartrate (Lopressor) 75 mg BID PO Last administered on 05/16/19at 21:18; Start 05/15/19 at 21:00 Ibuprofen (Motrin) 800 mg Q8HRS PO Last administered on 05/16/19at 05:16; Start 05/15/19 at 14:00; Stop 05/16/19 at 12:36; Status DC Acetaminophen (Tylenol) 1,000 mg Q6HRS PO Last administered on 05/16/19at 05:17; Start 05/15/19 at 12:00; Stop 05/16/19 at 12:36; Status DC Methadone HCl (Dolophine) 10 mg PRN TID PRN PO MODERATE TO SEVERE PAIN; Start 05/16/19 at 08:45; Stop 05/16/19 at 12:36; Status DC Ibuprofen (Motrin) 800 mg PRN Q8HRS PRN PO MILD PAIN 1-3 Last administered on 05/17/19at 02:01; Start 05/16/19 at 12:45 Methadone HCl (Dolophine) 20 mg PRN TID PRN PO MODERATE TO SEVERE PAIN Last administered on 05/17/19at 05:22; Start 05/16/19 at 12:45 Active Scripts Active Xarelto (Rivaroxaban) 20 Mg Tablet 20 Mg PO DAILY 30 Days Percocet 10-325 Mg Tablet (Oxycodone/Acetaminophen) 1 Each Tablet 1 Tab PO PRN QID PRN 30 Days Klor-Con 10 (Potassium Chloride) 10 Meq Tablet.er 1 Tab PO DAILY Furosemide 40 Mg Tablet 40 Mg PO DAILY 30 Days Cetirizine Hcl 10 Mg Tablet 10 Mg PO DAILY 30 Days Ibuprofen 600 Mg Tablet 600 Mg PO PRN Q6HRS PRN 90 Days Hydrochlorothiazide Tablet (Hydrochlorothiazide) 25 Mg Tablet 25 Mg PO DAILY 30 Days Reported Tizanidine Hcl 4 Mg Capsule 4 Mg PO QID PRN Metoprolol Tartrate 50 Mg Tablet 1 Tab PO BID Docusate Sodium 100 Mg Capsule 1 Cap PO DAILY Benadryl (Diphenhydramine Hcl) 25 Mg Capsule 25 Mg PO PRN Q6HRS PRN Multivitamins (Multivitamin) 1 Each Tablet 1 Tab PO DAILY Aspirin Ec (Aspirin) 325 Mg Tablet. 1 Tab PO DAILY Vitals/I & O Vital Sign - Last 24 Hours 05/16/19 05/16/19 05/16/19 05/16/19 11:00 15:00 19:00 20:06 Temp 98.2 98.0 98.3 98.2 98.0 98.3 Pulse 63 72 84 Resp 20 20 20 B/P (MAP) 121/65 (83) 142/70 (94) 125/59 (81) Pulse Ox 97 97 100 O2 Delivery Room Air Room Air Room Air Room Air 05/16/19 05/16/19 05/17/19 21:18 23:00 03:00 Temp 98.0 98.0 98.0 98.0 Pulse 84 68 62 Resp 20 20 B/P (MAP) 125/59 120/68 (85) 133/62 (85) Pulse Ox 100 100 O2 Delivery Room Air Intake and Output 05/16/19 05/16/19 05/17/19 14:59 22:59 06:59 Intake Total 180 ml 440 ml 720 ml Output Total 300 ml Balance 180 ml 440 ml 420 ml MINDI FERNANDO MD May 17, 2019 08:41
[2019-05-17] MEDS: MULTIVITAMIN with MINERAL TABLET. PO SCH (09:20)
[2019-05-17] MEDS: ASPIRIN ENTERIC COATED 81 MG TABLET.DR. PO SCH (09:20)
[2019-05-17] MEDS: tiZANidine 4 MG TABLET. PO PRN (09:20)
[2019-05-17] MEDS: METOPROLOL TART IMMED RELEASE 25 MG TABLET. PO SCH ×2 (09:21→22:11)
[2019-05-17] MEDS: DICLOFENAC SODIUM 1% TOPICAL GEL 100GM TUBE. TP SCH ×2 (09:21→21:45)
[2019-05-17 10:01] LABS: ALBUMIN 2.6 g/dL (3.4-5.0); ALBUMIN/GLOBULIN RATIO 0.6 (1.0-1.7); CALCIUM 9.1 mg/dL (8.5-10.1); GFR 54.5; POTASSIUM 4.2 mmol/L (3.5-5.1); TOTAL BILIRUBIN 0.3 mg/dL (0.2-1.0); TOTAL PROTEIN 6.8 g/dL (6.4-8.2)
[2019-05-17 11:00] VITALS: BP 145/76
[2019-05-17] MEDS: ANTI-COAG MONITOR BY PHARMACY. MC PRN (11:01)
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
[2019-05-17 15:00] VITALS: BP 143/65
--- NOTE | 2019-05-17 15:45 | NUR ---
Wound Care pt seen for a f/u of a Wound care consult for multiple wounds. see wound assessment. pt has scab to left plantar foot that is MARIA GUADALUPE. pt has 2 DFU's to the right lateral foot, both cleaned, measured and pictured and redressed with a foam dressing at this time. patients right buttock stage 3 pressure ulcer wound assessed, cleaned, measured and pictured and redressed with a hydrocolloid and a foam dressing. recommendations of changing every 3 days. pt turned to the right side at this time. Pt has multiple scabs to lower legs with no open wounds noted. Pt on P500 bed and was educated on importance of turning frequently to prevent further breakdown of skin but pt still refused to turn. WC will continue to follow for possible changes.
--- NOTE | 2019-05-17 16:21 | NUR ---
SS following up with discharge planning. SS received phone contact from [facility] in [place] stating that they are not in network with pt's insurance. SS phoned and faxed referral to [facility] [place], ; fax [phone]. SS will await acceptance decision and will proceed accordingly. Pt's RN notified.
[2019-05-17] MEDS: RIVAROXABAN 15 MG TABLET. PO SCH (17:27)
[2019-05-17 19:26] VITALS: BP 121/58
[2019-05-17] MEDS: ATORVASTATIN CALCIUM 20 MG TABLET PO SCH (22:12)
[2019-05-17] MEDS: POLYETHYLENE GLYCOL 3350 17 GM PACKET. PO PRN (23:17)
[2019-05-17 23:19] VITALS: BP 128/61
[2019-05-18] MEDS: ACETAMINOPHEN 500 MG TABLET PO PRN ×2 (02:10→18:06)
[2019-05-18 02:50] VITALS: BP 158/75
[2019-05-18] MEDS: tiZANidine 4 MG TABLET. PO PRN ×2 (04:04→21:19)
[2019-05-18 07:00] VITALS: BP 141/73
[2019-05-18] MEDS ORDERED: ATOR20TA58 PO (08:58)
[2019-05-18] MEDS ORDERED: DICL100G18 TP (08:58)
[2019-05-18] MEDS ORDERED: METH10TA2 PO (08:58)
--- NOTE | 2019-05-18 09:01 | PDOC ---
SUBJECTIVE Subjective Pt now states that she is wanting to go to SNF. Had been told that she was out of skilled days previously but now licensed master social worker is saying that she has skilled days available. Working on getting placement OBJECTIVE Vital Signs Vital Signs Date Time Temp Pulse Resp B/P (MAP) Pulse Ox O2 Delivery O2 Flow Rate FiO2 05/18/19 07:00 97.4 59 14 141/73 (95) 99 Room Air 97.4 05/18/19 02:50 98.6 65 20 158/75 (102) 98 Room Air 98.6 05/17/19 23:19 98.6 70 18 128/61 (83) 97 Room Air 98.6 05/17/19 22:11 67 121/58 05/17/19 20:50 Room Air 05/17/19 19:26 98.5 73 20 121/58 (79) 97 Room Air 98.5 05/17/19 15:00 98.1 71 20 143/65 (91) 99 98.1 05/17/19 11:00 98.2 70 20 145/76 (99) 97 98.2 05/17/19 09:21 63 142/69 I & O Intake and Output 05/18/19 07:00 Intake Total 900 ml Balance 900 ml Intake Oral 900 ml # Voids 6 PHYSICAL EXAM Physical Exam GEN.: No apparent distress. Alert and oriented. HEENT: Head is normocephalic, atraumatic NECK: Supple. LUNGS: Clear to auscultation. HEART: irregular rhythm, normal rate, S1, S2 present. ABDOMEN: Soft, nontender. Positive bowel sounds. EXTREMITIES: bilateral feet cyanotic and cool to touch, left knee in contracture, left hip TTP NEUROLOGIC: Normal speech, normal tone PSYCHIATRIC: Normal affect, normal mood. SKIN: No ulcerations ASSESSMENT/PLAN Assessment/Plan Pt is a 73yo CF admitted with afib with RVR 1)Afib with RVR- Cardiology following. Pt now rate controlled. Currently on Metoprolol 75mg BID and restarted on Xarelto. 2)Chronic left hip- improving with Methadone. Pt now wanting to go to SNF. S/p left hip injection. Dr. Miller and Ortho were following during admission 3)HTN- will resume pt's HCTZ 4)Thrombocytosis- likely reactive, CTM 5)CKD- Stage 3. Cr and electrolytes stable. CTM 6)PEM- mild 7)LALITA COLEY MD May 18, 2019 09:01
[2019-05-18] MEDS: ASPIRIN ENTERIC COATED 81 MG TABLET.DR. PO SCH (09:04)
[2019-05-18] MEDS: MULTIVITAMIN with MINERAL TABLET. PO SCH (09:04)
[2019-05-18] MEDS: METHADONE 10 MG TABLET. PO PRN ×2 (09:05→15:22)
--- NOTE | 2019-05-18 09:16 | NUR ---
Nursing: Dr. Zavala on unit. Reported heart rate of 40-65. Doctor reviewed telemetry. Metoprolol dose changed. See eMAR
--- NOTE | 2019-05-18 09:18 | PDOC ---
PROGRESS NOTES Subjective Subjective No new complaints. Objective Objective Vital Signs Date Time Temp Pulse Resp B/P (MAP) Pulse Ox O2 Delivery O2 Flow Rate FiO2 05/18/19 07:00 97.4 59 14 141/73 (95) 99 Room Air 97.4 Intake and Output 05/18/19 07:00 Intake Total 900 ml Balance 900 ml Intake Oral 900 ml # Voids 6 Physical Exam Physical Exam She is alert and comfortable and no change with her left lower extremity positioning Physicaland occupational therapy working with her. Assessment Assessment Problems Medical Problems: (1) Atrial fibrillation with RVR Status: Acute (2) Chronic left hip pain Status: Chronic (3) CKD (chronic kidney disease), stage III Status: Chronic (4) HTN (hypertension) Status: Chronic (5) Mild protein-energy malnutrition Status: Chronic (6) PAD (peripheral artery disease) Status: Chronic Plan Plan of Care Waiting for placement. Comment Review of Relevant I have reviewed the following items fátima (where applicable) has been applied. Labs Laboratory Tests Test 05/17/19 08:45 Sodium Level 142 mmol/L (136-145) Potassium Level 4.2 mmol/L (3.5-5.1) Chloride Level 103 mmol/L (98-107) Carbon Dioxide Level 31 mmol/L (21-32) Anion Gap 8 (6-14) Blood Urea Nitrogen 46 mg/dL (7-20) Creatinine 1.0 mg/dL (0.6-1.0) Estimated GFR (Cockcroft-Gault) 54.5 BUN/Creatinine Ratio 46 (6-20) Glucose Level 95 mg/dL (70-99) Calcium Level 9.1 mg/dL (8.5-10.1) Total Bilirubin 0.3 mg/dL (0.2-1.0) Aspartate Amino Transf (AST/SGOT) 39 U/L (15-37) Alanine Aminotransferase (ALT/SGPT) 82 U/L (14-59) Alkaline Phosphatase 100 U/L (46-116) Total Protein 6.8 g/dL (6.4-8.2) Albumin 2.6 g/dL (3.4-5.0) Albumin/Globulin Ratio 0.6 (1.0-1.7) Medications Current Medications Oxycodone/ Acetaminophen (Percocet 10/325) 1 tab 1X ONCE PO Last administered on 05/12/19at 17:37; Start 05/12/19 at 17:45; Stop 05/12/19 at 17:46; Status DC Diltiazem HCl (Cardizem Iv Push) 10 mg 1X ONCE IVP Last administered on 05/12/19at 17:40; Start 05/12/19 at 17:45; Stop 05/12/19 at 17:46; Status DC Diltiazem HCl 125 mg/Dextrose 125 ml @ 5 mls/hr 1X ONCE IV Last administered on 05/12/19at 19:16; Start 05/12/19 at 19:30; Stop 05/13/19 at 01:47; Status DC Sodium Chloride 500 ml @ 500 mls/hr 1X ONCE IV Last administered on 05/12/19at 19:24; Start 05/12/19 at 19:30; Stop 05/12/19 at 20:29; Status DC Ondansetron HCl (Zofran) 4 mg PRN Q8HRS PRN IV NAUSEA/VOMITING 1st choice; Start 05/12/19 at 19:00; Stop 05/13/19 at 18:59; Status DC Acetaminophen (Tylenol) 650 mg PRN Q4HRS PRN PO FEVER; Start 05/12/19 at 19:00; Stop 05/13/19 at 18:59; Status DC Oxycodone/ Acetaminophen (Percocet 10/325) 1 tab PRN Q6HRS PRN PO SEVERE PAIN 7-10 Last administered on 05/13/19at 02:56; Start 05/12/19 at 19:00; Stop 05/13/19 at 19:00; Status DC Metoprolol Tartrate (Lopressor) 50 mg BID PO Last administered on 05/15/19at 08:34; Start 05/12/19 at 21:00; Stop 05/15/19 at 11:14; Status DC Tizanidine HCl (Zanaflex) 4 mg PRN QID PRN PO MUSCLE SPASMS Last administered on 05/18/19at 04:04; Start 05/12/19 at 21:15 Diltiazem HCl 125 mg/Dextrose 125 ml @ 5 mls/hr CONT PRN IV SEE I/O RECORD Last administered on 05/13/19at 00:24; Start 05/13/19 at 00:15 Rivaroxaban (Xarelto) 15 mg DAILYWSUP PO Last administered on 05/17/19 17:27; Start 05/14/19 at 17:00 Methadone HCl (Dolophine) 5 mg PRN TID PRN PO MODERATE TO SEVERE PAIN Last administered on 05/15/19 07:49; Start 05/13/19 at 08:00; Stop 05/15/19 at 11:03; Status DC Methylprednisolone Acetate (DEPO-Medrol 40MG VIAL) 40 mg 1X ONCE INJ Last administered on 05/13/19at 12:00; Start 05/13/19 at 09:30; Stop 05/13/19 at 09:31; Status DC Methylprednisolone Acetate (DEPO-Medrol 40MG VIAL) 40 mg 1X ONCE IM Last administered on 05/13/19 12:00; Start 05/13/19 at 09:30; Stop 05/13/19 at 09:31; Status DC Bupivacaine HCl (Sensorcaine-Mpf 0.25%) 10 ml 1X ONCE IJ Last administered on 05/13/19at 12:00; Start 05/13/19 at 09:30; Stop 05/13/19 at 09:31; Status DC Info (Anti-Coagulation Monitoring By Pharmacy) 1 each PRN DAILY PRN MC SEE COMMENTS Last administered on 05/17/19at 11:01; Start 05/13/19 at 13:15 Multivitamins (Thera M Plus) 1 tab DAILY PO Last administered on 05/18/19 09:05; Start 05/13/19 at 17:00 Labetalol HCl (Normodyne Iv Push) 10 mg PRN Q6HRS PRN IVP HYPERTENSION; Start 05/13/19 at 19:30 Prednisone (Prednisone) 20 mg 1X ONCE PO Last administered on 05/13/19 21:07; Start 05/13/19 at 21:00; Stop 05/13/19 at 21:01; Status DC Prednisone (Prednisone) 20 mg 1X ONCE PO Last administered on 05/14/19 03:01; Start 05/14/19 at 03:00; Stop 05/14/19 at 03:01; Status DC Prednisone (Prednisone) 20 mg 1X ONCE PO Last administered on 05/14/19at 08:44; Start 05/14/19 at 09:00; Stop 05/14/19 at 09:01; Status DC Diphenhydramine HCl (Benadryl) 50 mg 1X ONCE PO Last administered on 05/14/19 09:38; Start 05/14/19 at 09:30; Stop 05/14/19 at 09:31; Status DC Methylprednisolone Acetate (DEPO-Medrol 80MG VIAL) 80 mg 1X ONCE INJ Last administered on 05/14/19 11:39; Start 05/14/19 at 10:00; Stop 05/14/19 at 10:01; Status DC Bupivacaine HCl (Sensorcaine Mpf 0.5%) 10 ml 1X ONCE IJ Last administered on 05/14/19 11:38; Start 05/14/19 at 10:00; Stop 05/14/19 at 10:01; Status DC Lidocaine/Sodium Bicarbonate (Buffered Lidocaine 1%) 3 ml 1X ONCE INJ ; Start 05/14/19 at 10:00; Stop 05/14/19 at 10:04; Status DC Iohexol (Omnipaque 300 Mg/ml) 50 ml 1X ONCE IJ Last administered on 05/14/19 11:39; Start 05/14/19 at 10:00; Stop 05/14/19 at 10:04; Status DC Polyethylene Glycol (miraLAX PACKET) 17 gm PRN DAILY PRN PO CONSTIPATION Last administered on 05/17/19 23:17; Start 05/14/19 at 12:45 Acetaminophen (Tylenol) 500 mg PRN Q6HRS PRN PO MILD PAIN / TEMP Last administered on 05/18/19 02:10; Start 05/14/19 at 12:45 Diclofenac Sodium (Voltaren) 1 nathalie BID TP Last administered on 05/17/19 09:21; Start 05/14/19 at 21:00 Atorvastatin Calcium (Lipitor) 20 mg QHS PO Last administered on 05/17/19 2 2:12; Start 05/14/19 at 21:00 Aspirin (Ecotrin) 81 mg DAILYWBKFT PO Last administered on 05/18/19 09:05; Start 05/15/19 at 08:00 Methadone HCl (Dolophine) 10 mg PRN TID PRN PO MODERATE TO SEVERE PAIN; Start 05/15/19 at 11:15; Stop 05/15/19 at 11:15; Status DC Methadone HCl (Dolophine) 10 mg PRN TID PRN PO MODERATE TO SEVERE PAIN Last administered on 05/16/19at 05:17; Start 05/15/19 at 11:15; Stop 05/16/19 at 08:31; Status DC Metoprolol Tartrate (Lopressor) 75 mg BID PO Last administered on 05/17/19at 22:11; Start 05/15/19 at 21:00 Ibuprofen (Motrin) 800 mg Q8HRS PO Last administered on 05/16/19at 05:16; Start 05/15/19 at 14:00; Stop 05/16/19 at 12:36; Status DC Acetaminophen (Tylenol) 1,000 mg Q6HRS PO Last administered on 05/16/19at 05:17; Start 05/15/19 at 12:00; Stop 05/16/19 at 12:36; Status DC Methadone HCl (Dolophine) 10 mg PRN TID PRN PO MODERATE TO SEVERE PAIN; Start 05/16/19 at 08:45; Stop 05/16/19 at 12:36; Status DC Ibuprofen (Motrin) 800 mg PRN Q8HRS PRN PO MILD PAIN 1-3 Last administered on 05/17/19at 20:25; Start 05/16/19 at 12:45 Methadone HCl (Dolophine) 20 mg PRN TID PRN PO MODERATE TO SEVERE PAIN Last administered on 05/18/19at 09:05; Start 05/16/19 at 12:45 Hydrochlorothiazide (Hydrodiuril) 25 mg DAILY PO ; Start 05/18/19 at 09:00 Active Scripts Active Xarelto (Rivaroxaban) 20 Mg Tablet 20 Mg PO DAILY 30 Days Percocet 10-325 Mg Tablet (Oxycodone/Acetaminophen) 1 Each Tablet 1 Tab PO PRN QID PRN 30 Days Klor-Con 10 (Potassium Chloride) 10 Meq Tablet.er 1 Tab PO DAILY Furosemide 40 Mg Tablet 40 Mg PO DAILY 30 Days Cetirizine Hcl 10 Mg Tablet 10 Mg PO DAILY 30 Days Ibuprofen 600 Mg Tablet 600 Mg PO PRN Q6HRS PRN 90 Days Hydrochlorothiazide Tablet (Hydrochlorothiazide) 25 Mg Tablet 25 Mg PO DAILY 30 Days Reported Tizanidine Hcl 4 Mg Capsule 4 Mg PO QID PRN Metoprolol Tartrate 50 Mg Tablet 1 Tab PO BID Docusate Sodium 100 Mg Capsule 1 Cap PO DAILY Benadryl (Diphenhydramine Hcl) 25 Mg Capsule 25 Mg PO PRN Q6HRS PRN Multivitamins (Multivitamin) 1 Each Tablet 1 Tab PO DAILY Aspirin Ec (Aspirin) 325 Mg Tablet.dr 1 Tab PO DAILY Vitals/I & O Vital Sign - Last 24 Hours 05/17/19 05/17/19 05/17/19 05/17/19 09:21 11:00 15:00 19:26 Temp 98.2 98.1 98.5 98.2 98.1 98.5 Pulse 63 70 71 73 Resp 20 20 20 B/P (MAP) 142/69 145/76 (99) 143/65 (91) 121/58 (79) Pulse Ox 97 99 97 O2 Delivery Room Air 05/17/19 05/17/19 05/17/19 05/18/19 20:50 22:11 23:19 02:50 Temp 98.6 98.6 98.6 98.6 Pulse 67 70 65 Resp 18 20 B/P (MAP) 121/58 128/61 (83) 158/75 (102) Pulse Ox 97 98 O2 Delivery Room Air Room Air Room Air 05/18/19 07:00 Temp 97.4 97.4 Pulse 59 Resp 14 B/P (MAP) 141/73 (95) Pulse Ox 99 O2 Delivery Room Air Intake and Output 05/17/19 05/17/19 05/18/19 15:00 23:00 07:00 Intake Total 300 ml 600 ml Balance 300 ml 600 ml MINDI FERNANDO MD May 18, 2019 09:18
[2019-05-18] MEDS: hydroCHLOROthiazide 25 MG TABLET PO SCH (09:47)
[2019-05-18] MEDS: DICLOFENAC SODIUM 1% TOPICAL GEL 100GM TUBE. TP SCH ×2 (09:48→20:35)
[2019-05-18] MEDS: METOPROLOL TART IMMED RELEASE 50 MG TABLET. PO SCH ×2 (09:48→20:34)
[2019-05-18 11:00] VITALS: BP 144/67
--- NOTE | 2019-05-18 11:26 | NUR ---
SS following up with discharge planning. [facility] stating that they are out of network with pt's insurance. neighborhood planner, Chrissy Lauren, phoned and faxed referrals to [facility]. SS awaiting acceptance decision and will proceed accordingly.
[2019-05-18] MEDS: IBUPROFEN 400 MG TABLET. PO PRN (11:59)
[2019-05-18 15:00] VITALS: BP 148/55
[2019-05-18] MEDS: RIVAROXABAN 15 MG TABLET. PO SCH (18:03)
[2019-05-18 19:25] VITALS: BP 128/62
[2019-05-18] MEDS: ATORVASTATIN CALCIUM 20 MG TABLET PO SCH (20:31)
[2019-05-18 23:29] VITALS: BP 132/61
[2019-05-19] MEDS: METHADONE 10 MG TABLET. PO PRN ×3 (01:28→17:36)
[2019-05-19 04:23] VITALS: BP 150/61
[2019-05-19] MEDS: tiZANidine 4 MG TABLET. PO PRN ×3 (05:37→21:02)
--- NOTE | 2019-05-19 06:20 | SNU/HH DC ---
DISCHARGE ORDERS DISCHARGE INFORMATION: DISCHARGE DATE: May 19, 2019 FINAL DIAGNOSIS Problems Medical Problems: (1) Atrial fibrillation with RVR Status: Acute (2) Chronic left hip pain Status: Chronic (3) CKD (chronic kidney disease), stage III Status: Chronic (4) HTN (hypertension) Status: Chronic (5) Mild protein-energy malnutrition Status: Chronic (6) PAD (peripheral artery disease) Status: Chronic CONDITION ON DISCHARGE: Stable CODE STATUS: Code Status: Full MCC: SNF STAY <30 DAYS: Yes HOSPICE: HOSPICE: No HOSPICE EVAL & TREAT: No LTAC: ADMIT TO LTAC: No POST DISCHARGE ORDERS: ACTIVITY ORDERS: Resume previous activity, Activity as tolerated WEIGHT BEARING STATUS: As tolerated DIET AFTER DISCHARGE: Cardiac CHECKS AFTER DISCHARGE: CHECKS AFTER DISCHARGE: Check blood press - daily, Weigh Yourself Daily TREATMENT/EQUIPMENT ORDERS: ADAPTIVE EQUIPMENT NEEDED: Wheelchair Physical Therapy For: Evalulation/Treatment Occupational Therapy For: Evaluation/Treatment DISCHARGE MEDICATIONS: Home Meds Active Scripts Methadone Hcl (METHADONE HCL) 10 Mg Tablet, 20 MG PO PRN TID PRN for MODERATE TO SEVERE PAIN for 15 Days, TAB Prov:LALITA VILLARREAL MD 05/18/19 Diclofenac Sodium (VOLTAREN) 100 Gm Gel..gram., 1 ALESSANDRO TP BID for joint pain for 30 Days, #60 EACH Prov:LALITA VILLARREAL MD 05/18/19 Atorvastatin Calcium (ATORVASTATIN CALCIUM) 20 Mg Tablet, 20 MG PO QHS for HLD for 30 Days, #30 TAB Prov:LALITA VILLARREAL MD 05/18/19 Rivaroxaban (XARELTO) 20 Mg Tablet, 20 MG PO DAILY for afib for 30 Days, #30 TAB Prov:SALVATORE HYDE MD 12/10/18 Cetirizine Hcl (CETIRIZINE HCL) 10 Mg Tablet, 10 MG PO DAILY for 30 Days, #30 TAB Prov:SALVATORE HYDE MD 10/27/17 Ibuprofen (Ibuprofen) 600 Mg Tablet, 600 MG PO PRN Q6HRS PRN for INFLAMMATION for 90 Days, TAB Prov:SALVATORE HYDE MD 10/27/17 Hydrochlorothiazide (HYDROCHLOROTHIAZIDE TABLET ) 25 Mg Tablet, 25 MG PO DAILY for 30 Days, #30 TAB Prov:SALVATORE HYDE MD 10/27/17 Reported Medications Tizanidine Hcl (TIZANIDINE HCL) 4 Mg Capsule, 4 MG PO QID PRN for MUSCLE SPASMS, CAP 10/19/17 Metoprolol Tartrate (METOPROLOL TARTRATE) 50 Mg Tablet, 1 TAB PO BID, #60 TAB 5 Refills 10/19/17 Docusate Sodium (DOCUSATE SODIUM) 100 Mg Capsule, 1 CAP PO DAILY, #30 CAP 10/19/17 Diphenhydramine Hcl (BENADRYL) 25 Mg Capsule, 25 MG PO PRN Q6HRS PRN for ALLERGIES, CAP 10/19/17 Multivitamin (MULTIVITAMINS) 1 Each Tablet, 1 TAB PO DAILY, #90 TAB 3 Refills 10/19/17 Aspirin (ASPIRIN EC) 325 Mg Tablet.dr, 1 TAB PO DAILY, #30 TAB 5 Refills 10/19/17 Discontinued Scripts Oxycodone/Apap 10-325 (PERCOCET 10-325 MG TABLET ) 1 Each Tablet, 1 TAB PO PRN QID PRN for PAIN for 30 Days, #120 TAB Prov:SALVATORE HYDE MD 12/10/18 Potassium Chloride (KLOR-CON 10) 10 Meq Tablet.er, 1 TAB PO DAILY, #30 TAB 5 Refills Prov:SALVATORE HYDE MD 10/28/17 Furosemide (FUROSEMIDE) 40 Mg Tablet, 40 MG PO DAILY for 30 Days, #30 TAB Prov:SALVATORE HYDE MD 10/28/17 LALITA VILLARREAL MD May 19, 2019 06:20
--- NOTE | 2019-05-19 06:23 | PDOC3 ---
Discharge Summary Date of Admission: May 13, 2019 Date of Discharge: May 18, 2019 Follow-Up: Other (within 2 weeks of discharge from SNF) Admitting Diagnosis comment: Afib with RVR FINAL DIAGNOSIS Afib with RVR, chronic left hip pain, HTN, Thrombocytosis, CKD- Stage 3, PEM- mild, PAD Brief Hospital Course DISCHARGE PHYSICAL EXAM GEN.: No apparent distress. Alert and oriented. HEENT: Head is normocephalic, atraumatic NECK: Supple. LUNGS: Clear to auscultation. HEART: regular rate and rhythm, normal rate, S1, S2 present. ABDOMEN: Soft, nontender. Positive bowel sounds. EXTREMITIES: bilateral feet cyanotic and cool to touch, left knee in contracture, left hip TTP NEUROLOGIC: Normal speech, normal tone PSYCHIATRIC: Normal affect, normal mood. SKIN: No ulcerations Pt is a 73yo CF admitted with afib with RVR 1)Afib with RVR- Cardiology following. Pt now rate controlled. Metoprolol decreased yesterday to 50mg BID due to bradycardia. Pt continued on her Xarelto. 2)Chronic left hip- improving with Methadone. Pt now wanting to go to SNF. S/p left hip injection. Dr. Miller and Ortho were following during admission 3)HTN- better controlled with resumption of pt's HCTZ 4)Thrombocytosis- likely reactive, CTM 5)CKD- Stage 3. Cr and electrolytes stable. CTM 6)PEM- mild 7)PAD Discharge Medications Current Medications Oxycodone/ Acetaminophen (Percocet 10/325) 1 tab 1X ONCE PO Last administered on 05/12/19at 17:37; Start 05/12/19 at 17:45; Stop 05/12/19 at 17:46; Status DC Diltiazem HCl (Cardizem Iv Push) 10 mg 1X ONCE IVP Last administered on 05/12/19at 17:40; Start 05/12/19 at 17:45; Stop 05/12/19 at 17:46; Status DC Diltiazem HCl 125 mg/Dextrose 125 ml @ 5 mls/hr 1X ONCE IV Last administered on 05/12/19at 19:16; Start 05/12/19 at 19:30; Stop 05/13/19 at 01:47; Status DC Sodium Chloride 500 ml @ 500 mls/hr 1X ONCE IV Last administered on 05/12/19at 19:24; Start 05/12/19 at 19:30; Stop 05/12/19 at 20:29; Status DC Ondansetron HCl (Zofran) 4 mg PRN Q8HRS PRN IV NAUSEA/VOMITING 1st choice; Start 05/12/19 at 19:00; Stop 05/13/19 at 18:59; Status DC Acetaminophen (Tylenol) 650 mg PRN Q4HRS PRN PO FEVER; Start 05/12/19 at 19:00; Stop 05/13/19 at 18:59; Status DC Oxycodone/ Acetaminophen (Percocet 10/325) 1 tab PRN Q6HRS PRN PO SEVERE PAIN 7-10 Last administered on 05/13/19at 02:56; Start 05/12/19 at 19:00; Stop 05/13/19 at 19:00; Status DC Metoprolol Tartrate (Lopressor) 50 mg BID PO Last administered on 05/15/19at 08:34; Start 05/12/19 at 21:00; Stop 05/15/19 at 11:14; Status DC Tizanidine HCl (Zanaflex) 4 mg PRN QID PRN PO MUSCLE SPASMS Last administered on 05/19/19at 05:38; Start 05/12/19 at 21:15 Diltiazem HCl 125 mg/Dextrose 125 ml @ 5 mls/hr CONT PRN IV SEE I/O RECORD Last administered on 05/13/19at 00:24; Start 05/13/19 at 00:15 Rivaroxaban (Xarelto) 15 mg DAILYWSUP PO Last administered on 05/18/19at 18:03; Start 05/14/19 at 17:00 Methadone HCl (Dolophine) 5 mg PRN TID PRN PO MODERATE TO SEVERE PAIN Last administered on 05/15/19at 07:49; Start 05/13/19 at 08:00; Stop 05/15/19 at 11:03; Status DC Methylprednisolone Acetate (DEPO-Medrol 40MG VIAL) 40 mg 1X ONCE INJ Last a dministered on 05/13/19at 12:00; Start 05/13/19 at 09:30; Stop 05/13/19 at 09:31; Status DC Methylprednisolone Acetate (DEPO-Medrol 40MG VIAL) 40 mg 1X ONCE IM Last administered on 05/13/19 12:00; Start 05/13/19 at 09:30; Stop 05/13/19 at 09:31; Status DC Bupivacaine HCl (Sensorcaine-Mpf 0.25%) 10 ml 1X ONCE IJ Last administered on 05/13/19at 12:00; Start 05/13/19 at 09:30; Stop 05/13/19 at 09:31; Status DC Info (Anti-Coagulation Monitoring By Pharmacy) 1 each PRN DAILY PRN MC SEE COMMENTS Last administered on 05/17/19at 11:01; Start 05/13/19 at 13:15 Multivitamins (Thera M Plus) 1 tab DAILY PO Last administered on 05/18/19 09:05; Start 05/13/19 at 17:00 Labetalol HCl (Normodyne Iv Push) 10 mg PRN Q6HRS PRN IVP HYPERTENSION; Start 05/13/19 at 19:30 Prednisone (Prednisone) 20 mg 1X ONCE PO Last administered on 05/13/19at 21:07; Start 05/13/19 at 21:00; Stop 05/13/19 at 21:01; Status DC Prednisone (Prednisone) 20 mg 1X ONCE PO Last administered on 05/14/19 03:01; Start 05/14/19 at 03:00; Stop 05/14/19 at 03:01; Status DC Prednisone (Prednisone) 20 mg 1X ONCE PO Last administered on 05/14/19 08:44; Start 05/14/19 at 09:00; Stop 05/14/19 at 09:01; Status DC Diphenhydramine HCl (Benadryl) 50 mg 1X ONCE PO Last administered on 05/14/19 09:38; Start 05/14/19 at 09:30; Stop 05/14/19 at 09:31; Status DC Methylprednisolone Acetate (DEPO-Medrol 80MG VIAL) 80 mg 1X ONCE INJ Last administered on 05/14/19at 11:39; Start 05/14/19 at 10:00; Stop 05/14/19 at 10:01; Status DC Bupivacaine HCl (Sensorcaine Mpf 0.5%) 10 ml 1X ONCE IJ Last administered on 05/14/19 11:38; Start 05/14/19 at 10:00; Stop 05/14/19 at 10:01; Status DC Lidocaine/Sodium Bicarbonate (Buffered Lidocaine 1%) 3 ml 1X ONCE INJ ; Start 05/14/19 at 10:00; Stop 05/14/19 at 10:04; Status DC Iohexol (Omnipaque 300 Mg/ml) 50 ml 1X ONCE IJ Last administered on 05/14/19at 11:39; Start 05/14/19 at 10:00; Stop 05/14/19 at 10:04; Status DC Polyethylene Glycol (miraLAX PACKET) 17 gm PRN DAILY PRN PO CONSTIPATION Last administered on 05/17/19 23:17; Start 05/14/19 at 12:45 Acetaminophen (Tylenol) 500 mg PRN Q6HRS PRN PO HEADACHE / TEMP Last administered on 05/18/19 18:06; Start 05/14/19 at 12:45 Diclofenac Sodium (Voltaren) 1 vashti BID TP Last administered on 05/18/19 20:35; Start 05/14/19 at 21:00 Atorvastatin Calcium (Lipitor) 20 mg QHS PO Last administered on 05/18/19 20:35; Start 05/14/19 at 21:00 Aspirin (Ecotrin) 81 mg DAILYWBKFT PO Last administered on 05/18/19 09:05; Start 05/15/19 at 08:00 Methadone HCl (Dolophine) 10 mg PRN TID PRN PO MODERATE TO SEVERE PAIN; Start 05/15/19 at 11:15; Stop 05/15/19 at 11:15; Status DC Methadone HCl (Dolophine) 10 mg PRN TID PRN PO MODERATE TO SEVERE PAIN Last administered on 05/16/19 05:17; Start 05/15/19 at 11:15; Stop 05/16/19 at 08:31; Status DC Metoprolol Tartrate (Lopressor) 75 mg BID PO Last administered on 05/17/19 22:11; Start 05/15/19 at 21:00; Stop 05/18/19 at 09:15; Status DC Ibuprofen (Motrin) 800 mg Q8HRS PO Last administered on 05/16/19 05:16; Start 05/15/19 at 14:00; Stop 05/16/19 at 12:36; Status DC Acetaminophen (Tylenol) 1,000 mg Q6HRS PO Last administered on 05/16/19at 05:17; Start 05/15/19 at 12:00; Stop 05/16/19 at 12:36; Status DC Methadone HCl (Dolophine) 10 mg PRN TID PRN PO MODERATE TO SEVERE PAIN; Start 05/16/19 at 08:45; Stop 05/16/19 at 12:36; Status DC Ibuprofen (Motrin) 800 mg PRN Q8HRS PRN PO MILD PAIN 1-3 Last administered on 05/18/19at 11:59; Start 05/16/19 at 12:45 Methadone HCl (Dolophine) 20 mg PRN TID PRN PO MODERATE TO SEVERE PAIN Last administered on 05/19/19at 01:30; Start 05/16/19 at 12:45 Hydrochlorothiazide (Hydrodiuril) 25 mg DAILY PO Last administered on 05/18/19at 09:48; Start 05/18/19 at 09:00 Metoprolol Tartrate (Lopressor) 50 mg BID PO Last administered on 05/18/19at 20:35; Start 05/18/19 at 09:15 Fluticasone Propionate (Flonase) 2 spray DAILY NS ; Start 05/19/19 at 09:00 Cetirizine HCl (ZyrTEC) 10 mg PRN DAILY PRN PO ALLERGIES; Start 05/19/19 at 06:30 Active Scripts Active Methadone Hcl 10 Mg Tablet 20 Mg PO PRN TID PRN 15 Days Voltaren (Diclofenac Sodium) 100 Gm Gel..gram. 1 Vashti TP BID 30 Days Atorvastatin Calcium 20 Mg Tablet 20 Mg PO QHS 30 Days Xarelto (Rivaroxaban) 20 Mg Tablet 20 Mg PO DAILY 30 Days Cetirizine Hcl 10 Mg Tablet 10 Mg PO DAILY 30 Days Ibuprofen 600 Mg Tablet 600 Mg PO PRN Q6HRS PRN 90 Days Hydrochlorothiazide Tablet (Hydrochlorothiazide) 25 Mg Tablet 25 Mg PO DAILY 30 Days Reported Tizanidine Hcl 4 Mg Capsule 4 Mg PO QID PRN Metoprolol Tartrate 50 Mg Tablet 1 Tab PO BID Docusate Sodium 100 Mg Capsule 1 Cap PO DAILY Benadryl (Diphenhydramine Hcl) 25 Mg Capsule 25 Mg PO PRN Q6HRS PRN Multivitamins (Multivitamin) 1 Each Tablet 1 Tab PO DAILY Aspirin Ec (Aspirin) 325 Mg Tablet.dr 1 Tab PO DAILY Vital Signs Vital Signs Date Time Temp Pulse Resp B/P (MAP) Pulse Ox O2 Delivery O2 Flow Rate FiO2 05/19/19 04:23 97.8 64 18 150/61 (90) 99 Room Air 97.8 Labs Laboratory Tests Test 05/17/19 08:45 Sodium Level 142 mmol/L (136-145) Potassium Level 4.2 mmol/L (3.5-5.1) Chloride Level 103 mmol/L (98-107) Carbon Dioxide Level 31 mmol/L (21-32) Anion Gap 8 (6-14) Blood Urea Nitrogen 46 mg/dL (7-20) Creatinine 1.0 mg/dL (0.6-1.0) Estimated GFR (Cockcroft-Gault) 54.5 BUN/Creatinine Ratio 46 (6-20) Glucose Level 95 mg/dL (70-99) Calcium Level 9.1 mg/dL (8.5-10.1) Total Bilirubin 0.3 mg/dL (0.2-1.0) Aspartate Amino Transf (AST/SGOT) 39 U/L (15-37) Alanine Aminotransferase (ALT/SGPT) 82 U/L (14-59) Alkaline Phosphatase 100 U/L (46-116) Total Protein 6.8 g/dL (6.4-8.2) Albumin 2.6 g/dL (3.4-5.0) Albumin/Globulin Ratio 0.6 (1.0-1.7) Allergies Allergies Coded Allergies Type Severity Reaction Last Updated Verified shellfish derived Allergy Severe 10/23/17 Yes Iodinated Contrast- Oral and IV Dye Allergy Intermediate 10/23/17 Yes digoxin Allergy Intermediate 10/23/17 Yes I S O L A T I O N *CONTACT* Allergy Unknown 05/14/19 Yes Disposition/Orders: D/C to Another Facility LALITA VILLARREAL MD May 19, 2019 06:23
[2019-05-19] MEDS ORDERED: CETIRIZINE HCL 10 MG TABLET. PO PRN (06:30)
[2019-05-19 07:00] VITALS: BP 104/69
--- NOTE | 2019-05-19 07:30 | NUR ---
Nursing/Bradycardia: Dr. Ivey on unit. Patients heart rate between 40-55. Reported to physician. Ordered to decrease metoprolol. see eMAR for order.
[2019-05-19] MEDS: MULTIVITAMIN with MINERAL TABLET. PO SCH (07:50)
[2019-05-19] MEDS: IBUPROFEN 400 MG TABLET. PO PRN ×2 (07:50→19:50)
[2019-05-19] MEDS: ASPIRIN ENTERIC COATED 81 MG TABLET.DR. PO SCH (07:50)
[2019-05-19] MEDS: METOPROLOL TART IMMED RELEASE 25 MG TABLET. PO SCH ×2 (07:51→21:04)
[2019-05-19] MEDS: DICLOFENAC SODIUM 1% TOPICAL GEL 100GM TUBE. TP SCH ×2 (07:51→21:02)
[2019-05-19] MEDS: FLUTICASONE 50MCG/NASAL SPRAY 16GM BOTTLE. NS SCH (07:52)
--- NOTE | 2019-05-19 09:08 | NUR ---
SS following up with discharge planning. SS contacted [facility] for update on acceptance decision. [place] reported that they would contact SS this morning with a decision. SS phoned and faxed referral to [facility], ; fax [phone]. SS met with pt in room and reported that pt has been [facility] [place], [facility], [facility], and [facility]. SS reported that we are awaiting decisions from [facility] and [facility] at this time and discussed options of returning to [facility] or discharging to home with family and home healthcare if the facilities declined. Pt reported that she will not return to [facility] and will return to home with her family and home healthcare services if facilities decline. SS reported to pt that she is medically stable for discharge and recommended that she prepare her family for discharge if facilities decline her. SS contacting family as well and notifying them of discharge planning.
[2019-05-19] MEDS: hydroCHLOROthiazide 25 MG TABLET PO SCH (09:25)
[2019-05-19 11:00] VITALS: BP 133/62
[2019-05-19] MEDS: ACETAMINOPHEN 500 MG TABLET PO PRN (13:20)
[2019-05-19 15:00] VITALS: BP 105/51
--- NOTE | 2019-05-19 15:38 | NUR ---
SS following up with discharge planning. [facility] contacted SS and reported that they are out of network with pt's insurance. SS contacted [facility] and they reported that at this time they have not accepted pt. SS contacted pt's daughter and left a message stating that if pt will not return to [facility] then she will discharge to home with home healthcare services as pt has been clinically denied by several [facility] units and others are out of network with her insurance. Pt and pt's RN notified. Pt reporting that she will discharge to home with home healthcare services. SS requesting home healthcare orders at this time.
--- NOTE | 2019-05-19 16:31 | SNU/HH DC ---
DISCHARGE WITH HOME HEALTH DISCHARGE INFORMATION: Discharge Date: May 19, 2019 Final Diagnosis: Problems Medical Problems: (1) Atrial fibrillation with RVR Status: Acute (2) Chronic left hip pain Status: Chronic (3) CKD (chronic kidney disease), stage III Status: Chronic (4) HTN (hypertension) Status: Chronic (5) Mild protein-energy malnutrition Status: Chronic (6) PAD (peripheral artery disease) Status: Chronic Condition on Discharge: Stable CODE STATUS: Code Status: Full HOME HEALTH: Face to Face: I certify this patient is under my care and that I, or a nurse practitioner or physician's reference assistant working with me, had a face to face encounter that meets the physician face to face encounter requirements with this patient on 05/19/19. Medical Complications: S/P Joint Replacement Retirement For: Assess Cardiopulm Status, Assess & Educate Safety, Assess/Skilled Observatio, Medication Management, Pain Management RN For Eval/Treatment: Yes Physical Therapy For: Evalulation/Treatment Occupational Therapy For: Evaluation/Treatment Home Health Aide For: Self-care SHOE DESIGNER For: Community Resources Pt Meets Homebound Status: Poor coordination w/ amb., Unsteady balance w/ amb,, Extreme weakness w/ amb., Fatigue w/ amb., Unable to negotiate home POST DISCHARGE ORDERS: Activity Instructions for Disc: Resume previous activity, Activity as tolerated Weight Bearing Status after Di: As tolerated DIET AFTER DISCHARGE: Cardiac CHECKS AFTER DISCHARGE: Checks after discharge: Check blood press - daily, Weigh Yourself Daily FOLLOW-UP: PCP to follow Home Health: Dr. Ivey TREATMENT/EQUIPMENT ORDERS: Adaptive Equipment Issued: Wheelchair CERTIFICATION STATEMENT: Certification Statement: Certification Statement: Based on the above finding, I certify that this patient is confined to the home and needs intermittent fdc care, physical therapy and/or speech therapy, or continues to need occupational therapy.~ This patient is under my care, and I have initiated the establishment of the plan of care.~ This patient will be followed by myself or a community physician who will periodically review the plan of care. Home Meds Active Scripts Methadone Hcl (METHADONE HCL) 10 Mg Tablet, 20 MG PO PRN TID PRN for MODERATE TO SEVERE PAIN for 15 Days, TAB Prov:LALITA VILLARREAL MD 05/18/19 Diclofenac Sodium (VOLTAREN) 100 Gm Gel..gram., 1 ALESSANDRO TP BID for joint pain for 30 Days, #60 EACH Prov:LALITA VILLARREAL MD 05/18/19 Atorvastatin Calcium (ATORVASTATIN CALCIUM) 20 Mg Tablet, 20 MG PO QHS for HLD for 30 Days, #30 TAB Prov:LALITA VILLARREAL MD 05/18/19 Rivaroxaban (XARELTO) 20 Mg Tablet, 20 MG PO DAILY for afib for 30 Days, #30 TAB Prov:SALVATORE IVEY MD 12/10/18 Cetirizine Hcl (CETIRIZINE HCL) 10 Mg Tablet, 10 MG PO DAILY for 30 Days, #30 TAB Prov:SALVATORE IVEY MD 10/27/17 Ibuprofen (Ibuprofen) 600 Mg Tablet, 600 MG PO PRN Q6HRS PRN for INFLAMMATION for 90 Days, TAB Prov:SALVATORE IVEY MD 10/27/17 Hydrochlorothiazide (HYDROCHLOROTHIAZIDE TABLET ) 25 Mg Tablet, 25 MG PO DAILY for 30 Days, #30 TAB Prov:SALVATORE IVEY MD 10/27/17 Reported Medications Tizanidine Hcl (TIZANIDINE HCL) 4 Mg Capsule, 4 MG PO QID PRN for MUSCLE SPASMS, CAP 10/19/17 Metoprolol Tartrate (METOPROLOL TARTRATE) 50 Mg Tablet, 1 TAB PO BID, #60 TAB 5 Refills 10/19/17 Docusate Sodium (DOCUSATE SODIUM) 100 Mg Capsule, 1 CAP PO DAILY, #30 CAP 10/19/17 Diphenhydramine Hcl (BENADRYL) 25 Mg Capsule, 25 MG PO PRN Q6HRS PRN for ALLERGIES, CAP 10/19/17 Multivitamin (MULTIVITAMINS) 1 Each Tablet, 1 TAB PO DAILY, #90 TAB 3 Refills 10/19/17 Aspirin (ASPIRIN EC) 325 Mg Tablet.dr, 1 TAB PO DAILY, #30 TAB 5 Refills 10/19/17 Discontinued Scripts Oxycodone/Apap 10-325 (PERCOCET 10-325 MG TABLET ) 1 Each Tablet, 1 TAB PO PRN QID PRN for PAIN for 30 Days, #120 TAB Prov:SALVATORE IVEY MD 12/10/18 Potassium Chloride (KLOR-CON 10) 10 Meq Tablet.er, 1 TAB PO DAILY, #30 TAB 5 Refills Prov:SALVATORE IVEY MD 10/28/17 Furosemide (FUROSEMIDE) 40 Mg Tablet, 40 MG PO DAILY for 30 Days, #30 TAB Prov:SALVATOER IVEY MD 10/28/17 LALITA VILLARREAL MD May 19, 2019 16:30
[2019-05-19] MEDS: RIVAROXABAN 15 MG TABLET. PO SCH (17:37)
[2019-05-19 19:34] VITALS: BP 129/62
[2019-05-19] MEDS: ATORVASTATIN CALCIUM 20 MG TABLET PO SCH (21:02)
[2019-05-19 22:19] VITALS: BP 113/63
[2019-05-20 03:57] VITALS: BP 145/60
[2019-05-20] MEDS: METHADONE 10 MG TABLET. PO PRN ×2 (06:17→16:55)
[2019-05-20 07:00] VITALS: BP 164/61
[2019-05-20] MEDS ORDERED: METO25TA4 PO (07:14)
--- NOTE | 2019-05-20 07:20 | PDOC ---
SUBJECTIVE Subjective Pt will be discharging to home as opposed to SNF due to not being able to find a facility who will accept her insurance or accept patient. Pt's Metoprolol was decreased to 25mg BID due to bradycardia. OBJECTIVE Vital Signs Vital Signs Date Time Temp Pulse Resp B/P (MAP) Pulse Ox O2 Delivery O2 Flow Rate FiO2 05/20/19 03:57 97.7 54 16 145/60 (88) 100 Room Air 97.7 05/19/19 22:19 98.7 62 16 113/63 (80) 99 Room Air 98.7 05/19/19 21:05 67 145/69 05/19/19 20:00 Room Air 05/19/19 19:34 99.6 64 16 129/62 (84) 95 Room Air 99.6 05/19/19 15:00 98.2 71 16 105/51 (69) 99 Room Air 98.2 05/19/19 11:00 98.5 54 16 133/62 (85) 100 Room Air 98.5 05/19/19 08:05 Room Air 05/19/19 07:52 60 I & O Intake and Output 05/20/19 06:59 Intake Total 580 ml Output Total 1800 ml Balance -1220 ml Intake Oral 580 ml Output Urine Total 1800 ml LALITA VILLARREAL MD May 20, 2019 07:20
--- NOTE | 2019-05-20 08:18 | NUR ---
SS following up with discharge planning. SS received phone contact from [facility] stating that they have officially clinically declined pt. SS notified pt's RN that pt will need to discharge to home with home healthcare. SS notified pt's family.
[2019-05-20] MEDS: ASPIRIN ENTERIC COATED 81 MG TABLET.DR. PO SCH (08:41)
[2019-05-20] MEDS: DICLOFENAC SODIUM 1% TOPICAL GEL 100GM TUBE. TP SCH (08:42)
[2019-05-20] MEDS: FLUTICASONE 50MCG/NASAL SPRAY 16GM BOTTLE. NS SCH (08:42)
[2019-05-20] MEDS: MULTIVITAMIN with MINERAL TABLET. PO SCH (08:42)
[2019-05-20] MEDS: METOPROLOL TART IMMED RELEASE 25 MG TABLET. PO SCH (08:42)
[2019-05-20] MEDS ORDERED: hydroCHLOROthiazide 25 MG TABLET PO SCH (10:00)
[2019-05-20] MEDS: tiZANidine 4 MG TABLET. PO PRN (10:20)
[2019-05-20 11:00] VITALS: BP 119/51
--- NOTE | 2019-05-20 11:17 | NUR ---
SS following up with discharge planning. Discharge orders received for home healthcare. SS met with pt to discuss home healthcare. Pt agreeable to home healthcare and provided SS with her address. SS phoned and faxed referral to [facility]. [facility] contacted SS and reported that they could not accept pt due to non-compliance. SS phoned and faxed referral to [facility]. Pt will discharge today and return to home with [facility] via [employer] transportation, , at 1700. Pt and pt's RN notified. SS left voicemail for pt's daughter notifying her of discharge. Pt reported that she has notified daughter as well. Pt is at high risk of readmission due to placement issues.
[2019-05-20] MEDS: ACETAMINOPHEN 500 MG TABLET PO PRN (12:45)
[2019-05-20 15:00] VITALS: BP 110/50
[2019-05-20] MEDS: RIVAROXABAN 15 MG TABLET. PO SCH (16:55)
--- NOTE | 2019-05-20 17:20 | NUR ---
Pt needs gurney for transport home. [facility] came to picking machine operator patient via wheelchair. Pt unsafe to leave in safely in wheelchair. Nursing carbon electrodes supervisor notified and EMS transport initiated. EMS to picking machine operator patient at 1900. Pt notified and agreed. Awaiting patient picking machine operator.
--- NOTE | 2019-05-20 21:19 | NUR ---
EMS here to crab picker patient at 1915. Patient belongings packed up and sent home with patient. VS stable, A/Ox4. Patient has no questions at this time. Discharged to home.
== END 2019-05-20 19:15 | disposition home health service (06) | DRG 309 ==
LOC: ER 16:28 → 2 NORTH 18:50
PROVIDERS: ADMIT Family Medicine; ATTEND Family Medicine
PROC: 3E0U33Z Introduction of Anti-inflammatory into Joints, Percutaneous Approach (ICD-10-PCS; principal; 2019-05-13)
PROC: 3E0U3BZ Introduction of Anesthetic Agent into Joints, Percutaneous Approach (ICD-10-PCS; 2019-05-13)
PROC: 3E0U33Z Introduction of Anti-inflammatory into Joints, Percutaneous Approach (ICD-10-PCS; 2019-05-14)
PROC: 3E0U3BZ Introduction of Anesthetic Agent into Joints, Percutaneous Approach (ICD-10-PCS; 2019-05-14)
DX: I48.91 Unspecified atrial fibrillation (principal); I50.32 Chronic diastolic (congestive) heart failure; E44.1 Mild protein-calorie malnutrition; F11.20 Opioid dependence, uncomplicated; I13.0 Hypertensive heart and chronic kidney disease with heart failure and stage 1 through stage 4 chronic kidney disease, or unspecified chronic kidney disease; M16.12 Unilateral primary osteoarthritis, left hip; E03.9 Hypothyroidism, unspecified; E78.5 Hyperlipidemia, unspecified; G62.9 Polyneuropathy, unspecified; G89.4 Chronic pain syndrome; I48.2 Chronic atrial fibrillation; I73.9 Peripheral vascular disease, unspecified; J44.9 Chronic obstructive pulmonary disease, unspecified; M16.11 Unilateral primary osteoarthritis, right hip; I27.29 Other secondary pulmonary hypertension; M51.36 Other intervertebral disc degeneration, lumbar region; N18.3 Chronic kidney disease, stage 3 (moderate); Q65.89 Other specified congenital deformities of hip; Z79.01 Long term (current) use of anticoagulants; Z79.899 Other long term (current) drug therapy; Z83.3 Family history of diabetes mellitus; Z89.412 Acquired absence of left great toe; Z89.429 Acquired absence of other toe(s), unspecified side; Z90.711 Acquired absence of uterus with remaining cervical stump; Z91.041 Radiographic dye allergy status; R00.1 Bradycardia, unspecified; Z96.649 Presence of unspecified artificial hip joint; E66.01 Morbid (severe) obesity due to excess calories; F32.9 Major depressive disorder, single episode, unspecified; M19.90 Unspecified osteoarthritis, unspecified site; Z87.440 Personal history of urinary (tract) infections; Z88.2 Allergy status to sulfonamides; Z88.8 Allergy status to other drugs, medicaments and biological substances; Z91.013 Allergy to seafood; Z90.49 Acquired absence of other specified parts of digestive tract
CPT/HCPCS: 20610; 36415; 71045; 77002; 80048; 80053; 80061; 83735; 84443; 84484; 85007; 85025; 85610; 85730; 87641; 93005; 93306; 96365; 96376; J1030; J1040; J3490; J7040; J7512; Q0163; Q9967; 97530; 97535; 99285-25; G0378

== ENCOUNTER 2019-07-30 19:35 | Inpatient (IN) | payer MEDICARE ==
[~2019-07-30] VITALS: Ht 180.3 cm; Wt 87.3 kg
[~2019-07-30 19:35] MED LIST changes: +ATOR20TA58 PO; +CEPH250C PO; +DICL100G18 TP; +LISI1TAB23 PO; -LISI1TAB3 PO; +METO25TA4 PO
--- NOTE | 2019-07-30 20:15 | PHYS DOC ---
Past Medical History Past Medical History: A-Fib, Hypertension, Hypothyroid, Other Additional Past Medical Histor: morbid obesity, poor wound healing, chronic pain, narcotic dependency Past Surgical History: Cholecystectomy, Hysterectomy, Tonsillectomy, Other Additional Past Surgical Histo: traumatic left great toe amputation Alcohol Use: None Drug Use: None Adult General Chief Complaint Chief Complaint: BEDSORES HPI HPI 73-year-old female with history of hypertension, chronic kidney disease stage III, atrial fibrillation presents to the emergency department with complaints of "bed sores." Patient states she's been ongoing laboratory for few weeks has been living at home with her daughter. She has a 11 cm x 11 cm non-stage will wound appreciated to her sacrum. No significant drainage, tissue appears necrotic and desquamate. She denies any chest pain, shortness breath, nausea, vomiting, fever. He states she has plan for home health however they have not started yet for wound care. Patient complains of chronic pain. States she's taken her pain medications however no significant improvement. Review of Systems Review of Systems Constitutional: Denies fever or chills [] Respiratory: Denies cough or shortness of breath [] Cardiovascular: No additional information not addressed in HPI [] GI: Denies abdominal pain, nausea, vomiting, bloody stools or diarrhea [] : Denies dysuria or hematuria [] Musculoskeletal: Denies back pain or joint pain [] Integument: 11 cm x 11 cm non-stageable ulceration appreciated to coccyx Neurologic: Denies headache, focal weakness or sensory changes [] All other systems were reviewed and found to be within normal limits, except as documented in this note. Current Medications Current Medications Current Medications Medications (Trade) Dose Ordered Sig/Franki Start Time Stop Time Status Last Admin Dose Admin Ceftriaxone Sodium (Rocephin) 1 gm 1X ONCE 07/30/19 22:15 07/30/19 22:16 Fentanyl Citrate (Fentanyl 2ml Vial) 25 mcg PRN Q15MIN PRN 07/30/19 20:30 07/31/19 20:29 07/30/19 20:31 25 MCG Metoprolol Tartrate (Lopressor Vial) 5 mg 1X ONCE 07/30/19 22:15 07/30/19 22:16 UNV Sodium Chloride 1,000 ml @ 100 mls/hr Q10H 07/30/19 20:30 07/31/19 06:29 07/30/19 20:30 100 MLS/HR Vancomycin HCl (Vanco Per Pharmacy) 1 each 1X ONCE 07/30/19 20:30 07/30/19 20:31 DC Vancomycin HCl 2 gm/Sodium Chloride 500 ml @ 250 mls/hr 1X ONCE 07/30/19 20:30 07/30/19 22:29 07/30/19 20:30 250 MLS/HR Allergies Allergies Allergies Coded Allergies Type Severity Reaction Last Updated Verified shellfish derived Allergy Severe 10/23/17 Yes Iodinated Contrast Media Allergy Intermediate 10/23/17 Yes digoxin Allergy Intermediate 10/23/17 Yes I S O L A T I O N *CONTACT* Allergy Unknown 05/14/19 Yes Physical Exam Physical Exam Constitutional: Well developed, well nourished, no acute distress, non-toxic appearance. [] HENT: Normocephalic, atraumatic, bilateral external ears normal, oropharynx moist, no oral exudates, nose normal. [] Eyes: PERRLA, EOMI, conjunctiva normal, no discharge. [] Cardiovascular: irregular/irregular Lungs & Thorax: Bilateral breath sounds clear to auscultation [] Abdomen: Bowel sounds normal, soft, no tenderness, no masses, no pulsatile masses. [] Skin: 11 cm X 11cm sacral decub, unstageable Extremities: No tenderness, no edema. [] Neurologic: Alert and oriented X 3, no focal deficits noted. [] Psychologic: Affect normal, judgement normal, mood normal. [] Current Patient Data Vital Signs Vital Signs Date Time Temp Pulse Resp B/P (MAP) Pulse Ox O2 Delivery O2 Flow Rate FiO2 07/30/19 19:40 98.2 116 20 135/65 (88) 95 Room Air 98.2 Lab Values Laboratory Tests Test 07/30/19 20:15 07/30/19 21:00 White Blood Count 11.4 x10^3/uL (4.0-11.0) H Red Blood Count 3.84 x10^6/uL (3.50-5.40) Hemoglobin 11.3 g/dL (12.0-15.5) L Hematocrit 34.6 % (36.0-47.0) L Mean Corpuscular Volume 90 fL (79-100) Mean Corpuscular Hemoglobin 30 pg (25-35) Mean Corpuscular Hemoglobin Concent 33 g/dL (31-37) Red Cell Distribution Width 16.1 % (11.5-14.5) H Platelet Count 245 x10^3/uL (140-400) Neutrophils (%) (Auto) 85 % (31-73) H Lymphocytes (%) (Auto) 8 % (24-48) L Monocytes (%) (Auto) 7 % (0-9) Eosinophils (%) (Auto) 1 % (0-3) Basophils (%) (Auto) 0 % (0-3) Neutrophils # (Auto) 9.7 x10^3/uL (1.8-7.7) H Lymphocytes # (Auto) 0.9 x10^3/uL (1.0-4.8) L Monocytes # (Auto) 0.7 x10^3/uL (0.0-1.1) Eosinophils # (Auto) 0.1 x10^3/uL (0.0-0.7) Basophils # (Auto) 0.0 x10^3/uL (0.0-0.2) Sodium Level 133 mmol/L (136-145) L Potassium Level 4.5 mmol/L (3.5-5.1) Chloride Level 99 mmol/L (98-107) Carbon Dioxide Level 24 mmol/L (21-32) Anion Gap 10 (6-14) Blood Urea Nitrogen 60 mg/dL (7-20) H Creatinine 1.5 mg/dL (0.6-1.0) H Estimated GFR (Cockcroft-Gault) 34.1 BUN/Creatinine Ratio 40 (6-20) H Glucose Level 128 mg/dL (70-99) H Lactic Acid Level 1.4 mmol/L (0.4-2.0) Calcium Level 9.9 mg/dL (8.5-10.1) Total Bilirubin 0.4 mg/dL (0.2-1.0) Aspartate Amino Transferase (AST) 41 U/L (15-37) H Alanine Aminotransferase (ALT) 49 U/L (14-59) Alkaline Phosphatase 96 U/L (46-116) C-Reactive Protein, Quantitative 134.0 mg/L (0-3.3) H Total Protein 7.6 g/dL (6.4-8.2) Albumin 2.6 g/dL (3.4-5.0) L Albumin/Globulin Ratio 0.5 (1.0-1.7) L Urine Collection Type U cath Urine Color Yellow Urine Clarity Turbid Urine pH 5.5 Urine Specific [place] 1.010 Urine Protein 30 mg/dL (NEG-TRACE) Urine Glucose (UA) Negative mg/dL (NEG) Urine Ketones (Stick) Negative mg/dL (NEG) Urine Blood Large (NEG) Urine Nitrite Positive (NEG) Urine Bilirubin Negative (NEG) Urine Urobilinogen Dipstick 0.2 mg/dL (0.2 mg/dL) Urine Leukocyte Esterase Large (NEG) Urine RBC Fobs /HPF (0-2) Urine WBC Tntc /HPF (0-4) Urine Squamous Epithelial Cells Many /LPF Urine Bacteria Many /HPF (0-FEW) Laboratory Tests 07/30/19 20:15 Laboratory Tests 07/30/19 20:15 EKG EKG EKG reviewed, atrial fibrillation, heart rate 118, no evidence of ST elevation appreciated.[] Interpretation Time: Interpretation time 2009 Radiology/Procedures Radiology/Procedures [] Course & Med Decision Making Course & Med Decision Making Pertinent Labs and Imaging studies reviewed. (See chart for details) []73-year-old female with history of hypertension, chronic kidney disease stage III, atrial fibrillation presents to the emergency department with complaints of "bed sores." Patient states she's been ongoing laboratory for few weeks has been living at home with her daughter. She has a 11 cm x 11 cm non-stage will wound appreciated to her sacrum. No significant drainage, tissue appears necrotic and desquamate. She denies any chest pain, shortness breath, nausea, vomiting, fever. He states she has plan for home health however they have not started yet for wound care. Patient complains of chronic pain. States she's taken her pain medications however no significant improvement. Laboratory values reviewed, white blood cell count 11.4, lactic acid 1.4. CRP 134. Patient with evidence of non-stage will sacral wound, evidence of urinary tract infection. She does have underlying atrial fibrillation chronically and is on by mouth anticoagulation. Heart rate is been ranging 107-122. 5 mg of Lopr essor IV provided. We'll continue to follow heart rate closely. Urine culture obtained. Rocephin/Vancomycin IV -- cultures obtained Discussed admit with DR. RADHA Escalante Disclaimer Ava Disclaimer This electronic medical record was generated, in whole or in part, using a voice recognition dictation system. Departure Departure Impression: Primary Impression: Ulcer of sacral region, unstageable Additional Impressions: UTI (urinary tract infection) Afib Disposition: ADMITTED INPATIENT Admitting Physician: Cindy Hector Condition: STABLE Referrals: SALVATORE HYDE MD (PCP) Problem Qualifiers Additional Impressions: UTI (urinary tract infection) Urinary tract infection type: site unspecified Hematuria presence: without hematuria Qualified Codes: N39.0 - Urinary tract infection, site not specified Afib Atrial fibrillation type: permanent Qualified Codes: I48.21 - Permanent atrial fibrillation YOSHI ROPER MD Jul 30, 2019 20:15
[2019-07-30] MEDS ORDERED: fentaNYL PF VIAL 100 MCG/2 ML VIAL IV PRN (20:30)
[2019-07-30] MEDS ORDERED: IV NORMAL SALINE 1000ML BAG 1,000 ML IV SCH (20:30)
[2019-07-30] MEDS ORDERED: VANCOMYCIN 2 GM in IV NORMAL SALINE 500ML BAG 500 ML IV ONE (20:30)
[2019-07-30] MEDS ORDERED: VANCOMYCIN PER PHARMACY MC ONE (20:30)
[2019-07-30 20:33] LABS: BASO % 0 % (0-3); EOS # 0.1 x10^3/uL (0.0-0.7); EOS % 1 % (0-3); HEMATOCRIT 34.6 % (36.0-47.0); HEMOGLOBIN 11.3 g/dL (12.0-15.5); LYMPH # 0.9 x10^3/uL (1.0-4.8); LYMPH % 8 % (24-48); MEAN CORPUSCULAR HEMOGLOBIN 30 pg (25-35); MEAN CORPUSCULAR HGB CONC 33 g/dL (31-37); MEAN CORPUSCULAR VOLUME 90 fL (79-100); MONO # 0.7 x10^3/uL (0.0-1.1); MONO % 7 % (0-9); NEUT # 9.7 x10^3/uL (1.8-7.7); NEUT % 85 % (31-73); PLATELET COUNT 245 x10^3/uL (140-400); RED BLOOD COUNT 3.84 x10^6/uL (3.50-5.40); RED CELL DISTRIBUTION WIDTH 16.1 % (11.5-14.5); WHITE BLOOD COUNT 11.4 x10^3/uL (4.0-11.0)
[2019-07-30 20:55] LABS: CALCIUM 9.9 mg/dL (8.5-10.1); CREATININE 1.5 mg/dL (0.6-1.0); GFR 34.1; POTASSIUM 4.5 mmol/L (3.5-5.1)
[2019-07-30 20:59] LABS: ALBUMIN 2.6 g/dL (3.4-5.0); ALBUMIN/GLOBULIN RATIO 0.5 (1.0-1.7); TOTAL BILIRUBIN 0.4 mg/dL (0.2-1.0); TOTAL PROTEIN 7.6 g/dL (6.4-8.2)
[2019-07-30 21:54] LABS: BILIRUBIN,URINE NEGATIVE (NEG); CLARITY,URINE TURBID; COLOR,URINE YELLOW; NITRITE,URINE POSITIVE (NEG); PH,URINE 5.5; PROTEIN,URINE 30 mg/dL (NEG-TRACE); UROBILINOGEN,URINE 0.2 mg/dL (0.2 mg/dL)
[2019-07-30 22:00] LABS: BACTERIA,URINE MANY /HPF (0-FEW); RBC,URINE FOBS /HPF (0-2); SQUAMOUS EPITHELIAL CELL,UR MANY /LPF; WBC,URINE TNTC /HPF (0-4)
[2019-07-30] MEDS ORDERED: METOPROLOL TARTRATE 5 MG/5 ML VIAL. IVP ONE (22:15)
[2019-07-30] MEDS ORDERED: cefTRIAXone IV Push 1 GM VIAL. IVP ONE (22:15)
[2019-07-30] MEDS ORDERED: ACETAMINOPHEN 325 MG TABLET. PO PRN (22:30)
[2019-07-30] MEDS ORDERED: ONDANSETRON PF 4 MG/2 ML VIAL. IV PRN (22:30)
[2019-07-30 23:00] VITALS: BP 129/63
--- NOTE | 2019-07-30 23:10 | NUR ---
ADMISSION NOTE: Patient arrived to room 588 via ED gurney, accompanied by ED staff and family member. Patient was transferred to inpatient bed. Bed low, locked, call light within reach. Patient states only belongings with her are her shirt that she's wearing, her glasses, her upper dentures (states lowers were lost a long time ago), and a cell phone. Will continue to monitor.
[2019-07-31] MEDS ORDERED: IV NORMAL SALINE 1000ML BAG 1,000 ML IV SCH (00:30)
[2019-07-31] MEDS: fentaNYL PF VIAL 100 MCG/2 ML VIAL IVP PRN ×3 (01:26→17:19)
[2019-07-31 03:00] VITALS: BP 110/59
[2019-07-31 05:42] LABS: BASO % 0 % (0-3); EOS % 0 % (0-3); HEMATOCRIT 31.6 % (36.0-47.0); HEMOGLOBIN 10.4 g/dL (12.0-15.5); LYMPH # 0.7 x10^3/uL (1.0-4.8); LYMPH % 7 % (24-48); MEAN CORPUSCULAR HEMOGLOBIN 30 pg (25-35); MEAN CORPUSCULAR HGB CONC 33 g/dL (31-37); MEAN CORPUSCULAR VOLUME 91 fL (79-100); MONO # 0.7 x10^3/uL (0.0-1.1); MONO % 7 % (0-9); NEUT # 8.5 x10^3/uL (1.8-7.7); NEUT % 86 % (31-73); PLATELET COUNT 218 x10^3/uL (140-400); RED BLOOD COUNT 3.46 x10^6/uL (3.50-5.40); RED CELL DISTRIBUTION WIDTH 15.7 % (11.5-14.5)
[2019-07-31 05:51] LABS: ALBUMIN 2.3 g/dL (3.4-5.0); ALBUMIN/GLOBULIN RATIO 0.5 (1.0-1.7); CALCIUM 9.4 mg/dL (8.5-10.1); CREATININE 1.3 mg/dL (0.6-1.0); GFR 40.3; POTASSIUM 4.2 mmol/L (3.5-5.1); TOTAL BILIRUBIN 0.3 mg/dL (0.2-1.0); TOTAL PROTEIN 6.7 g/dL (6.4-8.2)
[2019-07-31 07:00] VITALS: BP 105/36
[2019-07-31 07:38] LABS: % BANDS 3 % (0-9); % BASOS 1 % (0-3); % EOS 1 % (0-5); % LYMPHS 8 % (24-48); % MONOS 7 % (0-10); % SEGS 80 % (35-66); PLT ESTIMATE ADEQUATE (ADEQUATE)
[2019-07-31 07:39] LABS: ANISOCYTOSIS SLIGHT; TEAR DROP CELLS OCC
[2019-07-31] MEDS ORDERED: FLU VAX QS 2019-20 (36MOS+)/PF 0.5 ML SYRINGE. VAX IM ONE (09:00)
[2019-07-31 11:00] VITALS: BP 99/46
--- NOTE | 2019-07-31 11:23 | EKG ---
[facility] [address] [place] [address] Test Date: 2019-07-30 Test Time: 19:58:14 Pat Name: GULSHAN GILLILAND Department: Room: 588 1 Gender: F Management Intern: : 1945 Requested By: SALVATORE HYDE Order Number: [id number] Reading MD: Antonio De La Rosa MD Measurements Intervals [place] Rate: 117 P: NM: QRS: 89 QRSD: 166 T: -66 QT: 354 QTc: 498 Interpretive Statements ATRIAL FIB./FLUTTER WITH RAPID VENTRICULAR RESPONSE RBBB NON-SPECIFIC ST/T CHANGES Electronically Signed On 08-10-2019 12:55:03 CDT by Antonio De La Rosa MD
[2019-07-31] MEDS ORDERED: METHADONE 10 MG TABLET. PO PRN (11:45)
--- NOTE | 2019-07-31 11:59 | PDOC ---
PROGRESS NOTES Subjective Subjective Patient c/o increased pain in hip and knees. Objective Objective Vital Signs Date Time Temp Pulse Resp B/P (MAP) Pulse Ox O2 Delivery O2 Flow Rate FiO2 07/31/19 07:00 97.7 97 14 105/36 (59) 100 Room Air 97.7 Intake and Output 07/31/19 07:00 Intake Total 1670 ml Output Total 800 ml Balance 870 ml Intake Oral 170 ml IV Total 1500 ml Output Urine Total 800 ml Physical Exam Abdomen: Normal bowel sounds, Soft, No tenderness Heart: Other (irregularly irregular) Extremities: Other (flexion contractures L LE, chronic stasis changes bilaterally, scattered shallow ulcers bilateral LEs) General: Alert, Oriented X3, No acute distress Lungs: Other (BS decreased but CTA) Skin: Other (photo on chart shows large sacral decubitus ulcer, presently unstageable) Assessment Assessment Problems Medical Problems: (1) Afib Status: Acute (2) Atrial fibrillation with RVR Status: Acute (3) Ulcer of sacral region, unstageable Status: Acute (4) UTI (urinary tract infection) Status: Acute Plan Plan of Care 1. UTI - tx with Rocephin, culture pending. 2. sacral decubitus ulcer - wound care consult pending. Patient reminded to avoid laying on her back. 3. conjunctivitis - in both eyes so possibly viral, will tx with Polytrim gtts. 4. chronic pain - scheduled po methadone, prn Fentanyl. 5. HTN - resume home medications. 6. chronic afib - stable, continue home medications for anticoagulation and rate control. 7. COPD - stable. 8. CKD III - stable on lab. 9. debility - PT and OT ordered. Comment Review of Relevant I have reviewed the following items fátima (where applicable) has been applied. Labs Laboratory Tests Test 07/30/19 20:15 07/30/19 21:00 07/31/19 04:50 White Blood Count 11.4 x10^3/uL (4.0-11.0) 10.0 x10^3/uL (4.0-11.0) Red Blood Count 3.84 x10^6/uL (3.50-5.40) 3.46 x10^6/uL (3.50-5.40) Hemoglobin 11.3 g/dL (12.0-15.5) 10.4 g/dL (12.0-15.5) Hematocrit 34.6 % (36.0-47.0) 31.6 % (36.0-47.0) Mean Corpuscular Volume 90 fL (79-100) 91 fL (79-100) Mean Corpuscular Hemoglobin 30 pg (25-35) 30 pg (25-35) Mean Corpuscular Hemoglobin Concent 33 g/dL (31-37) 33 g/dL (31-37) Red Cell Distribution Width 16.1 % (11.5-14.5) 15.7 % (11.5-14.5) Platelet Count 245 x10^3/uL (140-400) 218 x10^3/uL (140-400) Neutrophils (%) (Auto) 85 % (31-73) 86 % (31-73) Lymphocytes (%) (Auto) 8 % (24-48) 7 % (24-48) Monocytes (%) (Auto) 7 % (0-9) 7 % (0-9) Eosinophils (%) (Auto) 1 % (0-3) 0 % (0-3) Basophils (%) (Auto) 0 % (0-3) 0 % (0-3) Neutrophils # (Auto) 9.7 x10^3/uL (1.8-7.7) 8.5 x10^3/uL (1.8-7.7) Lymphocytes # (Auto) 0.9 x10^3/uL (1.0-4.8) 0.7 x10^3/uL (1.0-4.8) Monocytes # (Auto) 0.7 x10^3/uL (0.0-1.1) 0.7 x10^3/uL (0.0-1.1) Eosinophils # (Auto) 0.1 x10^3/uL (0.0-0.7) 0.0 x10^3/uL (0.0-0.7) Basophils # (Auto) 0.0 x10^3/uL (0.0-0.2) 0.0 x10^3/uL (0.0-0.2) Sodium Level 133 mmol/L (136-145) 137 mmol/L (136-145) Potassium Level 4.5 mmol/L (3.5-5.1) 4.2 mmol/L (3.5-5.1) Chloride Level 99 mmol/L (98-107) 103 mmol/L (98-107) Carbon Dioxide Level 24 mmol/L (21-32) 26 mmol/L (21-32) Anion Gap 10 (6-14) 8 (6-14) Blood Urea Nitrogen 60 mg/dL (7-20) 48 mg/dL (7-20) Creatinine 1.5 mg/dL (0.6-1.0) 1.3 mg/dL (0.6-1.0) Estimated GFR (Cockcroft-Gault) 34.1 40.3 BUN/Creatinine Ratio 40 (6-20) 37 (6-20) Glucose Level 128 mg/dL (70-99) 116 mg/dL (70-99) Lactic Acid Level 1.4 mmol/L (0.4-2.0) Calcium Level 9.9 mg/dL (8.5-10.1) 9.4 mg/dL (8.5-10.1) Total Bilirubin 0.4 mg/dL (0.2-1.0) 0.3 mg/dL (0.2-1.0) Aspartate Amino Transf (AST/SGOT) 41 U/L (15-37) 34 U/L (15-37) Alanine Aminotransferase (ALT/SGPT) 49 U/L (14-59) 38 U/L (14-59) Alkaline Phosphatase 96 U/L (46-116) 85 U/L (46-116) C-Reactive Protein, Quantitative 134.0 mg/L (0-3.3) Total Protein 7.6 g/dL (6.4-8.2) 6.7 g/dL (6.4-8.2) Albumin 2.6 g/dL (3.4-5.0) 2.3 g/dL (3.4-5.0) Albumin/Globulin Ratio 0.5 (1.0-1.7) 0.5 (1.0-1.7) Urine Collection Type U cath Urine Color Yellow Urine Clarity Turbid Urine pH 5.5 Urine Specific [place] 1.010 Urine Protein 30 mg/dL (NEG-TRACE) Urine Glucose (UA) Negative mg/dL (NEG) Urine Ketones (Stick) Negative mg/dL (NEG) Urine Blood Large (NEG) Urine Nitrite Positive (NEG) Urine Bilirubin Negative (NEG) Urine Urobilinogen Dipstick 0.2 mg/dL (0.2 mg/dL) Urine Leukocyte Esterase Large (NEG) Urine RBC Fobs /HPF (0-2) Urine WBC Tntc /HPF (0-4) Urine Squamous Epithelial Cells Many /LPF Urine Bacteria Many /HPF (0-FEW) Segmented Neutrophils % 80 % (35-66) Band Neutrophils % 3 % (0-9) Lymphocytes % 8 % (24-48) Monocytes % 7 % (0-10) Eosinophils % 1 % (0-5) Basophils % 1 % (0-3) Platelet Estimate Adequate (ADEQUATE) Anisocytosis Slight Tear Drop Cells Occ Laboratory Tests Test 07/30/19 20:15 07/30/19 21:00 07/31/19 04:50 White Blood Count 11.4 x10^3/uL (4.0-11.0) 10.0 x10^3/uL (4.0-11.0) Red Blood Count 3.84 x10^6/uL (3.50-5.40) 3.46 x10^6/uL (3.50-5.40) Hemoglobin 11.3 g/dL (12.0-15.5) 10.4 g/dL (12.0-15.5) Hematocrit 34.6 % (36.0-47.0) 31.6 % (36.0-47.0) Mean Corpuscular Volume 90 fL (79-100) 91 fL (79-100) Mean Corpuscular Hemoglobin 30 pg (25-35) 30 pg (25-35) Mean Corpuscular Hemoglobin Concent 33 g/dL (31-37) 33 g/dL (31-37) Red Cell Distribution Width 16.1 % (11.5-14.5) 15.7 % (11.5-14.5) Platelet Count 245 x10^3/uL (140-400) 218 x10^3/uL (140-400) Neutrophils (%) (Auto) 85 % (31-73) 86 % (31-73) Lymphocytes (%) (Auto) 8 % (24-48) 7 % (24-48) Monocytes (%) (Auto) 7 % (0-9) 7 % (0-9) Eosinophils (%) (Auto) 1 % (0-3) 0 % (0-3) Basophils (%) (Auto) 0 % (0-3) 0 % (0-3) Neutrophils # (Auto) 9.7 x10^3/uL (1.8-7.7) 8.5 x10^3/uL (1.8-7.7) Lymphocytes # (Auto) 0.9 x10^3/uL (1.0-4.8) 0.7 x10^3/uL (1.0-4.8) Monocytes # (Auto) 0.7 x10^3/uL (0.0-1.1) 0.7 x10^3/uL (0.0-1.1) Eosinophils # (Auto) 0.1 x10^3/uL (0.0-0.7) 0.0 x10^3/uL (0.0-0.7) Basophils # (Auto) 0.0 x10^3/uL (0.0-0.2) 0.0 x10^3/uL (0.0-0.2) Sodium Level 133 mmol/L (136-145) 137 mmol/L (136-145) Potassium Level 4.5 mmol/L (3.5-5.1) 4.2 mmol/L (3.5-5.1) Chloride Level 99 mmol/L (98-107) 103 mmol/L (98-107) Carbon Dioxide Level 24 mmol/L (21-32) 26 mmol/L (21-32) Anion Gap 10 (6-14) 8 (6-14) Blood Urea Nitrogen 60 mg/dL (7-20) 48 mg/dL (7-20) Creatinine 1.5 mg/dL (0.6-1.0) 1.3 mg/dL (0.6-1.0) Estimated GFR (Cockcroft-Gault) 34.1 40.3 BUN/Creatinine Ratio 40 (6-20) 37 (6-20) Glucose Level 128 mg/dL (70-99) 116 mg/dL (70-99) Lactic Acid Level 1.4 mmol/L (0.4-2.0) Calcium Level 9.9 mg/dL (8.5-10.1) 9.4 mg/dL (8.5-10.1) Total Bilirubin 0.4 mg/dL (0.2-1.0) 0.3 mg/dL (0.2-1.0) Aspartate Amino Transf (AST/SGOT) 41 U/L (15-37) 34 U/L (15-37) Alanine Aminotransferase (ALT/SGPT) 49 U/L (14-59) 38 U/L (14-59) Alkaline Phosphatase 96 U/L (46-116) 85 U/L (46-116) C-Reactive Protein, Quantitative 134.0 mg/L (0-3.3) Total Protein 7.6 g/dL (6.4-8.2) 6.7 g/dL (6.4-8.2) Albumin 2.6 g/dL (3.4-5.0) 2.3 g/dL (3.4-5.0) Albumin/Globulin Ratio 0.5 (1.0-1.7) 0.5 (1.0-1.7) Urine Collection Type U cath Urine Color Yellow Urine Clarity Turbid Urine pH 5.5 Urine Specific [place] 1.010 Urine Protein 30 mg/dL (NEG-TRACE) Urine Glucose (UA) Negative mg/dL (NEG) Urine Ketones (Stick) Negative mg/dL (NEG) Urine Blood Large (NEG) Urine Nitrite Positive (NEG) Urine Bilirubin Negative (NEG) Urine Urobilinogen Dipstick 0.2 mg/dL (0.2 mg/dL) Urine Leukocyte Esterase Large (NEG) Urine RBC Fobs /HPF (0-2) Urine WBC Tntc /HPF (0-4) Urine Squamous Epithelial Cells Many /LPF Urine Bacteria Many /HPF (0-FEW) Segmented Neutrophils % 80 % (35-66) Band Neutrophils % 3 % (0-9) Lymphocytes % 8 % (24-48) Monocytes % 7 % (0-10) Eosinophils % 1 % (0-5) Basophils % 1 % (0-3) Platelet Estimate Adequate (ADEQUATE) Anisocytosis Slight Tear Drop Cells Occ Medications Current Medications Vancomycin HCl (Vanco Per Pharmacy) 1 each 1X ONCE MC ; Start 07/30/19 at 20:30; Stop 07/30/19 at 20:31; Status DC Fentanyl Citrate (Fentanyl 2ml Vial) 25 mcg PRN Q15MIN PRN IV PAIN GREATER THAN 3/10 Last administered on 07/30/19 20:31; Start 07/30/19 at 20:30; Stop 07/31/19 at 03:29; Status DC Sodium Chloride 1,000 ml @ 100 mls/hr Q10H IV Last administered on 07/30/19 20:30; Start 07/30/19 at 20:30; Stop 07/31/19 at 03:29; Status DC Vancomycin HCl 2 gm/Sodium Chloride 500 ml @ 250 mls/hr 1X ONCE IV Last administered on 07/30/19 20:30; Start 07/30/19 at 20:30; Stop 07/30/19 at 22:29; Status DC Ceftriaxone Sodium (Rocephin) 1 gm 1X ONCE IVP Last administered on 07/30/19 22:15; Start 07/30/19 at 22:15; Stop 07/30/19 at 22:16; Status DC Metoprolol Tartrate (Lopressor Vial) 5 mg 1X ONCE IVP Last administered on 07/30/19at 22:15; Start 07/30/19 at 22:15; Stop 07/30/19 at 22:17; Status DC Ondansetron HCl (Zofran) 4 mg PRN Q8HRS PRN IV NAUSEA/VOMITING; Start 07/30/19 at 22:30; Stop 07/31/19 at 22:29 Acetaminophen (Tylenol) 650 mg PRN Q4HRS PRN PO FEVER; Start 07/30/19 at 22:30; Stop 07/31/19 at 22:29 Influenza Virus Vaccine Quadrival (Afluria Quad 2019-20 (3yr Up) Syringe) 0.5 ml ONCE ONCE VAX IM ; Start 07/31/19 at 09:00; Stop 07/31/19 at 09:01; Status DC Sodium Chloride 1,000 ml @ 100 mls/hr Q10H IV Last administered on 07/31/19at 01:25; Start 07/31/19 at 00:30 Fentanyl Citrate (Fentanyl 2ml Vial) 25 mcg PRN Q2HR PRN IVP PAIN Last administered on 07/31/19at 05:33; Start 07/31/19 at 00:30 Active Scripts Active Metoprolol Tartrate 25 Mg Tablet 1 Tab PO BID Methadone Hcl 10 Mg Tablet 20 Mg PO PRN TID PRN 15 Days Voltaren (Diclofenac Sodium) 100 Gm Gel..gram. 1 Vashti TP BID 30 Days Atorvastatin Calcium 20 Mg Tablet 20 Mg PO QHS 30 Days Xarelto (Rivaroxaban) 20 Mg Tablet 20 Mg PO DAILY 30 Days Cetirizine Hcl 10 Mg Tablet 10 Mg PO DAILY 30 Days Ibuprofen 600 Mg Tablet 600 Mg PO PRN Q6HRS PRN 90 Days Hydrochlorothiazide Tablet (Hydrochlorothiazide) 25 Mg Tablet 25 Mg PO DAILY 30 Days Reported Tizanidine Hcl 4 Mg Capsule 4 Mg PO QID PRN Docusate Sodium 100 Mg Capsule 1 Cap PO DAILY Multivitamins (Multivitamin) 1 Each Tablet 1 Tab PO DAILY Aspirin Ec (Aspirin) 325 Mg Tablet. 1 Tab PO DAILY Vitals/I & O Vital Sign - Last 24 Hours 07/30/19 07/30/19 07/30/19 07/30/19 19:40 21:09 21:39 22:09 Temp 98.2 98.2 Pulse 116 125 91 124 Resp 20 20 18 20 B/P (MAP) 135/65 (88) 170/69 (102) 132/72 (92) 142/76 (98) Pulse Ox 95 98 99 98 O2 Delivery Room Air Room Air Room Air Room Air 07/30/19 07/30/19 07/30/19 07/30/19 22:15 22:39 23:00 23:05 Temp 99.2 99.2 Pulse 117 96 97 Resp 20 18 B/P (MAP) 142/76 112/63 (79) 129/63 (85) Pulse Ox 96 94 O2 Delivery Room Air Room Air Room Air 07/31/19 07/31/19 07/31/19 07/31/19 01:26 02:00 03:00 05:33 Temp 98.4 98.4 Pulse 66 Resp 18 15 20 15 B/P (MAP) 110/59 (76) Pulse Ox 94 97 97 97 O2 Delivery Room Air Room Air Room Air Room Air 07/31/19 07/31/19 06:03 07:00 Temp 97.7 97.7 Pulse 97 Resp 14 14 B/P (MAP) 105/36 (59) Pulse Ox 97 100 O2 Delivery Room Air Room Air Intake and Output 07/30/19 07/30/19 07/31/19 15:00 23:00 07:00 Intake Total 1500 ml 170 ml Output Total 800 ml Balance 1500 ml -630 ml MATEO GARCIA MD Jul 31, 2019 11:59
[2019-07-31] MEDS: METOPROLOL TART IMMED RELEASE 25 MG TABLET. PO SCH ×2 (12:00→20:54)
[2019-07-31] MEDS ORDERED: tiZANidine 4 MG TABLET. PO PRN (12:00)
[2019-07-31] MEDS: hydroCHLOROthiazide 25 MG TABLET PO SCH (12:15)
[2019-07-31] MEDS: MULTIVITAMIN with MINERAL TABLET. PO SCH (12:15)
[2019-07-31] MEDS: DOCUSATE SODIUM 100 MG CAPSULE. PO SCH (12:15)
[2019-07-31] MEDS: ASPIRIN ENTERIC COATED 325 MG TABLET.DR. PO SCH (12:16)
[2019-07-31] MEDS: CETIRIZINE HCL 10 MG TABLET. PO SCH (12:16)
[2019-07-31] MEDS: METHADONE 10 MG TABLET. PO SCH ×2 (12:19→20:53)
[2019-07-31] MEDS: DICLOFENAC SODIUM 1% TOPICAL GEL 100GM TUBE. TP SCH ×2 (12:21→20:53)
--- NOTE | 2019-07-31 12:54 | HP ---
ADMIT DATE: CHIEF COMPLAINT: [place]. HISTORY OF PRESENT ILLNESS: The patient is a 73-year-old female who was brought to the Emergency Room with the above complaint. She has been staying at her daughter's house since her last hospitalization in June. Apparently, her daughter had noticed recently that she had an open sore on her sacrum. The patient denies pain in the area and states that she was unaware that a sore had developed. She does report that she laid on her back in bed at her daughter's house continuously as she is unable to get out of bed without significant assistance. She is chronically nonambulatory. Evaluation in the Emergency Room showed the presence of a large unstageable sacral decubitus ulcer and a urinary tract infection and the patient was admitted for further care. 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 PAST SURGICAL HISTORY: Tonsillectomy, toe amputations, cholecystectomy, lumbar spine surgery, partial hysterectomy. ALLERGIES: THE PATIENT IS ALLERGIC TO IV CONTRAST AND DIGOXIN. HOME MEDICATIONS: Metoprolol tartrate 50 mg b.i.d., hydrochlorothiazide 25 mg daily, Xarelto 20 mg daily, methadone 10 mg 2 tablets every 8 hours, ibuprofen 600 mg every 6 hours p.r.n., tizanidine 4 mg every 6 hours p.r.n., aspirin 325 mg daily, Zyrtec 10 mg daily, atorvastatin 20 mg daily. FAMILY HISTORY: Noncontributory. SOCIAL HISTORY: The patient is . She has never smoked cigarettes and does not drink alcohol to excess. She has been staying at her daughter's house recently. REVIEW OF SYSTEMS: The patient denies fever or chills. She denies cough or shortness of breath. She states she has already received her flu shot this fall. She denies chest pain or palpitations. She denies abdominal pain, nausea, vomiting or problem with her bowels. She reports that her chronic musculoskeletal pain seemed worse to her recently. She denies dysuria or increased urinary frequency, but she is chronically incontinent of urine. She does notice a recent drainage from both eyes, but denies pain in her eyes or difficulty with her vision. PHYSICAL EXAMINATION: GENERAL: The patient is alert and oriented x 3, resting in bed, in no acute distress. HEENT: PERRL, EOMI. Mild conjunctival injection bilaterally with moderate drainage present. Oropharynx: Mucous membranes moist. NECK: Supple, without lymphadenopathy. CHEST: Breath sounds is mildly decreased throughout, but otherwise clear to auscultation. CARDIOVASCULAR: Irregularly irregular. ABDOMEN: Soft, nontender, normoactive bowel sounds are present. The left lower extremity shows chronic flexion contractures. There are chronic stasis changes in the bilateral lower extremities and scattered shallow skin ulcers. SKIN: Photo on the chart shows a large sacral decubitus ulcer, which is presently unstageable. ASSESSMENT AND PLAN: 1. Urinary tract infection, treat with Rocephin. Urine culture is pending. 2. Sacral decubitus ulcer. Wound care consult pending. The patient reminded to avoid lying on her back. 3. Conjunctivitis, this is in both eyes so it is possibly viral, but we will treat with Polytrim drops. 4. Chronic pain, scheduled oral methadone has been ordered. Continue p.r.n., fentanyl as needed. 5. Hypertension. Resume home medication. 6. Chronic atrial fibrillation, this appears stable. Continue her usual medications for anticoagulation and rate control. 7. Asthma. This appears stable. 8. Chronic kidney disease stage 3, this is stable on lab. 9. Debility. Physical and occupational therapy have been ordered. MATEO GARCIA MD DR: ALEXANDR/nancy JOB#: [id number] / [id number] SHIMA
[2019-07-31] MEDS: POLYMYXIN/TRIMETHOPRIM OPHTH SOLUTION 10ML BOTTLE. OU SCH ×2 (14:00→20:53)
[2019-07-31 15:00] VITALS: BP 101/62
[2019-07-31] MEDS: ANTI-COAG MONITOR BY PHARMACY. MC PRN (16:15)
[2019-07-31] MEDS: RIVAROXABAN 10 MG TABLET. PO SCH (17:21)
[2019-07-31 19:00] VITALS: BP 94/61
[2019-07-31] MEDS: cefTRIAXone IV Push 1 GM VIAL. IVP SCH (20:52)
[2019-07-31] MEDS: ATORVASTATIN CALCIUM 20 MG TABLET PO SCH (20:53)
[2019-07-31] MEDS: LACTOBACILLUS RHAMNOSUS GG 1 CAPSULE. PO SCH (20:53)
[2019-07-31 23:06] VITALS: BP 89/48
[2019-08-01] VITALS (8 sets, daily range): BP systolic 85–120; BP diastolic 43–48
[2019-08-01] MEDS: fentaNYL PF VIAL 100 MCG/2 ML VIAL IVP PRN ×2 (07:50→12:46)
[2019-08-01] MEDS: ANTI-COAG MONITOR BY PHARMACY. MC PRN (08:25)
[2019-08-01] MEDS: MULTIVITAMIN with MINERAL TABLET. PO SCH (08:31)
[2019-08-01] MEDS: POLYMYXIN/TRIMETHOPRIM OPHTH SOLUTION 10ML BOTTLE. OU SCH ×3 (08:31→21:19)
[2019-08-01] MEDS: METHADONE 10 MG TABLET. PO SCH ×3 (08:33→21:18)
[2019-08-01] MEDS: LACTOBACILLUS RHAMNOSUS GG 1 CAPSULE. PO SCH ×2 (08:34→21:18)
[2019-08-01] MEDS: DOCUSATE SODIUM 100 MG CAPSULE. PO SCH (08:34)
[2019-08-01] MEDS: CETIRIZINE HCL 10 MG TABLET. PO SCH (08:34)
[2019-08-01] MEDS: hydroCHLOROthiazide 25 MG TABLET PO SCH (08:35)
[2019-08-01] MEDS: ASPIRIN ENTERIC COATED 325 MG TABLET.DR. PO SCH (08:35)
[2019-08-01] MEDS: METOPROLOL TART IMMED RELEASE 25 MG TABLET. PO SCH ×2 (08:37→21:00)
[2019-08-01] MEDS: DICLOFENAC SODIUM 1% TOPICAL GEL 100GM TUBE. TP SCH ×3 (09:00→21:19)
--- NOTE | 2019-08-01 12:09 | PDOC ---
PROGRESS NOTES Subjective Subjective Patient reports some pain, denies other concerns at this time. Objective Objective Vital Signs Date Time Temp Pulse Resp B/P (MAP) Pulse Ox O2 Delivery O2 Flow Rate FiO2 08/01/19 08:37 116 96/51 08/01/19 08:20 16 Room Air 08/01/19 07:00 98.2 95 98.2 Intake and Output 08/01/19 07:00 Output Total 3025 ml Balance -3025 ml Output Urine Total 3025 ml Physical Exam Abdomen: Normal bowel sounds, Soft, No tenderness Heart: Other (irregularly irregular) Extremities: Other (chronic contractures L LE) General: Alert, Oriented X3, No acute distress Lungs: Clear to auscultation Assessment Assessment Problems Medical Problems: (1) Afib Status: Acute (2) Atrial fibrillation with RVR Status: Acute (3) Ulcer of sacral region, unstageable Status: Acute (4) UTI (urinary tract infection) Status: Acute Plan Plan of Care 1. Sacral decubitus ulcer - await wound care consult. Nursing trying to turn patient every two hours but she repositions herself in bed so that she is on her back again. 2. UTI - continue Rocephin, await urine culture report. 3. chronic afib - stable with her usual medications. 4. HTN - too tightly controlled, HCTZ discontinued. 5. OA with chronic pain - continue scheduled Methadone. Patient states this and the Fentanyl are not helping her much, nursing will try the prn Ibuprofen. 6. conjunctivitis - improved on exam, probably viral, continue Polytrim gtts for now. 7. debility - chronic. Therapies ordered but do not feel she could benefit from therapy at this time. Discharge planning may be challenging. Comment Review of Relevant I have reviewed the following items fátima (where applicable) has been applied. Labs Laboratory Tests Test 07/30/19 20:15 07/30/19 21:00 07/31/19 04:50 White Blood Count 11.4 x10^3/uL (4.0-11.0) 10.0 x10^3/uL (4.0-11.0) Red Blood Count 3.84 x10^6/uL (3.50-5.40) 3.46 x10^6/uL (3.50-5.40) Hemoglobin 11.3 g/dL (12.0-15.5) 10.4 g/dL (12.0-15.5) Hematocrit 34.6 % (36.0-47.0) 31.6 % (36.0-47.0) Mean Corpuscular Volume 90 fL (79-100) 91 fL (79-100) Mean Corpuscular Hemoglobin 30 pg (25-35) 30 pg (25-35) Mean Corpuscular Hemoglobin Concent 33 g/dL (31-37) 33 g/dL (31-37) Red Cell Distribution Width 16.1 % (11.5-14.5) 15.7 % (11.5-14.5) Platelet Count 245 x10^3/uL (140-400) 218 x10^3/uL (140-400) Neutrophils (%) (Auto) 85 % (31-73) 86 % (31-73) Lymphocytes (%) (Auto) 8 % (24-48) 7 % (24-48) Monocytes (%) (Auto) 7 % (0-9) 7 % (0-9) Eosinophils (%) (Auto) 1 % (0-3) 0 % (0-3) Basophils (%) (Auto) 0 % (0-3) 0 % (0-3) Neutrophils # (Auto) 9.7 x10^3/uL (1.8-7.7) 8.5 x10^3/uL (1.8-7.7) Lymphocytes # (Auto) 0.9 x10^3/uL (1.0-4.8) 0.7 x10^3/uL (1.0-4.8) Monocytes # (Auto) 0.7 x10^3/uL (0.0-1.1) 0.7 x10^3/uL (0.0-1.1) Eosinophils # (Auto) 0.1 x10^3/uL (0.0-0.7) 0.0 x10^3/uL (0.0-0.7) Basophils # (Auto) 0.0 x10^3/uL (0.0-0.2) 0.0 x10^3/uL (0.0-0.2) Sodium Level 133 mmol/L (136-145) 137 mmol/L (136-145) Potassium Level 4.5 mmol/L (3.5-5.1) 4.2 mmol/L (3.5-5.1) Chloride Level 99 mmol/L (98-107) 103 mmol/L (98-107) Carbon Dioxide Level 24 mmol/L (21-32) 26 mmol/L (21-32) Anion Gap 10 (6-14) 8 (6-14) Blood Urea Nitrogen 60 mg/dL (7-20) 48 mg/dL (7-20) Creatinine 1.5 mg/dL (0.6-1.0) 1.3 mg/dL (0.6-1.0) Estimated GFR (Cockcroft-Gault) 34.1 40.3 BUN/Creatinine Ratio 40 (6-20) 37 (6-20) Glucose Level 128 mg/dL (70-99) 116 mg/dL (70-99) Lactic Acid Level 1.4 mmol/L (0.4-2.0) Calcium Level 9.9 mg/dL (8.5-10.1) 9.4 mg/dL (8.5-10.1) Total Bilirubin 0.4 mg/dL (0.2-1.0) 0.3 mg/dL (0.2-1.0) Aspartate Amino Transf (AST/SGOT) 41 U/L (15-37) 34 U/L (15-37) Alanine Aminotransferase (ALT/SGPT) 49 U/L (14-59) 38 U/L (14-59) Alkaline Phosphatase 96 U/L (46-116) 85 U/L (46-116) C-Reactive Protein, Quantitative 134.0 mg/L (0-3.3) Total Protein 7.6 g/dL (6.4-8.2) 6.7 g/dL (6.4-8.2) Albumin 2.6 g/dL (3.4-5.0) 2.3 g/dL (3.4-5.0) Albumin/Globulin Ratio 0.5 (1.0-1.7) 0.5 (1.0-1.7) Urine Collection Type U cath Urine Color Yellow Urine Clarity Turbid Urine pH 5.5 Urine Specific Chili 1.010 Urine Protein 30 mg/dL (NEG-TRACE) Urine Glucose (UA) Negative mg/dL (NEG) Urine Ketones (Stick) Negative mg/dL (NEG) Urine Blood Large (NEG) Urine Nitrite Positive (NEG) Urine Bilirubin Negative (NEG) Urine Urobilinogen Dipstick 0.2 mg/dL (0.2 mg/dL) Urine Leukocyte Esterase Large (NEG) Urine RBC Fobs /HPF (0-2) Urine WBC Tntc /HPF (0-4) Urine Squamous Epithelial Cells Many /LPF Urine Bacteria Many /HPF (0-FEW) Segmented Neutrophils % 80 % (35-66) Band Neutrophils % 3 % (0-9) Lymphocytes % 8 % (24-48) Monocytes % 7 % (0-10) Eosinophils % 1 % (0-5) Basophils % 1 % (0-3) Platelet Estimate Adequate (ADEQUATE) Anisocytosis Slight Tear Drop Cells Occ Microbiology 07/30/19 Blood Culture - Preliminary, Resulted NO GROWTH AFTER 1 DAY Medications Current Medications Vancomycin HCl (Vanco Per Pharmacy) 1 each 1X ONCE MC ; Start 07/30/19 at 20:30; Stop 07/30/19 at 20:31; Status DC Fentanyl Citrate (Fentanyl 2ml Vial) 25 mcg PRN Q15MIN PRN IV PAIN GREATER THAN 3/10 Last administered on 07/30/19at 20:31; Start 07/30/19 at 20:30; Stop 07/31/19 at 03:29; Status DC Sodium Chloride 1,000 ml @ 100 mls/hr Q10H IV Last administered on 07/30/19at 20:30; Start 07/30/19 at 20:30; Stop 07/31/19 at 03:29; Status DC Vancomycin HCl 2 gm/Sodium Chloride 500 ml @ 250 mls/hr 1X ONCE IV Last administered on 07/30/19at 20:30; Start 07/30/19 at 20:30; Stop 07/30/19 at 22:29; Status DC Ceftriaxone Sodium (Rocephin) 1 gm 1X ONCE IVP Last administered on 07/30/19at 22:15; Start 07/30/19 at 22:15; Stop 07/30/19 at 22:16; Status DC Metoprolol Tartrate (Lopressor Vial) 5 mg 1X ONCE IVP Last administered on 07/30/19at 22:15; Start 07/30/19 at 22:15; Stop 07/30/19 at 22:17; Status DC Ondansetron HCl (Zofran) 4 mg PRN Q8HRS PRN IV NAUSEA/VOMITING; Start 07/30/19 at 22:30; Stop 07/31/19 at 22:29; Status DC Acetaminophen (Tylenol) 650 mg PRN Q4HRS PRN PO FEVER; Start 07/30/19 at 22:30; Stop 07/31/19 at 22:29; Status DC Influenza Virus Vaccine Quadrival (Afluria Quad 2019-20 (3yr Up) Syringe) 0.5 ml ONCE ONCE VAX IM Last administered on 07/31/19 12:26; Start 07/31/19 at 09:00; Stop 07/31/19 at 09:01; Status DC Sodium Chloride 1,000 ml @ 100 mls/hr Q10H IV Last administered on 07/31/19 01:25; Start 07/31/19 at 00:30; Stop 07/31/19 at 11:53; Status DC Fentanyl Citrate (Fentanyl 2ml Vial) 25 mcg PRN Q2HR PRN IVP PAIN Last administered on 08/01/19 07:50; Start 07/31/19 at 00:30 Aspirin (Ecotrin) 325 mg DAILY PO Last administered on 08/01/19 08:35; Start 07/31/19 at 12:00 Atorvastatin Calcium (Lipitor) 20 mg QHS PO Last administered on 07/31/19 20:53; Start 07/31/19 at 21:00 Cetirizine HCl (ZyrTEC) 10 mg DAILY PO Last administered on 08/01/19 08:34; Start 07/31/19 at 12:00 Diclofenac Sodium (Voltaren) 1 vashti BID TP Last administered on 07/31/19 20:53; Start 07/31/19 at 12:00 Docusate Sodium (Colace) 100 mg DAILY PO Last administered on 08/01/19 08:34; Start 07/31/19 at 12:00 Hydrochlorothiazide (Hydrodiuril) 25 mg DAILY PO Last administered on 08/01/19 08:35; Start 07/31/19 at 12:00 Methadone HCl (Dolophine) 20 mg PRN TID PRN PO MODERATE TO SEVERE PAIN; Start 07/31/19 at 11:45; Stop 07/31/19 at 11:53; Status DC Metoprolol Tartrate (Lopressor) 25 mg BID PO Last administered on 08/01/19 08:37; Start 07/31/19 at 12:00 Ibuprofen (Motrin) 600 mg PRN Q6HRS PRN PO INFLAMMATION; Start 07/31/19 at 11:45 Multivitamins (Thera M Plus) 1 tab DAILY PO Last administered on 08/01/19 08:31; Start 07/31/19 at 12:00 Rivaroxaban (Xarelto) 20 mg DAILYWSUP PO Last administered on 07/31/19 17:21; Start 07/31/19 at 17:00 Tizanidine HCl (Zanaflex) 4 mg PRN QID PRN PO MUSCLE SPASMS; Start 07/31/19 at 12:00 Info (Anti-Coagulation Monitoring By Pharmacy) 1 each PRN DAILY PRN MC SEE COMMENTS Last administered on 08/01/19 08:25; Start 07/31/19 at 12:00 Methadone HCl (Dolophine) 20 mg TID PO Last administered on 08/01/19 08:33; Start 07/31/19 at 12:00 Ceftriaxone Sodium (Rocephin) 1 gm Q24H IVP Last administered on 07/31/19 20:52; Start 07/31/19 at 22:00 Polymyxin/ Trimethoprim Sulfate (Polytrim) 1 drop TID OU Last administered on 08/01/19 08:31; Start 07/31/19 at 14:00 Lactobacillus Rhamnosus (Culturelle) 1 cap BID PO Last administered on 08/01/19 08:34; Start 07/31/19 at 21:00 Active Scripts Active Metoprolol Tartrate 25 Mg Tablet 1 Tab PO BID Methadone Hcl 10 Mg Tablet 20 Mg PO PRN TID PRN 15 Days Voltaren (Diclofenac Sodium) 100 Gm Gel..gram. 1 Vashti TP BID 30 Days Atorvastatin Calcium 20 Mg Tablet 20 Mg PO QHS 30 Days Xarelto (Rivaroxaban) 20 Mg Tablet 20 Mg PO DAILY 30 Days Cetirizine Hcl 10 Mg Tablet 10 Mg PO DAILY 30 Days Ibuprofen 600 Mg Tablet 600 Mg PO PRN Q6HRS PRN 90 Days Hydrochlorothiazide Tablet (Hydrochlorothiazide) 25 Mg Tablet 25 Mg PO DAILY 30 Days Reported Tizanidine Hcl 4 Mg Capsule 4 Mg PO QID PRN Docusate Sodium 100 Mg Capsule 1 Cap PO DAILY Multivitamins (Multivitamin) 1 Each Tablet 1 Tab PO DAILY Aspirin Ec (Aspirin) 325 Mg Tablet. 1 Tab PO DAILY Vitals/I & O Vital Sign - Last 24 Hours 07/31/19 07/31/19 07/31/19 07/31/19 15:00 17:19 17:49 19:00 Temp 98.5 98.3 98.5 98.3 Pulse 107 105 Resp 16 18 16 20 B/P (MAP) 101/62 (75) 94/61 (72) Pulse Ox 100 100 100 95 O2 Delivery Room Air Room Air Room Air Room Air 07/31/19 07/31/19 07/31/19 08/01/19 20:05 20:54 23:06 02:56 Temp 98.4 98.7 98.4 98.7 Pulse 105 107 99 Resp 20 17 B/P (MAP) 94/61 89/48 (62) 102/46 (64) Pulse Ox 97 97 O2 Delivery Room Air Room Air Room Air 08/01/19 08/01/19 08/01/19 08/01/19 07:00 07:50 08:20 08:37 Temp 98.2 98.2 Pulse 113 116 Resp 20 22 16 B/P (MAP) 108/43 (64) 96/51 Pulse Ox 95 O2 Delivery Room Air Room Air Room Air Intake and Output 07/31/19 07/31/19 08/01/19 15:00 23:00 07:00 Output Total 1400 ml 475 ml 1150 ml Balance -1400 ml -475 ml -1150 ml MATEO GARCIA MD Aug 01, 2019 12:09
[2019-08-01] MEDS: NYSTATIN TOPICAL POWDER 15GM BOTTLE. TP SCH (12:37)
[2019-08-01] MEDS: IBUPROFEN 200 MG TABLET. PO PRN (12:37)
[2019-08-01] MEDS: RIVAROXABAN 10 MG TABLET. PO SCH (15:38)
--- NOTE | 2019-08-01 19:29 | NUR ---
Pt has experience persistent pain with not much pain relief. Has refused wound care, pictures, dressing changes. Pt is being turned frequently q1-2 hours. Pt shifts weight on her own and manages to return to her back side. States that she is most comfortable in that position. Educated on the importance of wound care, personal hygiene, and protecting skin from further damage. Pt verbalizes understanding. Reinforcement required. Will continue to monitor.
[2019-08-01] MEDS: ATORVASTATIN CALCIUM 20 MG TABLET PO SCH (21:18)
[2019-08-01] MEDS: cefTRIAXone IV Push 1 GM VIAL. IVP SCH (21:19)
[2019-08-02 03:00] VITALS: BP 84/44
[2019-08-02 07:00] VITALS: BP 99/40
--- NOTE | 2019-08-02 07:43 | PDOC ---
PROGRESS NOTES Subjective Subjective Patient w/o complaints today. Awaiting wound care eval. Patient A&OX3 Objective Objective Vital Signs Date Time Temp Pulse Resp B/P (MAP) Pulse Ox O2 Delivery O2 Flow Rate FiO2 08/02/19 03:00 98.9 104 16 84/44 (57) 94 Room Air 98.9 Intake and Output 08/02/19 06:59 Intake Total 120 ml Output Total 1000 ml Balance -880 ml Intake Oral 120 ml Output Urine Total 1000 ml Physical Exam Abdomen: Normal bowel sounds Heart: Regular rate General: Alert Lungs: Clear to auscultation Skin: Other (multiple wounds see PICs) Assessment Assessment Problems Medical Problems: (1) Afib Status: Acute (2) Atrial fibrillation with RVR Status: Acute (3) Ulcer of sacral region, unstageable Status: Acute (4) UTI (urinary tract infection) Status: Acute 1. Sacral decubitus ulcer 2. UTI - 3. chronic afib - s 4. HTN 5. OA with chronic pain 6. debility - chronic Plan Plan of Care Continue Wound Care Continue PT/OT efforts Charles for wound protection Comment Review of Relevant I have reviewed the following items fátima (where applicable) has been applied. Labs Microbiology 07/30/19 Blood Culture - Preliminary, Resulted NO GROWTH AFTER 2 DAYS Medications Current Medications Vancomycin HCl (Vanco Per Pharmacy) 1 each 1X ONCE MC ; Start 07/30/19 at 20:30; Stop 07/30/19 at 20:31; Status DC Fentanyl Citrate (Fentanyl 2ml Vial) 25 mcg PRN Q15MIN PRN IV PAIN GREATER THAN 3/10 Last administered on 07/30/19at 20:31; Start 07/30/19 at 20:30; Stop 07/31/19 at 03:29; Status DC Sodium Chloride 1,000 ml @ 100 mls/hr Q10H IV Last administered on 07/30/19at 20:30; Start 07/30/19 at 20:30; Stop 07/31/19 at 03:29; Status DC Vancomycin HCl 2 gm/Sodium Chloride 500 ml @ 250 mls/hr 1X ONCE IV Last administered on 07/30/19at 20:30; Start 07/30/19 at 20:30; Stop 07/30/19 at 22:29; Status DC Ceftriaxone Sodium (Rocephin) 1 gm 1X ONCE IVP Last administered on 07/30/19 22:15; Start 07/30/19 at 22:15; Stop 07/30/19 at 22:16; Status DC Metoprolol Tartrate (Lopressor Vial) 5 mg 1X ONCE IVP Last administered on 07/30/19 22:15; Start 07/30/19 at 22:15; Stop 07/30/19 at 22:17; Status DC Ondansetron HCl (Zofran) 4 mg PRN Q8HRS PRN IV NAUSEA/VOMITING; Start 07/30/19 at 22:30; Stop 07/31/19 at 22:29; Status DC Acetaminophen (Tylenol) 650 mg PRN Q4HRS PRN PO FEVER; Start 07/30/19 at 22:30; Stop 07/31/19 at 22:29; Status DC Influenza Virus Vaccine Quadrival (Afluria Quad 2019-20 (3yr Up) Syringe) 0.5 ml ONCE ONCE VAX IM Last administered on 07/31/19 12:26; Start 07/31/19 at 09:00; Stop 07/31/19 at 09:01; Status DC Sodium Chloride 1,000 ml @ 100 mls/hr Q10H IV Last administered on 07/31/19 01:25; Start 07/31/19 at 00:30; Stop 07/31/19 at 11:53; Status DC Fentanyl Citrate (Fentanyl 2ml Vial) 25 mcg PRN Q2HR PRN IVP PAIN Last administered on 08/01/19 12:46; Start 07/31/19 at 00:30 Aspirin (Ecotrin) 325 mg DAILY PO Last administered on 08/01/19 08:35; Start 07/31/19 at 12:00 Atorvastatin Calcium (Lipitor) 20 mg QHS PO Last administered on 08/01/19 21:18; Start 07/31/19 at 21:00 Cetirizine HCl (ZyrTEC) 10 mg DAILY PO Last administered on 08/01/19 08:34; Start 07/31/19 at 12:00 Diclofenac Sodium (Voltaren) 1 vashti BID TP Last administered on 07/31/19 20:53; Start 07/31/19 at 12:00 Docusate Sodium (Colace) 100 mg DAILY PO Last administered on 08/01/19 08:34; Start 07/31/19 at 12:00 Hydrochlorothiazide (Hydrodiuril) 25 mg DAILY PO Last administered on 08/01/19 08:35; Start 07/31/19 at 12:00; Stop 08/01/19 at 11:57; Status DC Methadone HCl (Dolophine) 20 mg PRN TID PRN PO MODERATE TO SEVERE PAIN; Start 07/31/19 at 11:45; Stop 07/31/19 at 11:53; Status DC Metoprolol Tartrate (Lopressor) 25 mg BID PO Last administered on 08/01/19 08:37; Start 07/31/19 at 12:00 Ibuprofen (Motrin) 600 mg PRN Q6HRS PRN PO INFLAMMATION Last administered on 08/01/19 12:37; Start 07/31/19 at 11:45 Multivitamins (Thera M Plus) 1 tab DAILY PO Last administered on 08/01/19 08:31; Start 07/31/19 at 12:00 Rivaroxaban (Xarelto) 20 mg DAILYWSUP PO Last administered on 08/01/19at 15:38; Start 07/31/19 at 17:00 Tizanidine HCl (Zanaflex) 4 mg PRN QID PRN PO MUSCLE SPASMS; Start 07/31/19 at 12:00 Info (Anti-Coagulation Monitoring By Pharmacy) 1 each PRN DAILY PRN MC SEE COMMENTS Last administered on 08/01/19 08:25; Start 07/31/19 at 12:00 Methadone HCl (Dolophine) 20 mg TID PO Last administered on 08/01/19 21:18; Start 07/31/19 at 12:00 Ceftriaxone Sodium (Rocephin) 1 gm Q24H IVP Last administered on 08/01/19 21:19; Start 07/31/19 at 22:00 Polymyxin/ Trimethoprim Sulfate (Polytrim) 1 drop TID OU Last administered on 08/01/19 21:19; Start 07/31/19 at 14:00 Lactobacillus Rhamnosus (Culturelle) 1 cap BID PO Last administered on 08/01/19 21:18; Start 07/31/19 at 21:00 Nystatin (Nystop) 1 vashti BID TP Last administered on 08/01/19at 12:37; Start 08/01/19 at 21:00 Active Scripts Active Metoprolol Tartrate 25 Mg Tablet 1 Tab PO BID Methadone Hcl 10 Mg Tablet 20 Mg PO PRN TID PRN 15 Days Voltaren (Diclofenac Sodium) 100 Gm Gel..gram. 1 Vashti TP BID 30 Days Atorvastatin Calcium 20 Mg Tablet 20 Mg PO QHS 30 Days Xarelto (Rivaroxaban) 20 Mg Tablet 20 Mg PO DAILY 30 Days Cetirizine Hcl 10 Mg Tablet 10 Mg PO DAILY 30 Days Ibuprofen 600 Mg Tablet 600 Mg PO PRN Q6HRS PRN 90 Days Hydrochlorothiazide Tablet (Hydrochlorothiazide) 25 Mg Tablet 25 Mg PO DAILY 30 Days Reported Tizanidine Hcl 4 Mg Capsule 4 Mg PO QID PRN Docusate Sodium 100 Mg Capsule 1 Cap PO DAILY Multivitamins (Multivitamin) 1 Each Tablet 1 Tab PO DAILY Aspirin Ec (Aspirin) 325 Mg Tablet. 1 Tab PO DAILY Vitals/I & O Vital Sign - Last 24 Hours 08/01/19 08/01/19 08/01/19 08/01/19 07:50 08:20 08:37 11:00 Temp 98.2 98.2 Pulse 116 125 Resp 22 16 16 B/P (MAP) 96/51 120/48 (72) Pulse Ox 95 O2 Delivery Room Air Room Air Room Air 08/01/19 08/01/19 08/01/19 08/01/19 12:14 12:46 13:16 16:00 Temp 98.2 97.9 98.2 97.9 Pulse 16 110 Resp 22 18 20 B/P (MAP) 120/48 (72) 102/45 (64) Pulse Ox 95 95 O2 Delivery Room Air Room Air Room Air Room Air 08/01/19 08/01/19 08/01/19 08/01/19 19:00 19:30 21:00 21:44 Temp 97.9 97.9 Pulse 108 108 Resp 16 B/P (MAP) 85/45 (58) 85/45 88/45 (59) Pulse Ox 95 O2 Delivery Room Air 08/01/19 08/01/19 08/02/19 23:00 23:00 03:00 Temp 97.9 98.4 98.9 97.9 98.4 98.9 Pulse 108 93 104 Resp 16 16 B/P (MAP) 88/45 (59) 93/44 (60) 84/44 (57) Pulse Ox 95 97 94 O2 Delivery Room Air Room Air Room Air Intake and Output 08/01/19 08/01/19 08/02/19 14:59 22:59 06:59 Intake Total 120 ml 0 ml Output Total 600 ml 200 ml 200 ml Balance -600 ml -80 ml -200 ml SALVATORE HYDE MD Aug 02, 2019 07:43
[2019-08-02] MEDS: IBUPROFEN 200 MG TABLET. PO PRN (08:34)
[2019-08-02] MEDS: METHADONE 10 MG TABLET. PO SCH ×3 (08:34→21:45)
[2019-08-02] MEDS: LACTOBACILLUS RHAMNOSUS GG 1 CAPSULE. PO SCH ×2 (08:34→21:44)
[2019-08-02] MEDS: CETIRIZINE HCL 10 MG TABLET. PO SCH (08:35)
[2019-08-02] MEDS: DOCUSATE SODIUM 100 MG CAPSULE. PO SCH (08:35)
[2019-08-02] MEDS: POLYMYXIN/TRIMETHOPRIM OPHTH SOLUTION 10ML BOTTLE. OU SCH ×3 (08:35→21:46)
[2019-08-02] MEDS: NYSTATIN TOPICAL POWDER 15GM BOTTLE. TP SCH ×2 (08:35→21:46)
[2019-08-02] MEDS: ASPIRIN ENTERIC COATED 325 MG TABLET.DR. PO SCH (08:35)
[2019-08-02] MEDS: MULTIVITAMIN with MINERAL TABLET. PO SCH (08:35)
[2019-08-02] MEDS: DICLOFENAC SODIUM 1% TOPICAL GEL 100GM TUBE. TP SCH ×2 (09:00→21:00)
[2019-08-02] MEDS: METOPROLOL TART IMMED RELEASE 25 MG TABLET. PO SCH ×2 (09:00→21:00)
[2019-08-02 10:49] VITALS: BP 96/44
--- NOTE | 2019-08-02 12:04 | NUR ---
IP: patient has hx of +MRSA screen, requires contact precautions.
[2019-08-02] MEDS: fentaNYL PF VIAL 100 MCG/2 ML VIAL IVP PRN (13:53)
[2019-08-02 15:00] VITALS: BP 99/48
[2019-08-02] MEDS: ANTI-COAG MONITOR BY PHARMACY. MC PRN (15:56)
--- NOTE | 2019-08-02 16:10 | NUR ---
Wound Care: Wound care consult for multiple pressure ulcers. All wounds cleansed with wound wash and dressed (see wound intervention for specific dressings). [facility] bed ordered for pt, will page Dr. Ivey for possible orders to general surgery to eval sacrum wound and vascular surgery to eval L 5th metatarsal wound. Pt with multiple DTIs throughout her lower extremities. Pt encouraged to let staff reposition her, additional education is possibly needed on the benefits of repositioning. Wound care will follow up on 08/04.
--- NOTE | 2019-08-02 16:19 | NUR ---
MADDY consulted for dc planning. Chart reviewed and discussed with RN. MADDY Spoke with pt's and pt's daughter, Jade. Pt stated she has been to [facility] recently and was just discharged home with [facility]. Pt does not want to go SNF or LTC. Pt wants to go and live with her daughter Jade and continue HH services at home. From previous admission, it is noted pt had applied for Medicaid when she was at [facility] rehab. MADDY provided pt with [employer] phone number to follow up on her application for possible HBCS. Pt's daughter is interested in being a paid caregiver and MADDY provided area of aging information and informed her she might have to wait until pt's medicaid is approved. For now pt wants to go home with home health services upon dc.
[2019-08-02] MEDS: RIVAROXABAN 10 MG TABLET. PO SCH (18:38)
[2019-08-02 19:00] VITALS: BP 96/47
[2019-08-02] MEDS: ATORVASTATIN CALCIUM 20 MG TABLET PO SCH (21:44)
[2019-08-02] MEDS: cefTRIAXone IV Push 1 GM VIAL. IVP SCH (21:46)
[2019-08-02 22:55] VITALS: BP 98/44
[2019-08-03 03:00] VITALS: BP 103/43
[2019-08-03 07:00] VITALS: BP 75/35
[2019-08-03] MEDS: METOPROLOL TART IMMED RELEASE 25 MG TABLET. PO SCH ×2 (09:00→21:00)
[2019-08-03] MEDS: DICLOFENAC SODIUM 1% TOPICAL GEL 100GM TUBE. TP SCH ×2 (09:00→21:00)
[2019-08-03] MEDS: METHADONE 10 MG TABLET. PO SCH ×3 (10:04→21:37)
[2019-08-03] MEDS: IBUPROFEN 200 MG TABLET. PO PRN (10:05)
[2019-08-03] MEDS: NYSTATIN TOPICAL POWDER 15GM BOTTLE. TP SCH ×2 (10:07→21:00)
[2019-08-03] MEDS: POLYMYXIN/TRIMETHOPRIM OPHTH SOLUTION 10ML BOTTLE. OU SCH ×3 (10:08→21:39)
[2019-08-03] MEDS: LACTOBACILLUS RHAMNOSUS GG 1 CAPSULE. PO SCH ×2 (10:08→21:36)
[2019-08-03] MEDS: DOCUSATE SODIUM 100 MG CAPSULE. PO SCH (10:09)
[2019-08-03] MEDS: ASPIRIN ENTERIC COATED 325 MG TABLET.DR. PO SCH (10:09)
[2019-08-03] MEDS: CETIRIZINE HCL 10 MG TABLET. PO SCH (10:10)
[2019-08-03 11:00] VITALS: BP 82/40
[2019-08-03] MEDS: ANTI-COAG MONITOR BY PHARMACY. MC PRN (12:48)
[2019-08-03] MEDS ORDERED: IV NORMAL SALINE 500ML BAG 500 ML IV ONE (13:00)
--- NOTE | 2019-08-03 13:04 | PDOC ---
PROGRESS NOTES Subjective Subjective Patient without complaints this morning. [facility] and wants to go home with home health. Patient unable to care for herself and has large sacral decubitus present. Patient so has multiple leg ulcers. Discussed with wound care and possible toe amputation needed. Patient also need surgical referral due to sacral decubitus. Patient having inadequate by mouth intake and having signs of low blood pressures and increased pulse this morning. Objective Objective Vital Signs Date Time Temp Pulse Resp B/P (MAP) Pulse Ox O2 Delivery O2 Flow Rate FiO2 08/03/19 11:00 98.2 114 16 82/40 (54) 95 Room Air 98.2 Intake and Output 08/03/19 07:00 Intake Total 1240 ml Output Total 900 ml Balance 340 ml Intake Oral 1240 ml Output Urine Total 900 ml Physical Exam Abdomen: Normal bowel sounds Heart: Other Extremities: No edema (irregularly irregular) General: Alert Lungs: Clear to auscultation Assessment Assessment Problems Medical Problems: (1) Afib Status: Acute (2) Atrial fibrillation with RVR Status: Acute (3) Ulcer of sacral region, unstageable Status: Acute (4) UTI (urinary tract infection) Status: Acute 1. Sacral decubitus ulcer 2. Acute renal failure 3. chronic afib 4. HTN 5. OA with chronic pain 6. debility - chronic 7. UTI 9. Peripheral vascular disease 10. Severe protein malnutrition Plan Plan of Care Provide fluid bolus due to hypovolemia. ProcalAmine for fluid and calorie support Consult vascular surgery for vascular toe ulcers and possible amputation. Consult general surgery for wound care of sacral decub. Comment Review of Relevant I have reviewed the following items fátima (where applicable) has been applied. Labs Microbiology 07/30/19 Blood Culture - Preliminary, Resulted NO GROWTH AFTER 3 DAYS Medications Current Medications Vancomycin HCl (Vanco Per Pharmacy) 1 each 1X ONCE MC ; Start 07/30/19 at 20:30; Stop 07/30/19 at 20:31; Status DC Fentanyl Citrate (Fentanyl 2ml Vial) 25 mcg PRN Q15MIN PRN IV PAIN GREATER THAN 3/10 Last administered on 07/30/19at 20:31; Start 07/30/19 at 20:30; Stop 07/31/19 at 03:29; Status DC Sodium Chloride 1,000 ml @ 100 mls/hr Q10H IV Last administered on 07/30/19at 20:30; Start 07/30/19 at 20:30; Stop 07/31/19 at 03:29; Status DC Vancomycin HCl 2 gm/Sodium Chloride 500 ml @ 250 mls/hr 1X ONCE IV Last administered on 07/30/19 20:30; Start 07/30/19 at 20:30; Stop 07/30/19 at 22:29; Status DC Ceftriaxone Sodium (Rocephin) 1 gm 1X ONCE IVP Last administered on 07/30/19 22:15; Start 07/30/19 at 22:15; Stop 07/30/19 at 22:16; Status DC Metoprolol Tartrate (Lopressor Vial) 5 mg 1X ONCE IVP Last administered on 07/30/19 22:15; Start 07/30/19 at 22:15; Stop 07/30/19 at 22:17; Status DC Ondansetron HCl (Zofran) 4 mg PRN Q8HRS PRN IV NAUSEA/VOMITING; Start 07/30/19 at 22:30; Stop 07/31/19 at 22:29; Status DC Acetaminophen (Tylenol) 650 mg PRN Q4HRS PRN PO FEVER; Start 07/30/19 at 22:30; Stop 07/31/19 at 22:29; Status DC Influenza Virus Vaccine Quadrival (Afluria Quad 2019-20 (3yr Up) Syringe) 0.5 ml ONCE ONCE VAX IM Last administered on 07/31/19 12:26; Start 07/31/19 at 09:00; Stop 07/31/19 at 09:01; Status DC Sodium Chloride 1,000 ml @ 100 mls/hr Q10H IV Last administered on 07/31/19 01:25; Start 07/31/19 at 00:30; Stop 07/31/19 at 11:53; Status DC Fentanyl Citrate (Fentanyl 2ml Vial) 25 mcg PRN Q2HR PRN IVP PAIN Last admin istered on 08/02/19 13:53; Start 07/31/19 at 00:30 Aspirin (Ecotrin) 325 mg DAILY PO Last administered on 08/03/19 10:09; Start 07/31/19 at 12:00 Atorvastatin Calcium (Lipitor) 20 mg QHS PO Last administered on 08/02/19at 21:44; Start 07/31/19 at 21:00 Cetirizine HCl (ZyrTEC) 10 mg DAILY PO Last administered on 08/03/19 10:10; Start 07/31/19 at 12:00 Diclofenac Sodium (Voltaren) 1 vashti BID TP Last administered on 07/31/19 20:53; Start 07/31/19 at 12:00 Docusate Sodium (Colace) 100 mg DAILY PO Last administered on 08/03/19 10:09; Start 07/31/19 at 12:00 Hydrochlorothiazide (Hydrodiuril) 25 mg DAILY PO Last administered on 08/01/19 08:35; Start 07/31/19 at 12:00; Stop 08/01/19 at 11:57; Status DC Methadone HCl (Dolophine) 20 mg PRN TID PRN PO MODERATE TO SEVERE PAIN; Start 07/31/19 at 11:45; Stop 07/31/19 at 11:53; Status DC Metoprolol Tartrate (Lopressor) 25 mg BID PO Last administered on 08/01/19 08:37; Start 07/31/19 at 12:00 Ibuprofen (Motrin) 600 mg PRN Q6HRS PRN PO INFLAMMATION Last administered on 08/03/19 10:05; Start 07/31/19 at 11:45 Multivitamins (Thera M Plus) 1 tab DAILY PO Last administered on 08/02/19 08:35; Start 07/31/19 at 12:00 Rivaroxaban (Xarelto) 20 mg DAILYWSUP PO Last administered on 08/02/19 18:38; Start 07/31/19 at 17:00 Tizanidine HCl (Zanaflex) 4 mg PRN QID PRN PO MUSCLE SPASMS Last administered on 08/02/19 15:57; Start 07/31/19 at 12:00 Info (Anti-Coagulation Monitoring By Pharmacy) 1 each PRN DAILY PRN MC SEE COMMENTS Last administered on 08/03/19 12:48; Start 07/31/19 at 12:00 Methadone HCl (Dolophine) 20 mg TID PO Last administered on 08/03/19 10:04; Start 07/31/19 at 12:00 Ceftriaxone Sodium (Rocephin) 1 gm Q24H IVP Last administered on 10/21/19at 21:46; Start 07/31/19 at 22:00 Polymyxin/ Trimethoprim Sulfate (Polytrim) 1 drop TID OU Last administered on 08/03/19at 10:08; Start 07/31/19 at 14:00 Lactobacillus Rhamnosus (Culturelle) 1 cap BID PO Last administered on 08/03/19at 10:08; Start 07/31/19 at 21:00 Nystatin (Nystop) 1 vashti BID TP Last administered on 08/03/19at 10:07; Start 08/01/19 at 21:00 Sodium Chloride 500 ml @ 500 mls/hr 1X ONCE IV ; Start 08/03/19 at 13:00; Stop 08/03/19 at 13:59; Status UNV Amino Acids/ Glycerin/ Electrolytes 1,000 ml @ 80 mls/hr [id number] IV ; Start 08/03/19 at 13:00; Status UNV Active Scripts Active Metoprolol Tartrate 25 Mg Tablet 1 Tab PO BID Methadone Hcl 10 Mg Tablet 20 Mg PO PRN TID PRN 15 Days Voltaren (Diclofenac Sodium) 100 Gm Gel..gram. 1 Vashti TP BID 30 Days Atorvastatin Calcium 20 Mg Tablet 20 Mg PO QHS 30 Days Xarelto (Rivaroxaban) 20 Mg Tablet 20 Mg PO DAILY 30 Days Cetirizine Hcl 10 Mg Tablet 10 Mg PO DAILY 30 Days Ibuprofen 600 Mg Tablet 600 Mg PO PRN Q6HRS PRN 90 Days Hydrochlorothiazide Tablet (Hydrochlorothiazide) 25 Mg Tablet 25 Mg PO DAILY 30 Days Reported Tizanidine Hcl 4 Mg Capsule 4 Mg PO QID PRN Docusate Sodium 100 Mg Capsule 1 Cap PO DAILY Multivitamins (Multivitamin) 1 Each Tablet 1 Tab PO DAILY Aspirin Ec (Aspirin) 325 Mg Tablet. 1 Tab PO DAILY Vitals/I & O Vital Sign - Last 24 Hours 08/02/19 08/02/19 08/02/19 08/02/19 13:53 14:30 15:00 19:00 Temp 97.7 98.0 97.7 98.0 Pulse 102 64 Resp 20 17 18 B/P (MAP) 99/48 (65) 96/47 (63) Pulse Ox 94 93 95 96 O2 Delivery Room Air Room Air Room Air Room Air 08/02/19 08/02/19 08/02/1919 20:00 21:00 22:55 03:00 Temp 99.3 98.4 99.3 98.4 Pulse 64 62 103 Resp 18 18 B/P (MAP) 96/47 98/44 (62) 103/43 (63) Pulse Ox 94 97 O2 Delivery Room Air Room Air Room Air 08/03/19 08/03/19 08/03/19 07:00 09:00 11:00 Temp 98.4 98.2 98.4 98.2 Pulse 92 97 114 Resp 18 16 B/P (MAP) 75/35 (48) 82/41 82/40 (54) Pulse Ox 90 95 O2 Delivery Room Air Room Air Intake and Output 08/02/19 08/02/19 08/03/19 15:00 23:00 07:00 Intake Total 400 ml 460 ml 380 ml Output Total 350 ml 550 ml Balance 400 ml 110 ml -170 ml Nutrition Consultation Dietary Evaluation: Recommendations by RD: Increase Calorie Intake, Protein supplementation Comments: ensure tid adrienne bid mvi Expected Outcomes/Goals: to meet > 75% est nutr needs Malnutrition Findings: Body Fat Depletion (Non Severe: Mod to Severe Weight Status: Overweight SALVATORE HYDE MD Aug 03, 2019 13:04
[2019-08-03] MEDS: MULTIVITAMIN with MINERAL TABLET. PO SCH (14:22)
[2019-08-03] MEDS: AMINO AC 3%/ELECTROLYTE/GLYCER 1,000 ML IV SCH (14:23)
[2019-08-03 14:52] LABS: HEMATOCRIT 27.8 % (36.0-47.0); HEMOGLOBIN 9.1 g/dL (12.0-15.5); RED BLOOD COUNT 3.08 x10^6/uL (3.50-5.40); RED CELL DISTRIBUTION WIDTH 16.6 % (11.5-14.5); WHITE BLOOD COUNT 12.3 x10^3/uL (4.0-11.0)
[2019-08-03 15:00] VITALS: BP 92/32
[2019-08-03 15:03] LABS: CREATININE 1.7 mg/dL (0.6-1.0); GFR 29.5; POTASSIUM 3.5 mmol/L (3.5-5.1)
--- NOTE | 2019-08-03 15:42 | NUR ---
SW following. Discussed with Physician that pt has declined SNF placement and would like to go home with home health. SW will be available as needed.
[2019-08-03] MEDS: RIVAROXABAN 10 MG TABLET. PO SCH (17:00)
[2019-08-03] MEDS: ONDANSETRON PF 4 MG/2 ML VIAL. IVP PRN (17:58)
--- NOTE | 2019-08-03 18:07 | NUR ---
c/o nausea, did not take 5pm meds, would like to wait until later. New order for zofran. weblogic administrator'd. Will cont. to monitor.
[2019-08-03 19:00] VITALS: BP 92/35
[2019-08-03] MEDS: ATORVASTATIN CALCIUM 20 MG TABLET PO SCH (21:36)
[2019-08-03] MEDS: fentaNYL PF VIAL 100 MCG/2 ML VIAL IVP PRN ×2 (21:38→23:50)
[2019-08-03] MEDS: cefTRIAXone IV Push 1 GM VIAL. IVP SCH (21:39)
[2019-08-03 23:00] VITALS: BP 98/49
[2019-08-04] MEDS: AMINO AC 3%/ELECTROLYTE/GLYCER 1,000 ML IV SCH ×3 (01:30→21:53)
[2019-08-04 03:00] VITALS: BP 112/49
[2019-08-04] MEDS: fentaNYL PF VIAL 100 MCG/2 ML VIAL IVP PRN (06:32)
[2019-08-04 07:00] VITALS: BP 94/40
[2019-08-04] MEDS: METOPROLOL TART IMMED RELEASE 25 MG TABLET. PO SCH ×2 (09:00→21:51)
[2019-08-04] MEDS: DICLOFENAC SODIUM 1% TOPICAL GEL 100GM TUBE. TP SCH ×2 (09:00→21:00)
[2019-08-04] MEDS: MULTIVITAMIN with MINERAL TABLET. PO SCH (10:09)
[2019-08-04] MEDS: DOCUSATE SODIUM 100 MG CAPSULE. PO SCH (10:09)
[2019-08-04] MEDS: CETIRIZINE HCL 10 MG TABLET. PO SCH (10:09)
[2019-08-04] MEDS: ASPIRIN ENTERIC COATED 325 MG TABLET.DR. PO SCH (10:09)
[2019-08-04] MEDS: LACTOBACILLUS RHAMNOSUS GG 1 CAPSULE. PO SCH ×2 (10:09→21:50)
[2019-08-04] MEDS: POLYMYXIN/TRIMETHOPRIM OPHTH SOLUTION 10ML BOTTLE. OU SCH ×3 (10:10→21:52)
[2019-08-04] MEDS: METHADONE 10 MG TABLET. PO SCH ×3 (10:10→21:52)
[2019-08-04] MEDS: IBUPROFEN 200 MG TABLET. PO PRN (10:10)
[2019-08-04] MEDS: NYSTATIN TOPICAL POWDER 15GM BOTTLE. TP SCH ×2 (10:11→21:52)
[2019-08-04 10:44] VITALS: BP 99/42
--- NOTE | 2019-08-04 11:19 | PDOC2 ---
CONSULT Date of Consult Date of Consult DATE: 08/04/19 TIME: 11:13 Reason for Consult Reason for Consult: sacral decub ulcer Referring Physician Referring Physician: Dr. Ivey Identification/Chief Complaint Chief Complaint Left hip pain Source Source: Chart review, Patient History of Present Illness Reason for Visit: 73 yo F with multiple medical problems admitted with c/o large sacral ulcer, POA. Pt seen in hospital room with c/o left hip pain chronically, but pleasant. Past Medical History Cardiovascular: AFIB, CHF, HTN, Hyperlipidemia Pulmonary: Asthma, COPD GI: No pertinent hx Heme/Onc: Anemia NOS, Other Hepatobiliary: No pertinent hx Psych: Depression Musculoskeletal: Osteoarthritis, Other Rheumatologic: No pertinent hx Infectious disease: No pertinent hx Renal/: UTI Endocrine: No pertinent hx Past Surgical History Past Surgical History: Cholecystectomy, Total hip replacement, Tonsillectomy, Hysterectomy, Other Family History Family History: Diabetes Social History No ALCOHOL: none Drugs: None Lives: [facility] Current Problem List Problem List Problems Medical Problems: (1) Afib Status: Acute (2) Atrial fibrillation with RVR Status: Acute (3) Ulcer of sacral region, unstageable Status: Acute (4) UTI (urinary tract infection) Status: Acute Current Medications Current Medications Current Medications Vancomycin HCl (Vanco Per Pharmacy) 1 each 1X ONCE MC ; Start 07/30/19 at 20:30; Stop 07/30/19 at 20:31; Status DC Fentanyl Citrate (Fentanyl 2ml Vial) 25 mcg PRN Q15MIN PRN IV PAIN GREATER THAN 3/10 Last administered on 07/30/19at 20:31; Start 07/30/19 at 20:30; Stop 07/31/19 at 03:29; Status DC Sodium Chloride 1,000 ml @ 100 mls/hr Q10H IV Last administered on 07/30/19at 20:30; Start 07/30/19 at 20:30; Stop 07/31/19 at 03:29; Status DC Vancomycin HCl 2 gm/Sodium Chloride 500 ml @ 250 mls/hr 1X ONCE IV Last administered on 07/30/19at 20:30; Start 07/30/19 at 20:30; Stop 07/30/19 at 22:29; Status DC Ceftriaxone Sodium (Rocephin) 1 gm 1X ONCE IVP Last administered on 07/30/19at 22:15; Start 07/30/19 at 22:15; Stop 07/30/19 at 22:16; Status DC Metoprolol Tartrate (Lopressor Vial) 5 mg 1X ONCE IVP Last administered on 07/30/19at 22:15; Start 07/30/19 at 22:15; Stop 07/30/19 at 22:17; Status DC Ondansetron HCl (Zofran) 4 mg PRN Q8HRS PRN IV NAUSEA/VOMITING; Start 07/30/19 at 22:30; Stop 07/31/19 at 22:29; Status DC Acetaminophen (Tylenol) 650 mg PRN Q4HRS PRN PO FEVER; Start 07/30/19 at 22:30; Stop 07/31/19 at 22:29; Status DC Influenza Virus Vaccine Quadrival (Afluria Quad 2019-20 (3yr Up) Syringe) 0.5 ml ONCE ONCE VAX IM Last administered on 07/31/19 12:26; Start 07/31/19 at 09:00; Stop 07/31/19 at 09:01; Status DC Sodium Chloride 1,000 ml @ 100 mls/hr Q10H IV Last administered on 07/31/19 01:25; Start 07/31/19 at 00:30; Stop 07/31/19 at 11:53; Status DC Fentanyl Citrate (Fentanyl 2ml Vial) 25 mcg PRN Q2HR PRN IVP PAIN Last administered on 08/04/19 06:32; Start 07/31/19 at 00:30 Aspirin (Ecotrin) 325 mg DAILY PO Last administered on 08/04/19 10:09; Start 07/31/19 at 12:00 Atorvastatin Calcium (Lipitor) 20 mg QHS PO Last administered on 08/03/19 21:36; Start 07/31/19 at 21:00 Cetirizine HCl (ZyrTEC) 10 mg DAILY PO Last administered on 08/04/19 10:09; Start 07/31/19 at 12:00 Diclofenac Sodium (Voltaren) 1 vashti BID TP Last administered on 07/31/19 20:53; Start 07/31/19 at 12:00 Docusate Sodium (Colace) 100 mg DAILY PO Last administered on 08/04/19 10:09; Start 07/31/19 at 12:00 Hydrochlorothiazide (Hydrodiuril) 25 mg DAILY PO Last administered on 08/01/19 08:35; Start 07/31/19 at 12:00; Stop 08/01/19 at 11:57; Status DC Methadone HCl (Dolophine) 20 mg PRN TID PRN PO MODERATE TO SEVERE PAIN; Start 07/31/19 at 11:45; Stop 07/31/19 at 11:53; Status DC Metoprolol Tartrate (Lopressor) 25 mg BID PO Last administered on 08/01/19 08:37; Start 07/31/19 at 12:00 Ibuprofen (Motrin) 600 mg PRN Q6HRS PRN PO INFLAMMATION Last administered on 08/04/19 10:10; Start 07/31/19 at 11:45 Multivitamins (Thera M Plus) 1 tab DAILY PO Last administered on 08/04/19 10:09; Start 07/31/19 at 12:00 Rivaroxaban (Xarelto) 20 mg DAILYWSUP PO Last administered on 08/02/19 18:38; Start 07/31/19 at 17:00 Tizanidine HCl (Zanaflex) 4 mg PRN QID PRN PO MUSCLE SPASMS Last administered o n 08/02/19 15:57; Start 07/31/19 at 12:00 Info (Anti-Coagulation Monitoring By Pharmacy) 1 each PRN DAILY PRN MC SEE COMMENTS Last administered on 08/03/19 12:48; Start 07/31/19 at 12:00 Methadone HCl (Dolophine) 20 mg TID PO Last administered on 08/04/19 10:10; Start 07/31/19 at 12:00 Ceftriaxone Sodium (Rocephin) 1 gm Q24H IVP Last administered on 08/03/19 21:39; Start 07/31/19 at 22:00 Polymyxin/ Trimethoprim Sulfate (Polytrim) 1 drop TID OU Last administered on 08/04/19 10:10; Start 07/31/19 at 14:00 Lactobacillus Rhamnosus (Culturelle) 1 cap BID PO Last administered on 08/04/19 10:09; Start 07/31/19 at 21:00 Nystatin (Nystop) 1 vashti BID TP Last administered on 08/04/19 10:11; Start 08/01/19 at 21:00 Sodium Chloride 500 ml @ 500 mls/hr 1X ONCE IV Last administered on 08/03/19at 14:28; Start 08/03/19 at 13:00; Stop 08/03/19 at 13:59; Status DC Amino Acids/ Glycerin/ Electrolytes 1,000 ml @ 80 mls/hr [id number] IV Last administered on 08/04/19at 01:30; Start 08/03/19 at 13:00 Ondansetron HCl (Zofran) 4 mg PRN Q4HRS PRN IVP NAUSEA/VOMITING Last administered on 08/03/19at 17:58; Start 08/03/19 at 17:15 Active Scripts Active Metoprolol Tartrate 25 Mg Tablet 1 Tab PO BID Methadone Hcl 10 Mg Tablet 20 Mg PO PRN TID PRN 15 Days Voltaren (Diclofenac Sodium) 100 Gm Gel..gram. 1 Vashti TP BID 30 Days Atorvastatin Calcium 20 Mg Tablet 20 Mg PO QHS 30 Days Xarelto (Rivaroxaban) 20 Mg Tablet 20 Mg PO DAILY 30 Days Cetirizine Hcl 10 Mg Tablet 10 Mg PO DAILY 30 Days Ibuprofen 600 Mg Tablet 600 Mg PO PRN Q6HRS PRN 90 Days Hydrochlorothiazide Tablet (Hydrochlorothiazide) 25 Mg Tablet 25 Mg PO DAILY 30 Days Reported Tizanidine Hcl 4 Mg Capsule 4 Mg PO QID PRN Docusate Sodium 100 Mg Capsule 1 Cap PO DAILY Multivitamins (Multivitamin) 1 Each Tablet 1 Tab PO DAILY Aspirin Ec (Aspirin) 325 Mg Tablet. 1 Tab PO DAILY Allergies Allergies: Coded Allergies: shellfish derived (Verified Allergy, Severe, 10/23/17) Iodinated Contrast Media (Verified Allergy, Intermediate, 10/23/17) digoxin (Verified Allergy, Intermediate, 10/23/17) I S O L A T I O N *CONTACT* (Verified Allergy, Unknown, 05/14/19) mrsa ROS Musculoskeletal: Yes Pain In: (left hip) Physical Exam General: Alert, Cooperative, No acute distress HEENT: Atraumatic Lungs: Normal air movement Abdomen: Soft, No tenderness Skin: Other (reviewed wound care pictures, appears superficial, without obvious necrotic tissue) Psych/Mental Status: Mental status NL, Mood NL Vitals VITALS Vital Signs Date Time Temp Pulse Resp B/P (MAP) Pulse Ox O2 Delivery O2 Flow Rate FiO2 08/04/19 10:44 97.8 70 19 99/42 (61) 96 Room Air 97.8 Labs Labs Laboratory Tests Test 08/03/19 14:45 White Blood Count 12.3 x10^3/uL (4.0-11.0) Red Blood Count 3.08 x10^6/uL (3.50-5.40) Hemoglobin 9.1 g/dL (12.0-15.5) Hematocrit 27.8 % (36.0-47.0) Mean Corpuscular Volume 90 fL (79-100) Mean Corpuscular Hemoglobin 30 pg (25-35) Mean Corpuscular Hemoglobin Concent 33 g/dL (31-37) Red Cell Distribution Width 16.6 % (11.5-14.5) Platelet Count 203 x10^3/uL (140-400) Sodium Level 134 mmol/L (136-145) Potassium Level 3.5 mmol/L (3.5-5.1) Chloride Level 97 mmol/L (98-107) Carbon Dioxide Level 26 mmol/L (21-32) Anion Gap 11 (6-14) Blood Urea Nitrogen 43 mg/dL (7-20) Creatinine 1.7 mg/dL (0.6-1.0) Estimated GFR (Cockcroft-Gault) 29.5 Glucose Level 119 mg/dL (70-99) Calcium Level 9.0 mg/dL (8.5-10.1) Laboratory Tests Test 08/03/19 14:45 White Blood Count 12.3 x10^3/uL (4.0-11.0) Red Blood Count 3.08 x10^6/uL (3.50-5.40) Hemoglobin 9.1 g/dL (12.0-15.5) Hematocrit 27.8 % (36.0-47.0) Mean Corpuscular Volume 90 fL (79-100) Mean Corpuscular Hemoglobin 30 pg (25-35) Mean Corpuscular Hemoglobin Concent 33 g/dL (31-37) Red Cell Distribution Width 16.6 % (11.5-14.5) Platelet Count 203 x10^3/uL (140-400) Sodium Level 134 mmol/L (136-145) Potassium Level 3.5 mmol/L (3.5-5.1) Chloride Level 97 mmol/L (98-107) Carbon Dioxide Level 26 mmol/L (21-32) Anion Gap 11 (6-14) Blood Urea Nitrogen 43 mg/dL (7-20) Creatinine 1.7 mg/dL (0.6-1.0) Estimated GFR (Cockcroft-Gault) 29.5 Glucose Level 119 mg/dL (70-99) Calcium Level 9.0 mg/dL (8.5-10.1) Images Images Previous pelvic xray concerning for avascular necrosis Assessment/Plan Assessment/Plan sacral ulcer agree with wound care evaluation. Large ulcer appears superificial without obvious necrotic tissue. Favor local wound care first, especially given pt somewhat poor candidate currently with decreased BP and tachycardia. Will ask ortho to comment as previous pelvic xr with avascular necrosis and pt with c/o Left hip pain. Thanks for consult! KALEN ADAM MD Aug 04, 2019 11:18
[2019-08-04] MEDS: ONDANSETRON PF 4 MG/2 ML VIAL. IVP PRN (12:16)
[2019-08-04] MEDS: ANTI-COAG MONITOR BY PHARMACY. MC PRN (12:52)
[2019-08-04 15:00] VITALS: BP 96/40
--- NOTE | 2019-08-04 15:37 | NUR ---
Wound care: Patient seen per wound care follow up for wound vac Veraflo placement. Patient recently received pain medication. patient turned to right side for vac placement. Skin prepped and an ostomy ring placed to sarai-wound. 2 pieces of shields foam placed to wound bed, the vac tracked to left hip. A good seal maintained at 125mmHg intermittently with 16mL instilled for 5 minutes every 4 hours. Patient repositioned to back, patient on [place] bed, daughter Jade at bedside. Will follow up Friday for dressing changes. Bed lowered and call light in reach.
--- NOTE | 2019-08-04 16:57 | PDOC ---
PROGRESS NOTES Subjective Subjective Patient under evaluation by surgery for wound care as well as vascular surgery for possible amputation due to toe ulcer. Patient tolerating diet but continues to have low blood pressures did respond to fluid bolus with decreased pulse increased blood pressure. Ongoing nutritional support with ProcalAmine continued by mouth diet. Charles in place to protect wound. Objective Objective Vital Signs Date Time Temp Pulse Resp B/P (MAP) Pulse Ox O2 Delivery O2 Flow Rate FiO2 08/04/19 15:00 97.7 73 19 96/40 (58) 96 Room Air 97.7 Intake and Output 08/04/19 07:00 Intake Total 1850 ml Output Total 1800 ml Balance 50 ml Intake Oral 850 ml IV Total 1000 ml Output Urine Total 1800 ml Physical Exam Abdomen: Normal bowel sounds Heart: Regular rate Extremities: No edema General: Alert Lungs: Clear to auscultation Assessment Assessment Problems Medical Problems: (1) Afib Status: Acute (2) Atrial fibrillation with RVR Status: Acute (3) Ulcer of sacral region, unstageable Status: Acute (4) UTI (urinary tract infection) Status: Acute 1. Sacral decubitus ulcer 2. Acute renal failure 3. chronic afib 4. HTN 5. OA with chronic pain 6. debility - chronic 7. UTI 9. Peripheral vascular disease 10. Severe protein malnutrition Plan Plan of Care ProcalAmine for fluid and calorie support Consult vascular surgery for vascular toe ulcers and possible amputation. Consult general surgery for wound care of sacral decub. Continue wound care consider shelter or placement if possible Comment Review of Relevant I have reviewed the following items fátima (where applicable) has been applied. Labs Laboratory Tests Test 08/03/19 14:45 White Blood Count 12.3 x10^3/uL (4.0-11.0) Red Blood Count 3.08 x10^6/uL (3.50-5.40) Hemoglobin 9.1 g/dL (12.0-15.5) Hematocrit 27.8 % (36.0-47.0) Mean Corpuscular Volume 90 fL (79-100) Mean Corpuscular Hemoglobin 30 pg (25-35) Mean Corpuscular Hemoglobin Concent 33 g/dL (31-37) Red Cell Distribution Width 16.6 % (11.5-14.5) Platelet Count 203 x10^3/uL (140-400) Sodium Level 134 mmol/L (136-145) Potassium Level 3.5 mmol/L (3.5-5.1) Chloride Level 97 mmol/L (98-107) Carbon Dioxide Level 26 mmol/L (21-32) Anion Gap 11 (6-14) Blood Urea Nitrogen 43 mg/dL (7-20) Creatinine 1.7 mg/dL (0.6-1.0) Estimated GFR (Cockcroft-Gault) 29.5 Glucose Level 119 mg/dL (70-99) Calcium Level 9.0 mg/dL (8.5-10.1) Microbiology 07/30/19 Urine Culture - Preliminary, Resulted 07/30/19 Urine Culture Result 1 (KATRINA) - Preliminary, Resulted 07/30/19 Blood Culture - Preliminary, Resulted NO GROWTH AFTER 4 DAYS 07/30/19 Anaerobic/Aerobic Culture, Resulted Pending 07/30/19 Anaerobic Culture Result 1 (KATRINA), Resulted Pending 07/30/19 Aerobic Culture, Resulted Pending 07/30/19 Aerobic Culture Result 1 (KATRINA), Resulted Pending 07/30/19 Gram Stain - Final, Resulted 07/30/19 Gram Stain Result 1 (KATRINA) - Final, Resulted 07/30/19 Gram Stain Result 2 (KATRINA) - Final, Resulted 07/30/19 Gram Stain Result 3 (KATRINA) - Final, Resulted 07/30/19 Gram Stain Result 4 (KATRINA) - Final, Resulted Medications Current Medications Vancomycin HCl (Vanco Per Pharmacy) 1 each 1X ONCE MC ; Start 07/30/19 at 20:30; Stop 07/30/19 at 20:31; Status DC Fentanyl Citrate (Fentanyl 2ml Vial) 25 mcg PRN Q15MIN PRN IV PAIN GREATER THAN 3/10 Last administered on 07/30/19at 20:31; Start 07/30/19 at 20:30; Stop 07/31/19 at 03:29; Status DC Sodium Chloride 1,000 ml @ 100 mls/hr Q10H IV Last administered on 07/30/19at 20:30; Start 07/30/19 at 20:30; Stop 07/31/19 at 03:29; Status DC Vancomycin HCl 2 gm/Sodium Chloride 500 ml @ 250 mls/hr 1X ONCE IV Last administered on 07/30/19at 20:30; Start 07/30/19 at 20:30; Stop 07/30/19 at 22:29; Status DC Ceftriaxone Sodium (Rocephin) 1 gm 1X ONCE IVP Last administered on 07/30/19 22:15; Start 07/30/19 at 22:15; Stop 07/30/19 at 22:16; Status DC Metoprolol Tartrate (Lopressor Vial) 5 mg 1X ONCE IVP Last administered on 07/30/19 22:15; Start 07/30/19 at 22:15; Stop 07/30/19 at 22:17; Status DC Ondansetron HCl (Zofran) 4 mg PRN Q8HRS PRN IV NAUSEA/VOMITING; Start 07/30/19 at 22:30; Stop 07/31/19 at 22:29; Status DC Acetaminophen (Tylenol) 650 mg PRN Q4HRS PRN PO FEVER; Start 07/30/19 at 22:30; Stop 07/31/19 at 22:29; Status DC Influenza Virus Vaccine Quadrival (Afluria Quad 2019-20 (3yr Up) Syringe) 0.5 ml ONCE ONCE VAX IM Last administered on 07/31/19 12:26; Start 07/31/19 at 09:00; Stop 07/31/19 at 09:01; Status DC Sodium Chloride 1,000 ml @ 100 mls/hr Q10H IV Last administered on 07/31/19 01:25; Start 07/31/19 at 00:30; Stop 07/31/19 at 11:53; Status DC Fentanyl Citrate (Fentanyl 2ml Vial) 25 mcg PRN Q2HR PRN IVP PAIN Last admi nistered on 08/04/19 06:32; Start 07/31/19 at 00:30 Aspirin (Ecotrin) 325 mg DAILY PO Last administered on 08/04/19 10:09; Start 07/31/19 at 12:00 Atorvastatin Calcium (Lipitor) 20 mg QHS PO Last administered on 08/03/19 21:36; Start 07/31/19 at 21:00 Cetirizine HCl (ZyrTEC) 10 mg DAILY PO Last administered on 08/04/19 10:09; Start 07/31/19 at 12:00 Diclofenac Sodium (Voltaren) 1 vashti BID TP Last administered on 07/31/19 20:53; Start 07/31/19 at 12:00 Docusate Sodium (Colace) 100 mg DAILY PO Last administered on 08/04/19 10:09; Start 07/31/19 at 12:00 Hydrochlorothiazide (Hydrodiuril) 25 mg DAILY PO Last administered on 08/01/19 08:35; Start 07/31/19 at 12:00; Stop 08/01/19 at 11:57; Status DC Methadone HCl (Dolophine) 20 mg PRN TID PRN PO MODERATE TO SEVERE PAIN; Start 07/31/19 at 11:45; Stop 07/31/19 at 11:53; Status DC Metoprolol Tartrate (Lopressor) 25 mg BID PO Last administered on 08/01/19 08:37; Start 07/31/19 at 12:00 Ibuprofen (Motrin) 600 mg PRN Q6HRS PRN PO INFLAMMATION Last administered on 08/04/19 10:10; Start 07/31/19 at 11:45 Multivitamins (Thera M Plus) 1 tab DAILY PO Last administered on 08/04/19 10:09; Start 07/31/19 at 12:00 Rivaroxaban (Xarelto) 20 mg DAILYWSUP PO Last administered on 08/02/19 18:38; Start 07/31/19 at 17:00; Stop 08/04/19 at 12:54; Status DC Tizanidine HCl (Zanaflex) 4 mg PRN QID PRN PO MUSCLE SPASMS Last administered on 08/02/19 15:57; Start 07/31/19 at 12:00 Info (Anti-Coagulation Monitoring By Pharmacy) 1 each PRN DAILY PRN MC SEE COMMENTS Last administered on 08/04/19 12:52; Start 07/31/19 at 12:00 Methadone HCl (Dolophine) 20 mg TID PO Last administered on 08/04/19 14:01; Start 07/31/19 at 12:00 Ceftriaxone Sodium (Rocephin) 1 gm Q24H IVP Last administered on 08/03/19 21:39; Start 07/31/19 at 22:00 Polymyxin/ Trimethoprim Sulfate (Polytrim) 1 drop TID OU Last administered on 08/04/19 10:10; Start 07/31/19 at 14:00 Lactobacillus Rhamnosus (Culturelle) 1 cap BID PO Last administered on 08/04/19at 10:09; Start 07/31/19 at 21:00 Nystatin (Nystop) 1 vashti BID TP Last administered on 08/04/19at 10:11; Start 08/01/19 at 21:00 Sodium Chloride 500 ml @ 500 mls/hr 1X ONCE IV Last administered on 08/03/19at 14:28; Start 08/03/19 at 13:00; Stop 08/03/19 at 13:59; Status DC Amino Acids/ Glycerin/ Electrolytes 1,000 ml @ 80 mls/hr [id number] IV Last administered on 08/04/19at 01:30; Start 08/03/19 at 13:00 Ondansetron HCl (Zofran) 4 mg PRN Q4HRS PRN IVP NAUSEA/VOMITING Last administered on 08/04/19at 12:16; Start 08/03/19 at 17:15 Rivaroxaban (Xarelto) 15 mg DAILYWSUP PO ; Start 08/04/19 at 17:00 Active Scripts Active Metoprolol Tartrate 25 Mg Tablet 1 Tab PO BID Methadone Hcl 10 Mg Tablet 20 Mg PO PRN TID PRN 15 Days Voltaren (Diclofenac Sodium) 100 Gm Gel..gram. 1 Vashti TP BID 30 Days Atorvastatin Calcium 20 Mg Tablet 20 Mg PO QHS 30 Days Xarelto (Rivaroxaban) 20 Mg Tablet 20 Mg PO DAILY 30 Days Cetirizine Hcl 10 Mg Tablet 10 Mg PO DAILY 30 Days Ibuprofen 600 Mg Tablet 600 Mg PO PRN Q6HRS PRN 90 Days Hydrochlorothiazide Tablet (Hydrochlorothiazide) 25 Mg Tablet 25 Mg PO DAILY 30 Days Reported Tizanidine Hcl 4 Mg Capsule 4 Mg PO QID PRN Docusate Sodium 100 Mg Capsule 1 Cap PO DAILY Multivitamins (Multivitamin) 1 Each Tablet 1 Tab PO DAILY Aspirin Ec (Aspirin) 325 Mg Tablet. 1 Tab PO DAILY Vitals/I & O Vital Sign - Last 24 Hours 08/03/19 08/03/19 08/03/19 08/03/19 19:00 20:00 21:38 22:08 Temp 98.4 98.4 Pulse 97 Resp 18 B/P (MAP) 92/35 (54) Pulse Ox 81 81 81 O2 Delivery Room Air Room Air Room Air Room Air 08/03/19 08/03/19 08/04/19 08/04/19 23:00 23:50 00:20 03:00 Temp 98.9 98.6 98.9 98.6 Pulse 108 93 Resp 18 18 B/P (MAP) 98/49 (65) 112/49 (70) Pulse Ox 98 81 81 97 O2 Delivery Room Air Room Air Room Air Room Air 08/04/19 08/04/19 08/04/19 08/04/19 06:32 07:00 07:02 09:00 Temp 97.7 97.7 Pulse 73 73 Resp 19 B/P (MAP) 94/40 (58) 94/40 Pulse Ox 97 97 97 O2 Delivery Room Air Room Air Room Air 08/04/19 08/04/19 10:44 15:00 Temp 97.8 97.7 97.8 97.7 Pulse 70 73 Resp 19 19 B/P (MAP) 99/42 (61) 96/40 (58) Pulse Ox 96 96 O2 Delivery Room Air Room Air Intake and Output 08/03/19 08/03/19 08/04/19 15:00 23:00 07:00 Intake Total 350 ml 1500 ml Output Total 1300 ml 500 ml Balance -950 ml 1000 ml Nutrition Consultation Dietary Evaluation: Recommendations by RD: Increase Calorie Intake, Protein supplementation Comments: ensure tid adrienne bid mvi Expected Outcomes/Goals: to meet > 75% est nutr needs Malnutrition Findings: Body Fat Depletion (Non Severe: Mod to Severe Weight Status: Overweight SALVATORE HYDE MD Aug 04, 2019 16:57
[2019-08-04] MEDS: RIVAROXABAN 15 MG TABLET. PO SCH (17:00)
[2019-08-04 19:00] VITALS: BP 106/55
[2019-08-04] MEDS: cefTRIAXone IV Push 1 GM VIAL. IVP SCH (21:50)
[2019-08-04] MEDS: ATORVASTATIN CALCIUM 20 MG TABLET PO SCH (21:50)
[2019-08-04 23:00] VITALS: BP 112/43
[2019-08-05 03:00] VITALS: BP 114/47
[2019-08-05 05:03] LABS: HEMATOCRIT 26.8 % (36.0-47.0); HEMOGLOBIN 8.9 g/dL (12.0-15.5); RED BLOOD COUNT 2.98 x10^6/uL (3.50-5.40)
[2019-08-05 05:10] LABS: CALCIUM 9.3 mg/dL (8.5-10.1); GFR 54.5; POTASSIUM 3.6 mmol/L (3.5-5.1)
[2019-08-05 07:00] VITALS: BP 104/49
--- NOTE | 2019-08-05 08:35 | PDOC2 ---
CONSULT Date of Consult Date of Consult DATE: 08/05/19 TIME: 08:32 Past Medical History Cardiovascular: AFIB, CHF, HTN, Hyperlipidemia Pulmonary: Asthma, COPD GI: No pertinent hx Heme/Onc: Anemia NOS, Other Hepatobiliary: No pertinent hx Psych: Depression Musculoskeletal: Osteoarthritis, Other Rheumatologic: No pertinent hx Infectious disease: No pertinent hx Renal/: UTI Endocrine: No pertinent hx Past Surgical History Past Surgical History: Cholecystectomy, Total hip replacement, Tonsillectomy, Hysterectomy, Other Family History Family History: Diabetes Social History No ALCOHOL: none Drugs: None Lives: Long-Term Current Problem List Problem List Problems Medical Problems: (1) Afib Status: Acute (2) Atrial fibrillation with RVR Status: Acute (3) Ulcer of sacral region, unstageable Status: Acute (4) UTI (urinary tract infection) Status: Acute Current Medications Current Medications Current Medications Vancomycin HCl (Vanco Per Pharmacy) 1 each 1X ONCE MC ; Start 07/30/19 at 20:30; Stop 07/30/19 at 20:31; Status DC Fentanyl Citrate (Fentanyl 2ml Vial) 25 mcg PRN Q15MIN PRN IV PAIN GREATER THAN 3/10 Last administered on 07/30/19at 20:31; Start 07/30/19 at 20:30; Stop 07/31/19 at 03:29; Status DC Sodium Chloride 1,000 ml @ 100 mls/hr Q10H IV Last administered on 07/30/19at 20:30; Start 07/30/19 at 20:30; Stop 07/31/19 at 03:29; Status DC Vancomycin HCl 2 gm/Sodium Chloride 500 ml @ 250 mls/hr 1X ONCE IV Last administered on 07/30/19at 20:30; Start 07/30/19 at 20:30; Stop 07/30/19 at 22:29; Status DC Ceftriaxone Sodium (Rocephin) 1 gm 1X ONCE IVP Last administered on 07/30/19at 22:15; Start 07/30/19 at 22:15; Stop 07/30/19 at 22:16; Status DC Metoprolol Tartrate (Lopressor Vial) 5 mg 1X ONCE IVP Last administered on 07/30/19at 22:15; Start 07/30/19 at 22:15; Stop 07/30/19 at 22:17; Status DC Ondansetron HCl (Zofran) 4 mg PRN Q8HRS PRN IV NAUSEA/VOMITING; Start 07/30/19 at 22:30; Stop 07/31/19 at 22:29; Status DC Acetaminophen (Tylenol) 650 mg PRN Q4HRS PRN PO FEVER; Start 07/30/19 at 22:30; Stop 07/31/19 at 22:29; Status DC Influenza Virus Vaccine Quadrival (Afluria Quad 2019-20 (3yr Up) Syringe) 0.5 ml ONCE ONCE VAX IM Last administered on 07/31/19 12:26; Start 07/31/19 at 09:00; Stop 07/31/19 at 09:01; Status DC Sodium Chloride 1,000 ml @ 100 mls/hr Q10H IV Last administered on 07/31/19 01:25; Start 07/31/19 at 00:30; Stop 07/31/19 at 11:53; Status DC Fentanyl Citrate (Fentanyl 2ml Vial) 25 mcg PRN Q2HR PRN IVP PAIN Last administered on 08/04/19 06:32; Start 07/31/19 at 00:30 Aspirin (Ecotrin) 325 mg DAILY PO Last administered on 08/04/19 10:09; Start 07/31/19 at 12:00 Atorvastatin Calcium (Lipitor) 20 mg QHS PO Last administered on 08/04/19 21:50; Start 07/31/19 at 21:00 Cetirizine HCl (ZyrTEC) 10 mg DAILY PO Last administered on 08/04/19 10:09; Start 07/31/19 at 12:00 Diclofenac Sodium (Voltaren) 1 vashti BID TP Last administered on 07/31/19 20:53; Start 07/31/19 at 12:00 Docusate Sodium (Colace) 100 mg DAILY PO Last administered on 08/04/19 10:09; Start 07/31/19 at 12:00 Hydrochlorothiazide (Hydrodiuril) 25 mg DAILY PO Last administered on 08/01/19 08:35; Start 07/31/19 at 12:00; Stop 08/01/19 at 11:57; Status DC Methadone HCl (Dolophine) 20 mg PRN TID PRN PO MODERATE TO SEVERE PAIN; Start 07/31/19 at 11:45; Stop 07/31/19 at 11:53; Status DC Metoprolol Tartrate (Lopressor) 25 mg BID PO Last administered on 08/01/19 08:37; Start 07/31/19 at 12:00; Stop 08/04/19 at 16:55; Status DC Ibuprofen (Motrin) 600 mg PRN Q6HRS PRN PO INFLAMMATION Last administered on 08/04/19 10:10; Start 07/31/19 at 11:45 Multivitamins (Thera M Plus) 1 tab DAILY PO Last administered on 08/04/19 10:09; Start 07/31/19 at 12:00 Rivaroxaban (Xarelto) 20 mg DAILYWSUP PO Last administered on 08/02/19 18:38; Start 07/31/19 at 17:00; Stop 08/04/19 at 12:54; Status DC Tizanidine HCl (Zanaflex) 4 mg PRN QID PRN PO MUSCLE SPASMS Last administered on 08/02/19 15:57; Start 07/31/19 at 12:00 Info (Anti-Coagulation Monitoring By Pharmacy) 1 each PRN DAILY PRN MC SEE COMMENTS Last administered on 08/04/19 12:52; Start 07/31/19 at 12:00 Methadone HCl (Dolophine) 20 mg TID PO Last administered on 08/04/19 21:52; Start 07/31/19 at 12:00 Ceftriaxone Sodium (Rocephin) 1 gm Q24H IVP Last administered on 08/04/19 21:50; Start 07/31/19 at 22:00 Polymyxin/ Trimethoprim Sulfate (Polytrim) 1 drop TID OU Last administered on 08/04/19 21:52; Start 07/31/19 at 14:00 Lactobacillus Rhamnosus (Culturelle) 1 cap BID PO Last administered on 08/04/19 21:50; Start 07/31/19 at 21:00 Nystatin (Nystop) 1 vashti BID TP Last administered on 08/04/19 21:52; Start 08/01/19 at 21:00 Sodium Chloride 500 ml @ 500 mls/hr 1X ONCE IV Last administered on 08/03/19 14:28; Start 08/03/19 at 13:00; Stop 08/03/19 at 13:59; Status DC Amino Acids/ Glycerin/ Electrolytes 1,000 ml @ 80 mls/hr [id number] IV Last administered on 08/04/19at 21:53; Start 08/03/19 at 13:00 Ondansetron HCl (Zofran) 4 mg PRN Q4HRS PRN IVP NAUSEA/VOMITING Last administered on 08/04/19at 12:16; Start 08/03/19 at 17:15 Rivaroxaban (Xarelto) 15 mg DAILYWSUP PO Last administered on 08/04/19at 17:00; Start 08/04/19 at 17:00 Metoprolol Tartrate (Lopressor) 12.5 mg BID PO Last administered on 08/04/19at 21:51; Start 08/04/19 at 21:00 Active Scripts Active Metoprolol Tartrate 25 Mg Tablet 1 Tab PO BID Methadone Hcl 10 Mg Tablet 20 Mg PO PRN TID PRN 15 Days Voltaren (Diclofenac Sodium) 100 Gm Gel..gram. 1 Vashti TP BID 30 Days Atorvastatin Calcium 20 Mg Tablet 20 Mg PO QHS 30 Days Xarelto (Rivaroxaban) 20 Mg Tablet 20 Mg PO DAILY 30 Days Cetirizine Hcl 10 Mg Tablet 10 Mg PO DAILY 30 Days Ibuprofen 600 Mg Tablet 600 Mg PO PRN Q6HRS PRN 90 Days Hydrochlorothiazide Tablet (Hydrochlorothiazide) 25 Mg Tablet 25 Mg PO DAILY 30 Days Reported Tizanidine Hcl 4 Mg Capsule 4 Mg PO QID PRN Docusate Sodium 100 Mg Capsule 1 Cap PO DAILY Multivitamins (Multivitamin) 1 Each Tablet 1 Tab PO DAILY Aspirin Ec (Aspirin) 325 Mg Tablet.dr 1 Tab PO DAILY Allergies Allergies: Coded Allergies: shellfish derived (Verified Allergy, Severe, 10/23/17) Iodinated Contrast Media (Verified Allergy, Intermediate, 10/23/17) digoxin (Verified Allergy, Intermediate, 10/23/17) I S O L A T I O N *CONTACT* (Verified Allergy, Unknown, 05/14/19) mrsa Vitals VITALS Vital Signs Date Time Temp Pulse Resp B/P (MAP) Pulse Ox O2 Delivery O2 Flow Rate FiO2 08/05/19 07:00 97.9 83 16 104/49 (67) 97 Room Air 97.9 Labs Labs Laboratory Tests Test 08/03/19 14:45 08/05/19 04:30 White Blood Count 12.3 x10^3/uL (4.0-11.0) 8.0 x10^3/uL (4.0-11.0) Red Blood Count 3.08 x10^6/uL (3.50-5.40) 2.98 x10^6/uL (3.50-5.40) Hemoglobin 9.1 g/dL (12.0-15.5) 8.9 g/dL (12.0-15.5) Hematocrit 27.8 % (36.0-47.0) 26.8 % (36.0-47.0) Mean Corpuscular Volume 90 fL (79-100) 90 fL (79-100) Mean Corpuscular Hemoglobin 30 pg (25-35) 30 pg (25-35) Mean Corpuscular Hemoglobin Concent 33 g/dL (31-37) 33 g/dL (31-37) Red Cell Distribution Width 16.6 % (11.5-14.5) 16.0 % (11.5-14.5) Platelet Count 203 x10^3/uL (140-400) 217 x10^3/uL (140-400) Sodium Level 134 mmol/L (136-145) 135 mmol/L (136-145) Potassium Level 3.5 mmol/L (3.5-5.1) 3.6 mmol/L (3.5-5.1) Chloride Level 97 mmol/L (98-107) 100 mmol/L (98-107) Carbon Dioxide Level 26 mmol/L (21-32) 27 mmol/L (21-32) Anion Gap 11 (6-14) 8 (6-14) Blood Urea Nitrogen 43 mg/dL (7-20) 40 mg/dL (7-20) Creatinine 1.7 mg/dL (0.6-1.0) 1.0 mg/dL (0.6-1.0) Estimated GFR (Cockcroft-Gault) 29.5 54.5 Glucose Level 119 mg/dL (70-99) 90 mg/dL (70-99) Calcium Level 9.0 mg/dL (8.5-10.1) 9.3 mg/dL (8.5-10.1) Laboratory Tests Test 08/05/19 04:30 White Blood Count 8.0 x10^3/uL (4.0-11.0) Red Blood Count 2.98 x10^6/uL (3.50-5.40) Hemoglobin 8.9 g/dL (12.0-15.5) Hematocrit 26.8 % (36.0-47.0) Mean Corpuscular Volume 90 fL (79-100) Mean Corpuscular Hemoglobin 30 pg (25-35) Mean Corpuscular Hemoglobin Concent 33 g/dL (31-37) Red Cell Distribution Width 16.0 % (11.5-14.5) Platelet Count 217 x10^3/uL (140-400) Sodium Level 135 mmol/L (136-145) Potassium Level 3.6 mmol/L (3.5-5.1) Chloride Level 100 mmol/L (98-107) Carbon Dioxide Level 27 mmol/L (21-32) Anion Gap 8 (6-14) Blood Urea Nitrogen 40 mg/dL (7-20) Creatinine 1.0 mg/dL (0.6-1.0) Estimated GFR (Cockcroft-Gault) 54.5 Glucose Level 90 mg/dL (70-99) Calcium Level 9.3 mg/dL (8.5-10.1) Images Images Hip imaging has been reviewed Assessment/Plan Assessment/Plan Patient is well-known to the orthopedic service, the providers have seen her approximately every 6-8 weeks. Her current x-rays did not require any urgent intervention at all. She can f/u in Ortho clinic as an outpatient SARA OLSON II, MD Aug 05, 2019 08:35
[2019-08-05] MEDS: METOPROLOL TART IMMED RELEASE 25 MG TABLET. PO SCH ×2 (09:00→21:47)
[2019-08-05] MEDS: POLYMYXIN/TRIMETHOPRIM OPHTH SOLUTION 10ML BOTTLE. OU SCH ×3 (09:00→21:00)
[2019-08-05] MEDS: DICLOFENAC SODIUM 1% TOPICAL GEL 100GM TUBE. TP SCH ×2 (09:00→21:00)
[2019-08-05] MEDS: CETIRIZINE HCL 10 MG TABLET. PO SCH (09:52)
[2019-08-05] MEDS: MULTIVITAMIN with MINERAL TABLET. PO SCH (09:52)
[2019-08-05] MEDS: LACTOBACILLUS RHAMNOSUS GG 1 CAPSULE. PO SCH ×2 (09:52→21:45)
[2019-08-05] MEDS: ASPIRIN ENTERIC COATED 325 MG TABLET.DR. PO SCH (09:53)
[2019-08-05] MEDS: DOCUSATE SODIUM 100 MG CAPSULE. PO SCH (09:53)
[2019-08-05] MEDS: METHADONE 10 MG TABLET. PO SCH ×3 (09:54→21:48)
[2019-08-05] MEDS: NYSTATIN TOPICAL POWDER 15GM BOTTLE. TP SCH ×2 (09:55→21:00)
--- NOTE | 2019-08-05 10:40 | NUR ---
SW following pt. Spoke with pt who now wants to go to SNF. Pt agreeable to go as long as she is not staying [facility]. Pt only wants to go to SNF in [facility]. Pt is aware she might have co-pays if she has recently left from SNF. MADDY faxed referral to Donna [facility], Leda Joshi, [facility], and [facility]. Pt acceptance and admission pending. Left a message for Physician and Wound care notified.
[2019-08-05 11:00] VITALS: BP 102/50
[2019-08-05] MEDS ORDERED: METO25TA4 PO (11:39)
--- NOTE | 2019-08-05 11:48 | SNU/HH DC ---
DISCHARGE ORDERS DISCHARGE INFORMATION: DISCHARGE DATE: Aug 05, 2019 FINAL DIAGNOSIS Problems Medical Problems: (1) Afib Status: Acute (2) Atrial fibrillation with RVR Status: Acute (3) Ulcer of sacral region, unstageable Status: Acute (4) UTI (urinary tract infection) Status: Acute CONDITION ON DISCHARGE: Stable CODE STATUS: Code Status: Full ALF: SNF STAY <30 DAYS: Yes POST DISCHARGE ORDERS: ACTIVITY ORDERS: Resume previous activity, Activity as tolerated WEIGHT BEARING STATUS: As tolerated DIET AFTER DISCHARGE: Cardiac WOUND/INCISION CARE: Change dressing OTHER WOUND INSTRUCTIONS: Wound Vac per protocol CHECKS AFTER DISCHARGE: CHECKS AFTER DISCHARGE: Check blood press - daily, Weigh Yourself Daily TREATMENT/EQUIPMENT ORDERS: ADAPTIVE EQUIPMENT NEEDED: None, Wheelchair Physical Therapy For: Evalulation/Treatment Occupational Therapy For: Evaluation/Treatment DISCHARGE MEDICATIONS: Home Meds Active Scripts Metoprolol Tartrate (METOPROLOL TARTRATE) 25 Mg Tablet, 12.5 MG PO BID for AFIB for 30 Days, #30 TAB Prov:SALVATORE HYDE MD 08/05/19 Methadone Hcl (METHADONE HCL) 10 Mg Tablet, 20 MG PO PRN TID PRN for MODERATE TO SEVERE PAIN for 15 Days, TAB Prov:LALITA IVLLARREAL MD 05/18/19 Diclofenac Sodium (VOLTAREN) 100 Gm Gel..gram., 1 ALESSANDRO TP BID for joint pain for 30 Days, #60 EACH Prov:LALITA VILLARREAL MD 05/18/19 Atorvastatin Calcium (ATORVASTATIN CALCIUM) 20 Mg Tablet, 20 MG PO QHS for HLD for 30 Days, #30 TAB Prov:LALITA VILLARREAL MD 05/18/19 Rivaroxaban (XARELTO) 20 Mg Tablet, 20 MG PO DAILY for afib for 30 Days, #30 TAB Prov:SALVATORE HYDE MD 12/10/18 Cetirizine Hcl (CETIRIZINE HCL) 10 Mg Tablet, 10 MG PO DAILY for 30 Days, #30 TAB Prov:SALVATORE HYDE MD 10/27/17 Ibuprofen (Ibuprofen) 600 Mg Tablet, 600 MG PO PRN Q6HRS PRN for INFLAMMATION for 90 Days, TAB Prov:SALVATORE HYDE MD 10/27/17 Reported Medications Tizanidine Hcl (TIZANIDINE HCL) 4 Mg Capsule, 4 MG PO QID PRN for MUSCLE SPASMS, CAP 10/19/17 Docusate Sodium (DOCUSATE SODIUM) 100 Mg Capsule, 1 CAP PO DAILY, #30 CAP 10/19/17 Multivitamin (MULTIVITAMINS) 1 Each Tablet, 1 TAB PO DAILY, #90 TAB 3 Refills 10/19/17 Aspirin (ASPIRIN EC) 325 Mg Tablet.dr, 1 TAB PO DAILY, #30 TAB 5 Refills 10/19/17 Discontinued Reported Medications Diphenhydramine Hcl (BENADRYL) 25 Mg Capsule, 25 MG PO PRN Q6HRS PRN for ALLERGIES, CAP 10/19/17 Discontinued Scripts Metoprolol Tartrate (METOPROLOL TARTRATE) 25 Mg Tablet, 1 TAB PO BID for afib, #60 TAB 5 Refills Prov:LALITA VILLARREAL MD 05/20/19 Hydrochlorothiazide (HYDROCHLOROTHIAZIDE TABLET ) 25 Mg Tablet, 25 MG PO DAILY for 30 Days, #30 TAB Prov:SALVATORE HYDE MD 10/27/17 Cephalexin (CEPHALEXIN) 250 Mg Capsule, 1000 MG PO BID for cellulitis for 7 Days, #56 CAP Prov:MATEO GARCIA MD 06/20/19 SALVATROE HYDE MD Aug 05, 2019 11:48
--- NOTE | 2019-08-05 12:00 | NUR ---
Pt has been accepted at [facility] and [facility]. Breanna jessi out of network. Pt chose [facility]. Orders faxed and awaiting on insurance approval. Discussed with Physician and SW left a VM to pt's daughter, Jade: [phone]. MADDY notified Luz, pt will need wound vac and air loss mattress. MADDY will continue to follow.
--- NOTE | 2019-08-05 14:34 | PDOC ---
SURGICAL PROGRESS NOTE Subjective Pt without c/o, tolerating local wound device Vital Signs Vital Signs Date Time Temp Pulse Resp B/P (MAP) Pulse Ox O2 Delivery O2 Flow Rate FiO2 08/05/19 11:00 98.0 86 16 102/50 (67) 99 Room Air 98.0 I&O Intake and Output 08/05/19 07:00 Intake Total 1600 ml Output Total 2550 ml Balance -950 ml Intake Oral 600 ml IV Total 1000 ml Output Urine Total 2550 ml # Bowel Movements 1 General: Alert, Oriented X3, Cooperative, No acute distress Abdomen: Soft, No tenderness Labs Laboratory Tests Test 08/03/19 14:45 08/05/19 04:30 White Blood Count 12.3 x10^3/uL (4.0-11.0) 8.0 x10^3/uL (4.0-11.0) Red Blood Count 3.08 x10^6/uL (3.50-5.40) 2.98 x10^6/uL (3.50-5.40) Hemoglobin 9.1 g/dL (12.0-15.5) 8.9 g/dL (12.0-15.5) Hematocrit 27.8 % (36.0-47.0) 26.8 % (36.0-47.0) Mean Corpuscular Volume 90 fL (79-100) 90 fL (79-100) Mean Corpuscular Hemoglobin 30 pg (25-35) 30 pg (25-35) Mean Corpuscular Hemoglobin Concent 33 g/dL (31-37) 33 g/dL (31-37) Red Cell Distribution Width 16.6 % (11.5-14.5) 16.0 % (11.5-14.5) Platelet Count 203 x10^3/uL (140-400) 217 x10^3/uL (140-400) Sodium Level 134 mmol/L (136-145) 135 mmol/L (136-145) Potassium Level 3.5 mmol/L (3.5-5.1) 3.6 mmol/L (3.5-5.1) Chloride Level 97 mmol/L (98-107) 100 mmol/L (98-107) Carbon Dioxide Level 26 mmol/L (21-32) 27 mmol/L (21-32) Anion Gap 11 (6-14) 8 (6-14) Blood Urea Nitrogen 43 mg/dL (7-20) 40 mg/dL (7-20) Creatinine 1.7 mg/dL (0.6-1.0) 1.0 mg/dL (0.6-1.0) Estimated GFR (Cockcroft-Gault) 29.5 54.5 Glucose Level 119 mg/dL (70-99) 90 mg/dL (70-99) Calcium Level 9.0 mg/dL (8.5-10.1) 9.3 mg/dL (8.5-10.1) Laboratory Tests Test 08/05/19 04:30 White Blood Count 8.0 x10^3/uL (4.0-11.0) Red Blood Count 2.98 x10^6/uL (3.50-5.40) Hemoglobin 8.9 g/dL (12.0-15.5) Hematocrit 26.8 % (36.0-47.0) Mean Corpuscular Volume 90 fL (79-100) Mean Corpuscular Hemoglobin 30 pg (25-35) Mean Corpuscular Hemoglobin Concent 33 g/dL (31-37) Red Cell Distribution Width 16.0 % (11.5-14.5) Platelet Count 217 x10^3/uL (140-400) Sodium Level 135 mmol/L (136-145) Potassium Level 3.6 mmol/L (3.5-5.1) Chloride Level 100 mmol/L (98-107) Carbon Dioxide Level 27 mmol/L (21-32) Anion Gap 8 (6-14) Blood Urea Nitrogen 40 mg/dL (7-20) Creatinine 1.0 mg/dL (0.6-1.0) Estimated GFR (Cockcroft-Gault) 54.5 Glucose Level 90 mg/dL (70-99) Calcium Level 9.3 mg/dL (8.5-10.1) Problem List Problems Medical Problems: (1) Afib Status: Acute (2) Atrial fibrillation with RVR Status: Acute (3) Ulcer of sacral region, unstageable Status: Acute (4) UTI (urinary tract infection) Status: Acute Assessment/Plan sacral ulcer cont local wound care, d/w ortho, no interventions planned. KALEN ADAM MD Aug 05, 2019 14:34
[2019-08-05 15:00] VITALS: BP 94/41
[2019-08-05] MEDS: AMINO AC 3%/ELECTROLYTE/GLYCER 1,000 ML IV SCH (15:31)
--- NOTE | 2019-08-05 16:08 | NUR ---
SW received a phone call from [facility] stating corporate had denied acceptance stating they are not able to manage pt's wounds. Discussed with pt and daughter, agreeable with Donna Shoemaker, phone: [phone], fax: [phone] Spoke with Emilia, phone: [phone] and they will take pt pending auth if only pt can be on air loss mattress rather than [place] bed. Discussed with Wound care and they recommend Cl[place]ron but aware only [facility] provides that bed. Agreeable with pt being on Air loss mattress since she will need to go to SNF. Wound care also reported Dr. Salazar would like to re-evaluate pt again for possible procedure. RN notified about this. Insurance auth for SNU pending.
[2019-08-05] MEDS: RIVAROXABAN 15 MG TABLET. PO SCH (18:39)
[2019-08-05 19:00] VITALS: BP 139/59
[2019-08-05] MEDS: fentaNYL PF VIAL 100 MCG/2 ML VIAL IVP PRN ×2 (19:54→23:01)
--- NOTE | 2019-08-05 19:57 | PDOC ---
Provider Note Provider Note (Please see full dictation. Consult called to office this afternoon.) 73 yo female with malnutrition, dementia, and debilitation who has decubitus, left hip and bilateral leg wounds. The left lateral foot wound extends down to the lateral 5th distal metatarsal head. The wounds are likely due to a combination of malnutrition and pressure. She likely has some arterial insufficiency, but would not recommend any arterial revascularization at this time. Would focus on protective measures to both feet and optimizing nutrition. She will likely need amputation of the left 5th toe. She should have adequate arterial supply to heal a 5th toe amputation with appropriate nutrition and off loading. If she improves enough to consider left 5th toe amputation, this may be done by Ortho who has been following her for her hip. Please call if other Vascular concerns arise. FLACO PATEL MD Aug 05, 2019 19:57
--- NOTE | 2019-08-05 21:27 | CONS ---
DATE OF CONSULTATION: 08/05/2019 CHIEF COMPLAINT: [place]. HISTORY OF PRESENT ILLNESS: The patient is a 73-year-old female with chronic debilitation due to congenital hip dysplasia and multiple other medical problems. She was noted by her family to have an ulcer on her sacrum. During her evaluation, she was noted to have multiple areas of skin breakdown on both lower extremities. She has chronic left hip pain and concerns followed by Orthopedic Surgery. We were asked to evaluate her for her lower extremity ulcers. She had an arterial ultrasound done earlier this year () that showed some diffuse atherosclerotic plaquing throughout both lower extremities. She had some blunting of flow and mild increased velocities in the left mid and distal superficial femoral artery with some monophasic flow more distally. She still had relatively preserved tibial artery flow bilaterally, slightly better on the right than on the left. No recent arterial imaging has been performed at [place]. She has some generalized confusion and is unable to answer most questions directed toward her with regards to her clinical history. PAST MEDICAL HISTORY: 1. 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 2. Osteoarthritis. 3. Lumbar spinal stenosis. 4. Chronic atrial fibrillation. 5. Chronic kidney disease (stage 3). 6. Hypertension. PAST SURGICAL HISTORY: Includes: 1. Tonsillectomy. 2. Left first toe amputation. 3. Cholecystectomy. 4. Lumbar spine surgery. 5. Partial hysterectomy. ALLERGIES: ADVERSE REACTION TO IODINATED CONTRAST WELL DIGOXIN. HOME MEDICATIONS: Please see detailed medication administration record for dosing. She was on metoprolol, hydrochlorothiazide, Xarelto, methadone, ibuprofen, tizanidine, aspirin, Zyrtec, atorvastatin. FAMILY HISTORY: Noncontributory. SOCIAL HISTORY: The patient is . She denies any smoking and/or alcohol use. She was staying at her daughter's house prior to recent admissions. REVIEW OF SYSTEMS: Somewhat limited due to her generalized confusion. She denies any fevers, chills, chest pain, shortness of breath, nausea, vomiting, diarrhea, constipation, hematochezia or melena. She is nonambulatory. She has some weakness in both lower extremities by her report. Other review of systems is not obtainable due to her confusion. PHYSICAL EXAMINATION: GENERAL: This is a chronically ill-appearing female in no acute distress. VITAL SIGNS: Temperature 98.5, pulse 87, blood pressure 94/41, respirations 16. NECK: Somewhat stiff. No palpable masses or lymphadenopathy. CARDIOVASCULAR: Regular rhythm. ABDOMEN: Obese, soft, nontender, nondistended, no palpable masses. EXTREMITIES: She has palpable radial and femoral pulses bilaterally. Her popliteal and pedal pulses are nonpalpable. She has strong monophasic to biphasic Doppler signals in her left dorsalis pedis artery with a weak monophasic signal in the left posterior tibial artery. There is strong monophasic flow in the right posterior tibial artery with a somewhat slightly weaker monophasic flow in the right dorsalis pedis artery. She has no significant peripheral edema. There is dry eschar that appears to extend down to the bone over the lateral left foot in the region of the fifth metatarsal head. No surrounding erythema or fluctuance at this time. She has some superficial abrasions and areas of skin breakdown more proximally on the left leg. She also has a posterior right Achilles hyperemia suspicious for pressure injury as well as a right medial calf area of darkened skin and early eschar as well as left lateral ankle and foot areas of superficial skin breakdown. She has a wound VAC dressing over her left hip. NEUROLOGIC: She is awake and talkative, but she has difficulty tracking with questions. She is moving both upper extremities, she is able to easily move her right toes, but has limited proximal motor strength and has more difficulty moving her left leg. This appears to mainly be due to stiffness and pain in her left leg. LABORATORY DATA: Significant for white blood cell 8.0, hemoglobin 8.9, platelet count of 217. Sodium 135, potassium 3.6, BUN 40, creatinine 1.0. This is improved from 1.5 at the time of admission. Albumin is decreased at 2.3. IMPRESSION: 1. Bilateral lower extremity ulcers are likely due to a combination of malnutrition, pressure, and some peripheral arterial disease. 2. Severe malnutrition. 3. Debilitation due to hip dysplasia and chronic arthritis limiting activity. 4. Dementia. 5. Chronic kidney disease (improved). 6. Hypertension. 7. Sacral decubitus. RECOMMENDATIONS: 1. Would continue efforts at nutritional support as well as careful offloading of all pressure points. She is currently on a pressure-relief bed. 2. Continue local wound care to her lower leg ulcers. She has Xeroform gauze with wraps. We would continue with topical Xeroform after cleansing the wounds with very loose wraps. The majority of the lower extremity wounds are superficial and have a very good chance of healing with appropriate wound care and nutrition. 3. The left lateral foot ulcer over the fifth metatarsal head appears to extend down to the bone. I suspect that she will eventually need a left fifth toe ray amputation. She has demonstrated healing of a left first great toe ray amputation. Would optimize nutritional status prior to proceeding with amputation. I suspect that she will have adequate arterial flow if her nutritional status is optimized prior to amputation. Orthopedic Surgery has been following her for her hip dysplasia and can proceed with toe amputation when she is medically stable. 4. I would not recommend any arterial interventions at this time due to her overall generalized immobility as well as reasonable arterial flow despite some component of arterial insufficiency. 5. We will sign off for now. Please call if other vascular concerns arise. FLACO PATEL MD DR: MEÑO/nancy JOB#: [id number] / [id number] SARA Villalobos MD, MARGARET MD
[2019-08-05] MEDS: cefTRIAXone IV Push 1 GM VIAL. IVP SCH (21:45)
[2019-08-05] MEDS: ATORVASTATIN CALCIUM 20 MG TABLET PO SCH (21:48)
[2019-08-05 23:00] VITALS: BP 107/42
[2019-08-06] MEDS: fentaNYL PF VIAL 100 MCG/2 ML VIAL IVP PRN ×3 (01:05→15:38)
[2019-08-06 03:00] VITALS: BP 129/60
[2019-08-06] MEDS: AMINO AC 3%/ELECTROLYTE/GLYCER 1,000 ML IV SCH ×2 (04:21→16:00)
[2019-08-06 07:00] VITALS: BP 110/60
[2019-08-06] MEDS: NYSTATIN TOPICAL POWDER 15GM BOTTLE. TP SCH (09:00)
[2019-08-06] MEDS: POLYMYXIN/TRIMETHOPRIM OPHTH SOLUTION 10ML BOTTLE. OU SCH ×3 (09:00→14:00)
[2019-08-06] MEDS: ASPIRIN ENTERIC COATED 325 MG TABLET.DR. PO SCH (09:05)
[2019-08-06] MEDS: LACTOBACILLUS RHAMNOSUS GG 1 CAPSULE. PO SCH (09:05)
[2019-08-06] MEDS: DOCUSATE SODIUM 100 MG CAPSULE. PO SCH (09:05)
[2019-08-06] MEDS: METOPROLOL TART IMMED RELEASE 25 MG TABLET. PO SCH (09:05)
[2019-08-06] MEDS: CETIRIZINE HCL 10 MG TABLET. PO SCH (09:05)
[2019-08-06] MEDS: MULTIVITAMIN with MINERAL TABLET. PO SCH (09:05)
[2019-08-06] MEDS: METHADONE 10 MG TABLET. PO SCH ×2 (09:06→14:04)
--- NOTE | 2019-08-06 09:35 | PDOC ---
NICOLE NARVAEZ [employer] 08/06/19 0935: SURGICAL PROGRESS NOTE Subjective no complaints Vital Signs Vital Signs Date Time Temp Pulse Resp B/P (MAP) Pulse Ox O2 Delivery O2 Flow Rate FiO2 08/06/19 09:05 92 110/60 08/06/19 07:00 97.9 16 97 Room Air 97.9 I&O Intake and Output 08/06/19 06:59 Intake Total 2200 ml Output Total 2400 ml Balance -200 ml Intake Oral 1200 ml IV Total 1000 ml Output Urine Total 2400 ml General: Cooperative, No acute distress Skin: Other (vac in place) Labs Laboratory Tests Test 08/05/19 04:30 White Blood Count 8.0 x10^3/uL (4.0-11.0) Red Blood Count 2.98 x10^6/uL (3.50-5.40) Hemoglobin 8.9 g/dL (12.0-15.5) Hematocrit 26.8 % (36.0-47.0) Mean Corpuscular Volume 90 fL (79-100) Mean Corpuscular Hemoglobin 30 pg (25-35) Mean Corpuscular Hemoglobin Concent 33 g/dL (31-37) Red Cell Distribution Width 16.0 % (11.5-14.5) Platelet Count 217 x10^3/uL (140-400) Sodium Level 135 mmol/L (136-145) Potassium Level 3.6 mmol/L (3.5-5.1) Chloride Level 100 mmol/L (98-107) Carbon Dioxide Level 27 mmol/L (21-32) Anion Gap 8 (6-14) Blood Urea Nitrogen 40 mg/dL (7-20) Creatinine 1.0 mg/dL (0.6-1.0) Estimated GFR (Cockcroft-Gault) 54.5 Glucose Level 90 mg/dL (70-99) Calcium Level 9.3 mg/dL (8.5-10.1) Problem List Problems Medical Problems: (1) Afib Status: Acute (2) Atrial fibrillation with RVR Status: Acute (3) Ulcer of sacral region, unstageable Status: Acute (4) UTI (urinary tract infection) Status: Acute Assessment/Plan wound care no surgical plans KALEN ADAM MD 08/06/19 8768: SURGICAL PROGRESS NOTE Assessment/Plan Pt seen and examined. Agree with Ms. Narvaez's note Reviewed ulcer with wound care improvement with kaylie JOHNSTON for NICOLE Del Valle APRN Aug 06, 2019 09:35 KALEN ADAM MD Aug 06, 2019 14:24
[2019-08-06] MEDS: DICLOFENAC SODIUM 1% TOPICAL GEL 100GM TUBE. TP SCH (10:10)
[2019-08-06 11:00] VITALS: BP 106/47
[2019-08-06] MEDS: ANTI-COAG MONITOR BY PHARMACY. MC PRN (13:22)
[2019-08-06 15:00] VITALS: BP 128/47
--- NOTE | 2019-08-06 15:00 | NUR ---
Wound Care: Wound care follow up for multiple pressure ulcers. All wounds cleansed with wound wash and dressed (see wound intervention for specific dressings). Pt on [place] bed. Pt with multiple DTIs throughout her lower extremities and sacrum with let lateral 5th toe having exposed bone. Pt is not canidate for surgery at this time due to nutritional status. Pt wounds pictured and measured for discharge. Pt encouraged to let staff reposition her, additional education is possibly needed on the benefits of repositioning. WC will continue to follow for possible changes.
--- NOTE | 2019-08-06 16:13 | NUR ---
SW following for discharge planning. Insurance approved for pt to go to [facility]. Pt will no longer need the wound vac per Kenny FRACNES and Dr. Salazar. Pt will need cream applied to left foot and backside instead - [facility] aware and ok with this. SW faxed discharge paperwork. Pt will be transported between [id number]. RN notified. No further SW needs.
--- NOTE | 2019-08-06 16:39 | NUR ---
Pt left unit by stretcher via transport. Pt IV removed with no complications. Pt's dentures that were lost after time of admission were not found at time of discharge. Discharge instructions sent with pt. Pt stable upon discharge.
--- NOTE | 2019-08-06 16:50 | NUR ---
This RN called and gave report to LILIAN Adams at [facility].
[2019-08-25] MEDS ORDERED: ACET325T21 PO (19:54)
[2019-08-25] MEDS ORDERED: SENN1TAB62 PO (19:54)
[2019-08-25] MEDS ORDERED: METH10TA2 PO (19:54)
== END 2019-08-06 16:51 | DRG 592 ==
LOC: ER 19:35 → 5 SOUTH 22:42
PROVIDERS: ADMIT Family Medicine; ATTEND Family Medicine
DX: L89.153 Pressure ulcer of sacral region, stage 3 (principal); E43 Unspecified severe protein-calorie malnutrition; N17.9 Acute kidney failure, unspecified; I48.21 Permanent atrial fibrillation; N39.0 Urinary tract infection, site not specified; I13.0 Hypertensive heart and chronic kidney disease with heart failure and stage 1 through stage 4 chronic kidney disease, or unspecified chronic kidney disease; I48.20 Chronic atrial fibrillation, unspecified; L97.919 Non-pressure chronic ulcer of unspecified part of right lower leg with unspecified severity; L97.929 Non-pressure chronic ulcer of unspecified part of left lower leg with unspecified severity; E03.9 Hypothyroidism, unspecified; E78.5 Hyperlipidemia, unspecified; F03.90 Unspecified dementia, unspecified severity, without behavioral disturbance, psychotic disturbance, mood disturbance, and anxiety; G89.29 Other chronic pain; I50.9 Heart failure, unspecified; I73.9 Peripheral vascular disease, unspecified; J44.9 Chronic obstructive pulmonary disease, unspecified; M19.90 Unspecified osteoarthritis, unspecified site; N18.3 Chronic kidney disease, stage 3 (moderate); Q65.89 Other specified congenital deformities of hip; Z83.3 Family history of diabetes mellitus; Z89.429 Acquired absence of other toe(s), unspecified side; Z90.711 Acquired absence of uterus with remaining cervical stump; Z96.649 Presence of unspecified artificial hip joint; E66.01 Morbid (severe) obesity due to excess calories; F32.9 Major depressive disorder, single episode, unspecified; Z88.8 Allergy status to other drugs, medicaments and biological substances; Z91.013 Allergy to seafood; H10.9 Unspecified conjunctivitis
CPT/HCPCS: 36415; 80048; 80053; 81001; 83605; 85007; 85025; 85027; 86140; 87040; 87071; 87075; 87086; 87186; 90471; 90686; 93005; 96365; 96366; 96375; J0696; J2405; J3010; J3370; J3490; J7030; J7040; 99285-25; G0378